=== PATIENT | female | born 1950 | race Caucasian/White ===

== ENCOUNTER → 2017-03-18 | Outpatient (CLI) | payer OTHER ==
--- NOTE | 2017-03-18 18:03 | CT ---
EXAMINATION TYPE: CT abdomen pelvis wo con DATE OF EXAM: 03/18/2017 COMPARISON: 05/14/2014 HISTORY: Left sided and Mid abdominal pain with diarrhea for a month CT DLP: 984 mGycm Automated exposure control for dose reduction was used. TECHNIQUE: Helical acquisition of images was performed from the lung bases through the pelvis. FINDINGS: Lung bases are clear of consolidation. There is no pleural effusion. Liver shows no focal defect. There is mild ectasia of the bile ducts. There are clips from cholecyste ctomy. Common bile duct measures 13 mm. Spleen appears normal. There is no pancreatic mass. There is no adrenal mass. Kidneys have normal size and contour. There is no hydronephrosis. There is atherosclerotic vascular calcification. There is no retroperitoneal adenopathy. Bladder is empty. There is left hip prosthesis. There is no evidence of pelvic mass. There is no asci arie. Appendix appears normal. I see no bony destructive process.: IMPRESSION: THERE IS CHRONICALLY DILATED BILIARY TREE THAT IS IMPROVED COMPARED TO 05/14/2014 EXAM. ATHEROSCLEROTIC VASCULAR DISEASE. NO EVIDENCE OF RENAL OBSTRUCTION. NO SIGN OF ACUTE ABDOMEN AND PELVIS.
== END | disposition home or self-care (01) ==
LOC: RADCTMAIN 16:50
PROVIDERS: ATTEND Family Medicine
DX: K83.8 Other specified diseases of biliary tract (principal); I70.0 Atherosclerosis of aorta
CPT/HCPCS: 74176

== ENCOUNTER → 2019-07-03 | Outpatient (CLI) | payer MEDICARE, OTHER ==
--- NOTE | 2019-07-03 11:21 | MM ---
Reason for exam: additional evaluation requested from prior study. Last mammogram was performed 5 years and 1 month ago. History: Patient is postmenopausal. Benign cyst aspiration of both breasts. Took hormonal contraceptives for 1 year. Physical Findings: Nurse Summary: 2 x 2cm nodule in the left breast at 12 o'clock (nurse TM). MG 3D Diag Mammo W/Cad PETRONA Bilateral CC, MLO, and LM view(s) were taken. XCCL view(s) were taken of the right breast. Prior study comparison: June 04, 2014, bilateral MG screening mammo w CAD. May 19, 2012, mammogram, performed at [facility]. The breast tissue is heterogeneously dense. This may lower the sensitivity of mammography. There is a left upper outer quadrant 3.0cm spiculated mass at anterior middle depth. Two right lower inner quadrant circumscribed masses measuring 3mm and 4mm at middle depth. Other bilateral circumscribed masses are stable back to 2013. Benign appearing bilateral calcifications. These results were verbally communicated with the patient and result sheet given to the patient on 07/03/19. ASSESSMENT: Incomplete: need additional imaging evaluation, BI-RAD 0 RECOMMENDATION: Ultrasound of both breasts. (right lower inner quadrant and left upper outer quadrant)
--- NOTE | 2019-07-03 11:24 | USB ---
Reason for exam: clinical finding. History: Patient is postmenopausal. Benign cyst aspiration of both breasts. Took hormonal contraceptives for 1 year. US Breast Limited BILAT Right limited breast ultrasound including focal area of concern, retroareolar and axilla demonstrates a 0.6 x 0.6 x 0.4cm cystic lesion at 4 o'clock and a 0.4 x 0.4 x 0.3cm cystic lesion at 5 o'clock. Correlate within mammogram, benign. Left limited breast ultrasound including focal area of concern, retroareolar and axilla demonstrates a 2.7 x 3.7 x 2.4cm spiculated, solid, hypoechoic, vascular lesion at 12 o'clock. Highly suspicious, BI-RAD 5. These results were verbally communicated with the patient and result sheet given to the patient on 07/03/19. ASSESSMENT: Highly suggestive of malignancy, BI-RAD 5 - Left RECOMMENDATION: Ultrasound core biopsy of the left breast. Called Dr. Zimmerman office with mammographic findings and has scheduled an appointment for the patient for 08/02/19 at 10:[address] Ventura. Biopsy scheduled for 07/13/19 at 9:30. PRELIMINARY REPORT CALLED AND FAXED TO DR. VENTURA ON 07/03/19.
== END | disposition home or self-care (01) ==
LOC: RADMAMWWP 08:45
PROVIDERS: ATTEND Family Medicine
DX: N63.20 Unspecified lump in the left breast, unspecified quadrant (principal); E03.9 Hypothyroidism, unspecified; E66.9 Obesity, unspecified
CPT/HCPCS: 77066; 76642; G0279; 77062

== ENCOUNTER → 2019-07-13 | Day surgery (SDC) | payer MEDICARE, OTHER ==
[2019-07-13 07:26] VITALS: RESP 16; BMI 32.8
[2019-07-13 08:54] VITALS: BP 119/77; PULSE 76; TEMP 97.9
--- NOTE | 2019-07-13 10:17 | USB ---
EXAMINATION TYPE: US biopsy breast VAD LT, MG diagnostic mammo LT wo CAD DATE OF EXAM: 07/13/2019 CLINICAL HISTORY: R92.8 Abnormal Mammogram. TECHNIQUE: Ultrasound guided core biopsy of left breast. COMPARISON: Breast ultrasound dated 07/03/2019 FINDINGS: The procedure of ultrasound guided core biopsy was explained to the patient. Benefits, alternatives, and risks were discussed. An informed consent was then obtained. Preprocedural timeout was performed. The patient was placed in supine positioning for imaging and for the procedure. The overlying skin was prepped and draped in usual sterile fashion. Lidocaine buffered with bicarbonate was used as anesthetic into the skin and subcutaneous tissue up to the highly suspicious 3.7 cm mass at the 12:00 position in the left breast. Under ultrasound guidance, a 12-gauge vacuum assisted biopsy gun device was used to obtain 7 core samples. Following this, a ribbon-shaped biopsy marker was left in the mass. Postprocedure mammogram demonstrates appropriate biopsy marker placement. The patient tolerated the procedure well without any immediate complication. The patient was kept in the radiology department for short stay after the procedure and then discharged home in stable condition. IMPRESSION: Successful, uncomplicated ultrasound guided core biopsy of area of a highly suspicious 3.7 cm mass at the 12:00 position in the left breast, full pathology results to follow. Pathology Results: Malignant LEFT BREAST, 12:00, ULTRASOUND GUIDED CORE BIOPSY: Invasive ductal carcinoma, at least grade 2 overall. See Surgical Pathology Cancer Case Summary and Comment. Recommendation Surgical consult of the left breast. Definitive surgical/medical management. ILANAD
== END ==
LOC: RADUSWWP 06:55
PROVIDERS: ATTEND Surgery
DX: C50.812 Malignant neoplasm of overlapping sites of left female breast (principal)
CPT/HCPCS: 88305; 88342; 88341; 77065; 19083; A4648; J2001

== ENCOUNTER → 2019-07-20 | Outpatient (CLI) | payer MEDICARE, OTHER ==
[2019-07-20 16:05] VITALS: BP 138/86; PULSE 78; RESP 18; TEMP 97.6; BMI 33.3
--- NOTE | 2019-07-20 16:44 | P.GSHP ---
History of Present Illness H&P Date: 07/20/19 Chief Complaint: left breast cancer Kayy is a 68-year-old white female who had a mammogram performed on 1020 219. The mammogram revealed in the left breast a 3 cm spiculated mass anterior middle depth. The patient was recommended to have bilateral ultrasounds performed. On the ultrasound right breast a 0.6 x 0.4 cm cystic lesion was identified. In the left breast a 3.7 x 2.7 spiculated solid lesion was identified at the 12:00 lesion. 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 This is ER/ID positive HER-2/alpa negative. The patient states that she can feel the area which was somewhat abnormal for several months but then it seemed to grow much more rapidly and she pursued radiographic evaluation. The patient has had cyst drained in the past in her breast. She has not had any recent trauma, surgery, or infection of the breast. No abnormal nipple discharge or skin changes. Family history: mother: ? type of cancer (abdominal) father: ? type maternal uncle: ? type of cancer brother: ? cancer type Hormonal History: menarche: 11 , breast fed: no, first born at 23 menopasue: 29 took ovaries, done for bleeding BCP: 4 months hormones: none Surgical history: 1. Total abdominal hysterectomy 2. 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 Hip replacement 4. Cholecystectomy 5. Exploratory laparotomy on multiple occasions 6. Colonoscopy and endoscopy is 7. Pulmonary arterial hypertension Medical History: 1. 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 Zimmerman 2. Thyroid radiated hypothyroid Social History: smoke: none alcohol: none drugs: none - Constitutional Constitutional: Denies chills, Denies fever - EENT Eyes: bilateral blurred vision, denies pain Ears: bilateral: decreased hearing, deny: tinnitus Ears, nose, mouth and throat: Denies headache, Denies sore throat - Breasts Breasts: bilateral: as per HPI - Cardiovascular Cardiovascular: Denies chest pain, Denies shortness of breath - Respiratory Respiratory: Denies cough, Denies 7 - Gastrointestinal Comment: liver transplant - Genitourinary (Female) Genitourinary: Denies dysuria, Denies hematuria - Menstruation Menstruation: Reports post hysterectomy - Musculoskeletal Comment: arthritis Musculoskeletal: Reports myalgias - Integumentary Integumentary: Denies pruritus, Denies rash - Neurological Neurological: Reports weakness, Denies numbness - Psychiatric Psychiatric: Reports anxiety, Denies depression - Endocrine Comment: hypothyroid - Hematologic/Lymphatic Comment: baby aspirin - Allergic/Immunologic Allergic/Immunologic: Reports seasonal allergies Past Medical History Past Medical History: GERD/Reflux, Liver Disease, Osteoarthritis (OA), Thyroid Disorder Additional Past Medical History / Comment(s): CIRRHOSIS WITH LIVER TRANSPLANT (2011), HX OF FX ARM, RIGHT SHOULDER AND LEFT HIP WITH PAIN History of Any Multi-Drug Resistant Organisms: None Reported Past Surgical History: Cholecystectomy, Heart Catheterization With Stent, Hysterectomy Additional Past Surgical History / Comment(s): liver transplant (2011), STATES HEART STENT INSERTED FOR PULMONARY HYPERTENSION WHERE SHE RECEIVED MEDICATION AND THE STENT WAS REMOVED WHEN SHE HAD HER LIVER TRANSPLANT. THYROID SURGERY Past Anesthesia/Blood Transfusion Reactions: Previous Problems w/ Anesthesia Additional Past Anesthesia/Blood Transfusion Reaction / Comment(s): STATES LAST COLONOSCOPY SHE COULD FEEL EVERYTHING BUT COULD NOT SPEAK TO TELL THEM SHE WAS AWAKE. 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 Date of Last Stent Placement:: 05/02/2011 Past Psychological History: Anxiety Smoking Status: Former smoker Past Alcohol Use History: None Reported Additional Past Alcohol Use History / Comment(s): QUIT SMOKING APPROX 2009, SMOKED 1 PPD . STARTED SMOKING AGE 19. Past Drug Use History: None Reported - Past Family History Mother Family Medical History: Cancer Father Family Medical History: Cancer Brother(s) Family Medical History: Cancer Medications and Allergies Home Medications Medication Instructions Recorded Confirmed Type Atorvastatin [Lipitor] 10 mg PO DAILY 04/11/16 07/13/19 History DULoxetine HCL [Cymbalta] 20 mg PO DAILY@1800 04/11/16 07/13/19 History Levothyroxine Sodium [Synthroid] 100 mcg PO DAILY 04/11/16 07/13/19 History Tacrolimus [Prograf] 0.5 mg PO Q12H 04/11/16 07/13/19 History Zolpidem [Ambien] 10 mg PO HS PRN #7 tab 04/15/16 07/13/19 Rx Aspirin [Adult Low Dose Aspirin EC] 81 mg PO DAILY 07/18/17 07/13/19 History Ranitidine HCl [Zantac] 150 mg PO BID 07/18/17 07/13/19 History Alendronate Sodium [Fosamax] 70 mg PO WEEKLY 07/19/17 07/13/19 History Multivitamin,Therapeutic [Thera] 1 each PO DAILY 07/09/19 07/13/19 History Vitamin B Complex 1 each PO DAILY 07/20/19 07/20/19 History Allergies Allergy/AdvReac Type Severity Reaction Status Date / Time No Known Allergies Allergy Verified 07/20/19 16:05 Surgical - Exam Vital Signs Temp Pulse Resp BP Pulse Ox 97.6 F 78 18 138/86 93 L 07/20/19 16:02 07/20/19 16:02 07/20/19 16:02 07/20/19 16:02 07/20/19 16:02 BMI 33.3 - General well developed, well nourished, no distress - Eyes normal ocular movement - ENT no hearing loss, no congestion - Neck no masses, trachea midline - Respiratory normal expansion, normal respiratory effort, clear to auscultation - Cardiovascular Rhythm: regular Heart Sounds: normal: S1, S2 - Abdomen Abdomen: soft, non tender, no guarding, no rigid, no rebound - Integumentary normal turgor - Neurologic no disoriented, no combative - Musculoskeletal normal gait, normal posture - Psychiatric oriented to time, oriented to person, oriented to place, speech is normal, memory intact breast exam: right breast: multipositional exam no dominate masses or nodules of concern, fibrocystic changes right axilla: no adenopathy of concern left breast: 3 cm firm mass o'clock position left breast, fibrocystic changes, otherwise no dominant masses or nodules of concern, mild dimpling at the 12 o'clock position Left axilla: No adenopathy of concern Results Mammogram and ultrasound results reviewed Assessment and Plan Assessment: Impression: 1. Biopsy-proven left breast cancer approximately 2.7 cm in size 2. Fibrocystic disease 3. Family history of cancer 4. Personal history of liver transplant on tacrolimus 5. Arthritis Plan: 1. Discusse with medical oncology patient would be a candidate for chemotherapy neoadjuvant 2. discuss surgical options with the patient, lumpectomy versus mastectomy plus or minus reconstruction, sentinel node biopsy possible axillary noticed that patient 3. Present case at tumor board 4. medical clearance Discussed surgical options. The patient would prefer an attempt at lumpectomy if possible. She understands risks and benefits which include bleeding infection reaction to the anesthetic. She also includes that if margins are positive this may necessitate a mastectomy. Secondary to her liver transplant she is not interested in plastic surgery with reconstruction. She would have a mastectomy if margins were positive. Cc: Dr. Brock Zimmerman Time with Patient: Greater than 30 (discussion regarding treatment options and liver transplant immune supression)
== END ==
LOC: WWCWWP 15:34
PROVIDERS: ATTEND Surgery
DX: Z53.9 Procedure and treatment not carried out, unspecified reason (principal)

== ENCOUNTER → 2019-08-03 | Outpatient (CLI) | payer MEDICARE, OTHER ==
[2019-08-03 09:58] VITALS: BP 133/78; PULSE 75; RESP 18; TEMP 98.1; BMI 33.5
--- NOTE | 2019-08-03 11:17 | P.PN ---
Progress Note - Text Progress Note Date: 08/03/19 Kayy is a 68-year-old white female who had a mammogram performed on 1020 219. The mammogram revealed in the left breast a 3 cm spiculated mass anterior middle depth. The patient was recommended to have bilateral ultrasounds performed. On the ultrasound right breast a 0.6 x 0.4 cm cystic lesion was identified. In the left breast a 3.7 x 2.7 spiculated solid lesion was identified at the 12:00 lesion. 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 This is ER/TX positive HER-2/alpa negative. The patient states that she can feel the area which was somewhat abnormal for several months but then it seemed to grow much more rapidly and she pursued radiographic evaluation. The patient has had cyst drained in the past in her breast. She has not had any recent trauma, surgery, or infection of the breast. No abnormal nipple discharge or skin changes. Oncotype study was performed via Dr. Flowers's office. The results returned with insufficient tissue for evaluation. The patient's case was discussed with Dr. Floewrs and it was felt that we should proceed with surgical treatment prior to neoadjuvant therapy. The patient and her daughter understand as well. Family history: mother: ? type of cancer (abdominal) father: ? type maternal uncle: ? type of cancer brother: ? cancer type Hormonal History: menarche: 11 , breast fed: no, first born at 23 menopasue: 29 took ovaries, done for bleeding BCP: 4 months hormones: none Surgical history: 1. Total abdominal hysterectomy 2. 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 Hip replacement 4. Cholecystectomy 5. Exploratory laparotomy on multiple occasions 6. Colonoscopy and endoscopy is 7. Pulmonary arterial hypertension Medical History: 1. 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 Zimmerman 2. Thyroid radiated hypothyroid Social History: smoke: none alcohol: none drugs: none - Constitutional Constitutional: Denies chills, Denies fever - EENT Eyes: bilateral blurred vision, denies pain Ears: bilateral: decreased hearing, deny: tinnitus Ears, nose, mouth and throat: Denies headache, Denies sore throat - Breasts Breasts: bilateral: as per HPI - Cardiovascular Cardiovascular: Denies chest pain, Denies shortness of breath - Respiratory Respiratory: Denies cough, Denies 7 - Gastrointestinal Comment: liver transplant - Genitourinary (Female) Genitourinary: Denies dysuria, Denies hematuria - Menstruation Menstruation: Reports post hysterectomy - Musculoskeletal Comment: arthritis Musculoskeletal: Reports myalgias - Integumentary Integumentary: Denies pruritus, Denies rash - Neurological Neurological: Reports weakness, Denies numbness - Psychiatric Psychiatric: Reports anxiety, Denies depression - Endocrine Comment: hypothyroid - Hematologic/Lymphatic Comment: baby aspirin - Allergic/Immunologic Allergic/Immunologic: Reports seasonal allergies Past Medical History Past Medical History: GERD/Reflux, Liver Disease, Osteoarthritis (OA), Thyroid Disorder Additional Past Medical History / Comment(s): CIRRHOSIS WITH LIVER TRANSPLANT (2011), HX OF FX ARM, RIGHT SHOULDER AND LEFT HIP WITH PAIN History of Any Multi-Drug Resistant Organisms: None Reported Past Surgical History: Cholecystectomy, Heart Catheterization With Stent, Hyst erectomy Additional Past Surgical History / Comment(s): liver transplant (2011), STATES HEART STENT INSERTED FOR PULMONARY HYPERTENSION WHERE SHE RECEIVED MEDICATION AND THE STENT WAS REMOVED WHEN SHE HAD HER LIVER TRANSPLANT. THYROID SURGERY Past Anesthesia/Blood Transfusion Reactions: Previous Problems w/ Anesthesia Additional Past Anesthesia/Blood Transfusion Reaction / Comment(s): STATES LAST COLONOSCOPY SHE COULD FEEL EVERYTHING BUT COULD NOT SPEAK TO TELL THEM SHE WAS AWAKE. 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 Date of Last Stent Placement:: 05/02/2011 Past Psychological History: Anxiety Smoking Status: Former smoker Past Alcohol Use History: None Reported Additional Past Alcohol Use History / Comment(s): QUIT SMOKING APPROX 2009, SMOKED 1 PPD . STARTED SMOKING AGE 19. Past Drug Use History: None Reported - Past Family History Mother Family Medical History: Cancer Father Family Medical History: Cancer Brother(s) Family Medical History: Cancer Physical exam: Lungs: Clear Heart: Regular rate and rhythm Left breast lesion noted at 12 o'clock position approximately 4 cm in size with some skin dimpling Impression: 1. left breast cancer 2. Fibrocystic breast disease 3. Family history of cancer 4. Personal history of liver transplant on tacrolimus 5. Arthritis Plan: 1. Oncotype DX was insufficient tissue after discussion with medical oncology will proceed with surgery 2. Patient wishes attempt at lumpectomy she understands risks and benefits and the possibility if this is positive margins we would proceed with reexcision and/or mastectomy, she understands sentinel node biopsy possible axillary node dissection 3. Was still present case at tumor board 4. Medical clearance 30 minutes spent with patient and daughter discussion again risks and benefits and surgical options.
== END ==
LOC: WWCWWP 09:39
PROVIDERS: ATTEND Surgery
DX: Z53.9 Procedure and treatment not carried out, unspecified reason (principal)

== ENCOUNTER 2019-08-29 08:52 | Day surgery (SDC) | payer MEDICARE, OTHER ==
[2019-08-27 16:19] VITALS: BMI 33.5
[~2019-08-29 08:52] MED LIST: DEXAMETHASONE SOD PHOSPHATE 10 MG/ML 1 ML VIAL IV ONE; HEPARIN SODIUM,PORCINE 5,000 UNIT/ML 1 ML VIAL SQ ONE; HYDROmorphone 0.5 MG/0.5 ML SYRINGE IVP PRN; LACTATED RINGERS 1,000 ML IV SCH; MIDAZOLAM 2 MG/2 ML VIAL IV PRN; ONDANSETRON 4 MG/2 ML VIAL IVP ONE; Pre Op ABX Message 1 EACH MISC MISCELLANE ONE
[2019-08-29] MEDS ORDERED: ALPRAZolam 0.25 MG TAB PO ONE ×2 (09:30)
[2019-08-29] MEDS ORDERED: LIDOCAINE 1% 20 ML VIAL (10MG/ML) FOR IV START SQ ONE (10:40)
--- NOTE | 2019-08-29 11:06 | NM ---
EXAMINATION TYPE: NM sentinel node injection DATE OF EXAM: 08/29/2019 COMPARISON: NONE HISTORY: Left-sided breast cancer. TECHNIQUE AND FINDINGS: The procedure of sentinel lymph node injection was explained to the patient. The benefits, alternatives, and risks were discussed. An informed consent was then obtained. Overlying skin is cleaned with sterile alcohol. Following this, 484 uCi [id number] Tilmanocept was inject ed in the upper outer aspect of the left nipple intradermally. The patient tolerated the procedure well without any immediate complication. The patient was kept in the radiology department for short stay after the procedure and then taken to surgery for surgical p rocedure what is presumed intraoperative gamma probe will be used for sentinel lymph node detection. IMPRESSION: Left breast radiotracer injection for sentinel node localization as above.
[2019-08-29] MEDS ORDERED: MIDAZOLAM 2 MG/2 ML VIAL ONE (12:14)
[2019-08-29] MEDS ORDERED: LIDOCAINE 1% INJ 10MG/ML (20 ML MDV) ONE (12:14)
[2019-08-29] MEDS ORDERED: HYDROmorphone (PF) 1 MG/ML ONE (12:14)
[2019-08-29] MEDS ORDERED: SUCCINYLCHOLINE CHLORIDE 100 MG/5 ML SYR IV ONE (12:14)
[2019-08-29] MEDS ORDERED: PROPOFOL 10 MG/ML 20 ML VIAL IV ONE (12:14)
[2019-08-29] MEDS ORDERED: fentaNYL (PF) 50 MCG/ML 2 ML AMP ONE (12:14)
[2019-08-29] MEDS ORDERED: LIDOCAINE (PF) 10 MG/ML 2 ML VIAL SQ ONE (12:59)
--- NOTE | 2019-08-29 14:29 | P.DS ---
Providers Attending physician: Candie Garza Primary care physician: Brock Zimmerman Plan - Discharge Summary Discharge Rx Participant: Yes New Discharge Prescriptions: No Action Tacrolimus [Prograf] 0.5 mg PO Q12H Levothyroxine Sodium [Synthroid] 100 mcg PO DAILY DULoxetine HCL [Cymbalta] 20 mg PO DAILY@1800 Atorvastatin [Lipitor] 10 mg PO DAILY Zolpidem [Ambien] 10 mg PO HS PRN #7 tab PRN Reason: Insomnia Ranitidine HCl [Zantac] 150 mg PO BID Aspirin [Adult Low Dose Aspirin EC] 81 mg PO DAILY Alendronate Sodium [Fosamax] 70 mg PO WEEKLY Multivitamin,Therapeutic [Thera] 1 each PO DAILY Vitamin B Complex 1 each PO DAILY Discharge Medication List Atorvastatin [Lipitor] 10 mg PO DAILY 04/11/16 [History] DULoxetine HCL [Cymbalta] 20 mg PO DAILY@1800 04/11/16 [History] Levothyroxine Sodium [Synthroid] 100 mcg PO DAILY 04/11/16 [History] Tacrolimus [Prograf] 0.5 mg PO Q12H 04/11/16 [History] Zolpidem [Ambien] 10 mg PO HS PRN #7 tab 04/15/16 [Rx] Aspirin [Adult Low Dose Aspirin EC] 81 mg PO DAILY 07/18/17 [History] Ranitidine HCl [Zantac] 150 mg PO BID 07/18/17 [History] Alendronate Sodium [Fosamax] 70 mg PO WEEKLY 07/19/17 [History] Multivitamin,Therapeutic [Thera] 1 each PO DAILY 07/09/19 [History] Vitamin B Complex 1 each PO DAILY 07/20/19 [History] Follow up Appointment(s)/Referral(s): Candie Garza MD [STAFF PHYSICIAN] - 10 Days Activity/Diet/Wound Care/Special Instructions: do not drive for 24 hours after discharge, do not drive if taking norco may shower after 48 hours wear bra at all times Discharge Disposition: HOME SELF-CARE
[2019-08-29] MEDS ORDERED: LACTATED RINGERS 1,000 ML IV ONE (14:30)
--- NOTE | 2019-08-29 14:47 | MM ---
EXAM: Needle localization with wire placement. CLINICAL HISTORY: Biopsy-proven cancer left breast. TECHNIQUE: Needle localization with wire placement and surgical excision of area of concern in the left breast. COMPARISON: Prior mammogram and ultrasound July 13, 2019 and older studies. FINDINGS: The procedure of needle localization with wire placement and than surgical excision was explained to the patient. Benefits, alternatives, and risks were discussed. An informed consent was then obtained. Ultrasound guidance as the mass lesion is well seen on ultrasound.. The overlying skin was prepped and draped in usual sterile fashion. Lidocaine is used as anesthetic into the skin. Lidocaine with epinephrine was used as anesthetic into the deeper tissue up to the level of area of concern. A 5 cm needle was used. It was placed via under ultrasound guidance via lateral approach. At this point, wire was placed and the needle was withdrawn. The wire was fixed to patient's skin. Postprocedure mammogram performed with Images then marked for surgeon. Case reviewed with surgeon prior to patient going to operating room. The patient tolerated the procedure well without any immediate complication. The patient was kept in the radiology department for short stay after the procedure and then taken to surgery for surgical excision. Targeted biopsy clip and wire are identified in specimen mammogram. The patient was kept in hospital for short stay after the procedure and then discharged home in stable condition. IMPRESSION: Successful, uncomplicated needle localization with wire placement and surgical excision of targeted biopsy clip through biopsy-proven neoplasm in the left breast, full pathology results to follow. Pathology Results: Malignant A. LEFT BREAST, LUMPECTOMY: Infiltrating ductal adenocarcinoma, [place] grade 2, measuring 30 x 26 x 12 mm. See note. The posterior purple inked margin of excision is approximately 0.1 mm away from DCIS (block A8). B. SENTINEL LYMPH NODE, BIOPSY: Positive for a subcapsular metastatic focus of adenocarcinoma measuring 4 mm in greatest dimension, as documented on H+E as well as appropriately controlled immunohistochemical studies for AURE and cytokeratin 7. C. LYMPH NODES, REGIONAL DISSECTION: Three lymph nodes partially replaced by fat - negative for involvement of metastatic adenocarcinoma. D. LEFT BREAST SKIN SCAR, RESECTION: Benign skin - negative for involvement by carcinoma. E. NEW INFERIOR MARGIN OF RESECTION: Focal atypical duct hyperplasia involving the green inked new margin of excision. Recommendation Surgical consult of the left breast. Definitive surgical/medical management. [facility]
[2019-08-29 15:10] VITALS: TEMP 96.8
[2019-08-29 15:30] VITALS: RESP 16
[2019-08-29 16:07] VITALS: BP 144/83; PULSE 97
--- NOTE | 2019-08-29 17:02 | P.NAPBC ---
NAPBC Queries - NAPBC Queries Was patient's case review presented at [facility] tumor board? If no, comment.: Yes Was patient's pathology reviewed at [facility]? If no, comment.: Yes Was breast conservation surgery offered? If no, comment.: Yes Was sentinel node biopsy offered? If no, comment.: Yes Was diagnosis confirmed by percutaneous core biopsy? If no, comment.: Yes Is patient mastectomy patient?: No Was a preop referral to reconstructive surgeon offered?: No Clinical Stage: IB [id number] ER+ [place]+ Her2-G2
--- NOTE | 2019-08-29 17:20 | P.OP ---
Date of Procedure: 08/29/19 Preoperative Diagnosis: left breast cancer, stage IB Postoperative Diagnosis: same Procedure(s) Performed: left breast sentinel node biopsy, doughnut mastopexy eccentric, tissue transfer, Needle localization and lumpectomy Anesthesia: KAPIL Surgeon: Candie Garza Estimated Blood Loss (ml): 30 IV fluids (ml): 900 Pathology: other (sentinal node, breast tissue) Condition: stable Disposition: same day Indications for Procedure: left breast cancer Operative Findings: mass left breast at 12:00, dense breast tissue Description of Procedure: Kayy is a 68-year-old white female who was diagnosed with a left breast cancer by core biopsy. Of significance is the fact that she is on tacrolimus for a liver transplant. The patient was cleared for surgery. She was seen by medical oncology and was recommended to undergo surgery prior to any neoadjuvant therapy. The tumor is ER/ID positive and HER-2 negative. It is stage IB. In the preoperative holding area the breasts were evaluated. She is noted to have grade 2/3 ptosis. Surgical markings were placed. The patient understands that the breast will be asymmetric following the procedure however a symmetry procedure will not be performed until after the patient has radiation therapy. The patient was taken to the operating area and following induction of anesthesia the left breast and axilla were prepped and draped in a sterile fash ion. The axilla was approached initially. Utilizing the neoprobe the area of greatest radioactivity was identified. An incision was made through the skin and subcutaneous tissue. The axillary area was approached. The area of greatest radioactivity was grasped using an Allis clamp and dissection was performed using the Harmonic scalpel. This area was removed. Radioactivity was evaluated and the radioactive count of the node was noted to be 22,053 at 10 seconds. The background radioactive count was approximately 28. The wound was well irrigated. After we were assured that hemostasis was attained deep 3-0 Vicryl sutures were placed. The skin was closed using a running Monocryl suture. The breast was then approached. A 50 mm areolar circular marker, WorkThink cutter was used to nicola the boundary of the new areola. An incision was made and the skin was scored. A second incision was made around the nipple areolar complex in an eccentric fashion. The skin within this zone was de- epithelialized. A curvilinear incision was made within the de-epithelialized zone adjacent to the planned partial mastectomy. Dissection was then performed in the anterior mammillary fascial plane towards the target lesion. Circumferential dissection around the target lesion was performed. The specimen was removed and painted for orientation. Anteriorly full-thickness skin over the tumor as well as some of the de-epithelialized tissue anteriorly was removed. This resulted in full thickness anterior skin resection over the lesion. Posteriorly dissection was carried to the pectoralis major muscle. Specimen radiograph confirmed the target and needed margins were removed. Additional inferior margin was taken. The wound was irrigated. Hemostasis was secured and surgical clips were placed to nicola the tumor bed. These were titanium clips. Next dissection was performed within the deep layer of the breast along the pectoralis major muscle. dissection was also performed in the anterior mammary fascial plane. Approximately 50 mL of tissue was dissected along these planes to mobilize the glandular breast tissue to allow for repair of the defect from the partial mastectomy. This is including both the right and left pillars. The defect was then closed in a akak-ee-eugh fashion using 3-0 Vicryl suture. This allowed for reshaping of the breast mound to repair the defect. The skin was then closed using 5-0 [place] in a pursestring fashion to decrease the size of the skin defect. The nipple areolar complex was reapproximated using 4-0 Monocryl running suture. Steri-Strips were applied. All instrument and sponge counts were correct at the end of the case. The patient tolerated the procedure in stable condition.
== END 2019-08-29 16:13 | disposition home or self-care (01) ==
LOC: OR 08:52
PROVIDERS: ATTEND Surgery
DX: C50.412 Malignant neoplasm of upper-outer quadrant of left female breast (principal); Z79.82 Long term (current) use of aspirin; Z79.899 Other long term (current) drug therapy; E78.5 Hyperlipidemia, unspecified; E07.9 Disorder of thyroid, unspecified; K21.9 Gastro-esophageal reflux disease without esophagitis; Z79.890 Hormone replacement therapy; F41.9 Anxiety disorder, unspecified; Z94.4 Liver transplant status; Z17.0 Estrogen receptor positive status [ER+]
CPT/HCPCS: 19301; 19285; 38500; 88305; 88342; 88307; 88341; 77065; 76098; 38792; A9520; J2250; J1644; J1100; J2405; J2001; J3010; J1170 ×2; J0330; J2704

== ENCOUNTER → 2019-09-19 | Outpatient (CLI) | payer MEDICARE, OTHER ==
[2019-09-19 14:21] VITALS: BP 138/83; PULSE 66; RESP 18; TEMP 97.8
--- NOTE | 2019-09-19 14:50 | P.PN ---
Progress Note - Text Progress Note Date: 09/19/19 Kayy is a 68-year-old white female status post left breast lumpectomy and sentinel biopsy on [id number]. Pathology revealed margins to be negative from the lumpectomy with a close posterior margin for DCIS. Posteriorly dissection was carried down to the pectoralis major muscle. The patient had a sentinel node which showed a subcapsular metastatic focus measuring 4 mm. She is going to follow with radiation oncology and medical oncology. The patient at this time has no complaints. Physical exam: Lungs: Clear Heart: Regular rate and rhythm Incision: Clean and dry axillary as well as in the breast No evidence of any infection Impression: Patient status post left breast lumpectomy and sentinel node biopsy 2. Margins negative/4 mm deposit and sentinel lymph node 3 other lymph nodes negative Plan: 1. Appointment radiation oncology radiation of the axilla as well 2. Appointment medical oncology 3. Continue home medications related to liver transplant and other medical conditions 4. Follow-up here in 3 months CC: Dr. Zimmerman
== END | disposition home or self-care (01) ==
LOC: WWCWWP 14:00
PROVIDERS: ATTEND Surgery
DX: Z53.9 Procedure and treatment not carried out, unspecified reason (principal)

== ENCOUNTER 2019-12-07 23:44 | Observation (INO) | payer MEDICARE, OTHER ==
[2019-12-07 23:56] LABS: Glucose,Whole Blood 91 mg/dL (75-99)
[2019-12-08 00:14] LABS: Basophils % (A) 1 %; Eosinophils # (A) 0.2 k/uL (0-0.7); Eosinophils % (A) 7 %; HGB 13.2 gm/dL (11.4-16.0); Lymphocytes # (A) 1.2 k/uL (1.0-4.8); Lymphocytes % (A) 34 %; MCHC 34.9 g/dL (31.0-37.0); MCV 91.9 fL (80.0-100.0); Mean Platelet Volume 9.4; Monocytes # (A) 0.3 k/uL (0-1.0); Monocytes % (A) 8 %; Neutrophils # (A) 1.5 k/uL (1.3-7.7); Neutrophils % (A) 46 %; Platelet Count 103 k/uL (150-450); RBC 4.13 m/uL (3.80-5.40); RDW 14.7 % (11.5-15.5); WBC 3.4 k/uL (3.8-10.6)
[2019-12-08 00:14] LABS: Appearance,Urine Clear (Clear); Bilirubin,Urine Negative (Negative); Blood,Urine Negative (Negative); Color,Urine Yellow; Glucose,Urine (UA) Negative (Negative); Ketones,Urine Negative (Negative); Leukocyte Esterase,Urine Negative (Negative); Nitrite,Urine Negative (Negative); PH, Urine 6.5 (5.0-8.0); Protein,Urine Negative (Negative); Specific Gravity,Urine 1.022 (1.001-1.035)
--- NOTE | 2019-12-08 00:14 | ED ---
Altered Mental Status HPI - General Chief Complaint: Altered Mental Status Stated Complaint: Altered Mental Status Time Seen by Provider: 12/07/19 23:48 Source: EMS Mode of arrival: EMS Limitations: altered mental status - History of Present Illness Initial Comments: This patient is a 69-year-old woman brought by ambulance to be evaluated for altered mental status. The patient was suspected to have taken additional antibiotic. She is prescribed Ambien for sleep and EMS brings a violent which had 30 tablets and was filled nine days ago. The patient is not able to give any additional history. MD Complaint: altered mental status, decreased responsiveness -: hour(s) Severity: severe Context: other (Suspected overdose) - Related Data Home Medications Medication Instructions Recorded Confirmed Atorvastatin [Lipitor] 10 mg PO DAILY 04/11/16 09/19/19 DULoxetine HCL [Cymbalta] 20 mg PO DAILY@1800 04/11/16 09/19/19 Levothyroxine Sodium [Synthroid] 100 mcg PO DAILY 04/11/16 09/19/19 Tacrolimus [Prograf] 0.5 mg PO Q12H 04/11/16 09/19/19 Aspirin [Adult Low Dose Aspirin EC] 81 mg PO DAILY 07/18/17 09/19/19 Ranitidine HCl [Zantac] 150 mg PO BID 07/18/17 09/19/19 Alendronate Sodium [Fosamax] 70 mg PO WEEKLY 07/19/17 09/19/19 Multivitamin,Therapeutic [Thera] 1 each PO DAILY 07/09/19 09/19/19 Vitamin B Complex 1 each PO DAILY 07/20/19 09/19/19 Previous Rx's Medication Instructions Recorded Zolpidem [Ambien] 10 mg PO HS PRN #7 tab 04/15/16 Allergies Allergy/AdvReac Type Severity Reaction Status Date / Time No Known Allergies Allergy Verified 09/19/19 14:21 Review of Systems ROS Statement: Those systems with pertinent positive or pertinent negative responses have been documented in the HPI. ROS Other: All systems not noted in ROS Statement are negative. Limitations: ROS unobtainable due to patients medical condition Past Medical History Past Medical History: GERD/Reflux, Liver Disease, Osteoarthritis (OA), Thyroid Disorder Additional Past Medical History / Comment(s): CIRRHOSIS WITH LIVER TRANSPLANT (2011), HX OF FX ARM, RIGHT SHOULDER AND LEFT HIP WITH PAIN History of Any Multi-Drug Resistant Organisms: None Reported Past Surgical History: Cholecystectomy, Heart Catheterization With Stent, Hysterectomy Additional Past Surgical History / Comment(s): liver transplant (2011), STATES HEART STENT INSERTED FOR PULMONARY HYPERTENSION WHERE SHE RECEIVED MEDICATION AND THE STENT WAS REMOVED WHEN SHE HAD HER LIVER TRANSPLANT. THYROID SURGERY Past Anesthesia/Blood Transfusion Reactions: Previous Problems w/ Anesthesia Additional Past Anesthesia/Blood Transfusion Reaction / Comment(s): STATES LAST COLONOSCOPY SHE COULD FEEL EVERYTHING BUT COULD NOT SPEAK TO TELL THEM SHE WAS AWAKE. 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 Date of Last Stent Placement:: 05/02/2011 Past Psychological History: Anxiety Smoking Status: Former smoker Past Alcohol Use History: None Reported Past Drug Use History: None Reported - Past Family History Mother Family Medical History: Cancer Father Family Medical History: Cancer Brother(s) Family Medical History: Cancer General Exam Limitations: altered mental status General appearance: obtunded Head exam: Present: atraumatic, normocephalic Eye exam: Present: PERRL. Absent: scleral icterus, conjunctival injection ENT exam: Present: normal oropharynx Neck exam: Present: normal inspection. Absent: tenderness Respiratory exam: Present: rhonchi. Absent: respiratory distress, wheezes, rales, stridor Cardiovascular Exam: Present: regular rate, normal rhythm, normal heart sounds. Absent: systolic murmur, diastolic murmur, rubs, gallop GI/Abdominal exam: Present: soft. Absent: distended, tenderness, guarding, rebound, mass Extremities exam: Present: normal inspection, normal capillary refill. Absent: pedal edema, calf tenderness Back exam: Present: normal inspection. Absent: CVA tenderness (R), CVA tenderness (L) Neurological exam: Present: altered, reflexes normal. Absent: motor sensory deficit Skin exam: Present: warm, dry, intact, normal color. Absent: rash Course Vital Signs 12/07/19 12/08/19 12/08/19 23:48 00:00 00:30 Temperature 97.7 F Pulse Rate 70 71 71 Respiratory 24 20 20 Rate Blood Pressure 120/69 99/59 121/74 O2 Sat by Pulse 96 98 99 Oximetry 12/08/19 01:00 Temperature Pulse Rate 66 Respiratory 18 Rate Blood Pressure 123/65 O2 Sat by Pulse 99 Oximetry Medical Decision Making - Medical Decision Making Patient is a 69-year-old woman brought for suspected Ambien overdose. The patient is very somnolent but is arousable with tactile stimulation. The patient is protecting airway and vital signs are stable at time of admission. Patient will be admitted to monitored bed - Lab Data Result diagrams: 12/07/19 23:50 12/07/19 23:50 Lab Results 12/07/19 12/07/19 12/07/19 Range/Units 23:50 23:50 23:50 WBC 3.4 L (3.8-10.6) k/uL RBC 4.13 (3.80-5.40) m/uL Hgb 13.2 (11.4-16.0) gm/dL Hct 38.0 (34.0-46.0) % MCV 91.9 (80.0-100.0) fL MCH 32.0 (25.0-35.0) pg MCHC 34.9 (31.0-37.0) g/dL RDW 14.7 (11.5-15.5) % Plt Count 103 L (150-450) k/uL Neutrophils % 46 % Lymphocytes % 34 % Monocytes % 8 % Eosinophils % 7 % Basophils % 1 % Neutrophils # 1.5 (1.3-7.7) k/uL Lymphocytes # 1.2 (1.0-4.8) k/uL Monocytes # 0.3 (0-1.0) k/uL Eosinophils # 0.2 (0-0.7) k/uL Basophils # 0.0 (0-0.2) k/uL PT 10.7 (9.0-12.0) sec INR 1.0 (<1.2) APTT 24.0 (22.0-30.0) sec Sodium 136 L (137-145) mmol/L Potassium 4.0 (3.5-5.1) mmol/L Chloride 108 H (98-107) mmol/L Carbon Dioxide 26 (22-30) mmol/L Anion Gap 2 mmol/L BUN 14 (7-17) mg/dL Creatinine 0.87 (0.52-1.04) mg/dL Est GFR (CKD-EPI)AfAm 80 (>60 ml/min/1.73 sqM) Est GFR (CKD-EPI)NonAf 69 (>60 ml/min/1.73 sqM) Glucose 82 (74-99) mg/dL POC Glucose (mg/dL) (75-99) mg/dL POC Glu Warehouse Stock [employer] ID Calcium 8.0 L (8.4-10.2) mg/dL Total Bilirubin 0.9 (0.2-1.3) mg/dL AST 35 (14-36) U/L ALT 17 (4-34) U/L Alkaline Phosphatase 71 (38-126) U/L Troponin I (0.000-0.034) ng/mL Total Protein 5.6 L (6.3-8.2) g/dL Albumin 3.0 L (3.5-5.0) g/dL Urine Color Urine Appearance (Clear) Urine pH (5.0-8.0) Ur Specific [place] (1.001-1.035) Urine Protein (Negative) Urine Glucose (UA) (Negative) Urine Ketones (Negative) Urine Blood (Negative) Urine Nitrite (Negative) Urine Bilirubin (Negative) Urine Urobilinogen (<2.0) mg/dL Ur Leukocyte Esterase (Negative) Urine Opiates Screen (NotDetected) Ur Oxycodone Screen (NotDetected) Urine Methadone Screen (NotDetected) Ur Propoxyphene Screen (NotDetected) Ur Barbiturates Screen (NotDetected) U Tricyclic Antidepress (NotDetected) Ur Phencyclidine Scrn (NotDetected) Ur Amphetamines Screen (NotDetected) U Methamphetamines Scrn (NotDetected) U Benzodiazepines Scrn (NotDetected) Urine Cocaine Screen (NotDetected) U Marijuana (THC) Screen (NotDetected) 12/07/19 12/07/19 12/08/19 Range/Units 23:50 23:55 00:00 WBC (3.8-10.6) k/uL RBC (3.80-5.40) m/uL Hgb (11.4-16.0) gm/dL Hct (34.0-46.0) % MCV (80.0-100.0) fL MCH (25.0-35.0) pg MCHC (31.0-37.0) g/dL RDW (11.5-15.5) % Plt Count (150-450) k/uL Neutrophils % % Lymphocytes % % Monocytes % % Eosinophils % % Basophils % % Neutrophils # (1.3-7.7) k/uL Lymphocytes # (1.0-4.8) k/uL Monocytes # (0-1.0) k/uL Eosinophils # (0-0.7) k/uL Basophils # (0-0.2) k/uL PT (9.0-12.0) sec INR (<1.2) APTT (22.0-30.0) sec Sodium (137-145) mmol/L Potassium (3.5-5.1) mmol/L Chloride (98-107) mmol/L Carbon Dioxide (22-30) mmol/L Anion Gap mmol/L BUN (7-17) mg/dL Creatinine (0.52-1.04) mg/dL Est GFR (CKD-EPI)AfAm (>60 ml/min/1.73 sqM) Est GFR (CKD-EPI)NonAf (>60 ml/min/1.73 sqM) Glucose (74-99) mg/dL POC Glucose (mg/dL) 91 (75-99) mg/dL POC Glu Warehouse Stock Clerk ID Higinio Woody Calcium (8.4-10.2) mg/dL Total Bilirubin (0.2-1.3) mg/dL AST (14-36) U/L ALT (4-34) U/L Alkaline Phosphatase (38-126) U/L Troponin I <0.012 (0.000-0.034) ng/mL Total Protein (6.3-8.2) g/dL Albumin (3.5-5.0) g/dL Urine Color Yellow Urine Appearance Clear (Clear) Urine pH 6.5 (5.0-8.0) Ur Specific [place] 1.022 (1.001-1.035) Urine Protein Negative (Negative) Urine Glucose (UA) Negative (Negative) Urine Ketones Negative (Negative) Urine Blood Negative (Negative) Urine Nitrite Negative (Negative) Urine Bilirubin Negative (Negative) Urine Urobilinogen 8.0 (<2.0) mg/dL Ur Leukocyte Esterase Negative (Negative) Urine Opiates Screen Not Detected (NotDetected) Ur Oxycodone Screen Not Detected (NotDetected) Urine Methadone Screen Not Detected (NotDetected) Ur Propoxyphene Screen Not Detected (NotDetected) Ur Barbiturates Screen Not Detected (NotDetected) U Tricyclic Antidepress Not Detected (NotDetected) Ur Phencyclidine Scrn Not Detected (NotDetected) Ur Amphetamines Screen Not Detected (NotDetected) U Methamphetamines Scrn Not Detected (NotDetected) U Benzodiazepines Scrn Not Detected (NotDetected) Urine Cocaine Screen Not Detected (NotDetected) U Marijuana (THC) Screen Detected H (NotDetected) - EKG Data -: EKG Interpreted by La EKG shows normal: sinus rhythm (With sinus arrhythmia, rate 60 bpm), axis (Normal), intervals (OK interval 180 ms, QRS duration 80 ms, both normal. QTC 491 ms, prolonged.), QRS complexes (Normal), ST-T waves (Normal) Disposition Clinical Impression: Overdose, Altered mental status Disposition: ADMITTED IP TO THIS [facility] Condition: Fair Is patient prescribed a controlled substance at d/c from ED?: No Referrals: Brock Zimmerman DO [Primary Care Provider] - 1-2 days
[2019-12-08 00:18] LABS: Total Bilirubin 0.9 mg/dL (0.2-1.3); Total Protein 5.6 g/dL (6.3-8.2)
[2019-12-08 00:21] LABS: Prothrombin Time 10.7 sec (9.0-12.0)
[2019-12-08 00:28] LABS: Amphetamine Screen,Urine Not Detected (NotDetected); Barbiturate Screen,Urine Not Detected (NotDetected); Benzodiazepines Screen,Urine Not Detected (NotDetected); Cocaine Screen,Urine Not Detected (NotDetected); Methadone Screen, Urine Not Detected (NotDetected); Opiate Screen,Urine Not Detected (NotDetected); Oxycodone Screen, Urine Not Detected (NotDetected); Phencyclidine Screen,Urine Not Detected (NotDetected); Tricyclic Antidepressant,Urine Not Detected (NotDetected); Urn Cannabinoid Scrn Detected (NotDetected)
--- NOTE | 2019-12-08 00:50 | XR ---
EXAMINATION TYPE: XR chest 1V portable DATE OF EXAM: 12/08/2019 COMPARISON: 04/11/2016 HISTORY: Altered mental status TECHNIQUE: FINDINGS: AP portable view shows some pulmonary interstitial mild edema. Heart appears enlarged. Ther e is slight blunting of the costophrenic angles bilaterally. There are chest leads. Bony thorax is in tact. IMPRESSION: Mild pulmonary edema and pleural effusions probably due to congestive heart failure that is a change compared to old exam.
--- NOTE | 2019-12-08 00:52 | CT ---
EXAMINATION TYPE: CT brain wo con DATE OF EXAM: 12/08/2019 COMPARISON: August 13, 2010 HISTORY: AMS CT DLP: 1154.4 mGycm Automated exposure control for dose reduction was used. There is some cerebral cortical atrophy. There is no mass effect nor midline shift. There is no sign of intracranial hemorrhage. The calvarium is intact. There is no evidence of cortical infarct. Skull base is intact. IMPRESSION: Cerebral atrophy and mild chronic small vessel ischemia that has progressed slightly compared to old exam. No acute intracranial abnormality.
[2019-12-08] MEDS ORDERED: NALOXONE 0.4 MG/ML 1 ML VIAL IV PRN (02:04)
[2019-12-08] MEDS ORDERED: ONDANSETRON 4 MG/2 ML VIAL IVP PRN (02:04)
[2019-12-08] MEDS: SODIUM CHLORIDE 0.9% 1,000 ML IV SCH ×3 (02:29→21:58)
[2019-12-08 12:16] VITALS: RESP 16
[2019-12-08] MEDS: TACROLIMUS 0.5 MG CAP PO SCH ×2 (13:36→21:58)
--- NOTE | 2019-12-08 13:58 | P.HPIM ---
History of Present Illness Patient the doesn't know why she is in the hospital. I was able to get the history from the nursing staff and the medical records. Patient aberrantly came to the hospital with altered mental status patient had an unintentional overdose of Ambien patient believed the patient is taking tacrolimus and did take a few pills of Ambien. Patient is still bit confused but alert oriented 2 improving will monitor her 1 more day here. Denied any fever chills dysuria. No evidence of sepsis at this time. Review of Systems REVIEW OF SYSTEMS: CONSTITUTIONAL: No fever, no malaise, no fatigue. HEENT: No recent visual problems or hearing problems. Denied any sore throat. CARDIOVASCULAR: No chest pain, orthopnea, PND, no palpitations, no syncope. PULMONARY: No shortness of breath, no cough, no hemoptysis. GASTROINTESTINAL: No diarrhea, no nausea, no vomiting, no abdominal pain. NEUROLOGICAL: No headaches, no weakness, no numbness. Does have confusion HEMATOLOGICAL: Denies any bleeding or petechiae. GENITOURINARY: Denies any burning micturition, frequency, or urgency. MUSCULOSKELETAL/RHEUMATOLOGICAL: Denies any joint pain, swelling, or any muscle pain. ENDOCRINE: Denies any polyuria or polydipsia. The rest of the 14-point review of systems is negative. Past Medical History Past Medical History: GERD/Reflux, Liver Disease, Osteoarthritis (OA), Thyroid Disorder Additional Past Medical History / Comment(s): CIRRHOSIS WITH LIVER TRANSPLANT (2011), HX OF FX ARM, RIGHT SHOULDER AND LEFT HIP WITH PAIN History of Any Multi-Drug Resistant Organisms: None Reported Past Surgical History: Cholecystectomy, Heart Catheterization With Stent, Hysterectomy Additional Past Surgical History / Comment(s): liver transplant (2011), STATES HEART STENT INSERTED FOR PULMONARY HYPERTENSION WHERE SHE RECEIVED MEDICATION AND THE STENT WAS REMOVED WHEN SHE HAD HER LIVER TRANSPLANT. THYROID SURGERY Past Anesthesia/Blood Transfusion Reactions: Previous Problems w/ Anesthesia Additional Past Anesthesia/Blood Transfusion Reaction / Comment(s): STATES LAST COLONOSCOPY SHE COULD FEEL EVERYTHING BUT COULD NOT SPEAK TO TELL THEM SHE WAS AWAKE. 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 Date of Last Stent Placement:: 05/02/2011 Past Psychological History: Anxiety Additional Psychological History / Comment(s): ANXIETY ATTACKS. Smoking Status: Former smoker Past Alcohol Use History: None Reported Additional Past Alcohol Use History / Comment(s): QUIT SMOKING APPROX 2009, SMOKED 1 PPD . STARTED SMOKING AGE 19. Past Drug Use History: None Reported Additional Drug Use History / Comment(s): OCCASIONALLY COOKS WITH MARIJUANA - Past Family History Mother Family Medical History: Cancer Father Family Medical History: Cancer Brother(s) Family Medical History: Cancer Medications and Allergies Home Medications Medication Instructions Recorded Confirmed Type Atorvastatin [Lipitor] 10 mg PO DAILY 04/11/16 12/08/19 History DULoxetine HCL [Cymbalta] 20 mg PO DAILY@1800 04/11/16 12/08/19 History Tacrolimus [Prograf] 0.5 mg PO Q12H 04/11/16 12/08/19 History Zolpidem [Ambien] 10 mg PO HS PRN #7 tab 04/15/16 12/08/19 Rx Aspirin [Adult Low Dose Aspirin EC] 81 mg PO DAILY 07/18/17 12/08/19 History Ranitidine HCl [Zantac] 150 mg PO BID 07/18/17 12/08/19 History Alendronate Sodium [Fosamax] 70 mg PO MICHAUD 07/19/17 12/08/19 History Multivitamin,Therapeutic [Thera] 1 tab PO DAILY 07/09/19 12/08/19 History Vitamin B Complex 1 cap PO DAILY 07/20/19 12/08/19 History Levothyroxine Sodium [Synthroid] 100 mcg PO DAILY 12/08/19 12/08/19 History Allergies Allergy/AdvReac Type Severity Reaction Status Date / Time No Known Allergies Allergy Verified 12/08/19 10:53 Physical Exam Vitals: Vital Signs Temp Pulse Pulse Resp BP BP Pulse Ox 12/08/19 11:40 82 16 125/66 94 L 12/08/19 08:45 97.6 F 68 12 139/80 97 12/08/19 04:00 12 114/58 96 12/08/19 02:33 63 18 123/75 100 12/08/19 02:26 97.4 F L 12 93 L 12/08/19 01:00 66 18 123/65 99 12/08/19 00:30 71 20 121/74 99 12/08/19 00:00 71 20 99/59 98 12/07/19 23:48 97.7 F 70 24 120/69 96 Intake and Output 12/07/19 12/08/19 12/08/19 22:59 06:59 14:59 Intake Total 360 Output Total 150 Balance 210 Intake: Intake, IV Titration 360 Amount Sodium Chloride 0.9% 1, 360 000 ml @ 125 mls/hr IV . Q8H [facility] Rx#:[id number] Output: Urine 150 Straight 150 Other: Voiding Method Diaper Incontinent # Voids 1 2 Weight 71.5 kg PHYSICAL EXAMINATION: GENERAL: The patient is alert and oriented x2, bit confused, not in any acute distress. Well developed, well nourished. HEENT: Pupils are round and equally reacting to light. EOMI. No scleral icterus. No conjunctival pallor. Normocephalic, atraumatic. No pharyngeal erythema. No thyromegaly. CARDIOVASCULAR: S1 and S2 present. No murmurs, rubs, or gallops. PULMONARY: Chest is clear to auscultation, no wheezing or crackles. ABDOMEN: Soft, nontender, nondistended, normoactive bowel sounds. No palpable organomegaly. MUSCULOSKELETAL: No joint swelling or deformity. EXTREMITIES: No cyanosis, clubbing, or pedal edema. NEUROLOGICAL: Gross neurological examination did not reveal any focal deficits. SKIN: No rashes. Results CBC & Chem 7: 12/07/19 23:50 12/07/19 23:50 Labs: Abnormal Lab Results - Last 24 Hours (Table) 12/07/19 12/07/19 12/08/19 Range/Units 23:50 23:50 00:00 WBC 3.4 L (3.8-10.6) k/uL Plt Count 103 L (150-450) k/uL Sodium 136 L (137-145) mmol/L Chloride 108 H (98-107) mmol/L Calcium 8.0 L (8.4-10.2) mg/dL Total Protein 5.6 L (6.3-8.2) g/dL Albumin 3.0 L (3.5-5.0) g/dL U Marijuana (THC) Screen Detected H (NotDetected) Thrombosis Risk Factor Assmnt - Choose All That Apply Any of the Below Risk Factors Present?: No Each Risk Factor Represents 2 Points: Age 61-74 years Other congenital or acquired thrombophilia - If yes, enter type in comment: No Thrombosis Risk Factor Assessment Total Risk Factor Score: 2 Thrombosis Risk Factor Assessment Level: Low Risk Assessment and Plan Plan: -Unintentional overdose of Ambien patient will be monitored here for 1 more night possibility of discharge tomorrow patient's mental status is still not very good -Toxic encephalopathy from overdose of on Ambien -Status post liver transplant on tacrolimus patient will be initiated back on this medication -Past dysphagia and reflux disease -Hypothyroidism -Coronary artery disease with stents in the past
[2019-12-08] MEDS ORDERED: DULoxetine HCL 20 MG CAPSULE.DR PO SCH (18:00)
[2019-12-08] MEDS: FAMOTIDINE 20 MG TAB PO SCH (21:58)
[2019-12-09] MEDS ORDERED: LEVOTHYROXINE 100 MCG TAB PO SCH (06:30)
[2019-12-09] MEDS ORDERED: ASPIRIN 81 MG PO SCH (09:00)
[2019-12-09] MEDS ORDERED: ATORVASTATIN 10 MG TAB PO SCH (09:00)
[2019-12-09 09:02] VITALS: BP 121/60; PULSE 60; TEMP 98
[2019-12-09] MEDS: SODIUM CHLORIDE 0.9% 1,000 ML IV SCH (09:02)
[2019-12-09] MEDS: TACROLIMUS 0.5 MG CAP PO SCH (09:03)
[2019-12-09] MEDS: FAMOTIDINE 20 MG TAB PO SCH (09:03)
--- NOTE | 2019-12-09 10:38 | P.DS ---
Providers Date of admission: 12/08/19 02:06 Attending physician: Alexy Harvey Primary care physician: Brock Zimmerman [facility] Course: Patient the doesn't know why she is in the hospital. I was able to get the history from the nursing staff and the medical records. Patient aberrantly came to the hospital with altered mental status patient had an unintentional overdose of Ambien patient believed the patient is taking tacrolimus and did take a few pills of Ambien. Patient is still bit confused but alert oriented 2 improving will monitor her 1 more day here. Denied any fever chills dysuria. No evidence of sepsis at this time. 12/09/2019 Patient the is doing much better today alert oriented 3 no overnight events. Patient will be discharged today Ambien will be discontinued. PHYSICAL EXAMINATION: GENERAL: The patient is alert and oriented x3, not in any acute distress. Well developed, well nourished. HEENT: Pupils are round and equally reacting to light. EOMI. No scleral icterus. No conjunctival pallor. Normocephalic, atraumatic. No pharyngeal erythema. No thyromegaly. CARDIOVASCULAR: S1 and S2 present. No murmurs, rubs, or gallops. PULMONARY: Chest is clear to auscultation, no wheezing or crackles. ABDOMEN: Soft, nontender, nondistended, normoactive bowel sounds. No palpable organomegaly. MUSCULOSKELETAL: No joint swelling or deformity. EXTREMITIES: No cyanosis, clubbing, or pedal edema. NEUROLOGICAL: Gross neurological examination did not reveal any focal deficits. SKIN: No rashes. Assessment and Plan Plan: -Unintentional overdose of Ambien -Toxic encephalopathy from overdose of on Ambien -Status post liver transplant on tacrolimus patient will be initiated back on this medication -Past dysphagia and reflux disease -Hypothyroidism -Coronary artery disease with stents in the past Patient Condition at Discharge: Fair Plan - Discharge Summary Discharge Rx Participant: Yes New Discharge Prescriptions: Continue Tacrolimus [Prograf] 0.5 mg PO Q12H DULoxetine HCL [Cymbalta] 20 mg PO DAILY@1800 Atorvastatin [Lipitor] 10 mg PO DAILY Ranitidine HCl [Zantac] 150 mg PO BID Aspirin [Adult Low Dose Aspirin EC] 81 mg PO DAILY Alendronate Sodium [Fosamax] 70 mg PO MICHAUD Multivitamin,Therapeutic [Thera] 1 tab PO DAILY Vitamin B Complex 1 cap PO DAILY Levothyroxine Sodium [Synthroid] 100 mcg PO DAILY Discontinued Zolpidem [Ambien] 10 mg PO HS PRN #7 tab PRN Reason: Insomnia Discharge Medication List Atorvastatin [Lipitor] 10 mg PO DAILY 04/11/16 [History] DULoxetine HCL [Cymbalta] 20 mg PO DAILY@1800 04/11/16 [History] Tacrolimus [Prograf] 0.5 mg PO Q12H 04/11/16 [History] Aspirin [Adult Low Dose Aspirin EC] 81 mg PO DAILY 07/18/17 [History] Ranitidine HCl [Zantac] 150 mg PO BID 07/18/17 [History] Alendronate Sodium [Fosamax] 70 mg PO MICHAUD 07/19/17 [History] Multivitamin,Therapeutic [Thera] 1 tab PO DAILY 07/09/19 [History] Vitamin B Complex 1 cap PO DAILY 07/20/19 [History] Levothyroxine Sodium [Synthroid] 100 mcg PO DAILY 12/08/19 [History] Follow up Appointment(s)/Referral(s): Brock Zimmerman DO [Primary Care Provider] - 3 Days Patient Instructions/Handouts: Zolpidem (By mouth), Adult Overdose (ED) Activity/Diet/Wound Care/Special Instructions: Never take pills directly from a medication bottle. Set up a weekly pill box and take your medications at the same time every day. Discharge Disposition: HOME SELF-CARE
== END 2019-12-09 12:39 | disposition home or self-care (01) ==
LOC: EC 23:44 → 3SCARD 12-08 02:06
PROVIDERS: ADMIT Hospitalist; ATTEND Hospitalist
DX: T42.6X1A Poisoning by other antiepileptic and sedative-hypnotic drugs, accidental (unintentional), initial encounter (principal); G92 Toxic encephalopathy; Z94.4 Liver transplant status; R13.10 Dysphagia, unspecified; K21.9 Gastro-esophageal reflux disease without esophagitis; E03.9 Hypothyroidism, unspecified; F41.9 Anxiety disorder, unspecified; M19.90 Unspecified osteoarthritis, unspecified site; I25.10 Atherosclerotic heart disease of native coronary artery without angina pectoris; Z79.82 Long term (current) use of aspirin; Z79.83 Long term (current) use of bisphosphonates; Z79.890 Hormone replacement therapy; Z79.899 Other long term (current) drug therapy; Z87.19 Personal history of other diseases of the digestive system; Z95.5 Presence of coronary angioplasty implant and graft; Z87.81 Personal history of (healed) traumatic fracture; Z90.49 Acquired absence of other specified parts of digestive tract; Z90.710 Acquired absence of both cervix and uterus; Z87.891 Personal history of nicotine dependence; Z80.9 Family history of malignant neoplasm, unspecified
CPT/HCPCS: 96360; 96361; 99285; 36415; 93005; 80053; 84484; 85025; 85610; 85730; 81003; 80306; 71045; 70450; G0378 ×2

== ENCOUNTER → 2020-07-04 | Outpatient (CLI) | payer MEDICARE, OTHER ==
--- NOTE | 2020-07-08 10:05 | MM ---
Reason for exam: additional evaluation requested from prior study. Last mammogram was performed 1 year ago. History: Patient is postmenopausal and has history of breast cancer at age 68. Malignant MG pre op needle loc LT of the left breast, August 29, 2019. Malignant US breast localization LT, August 29, 2019. Lumpectomy of the left breast, August 29, 2019. Malignant US biopsy breast VAD LT of the left breast, July 13, 2019. Benign cyst aspiration of both breasts. Took hormonal contraceptives for 1 year. Physical Findings: Nurse did not find any significant physical abnormalities on exam. MG 3D Diag Mammo W/Cad PETRONA Bilateral CC and MLO view(s) were taken. Prior study comparison: July 13, 2019, left breast MG diagnostic mammo LT wo CAD. July 03, 2019, bilateral MG 3d diag mammo w/cad PETRONA. The breast tissue is heterogeneously dense. This may lower the sensitivity of mammography. Post surgical change left breast iwth a large mass, probable seroma. Right 5-6 o'clock nodularity slightly increased in size. These results were verbally communicated with the patient and result sheet given to the patient on 07/04/20. ASSESSMENT: Incomplete: need additional imaging evaluation, BI-RAD 0 RECOMMENDATION: Ultrasound of both breasts.
--- NOTE | 2020-07-08 10:08 | USB ---
Reason for exam: additional evaluation requested from abnormal screening. History: Patient is postmenopausal and has history of breast cancer at age 68. Malignant MG pre op needle loc LT of the left breast, August 29, 2019. Malignant US breast localization LT, August 29, 2019. Lumpectomy of the left breast, August 29, 2019. Malignant US biopsy breast VAD LT of the left breast, July 13, 2019. Benign cyst aspiration of both breasts. Took hormonal contraceptives for 1 year. US Breast BILAT Technologist: Melissa Cowan Right complete breast ultrasound includes all four quadrants, the retroareolar region and axilla. Finding demonstrates a 0.7 x 0.7 x 0.5cm cystic cluster at 5 o'clock, benign but slightly larger, mammographic correlate, a 0.5 x 0.5 x 0.4cm cystic lesion at 6 o'clock and a 0.4 x 0.3 x 0.2cm cystic lesion at 9 o'clock. Left complete breast ultrasound includes all four quadrants, the retroareolar region and axilla. Finding demonstrates a 6.0 x 6.5 x 3.0cm cystic lesion at the posterior nipple/12 o'clock, internal moving echoes. These results were verbally communicated with the patient and result sheet given to the patient on 07/04/20. ASSESSMENT: Benign, BI-RAD 2 RECOMMENDATION: Surgical consultation of the left breast. (for large seroma, drainage or excision can be considered if symptomatic) Called office with mammographic findings and has scheduled an appointment for the patient for 07/24/20 at 3:[address] Garza. PRELIMINARY REPORT CALLED AND FAXED TO DR. GARZA ON 07/08/20. Follow-up diagnostic mammogram of the left breast in 6 months.
== END | disposition home or self-care (01) ==
LOC: RADMAMWWP 10:06
PROVIDERS: ATTEND Radiology Radiation Oncology
DX: C50.812 Malignant neoplasm of overlapping sites of left female breast (principal); R92.8 Other abnormal and inconclusive findings on diagnostic imaging of breast; Z17.0 Estrogen receptor positive status [ER+]
CPT/HCPCS: 77066; 76641; G0279; 77062

== ENCOUNTER → 2020-07-24 | Outpatient (CLI) | payer MEDICARE, OTHER ==
[2020-07-24 15:19] VITALS: BP 116/74; PULSE 80; RESP 18; TEMP 97.7
--- NOTE | 2020-07-24 16:05 | P.PN ---
Subjective Progress Note Date: 07/24/20 Principal diagnosis: [id number]+ID+Her2-G2 Stage IIA Kayy is a 69-year-old white female who had a mammogram performed on [id number]. The mammogram revealed in the left breast a 3 cm spiculated mass anterior middle depth. The patient was recommended to have bilateral ultrasounds performed. On the ultrasound right breast a 0.6 x 0.4 cm cystic lesion was identified. In the left breast a 3.7 x 2.7 spiculated solid lesion was identified at the 12:00 lesion. 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 This is ER/ID positive HER-2/alpa negative. She underwent a left breast lumpectomy and sentinel node biopsy in [id number]. Pathology revealed margins to be negative from the lumpectomy with a close posterior margin for DCIS. The patient posteriorly had dissection carried to the pectoralis major muscle. She had a sentinel node which showed a subcapsular metastatic focus measuring 4 mm. She underwent radiation therapy finishing on 12-26-19, and is on endocrine therapy. She had a bilateral mammogram performed on which was felt to be incomplete an ultrasound of both breasts recommended. The ultrasound was performed on the same day. Nothing of concern was noted in the right breast in the left breast there was a large seroma at the lumpectomy site. The patient complains of pain in the left breast. She states it extends from the area of the axilla to the center of the breast she notes it in the evenings. She states that also feels like it gets swollen and warm. Family history: mother: ? type of cancer (abdominal) father: ? type maternal uncle: ? type of cancer brother: ? cancer type Hormonal History: menarche: 11 , breast fed: no, first born at 23 menopasue: 29 took ovaries, done for bleeding BCP: 4 months hormones: none Surgical history: 1. Total abdominal hysterectomy 2. 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 Hip replacement 4. Cholecystectomy 5. Exploratory laparotomy on multiple occasions 6. Colonoscopy and endoscopy is 7. Pulmonary arterial hypertension Medical History: 1. 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 Zimmerman 2. Thyroid radiated hypothyroid Social History: smoke: none alcohol: none drugs: none - Constitutional Constitutional: Denies chills, Denies fever - EENT Eyes: bilateral blurred vision, denies pain Ears: bilateral: decreased hearing, deny: tinnitus Ears, nose, mouth and throat: Denies headache, Denies sore throat - Breasts Breasts: bilateral: as per HPI - Cardiovascular Cardiovascular: Denies chest pain, Denies shortness of breath - Respiratory Respiratory: Denies cough - Gastrointestinal Comment: liver transplant - Genitourinary (Female) Genitourinary: Denies dysuria, Denies hematuria - Menstruation Menstruation: Reports post hysterectomy - Musculoskeletal Comment: arthritis Musculoskeletal: Reports myalgias - Integumentary Integumentary: Denies pruritus, Denies rash - Neurological Neurological: Reports weakness, Denies numbness - Psychiatric Psychiatric: Reports anxiety, Denies depression - Endocrine Comment: hypothyroid - Hematologic/Lymphatic Comment: baby aspirin - Allergic/Immunologic Allergic/Immunologic: Reports seasonal allergies Objective - Vital Signs Vital signs: Vital Signs Temp 97.7 F 07/24/20 15:12 Pulse 80 07/24/20 15:12 Resp 18 07/24/20 15:12 BP 116/74 07/24/20 15:12 Pulse Ox 96 07/24/20 15:12 Intake & Output 07/23/20 07/24/20 07/24/20 18:59 06:59 18:59 Weight 86.183 kg - Constitutional General appearance: Present: average body habitus - EENT Eyes: Present: EOMI ENT: Present: hearing grossly normal - Neck Neck: Present: normal ROM - Respiratory Details: bilateral ronchi and wheezing at bases - Cardiovascular Rhythm: regular Heart sounds: normal: S1, S2 - Gastrointestinal Gastrointestinal Comment(s): scars well healed General gastrointestinal: Present: soft - Integumentary Integumentary: Present: normal turgor - Musculoskeletal Musculoskeletal: Present: gait normal - Psychiatric Psychiatric: Present: A&O x's 3, appropriate affect - Additional findings Additional findings: Breast exam: inspection: left breast radiation and surgical changes palpation: Breasts: Multiple positional exam fibrocystic changes, no dominant masses or nodules of concern Denilson axilla: No adenopathy of concern Left breast: Postoperative radiation changes, no dominant masses or nodules of concern is a large seroma at the 12 o'clock position Left axilla: No adenopathy of concern Assessment and Plan Assessment: Impression: 1. Patient status post lumpectomy and sentinel node biopsy left breast stage IIA invasive ductal cancer 2. Bilateral wheezing at lung bases with some rhonchi 3. Patient status post liver transplant/ on suppressants Plan: 1. Aspiration seroma left breast 2. Follow-up in 1 month 2. Continue antiestrogen treatment 4. Continue follow-up with medical oncology and radiation oncology 5. Call primary care doctor secondary to bilateral lung wheezing and rhonchi CC: Dr. Zimmerman encounter 25 minutes, > 50% of time in planning and counselling
--- NOTE | 2020-07-24 16:07 | P.PCN ---
Date of Procedure: 07/24/20 Preoperative Diagnosis: seroma Postoperative Diagnosis: same Procedure(s) Performed: aspiration of seroma Surgeon: Candie Garza Pathology: none sent Condition: stable Disposition: same day Description of Procedure: History of concern in the left breast was prepped using alcohol. Initialization needle on a 20 mL syringe was inserted into the area of concern. Proximally 110 mL of straw-colored fluid was removed. There was complete resolution of the seroma. Patient stated it felt better after the seroma was aspirated. She tolerated the procedure in stable condition. She will follow-up in one month for repeat evaluation. She will call sooner if any questions or concerns.
== END | disposition home or self-care (01) ==
LOC: WWCWWP 14:54
PROVIDERS: ATTEND Surgery
DX: Z53.9 Procedure and treatment not carried out, unspecified reason (principal)

== ENCOUNTER → 2020-08-22 | Outpatient (CLI) | payer MEDICARE, OTHER ==
[2020-08-22 10:17] VITALS: BP 125/77; PULSE 87; RESP 16; TEMP 97.8
--- NOTE | 2020-08-22 10:34 | P.PN ---
Subjective Progress Note Date: 08/22/20 Principal diagnosis: seroma T2 N1M0ER+Pr+Her2-G2 STage IIA Kayy is a 69 year old white female who underwent left breast lumpectomy and sentinel node biopsy on [id number]. She subsequently had radiation therapy. She did not have any chemotherapy. She is on endocrine therapy. She was seen in the with some complaints of some discomfort in the left breast/axilla and the seroma was aspirated. The seroma was 110 cc. initialization of some indentation of the area where we had withdrawn the fluid however that has resolved. The discomfort she had prior to withdraw any fluid has resolved as well. She is doing well at this time. The patient has been recommended to have a repeat left breast mammogram in 6 months as per her mammogram and ultrasound which were done in July 04, 2020. Impression/plan: 1. Repeat left breast mammogram in 6 months with physician exam at that time 2. Continue anti-estrogen therapy 3. no evidence of recurrent cancer at this time CC: Dr. Zimmerman encounter 10 minutes, > 50% of time in planning and counselling
== END | disposition home or self-care (01) ==
LOC: WWCWWP 09:55
PROVIDERS: ATTEND Surgery

== ENCOUNTER → 2020-09-03 | Outpatient (CLI) | payer MEDICARE, OTHER ==
--- NOTE | 2020-09-03 08:48 | XR ---
EXAMINATION TYPE: XR cervical spine limited DATE OF EXAM: 09/03/2020 COMPARISON: NONE HISTORY: Pain TECHNIQUE: Four views are submitted. FINDINGS: The odontoid is intact. There are no compression deformities. The prevertebral soft tissue structur es are within normal limits. Multilevel hypertrophic and degenerative disc disease with severe banks es at C5-6 and C6-C7. Multilevel facet arthropathy. IMPRESSION: 1. Multilevel degenerative disc disease and facet arthropathy..
--- NOTE | 2020-09-03 08:54 | XR ---
EXAMINATION TYPE: XR shoulder complete RT DATE OF EXAM: 09/03/2020 COMPARISON: NONE HISTORY: Pain TECHNIQUE: Three views are submitted. FINDINGS: The osseous structures are intact. There is no acute fracture or dislocation. Mild AC joint arthropa thy. Chronic deformity involving the right humerus likely in the basis of previous trauma. Scattered granuloma in the right upper lobe suspected. IMPRESSION: 1. No acute process. Very mild AC joint arthropathy and chronic deformity of the humerus suggestive of remote trauma.
== END | disposition home or self-care (01) ==
LOC: RADXRMAIN 07:58
PROVIDERS: ATTEND Nurse Practitioner Family
DX: M50.30 Other cervical disc degeneration, unspecified cervical region (principal); M47.812 Spondylosis without myelopathy or radiculopathy, cervical region; M12.811 Other specific arthropathies, not elsewhere classified, right shoulder; M21.921 Unspecified acquired deformity of right upper arm
CPT/HCPCS: 72040

== ENCOUNTER → 2021-01-02 | Outpatient (CLI) | payer MEDICARE, OTHER ==
--- NOTE | 2021-01-02 12:29 | MM ---
Reason for exam: follow-up at short interval from prior study. Last mammogram was performed 6 months ago. History: Patient is postmenopausal and has history of breast cancer at age 68. Cyst aspiration of the left breast, July 2020. Malignant MG pre op needle loc LT of the left breast, August 29, 2019. Malignant US breast localization LT, August 29, 2019. Lumpectomy of the left breast, August 29, 2019. Malignant US biopsy breast VAD LT of the left breast, July 13, 2019. Benign cyst aspiration of both breasts. Took hormonal contraceptives for 1 year. Taking antineoplastic beginning at age 68. Physical Findings: Nurse did not find any significant physical abnormalities on exam. MG 3D Diag Mammo W/Cad LT CC and MLO view(s) were taken of the left breast. Prior study comparison: July 04, 2020, bilateral MG 3d diag mammo w/cad PETRONA. July 13, 2019, left breast MG diagnostic mammo LT wo CAD. The breast tissue is heterogeneously dense. This may lower the sensitivity of mammography. No significant new findings when compared with previous films. These results were verbally communicated with the patient and result sheet given to the patient on 01/02/21. ASSESSMENT: Benign, BI-RAD 2 RECOMMENDATION: Follow-up diagnostic mammogram of both breasts in 6 months. Back on schedule for June 2021.
== END | disposition home or self-care (01) ==
LOC: RADMAMWWP 10:14
PROVIDERS: ATTEND Surgery
DX: Z85.3 Personal history of malignant neoplasm of breast (principal); Z78.0 Asymptomatic menopausal state
CPT/HCPCS: 77065; G0279; 77061

== ENCOUNTER → 2021-01-09 | Outpatient (CLI) | payer MEDICARE, OTHER ==
[2021-01-09 11:58] VITALS: BP 147/89; PULSE 75; RESP 18; TEMP 97.6
--- NOTE | 2021-01-09 12:22 | P.PN ---
Subjective Progress Note Date: 01/09/21 Principal diagnosis: Stage IIA left breast cancer Kayy is a 70 -year-old white female who is status post left breast lumpectomy and sentinel node biopsy on [id number]. She subsequently had radiation therapy. She did not have any chemotherapy. She is on endocrine therapy. She most recently had a left breast mammogram performed on [id number]. This was felt to be benign BIRADS 2. Follow-up diagnostic mammogram of both breasts in 6 months was recommended. The patient does not feel any lumps masses or nodules in her breasts for which she is concerned. She is not complaining of any nipple discharge or skin changes. Family history: mother: ? type of cancer (abdominal) father: ? type maternal uncle: ? type of cancer brother: ? cancer type Hormonal History: menarche: 11 , breast fed: no, first born at 23 menopasue: 29 took ovaries, done for bleeding BCP: 4 months hormones: none Surgical history: 1. Total abdominal hysterectomy 2. 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 Hip replacement 4. Cholecystectomy 5. Exploratory laparotomy on multiple occasions 6. Colonoscopy and endoscopy 7. Pulmonary arterial hypertension 8. left breast lumpectomy and SNB Medical History: 1. 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 Zimmerman 2. Thyroid radiated hypothyroid 3. chronic back pain 4. poor balance Social History: smoke: none alcohol: none drugs: Marijuana daily/ started about 2 years ago - Constitutional Constitutional: Denies chills, Denies fever - EENT Eyes: bilateral blurred vision, denies pain Ears: bilateral: decreased hearing, deny: tinnitus Ears, nose, mouth and throat: Denies headache, Denies sore throat - Breasts Breasts: bilateral: as per HPI - Cardiovascular Cardiovascular: Denies chest pain, Denies shortness of breath - Respiratory Respiratory: Denies cough - Gastrointestinal Comment: liver transplant - Genitourinary (Female) Genitourinary: Denies dysuria, Denies hematuria - Menstruation Menstruation: Reports post hysterectomy - Musculoskeletal Comment: arthritis Musculoskeletal: Reports myalgias - Integumentary Integumentary: Denies pruritus, Denies rash - Neurological Neurological: Reports weakness, Denies numbness - Psychiatric Psychiatric: Reports anxiety, Denies depression - Endocrine Comment: hypothyroid - Hematologic/Lymphatic Comment: baby aspirin - Allergic/Immunologic Allergic/Immunologic: Reports seasonal allergies Objective - Vital Signs Vital signs: Vital Signs Temp 97.6 F 01/09/21 11:53 Pulse 75 01/09/21 11:53 Resp 18 01/09/21 11:53 BP 147/89 01/09/21 11:53 Pulse Ox 97 01/09/21 11:53 Intake & Output 01/08/21 01/09/21 01/09/21 18:59 06:59 18:59 Weight 88.451 kg - Exam BMI 33.5 - Constitutional General appearance: Present: cooperative - EENT Eyes: Present: EOMI ENT: Present: hearing grossly normal - Neck Neck: Present: normal ROM - Respiratory Respiratory: bilateral: CTA - Cardiovascular Rhythm: regular Heart sounds: normal: S1, S2 - Gastrointestinal General gastrointestinal: Present: soft - Integumentary Integumentary Comment(s): bruising - Musculoskeletal Musculoskeletal Comment(s): poor balance - Psychiatric Psychiatric: Present: A&O x's 3, appropriate affect - Additional findings Additional findings: Breast exam: BRA: different size breast/ right side larger inspection: Asymmetry of the breast related to prior surgery right is larger than the left Palpation: Right breast multiple positional exam fibrocystic changes no dominant masses or nodules of concern Right axilla: No adenopathy of concern Left breast: Multi-positional exam changes related to surgery and radiation no d ominant masses or nodules of concern Left axilla: No adenopathy of concern No evidence of any recurrent cancer Assessment and Plan Assessment: Impression: 1. Stage II left breast cancer no evidence of any recurrent cancer 2. Chronic back pain following with primary care doctor 3. Difficulty with balance: With primary care doctor 4. Recent mammogram of the left breast stable 5. Patient on antihormone therapy 6. Patient status post liver transplant Plan: 1. Continue to follow with medical oncology 2. Follow-up with primary care doctor 3. Repeat bilateral mammogram in June 2021 with physician exam at that time 4. Medical problems are resolved patient may wish to have a symmetry procedure performed on her breast Cc: Dr. Zimmerman
== END ==
LOC: WWCWWP 11:27
PROVIDERS: ATTEND Surgery
DX: Z08 Encounter for follow-up examination after completed treatment for malignant neoplasm (principal); M54.9 Dorsalgia, unspecified; R26.2 Difficulty in walking, not elsewhere classified; Z94.4 Liver transplant status

== ENCOUNTER → 2021-01-12 | Outpatient (CLI) | payer MEDICARE, OTHER ==
--- NOTE | 2021-01-13 08:57 | XR ---
EXAMINATION TYPE: XR knee complete LT DATE OF EXAM: 01/12/2021 CLINICAL HISTORY: Pain and bruising from fall 5 days ago. TECHNIQUE: AP, oblique, and lateral views of the left knee knee are obtained. COMPARISON: None. FINDINGS: There is no acute fracture/dislocation evident in left knee. There is mild medial and lat eral compartment joint space narrowing. There is mild degenerative spurring at the medial compartment . There is quadriceps tendon patellar enthesophyte, which may be a sign of chronic tendinosis. There is normal osseous mineralization. There is infrapatellar and upper calf anterior soft tissue edema. N o suprapatellar joint effusion. IMPRESSION: 1. There is no acute fracture or dislocation in the left knee. 2. Infrapatellar and upper calf superficial subcutaneous edema may be related to fall versus generali zed edema of the lower leg. 3. Chronic degenerative changes as above.
== END | disposition home or self-care (01) ==
LOC: RADXRMAIN 14:14
PROVIDERS: ATTEND Nurse Practitioner Family
DX: M25.562 Pain in left knee (principal); S80.02XA Contusion of left knee, initial encounter; M76.892 Other specified enthesopathies of left lower limb, excluding foot; W19.XXXA Unspecified fall, initial encounter

== ENCOUNTER → 2021-02-14 | Outpatient (CLI) | payer MEDICARE, OTHER ==
--- NOTE | 2021-02-14 13:02 | MR ---
MRI brain without contrast HISTORY: Dizziness, syncope. COMPARISON: None. TECHNIQUE: Multiecho multiplanar images the brain were obtained without contrast. These: On the T1-weighted sagittal images, the midline structures including the craniovertebral junction rel ationships normal. The ventricles, basal cisterns and sulci over the convexities are within normal limits and there is n o mass effect or shift of midline structures. There is moderate multifocal abnormal increased signal intensity in the white matter both cerebral he mispheres most likely reflecting chronic ischemic white matter change based on diffusion-weighted eugene ging there is no evidence of diffusion restriction or an acute ischemic event. There is a tiny remote lacunar infarct in the left basal ganglia. The posterior fossa including the brainstem, fourth ventricle and cerebellar pontine angles appear no rmal. Intraorbital contents appear normal and symmetric. Mild chronic inflammatory changes in the paranasal sinuses the paranasal sinuses are well aerated. IMPRESSION: 1. Mild to moderate chronic ischemic white matter change with small lacunar infarct in left basal sandra glia. 2. No evidence of acute bleed or mass effect. 3. No acute ischemic event.
== END | disposition home or self-care (01) ==
LOC: RADMRIMAIN 12:09
PROVIDERS: ATTEND Family Medicine
DX: I67.82 Cerebral ischemia (principal); I63.81 Other cerebral infarction due to occlusion or stenosis of small artery
CPT/HCPCS: 70551

== ENCOUNTER 2021-06-02 20:43 | Emergency (ER) | payer MEDICARE, OTHER ==
[2021-06-02 20:48] VITALS: RESP 18; TEMP 98
--- NOTE | 2021-06-02 21:13 | ED ---
General Adult HPI - General Chief complaint: Dizziness Stated complaint: Dizziness Time Seen by Provider: 06/02/21 20:52 Source: patient Mode of arrival: wheelchair Limitations: no limitations - History of Present Illness Initial comments: is a 70-year-old woman being evaluated for altered mental status and abdominal pain. The patient reportedly was here as a visitor with someone else in the hospital when she appeared to be confused and when nursing staff spoke with her she was not able to tell them what she was doing. When I interview the patient she does not recall this episode. She states that currently what is bothering her as she is having some anterior abdominal pain area and she states that she has long-standing history of ventral hernia and yesterday when she moved she felt like the hernia which had been protruding, spontaneously reduced. She felt a bit of a popping sensation and had some pain. Since that time she has noticed tenderness in the Upper abdomen. Patient denies vomiting. No change in bowel movements or urination. He does give history of liver transplant approximately 11-12 years ago for history of cirrhosis. Patient not sure what brought on the cirrhosis. -: minutes(s) Location: abdomen Radiation: non-radiation Quality: aching Consistency: constant Improves with: none Worsens with: other (Palpation) Associated Symptoms: confusion Treatments Prior to Arrival: none - Related Data Home Medications Medication Instructions Recorded Confirmed Atorvastatin [Lipitor] 10 mg PO QAM 04/11/16 01/09/21 DULoxetine HCL [Cymbalta] 20 mg PO DAILY@1800 04/11/16 01/09/21 Tacrolimus [Prograf] 0.5 mg PO Q12H 04/11/16 01/09/21 Ranitidine HCl [Zantac] 150 mg PO BID 07/18/17 01/09/21 Alendronate Sodium [Fosamax] 70 mg PO MICHAUD 07/19/17 01/09/21 Multivitamin,Therapeutic [Thera] 1 tab PO QAM 07/09/19 01/09/21 Vitamin B Complex 1 cap PO QAM 07/20/19 01/09/21 Levothyroxine Sodium [Synthroid] 100 mcg PO QAM 12/08/19 01/09/21 Anastrozole [Arimidex] 1 mg PO QAM 07/24/20 01/09/21 Allergies Allergy/AdvReac Type Severity Reaction Status Date / Time No Known Allergies Allergy Verified 06/02/21 20:48 Review of Systems ROS Statement: Those systems with pertinent positive or pertinent negative responses have been documented in the HPI. ROS Other: All systems not noted in ROS Statement are negative. Constitutional: Denies: fever Respiratory: Denies: cough, dyspnea Cardiovascular: Denies: chest pain, palpitations Gastrointestinal: Reports: as per HPI, abdominal pain. Denies: nausea, vomiting, diarrhea Genitourinary: Denies: dysuria, hematuria Musculoskeletal: Denies: back pain Skin: Denies: rash Neurological: Denies: headache Past Medical History Past Medical History: GERD/Reflux, Liver Disease, Osteoarthritis (OA), Thyroid Disorder Additional Past Medical History / Comment(s): CIRRHOSIS WITH LIVER TRANSPLANT (2011), HX OF FX ARM, RIGHT SHOULDER AND LEFT HIP WITH PAIN History of Any Multi-Drug Resistant Organisms: None Reported Past Surgical History: Cholecystectomy, Heart Catheterization With Stent, Hysterectomy Additional Past Surgical History / Comment(s): liver transplant (2011), STATES HEART STENT INSERTED FOR PULMONARY HYPERTENSION WHERE SHE RECEIVED MEDICATION AND THE STENT WAS REMOVED WHEN SHE HAD HER LIVER TRANSPLANT. THYROID SURGERY Past Anesthesia/Blood Transfusion Reactions: Previous Problems w/ Anesthesia Additional Past Anesthesia/Blood Transfusion Reaction / Comment(s): STATES LAST COLONOSCOPY SHE COULD FEEL EVERYTHING BUT COULD NOT SPEAK TO TELL THEM SHE WAS AWAKE. 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 Date of Last Stent Placement:: 05/02/2011 Past Psychological History: Anxiety Smoking Status: Former smoker Past Alcohol Use History: None Reported Past Drug Use History: None Reported - Past Family History Mother Family Medical History: Cancer Father Family Medical History: Cancer Brother(s) Family Medical History: Cancer General Exam Limitations: no limitations General appearance: alert, in no apparent distress Head exam: Present: atraumatic, normocephalic Eye exam: Present: normal appearance. Absent: scleral icterus, conjunctival injection Neck exam: Present: normal inspection Respiratory exam: Present: normal lung sounds bilaterally. Absent: respiratory distress, wheezes, rales, rhonchi, stridor Cardiovascular Exam: Present: regular rate, normal rhythm, normal heart sounds. Absent: systolic murmur, diastolic murmur, rubs, gallop GI/Abdominal exam: Present: soft, tenderness, normal bowel sounds. Absent: distended, guarding, rebound, rigid, pulsatile mass Extremities exam: Present: normal inspection, normal capillary refill. Absent: pedal edema, calf tenderness Back exam: Present: normal inspection. Absent: CVA tenderness (R), CVA tenderness (L) Neurological exam: Present: alert, oriented X3, CN II-XII intact. Absent: motor sensory deficit Skin exam: Present: warm, dry, intact, normal color. Absent: rash Course Vital Signs 06/02/21 06/02/21 20:44 23:15 Temperature 98.0 F Pulse Rate 76 Respiratory 18 Rate Blood Pressure 127/87 146/77 O2 Sat by Pulse 94 L Oximetry Medical Decision Making - Lab Data Result diagrams: 06/02/21 21:06/02/21 21: Lab Results 06/02/21 06/02/21 06/02/21 Range/Units 21:28 21:28 21:28 WBC 6.3 (3.8-10.6) k/uL RBC 4.83 (3.80-5.40) m/uL Hgb 15.9 (11.4-16.0) gm/dL Hct 47.4 H (34.0-46.0) % MCV 98.0 (80.0-100.0) fL MCH 32.9 (25.0-35.0) pg MCHC 33.6 (31.0-37.0) g/dL RDW 14.4 (11.5-15.5) % Plt Count 140 L (150-450) k/uL MPV 10.2 Neutrophils % 42 % Lymphocytes % 45 % Monocytes % 6 % Eosinophils % 4 % Basophils % 1 % Neutrophils # 2.6 (1.3-7.7) k/uL Lymphocytes # 2.8 (1.0-4.8) k/uL Monocytes # 0.4 (0-1.0) k/uL Eosinophils # 0.2 (0-0.7) k/uL Basophils # 0.1 (0-0.2) k/uL Sodium 145 (137-145) mmol/L Potassium 4.0 (3.5-5.1) mmol/L Chloride 110 H (98-107) mmol/L Carbon Dioxide 26 (22-30) mmol/L Anion Gap 9 mmol/L BUN 8 (7-17) mg/dL Creatinine 0.67 (0.52-1.04) mg/dL Est GFR (CKD-EPI)AfAm >90 (>60 ml/min/1.73 sqM) Est GFR (CKD-EPI)NonAf >90 (>60 ml/min/1.73 sqM) Glucose 104 H (74-99) mg/dL Plasma Lactic Acid Tyson 2.3 H* (0.7-2.0) mmol/L Calcium 9.8 (8.4-10.2) mg/dL Total Bilirubin 0.9 (0.2-1.3) mg/dL AST 39 H (14-36) U/L ALT 22 (4-34) U/L Alkaline Phosphatase 96 (38-126) U/L Ammonia 34 H (<30) umol/L Total Protein 7.0 (6.3-8.2) g/dL Albumin 4.0 (3.5-5.0) g/dL Amylase 78 (30-110) U/L Lipase 232 (23-300) U/L Serum Alcohol 109 mg/dL Disposition Clinical Impression: Alcohol intoxication Disposition: HOME SELF-CARE Condition: Good Instructions (If sedation given, give patient instructions): Alcohol Intoxication (ED) Is patient prescribed a controlled substance at d/c from ED?: No Referrals: Brock Zimmerman DO [Primary Care Provider] - 1-2 days
[2021-06-02 21:49] LABS: Basophils # (A) 0.1 k/uL (0-0.2); Basophils % (A) 1 %; Eosinophils # (A) 0.2 k/uL (0-0.7); Eosinophils % (A) 4 %; HCT 47.4 % (34.0-46.0); HGB 15.9 gm/dL (11.4-16.0); Lymphocytes # (A) 2.8 k/uL (1.0-4.8); Lymphocytes % (A) 45 %; MCH 32.9 pg (25.0-35.0); MCHC 33.6 g/dL (31.0-37.0); Mean Platelet Volume 10.2; Monocytes # (A) 0.4 k/uL (0-1.0); Monocytes % (A) 6 %; Neutrophils # (A) 2.6 k/uL (1.3-7.7); Neutrophils % (A) 42 %; Platelet Count 140 k/uL (150-450); RBC 4.83 m/uL (3.80-5.40); RDW 14.4 % (11.5-15.5); WBC 6.3 k/uL (3.8-10.6)
[2021-06-02 22:13] LABS: ALT 22 U/L (4-34); AST 39 U/L (14-36); African American GFR (CKD) >90 (>60 ml/min/1.73 sqM); Alkaline Phosphatase 96 U/L (38-126); Amylase 78 U/L (30-110); Anion Gap 9 mmol/L; Blood Urea Nitrogen 8 mg/dL (7-17); Calcium 9.8 mg/dL (8.4-10.2); Carbon Dioxide 26 mmol/L (22-30); Chloride 110 mmol/L (98-107); Glucose 104 mg/dL (74-99); Lipase 232 U/L (23-300); Non-African American GFR(CKD) >90 (>60 ml/min/1.73 sqM); Sodium 145 mmol/L (137-145); Total Bilirubin 0.9 mg/dL (0.2-1.3)
[2021-06-02 22:22] LABS: Alcohol 109 mg/dL; Lactic Acid, Venous 2.3 mmol/L (0.7-2.0)
--- NOTE | 2021-06-02 22:45 | CT ---
EXAMINATION TYPE: CT abdomen pelvis wo con DATE OF EXAM: 06/02/2021 COMPARISON: 03/18/2017 HISTORY: abdominal mckeon, hx of hernia CT DLP: 776.1 mGycm Automated exposure control for dose reduction was used. Lung bases are clear of consolidation. There is no pleural effusion. Heart size is normal. There is n o pericardial effusion. Liver is intact. There are clips from cholecystectomy. The bile ducts are not dilated. Spleen is intact. There is no pancreatic mass. Stomach is intact. There is no adrenal mass. Kidneys have normal size. There are bilateral renal calculi that measure up to 7 mm. There is no hydronephrosis. Ureters are not dilated. There is no retroperitoneal adenopathy . Urinary bladder is almost empty. There is left hip prosthesis. There is no pelvic mass. There is no free fluid in the pelvis. There is hysterectomy. Appendix appears normal. Lumbar vertebra have normal alignment. Posterior elements are intact. There is no compression fractur e. Bony pelvis is intact. There is facet arthropathy and spinal stenosis at L4-5. There is also mild spinal stenosis at L3-4. There is no mesenteric edema. There is no ascites or free air. There is no b owel obstruction. IMPRESSION: There are nonobstructing bilateral renal calculi that appear new compared to old exam. Normal appendi x. No acute abnormality of the abdomen pelvis. Lumbar spinal stenosis.
[2021-06-02] MEDS ORDERED: SODIUM CHLORIDE 0.9% 1,000 ML IV ONE (23:14)
[2021-06-02 23:25] LABS: Appearance,Urine Clear (Clear); Bilirubin,Urine Negative (Negative); Blood,Urine Negative (Negative); Calcium Oxalate Crystals,Urine Rare /hpf; Color,Urine Yellow; Glucose,Urine (UA) Negative (Negative); Hyaline Casts,Urine 1 /lpf (0-2); Ketones,Urine Negative (Negative); Leukocyte Esterase,Urine Small (Negative); Mucus,Urine Rare /hpf; Nitrite,Urine Negative (Negative); PH, Urine 5.5 (5.0-8.0); Protein,Urine Negative (Negative); RBC,Urine 1 /hpf (0-5); Specific Gravity,Urine 1.014 (1.001-1.035); Squamous Epithelial Cell,Urine <1 /hpf (0-4); Urobilinogen,Urine <2.0 mg/dL (<2.0); WBC,Urine 5 /hpf (0-5)
[2021-06-03 00:39] VITALS: BP 159/82; PULSE 73
== END 2021-06-03 00:42 | disposition home or self-care (01) ==
LOC: EC 20:43
DX: F10.129 Alcohol abuse with intoxication, unspecified (principal); K21.9 Gastro-esophageal reflux disease without esophagitis; M19.90 Unspecified osteoarthritis, unspecified site; F41.9 Anxiety disorder, unspecified; E07.9 Disorder of thyroid, unspecified; Z90.49 Acquired absence of other specified parts of digestive tract; Z90.710 Acquired absence of both cervix and uterus; Z87.891 Personal history of nicotine dependence; Y90.5 Blood alcohol level of 100-119 mg/100 ml
CPT/HCPCS: 99285; 96360; 36415; 80053; 82140; 82150; 83605; 83690; 85025; 81001; 74176; G0480; 80320

== ENCOUNTER → 2021-07-06 | Outpatient (CLI) | payer MEDICARE, OTHER ==
--- NOTE | 2021-07-06 11:21 | MM ---
Reason for exam: additional evaluation requested from prior study. Last mammogram was performed 6 months ago. History: Patient is postmenopausal and has history of breast cancer at age 68. Cyst aspiration of the left breast, July 2020. Malignant MG pre op needle loc LT of the left breast, August 29, 2019. Malignant US breast localization LT, August 29, 2019. Lumpectomy of the left breast, August 29, 2019. Malignant US biopsy breast VAD LT of the left breast, July 13, 2019. Benign cyst aspiration of both breasts. Took hormonal contraceptives for 1 year. Taking antineoplastic beginning at age 68. Physical Findings: Nurse did not find any significant physical abnormalities on exam. MG 3D Diag Mammo W/Cad PETRONA Bilateral CC and MLO view(s) were taken. Prior study comparison: January 02, 2021, left breast MG 3d diag mammo w/cad LT. July 04, 2020, bilateral MG 3d diag mammo w/cad PETRONA. The breast tissue is heterogeneously dense. This may lower the sensitivity of mammography. Stable benign calcifications. There is chronic nodularity in the right breast. There is no dominant lesion. Stable post operative lumpectomy changes left breast. These results were verbally communicated with the patient and result sheet given to the patient on 07/06/21. ASSESSMENT: Benign, BI-RAD 2 RECOMMENDATION: Follow-up diagnostic mammogram of both breasts in 1 year.
== END | disposition home or self-care (01) ==
LOC: RADMAMWWP 09:52
PROVIDERS: ATTEND Surgery
DX: R92.1 Mammographic calcification found on diagnostic imaging of breast (principal); Z85.3 Personal history of malignant neoplasm of breast; Z78.0 Asymptomatic menopausal state
CPT/HCPCS: 77066; G0279; 77062

== ENCOUNTER → 2021-08-21 | Outpatient (CLI) | payer MEDICARE, OTHER ==
[2021-08-21 12:58] VITALS: BP 130/75; PULSE 69; RESP 18; TEMP 98.3
--- NOTE | 2021-08-21 13:53 | P.PN ---
Subjective Progress Note Date: 08/21/21 Principal diagnosis: IIA left breast cancer Stage IIA left breast cancer [id number] Kayy is a 70 -year-old white female who is status post left breast lumpectomy and sentinel node biopsy on [id number]. She subsequently had radiation therapy. She did not have any chemotherapy. She is on endocrine therapy. She had a left breast mammogram performed on . This was felt to be benign BIRADS 2. Follow-up diagnostic mammogram of both breasts in 6 months was recommended. This was preformed on 07-06-21 and was benign BIRAD 2. The patient does not feel any lumps masses or nodules in her breasts for which she is concerned. She is not complaining of any nipple discharge or skin changes. Was taking an antiestrogen however prescription ran out and it was not refilled. She has had COVID vaccination and booster was three weeks ago. She also had the flu shot. Family history: mother: ? type of cancer (abdominal) father: ? type maternal uncle: ? type of cancer brother: ? cancer type Hormonal History: menarche: 11 , breast fed: no, first born at 23 menopasue: 29 took ovaries, done for bleeding BCP: 4 months hormones: none Surgical history: 1. Total abdominal hysterectomy 2. Liver transplant - 8 years ago done [facility], from alcohol 3. Hip replacement 4. Cholecystectomy 5. Exploratory laparotomy on multiple occasions 6. Colonoscopy and endoscopy 7. Pulmonary arterial hypertension 8. left breast lumpectomy and SNB Medical History: 1. 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 Zimmerman 2. Thyroid radiated hypothyroid 3. chronic back pain 4. poor balance Social History: smoke: none alcohol: none drugs: Marijuana daily/ started about 2 years ago - Constitutional Constitutional: Denies chills, Denies fever - EENT Eyes: bilateral blurred vision, denies pain Ears: bilateral: decreased hearing, deny: tinnitus Ears, nose, mouth and throat: Denies headache, Denies sore throat - Breasts Breasts: bilateral: as per HPI - Cardiovascular Cardiovascular: Denies chest pain, Denies shortness of breath - Respiratory Respiratory: Denies cough - Gastrointestinal Comment: liver transplant - Genitourinary (Female) Genitourinary: Denies dysuria, Denies hematuria - Menstruation Menstruation: Reports post hysterectomy - Musculoskeletal Comment: arthritis Musculoskeletal: Reports myalgias - Integumentary Integumentary: Denies pruritus, Denies rash - Neurological Neurological: Reports weakness, Denies numbness - Psychiatric Psychiatric: Reports anxiety, Denies depression - Endocrine Comment: hypothyroid - Hematologic/Lymphatic Comment: baby aspirin - Allergic/Immunologic Allergic/Immunologic: Reports seasonal allergies Objective - Vital Signs Vital signs: Vital Signs Temp 98.3 F 08/21/21 12:44 Pulse 69 08/21/21 12:44 Resp 18 08/21/21 12:44 BP 130/75 08/21/21 12:44 Pulse Ox 96 08/21/21 12:44 Intake & Output 08/20/21 08/21/21 08/21/21 18:59 06:59 18:59 Weight 88.451 kg - Constitutional General appearance: Present: cooperative - EENT Eyes: Present: EOMI ENT: Present: hearing grossly normal - Neck Neck: Present: normal ROM - Respiratory Respiratory: bilateral: CTA - Cardiovascular Rhythm: regular - Integumentary Integumentary: Present: normal turgor - Musculoskeletal Musculoskeletal: Present: gait normal - Psychiatric Psychiatric: Present: A&O x's 3, appropriate affect, intact judgment & insight - Additional findings Additional findings: Breast Exam: BRA: 48 B vs. C cup; right breast larger than left breast inspection: Asymmetry related to prior left breast lumpectomy and radiation therapy Palpation: Right breast: Multiple positional exam fibrocystic changes no dominant masses or nodules of concern Right axilla: No adenopathy of concern Left breast: Well-healed scar from prior surgery/radiation changes, no dominant masses or nodules of concern Left axilla: No adenopathy of concern Assessment and Plan Assessment: Impression: 1. Stage II a left breast cancer no evidence of recurrent disease 2. Recent bilateral mammogram [id number] benign BIRADS 2 repeat bilateral mammogram in 1 year 3. Asymmetry of the breast patient considering a mastopexy on the right side will be seen again for severe Plan: 1. Follow-up for severe regarding possible mastopexy 2. Bilateral mammogram in 1 year 3. Follow-up with medical oncology to determine if any antiestrogen is appropriate 4. Follow up here first of the year to consider mastopexy Cc: Dr. Zimmerman
== END ==
LOC: WWCWWP 12:17
PROVIDERS: ATTEND Surgery
DX: N64.89 Other specified disorders of breast (principal); E03.9 Hypothyroidism, unspecified; Z85.3 Personal history of malignant neoplasm of breast; Z87.891 Personal history of nicotine dependence; Z79.890 Hormone replacement therapy

== ENCOUNTER → 2022-03-01 | Outpatient (CLI) | payer MEDICARE, OTHER ==
[2022-03-01 18:06] LABS: African American GFR (CKD) >90 (>60 ml/min/1.73 sqM); Blood Urea Nitrogen 11 mg/dL (7-17); Non-African American GFR(CKD) >90 (>60 ml/min/1.73 sqM)
--- NOTE | 2022-03-01 19:43 | CT ---
EXAMINATION TYPE: CT abdomen pelvis w con DATE OF EXAM: 03/01/2022 COMPARISON: CT dated 06/02/2021 HISTORY: Incisional hernia w/o obstruction CT DLP: 1145.90 mGycm Automated exposure control for dose reduction was used. TECHNIQUE: Helical acquisition of images was performed from the lung bases through the pelvis. CONTRAST: Performed without Oral Contrast and with IV Contrast, patient injected with 100 mL of Isovue 300. FINDINGS: LUNG BASES: Stable 4 mm left lower lobe nodule. More superior pleural-based nodule is seen in the amy gula measuring 7 mm, not included in the previous CT scan. Recommend follow-up CT chest in 3 months f or reassessment. Suspected COPD changes. LIVER/GB: Previous cholecystectomy. Dilated central intrahepatic biliary tree and CBD, likely related to post cholecystectomy status, appreciated previously. No definite hepatic focal lesion identified. PANCREAS: Atrophic. 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 Unremarkable splee n otherwise. ADRENALS: No significant abnormality is seen. KIDNEYS: 8mm right lower pole nonobstructing renal calculus. Suspected 3 mm calculus in the left konrad l pelvis. Bilateral renal hypodensities likely representing renal cysts. No hydroureter or hydronephr osis. FREE AIR: No free air is visualized. RETROPERITONEAL ADENOPATHY: None visualized REPRODUCTIVE ORGANS: Obscured by artifacts. URINARY BLADDER: Obscured by artifacts. PELVIC ADENOPATHY: No pathologically enlarged pelvic lymph nodes. OSSEOUS STRUCTURES: Left total hip arthroplasty. No aggressive bone lesion. BOWEL: Scattered uncomplicated colonic diverticulosis. Normal appendix. OTHER: Arterial atherosclerotic calcification. No sizable ascites. Small fat-containing umbilical her larry. Superior midline anterior abdominal wall hernia containing fat and measuring 4.4 x 4.7 cm. More inferior smaller fat-containing hernia seen to the left of the midline. IMPRESSION: Anterior abdominal wall fat-containing hernias as detailed above. Other incidental findings and recom mendations as described above.
[2022-03-01 23:50] LABS: T4, Free (Free Thyroxine) 1.32 ng/dL (0.800-1.800)
== END | disposition home or self-care (01) ==
LOC: RADCTMAIN 16:13
PROVIDERS: ATTEND Surgery
DX: K43.2 Incisional hernia without obstruction or gangrene (principal); K42.9 Umbilical hernia without obstruction or gangrene; K57.30 Diverticulosis of large intestine without perforation or abscess without bleeding
CPT/HCPCS: 84439; 82565; 84443; 84520; 74177; 36415; Q9967

== ENCOUNTER 2022-04-08 01:07 | Emergency (ER) | payer MEDICARE, OTHER ==
[2022-04-08 01:44] VITALS: RESP 16; TEMP 97.5
[2022-04-08] MEDS ORDERED: SODIUM CHLORIDE 0.9% 1,000 ML IV STA (01:53)
[2022-04-08] MEDS ORDERED: MORPHINE SULFATE 4 MG/ML SYRINGE IV STA (01:53)
[2022-04-08] MEDS ORDERED: HYDROmorphone 1 MG/ML 1 ML SYRINGE IVP STA ×2 (03:00→06:00)
[2022-04-08 03:05] LABS: Basophils % (A) 1 %; Eosinophils # (A) 0.1 k/uL (0-0.7); Eosinophils % (A) 2 %; HCT 42.7 % (34.0-46.0); HGB 14.2 gm/dL (11.4-16.0); Lymphocytes # (A) 1.2 k/uL (1.0-4.8); Lymphocytes % (A) 15 %; MCH 31.4 pg (25.0-35.0); MCHC 33.2 g/dL (31.0-37.0); MCV 94.7 fL (80.0-100.0); Mean Platelet Volume 9.7; Monocytes # (A) 0.4 k/uL (0-1.0); Monocytes % (A) 6 %; Neutrophils # (A) 5.7 k/uL (1.3-7.7); Neutrophils % (A) 75 %; Platelet Count 103 k/uL (150-450); RBC 4.51 m/uL (3.80-5.40); WBC 7.6 k/uL (3.8-10.6)
[2022-04-08 03:18] LABS: Albumin 3.3 g/dL (3.5-5.0); Calcium 8.9 mg/dL (8.4-10.2); Potassium 2.8 mmol/L (3.5-5.1); Total Bilirubin 1.8 mg/dL (0.2-1.3); Total Protein 5.9 g/dL (6.3-8.2)
[2022-04-08 03:20] LABS: INR 1.1 (<1.2); Partial Thromboplastin Time 21.5 sec (22.0-30.0); Prothrombin Time 11.9 sec (9.0-12.0)
--- NOTE | 2022-04-08 04:20 | CT ---
EXAMINATION TYPE: CT abdomen pelvis wo con DATE OF EXAM: 04/08/2022 COMPARISON: 03/01/2022 HISTORY: NVD CT DLP: 939 mGycm Automated exposure control for dose reduction was used. Images obtained from the diaphragm to the floor the pelvis with no contrast. Lung bases show subsegmental atelectasis. Heart size is normal. No pericardial effusion. Liver spleen stomach pancreas appear intact. There are clips from cholecystectomy. The bile duct are not dilated. There is no adrenal mass. Kidneys have normal size and contour. No hydronephrosis. There are bilatera l renal calculi. Calculus lower pole right kidney measures 1 cm. Calculus anterior left kidney measur es 5 mm. No retroperitoneal adenopathy. Ureters are not dilated. Abdominal aorta is atheromatous. Constantine dder distends smoothly. There is metal artifact from left hip prosthesis. No inguinal hernia. No free fluid in the pelvis. No pelvic mass. There are multiple sigmoid diverticula. No diverticulitis. The appendix is posterior and appears normal. The lumbar spine is intact. There is T12 compression fracture 20% which appears acute. No evidence of a burst fracture into the spinal canal. The facet joints are intact. There is no mesenteric edema. No ascites or free air. No sign of a bowel obstruction. IMPRESSION: Acute mild compression fracture of T12. Nonobstructing renal calculi. Normal appendix. Colonic diverticulosis without diverticulitis. Mild sc arring and subsegmental atelectasis at the lung bases. T12 compression fracture is a change compared to the recent CT scan of 03/01/2022.
--- NOTE | 2022-04-08 06:42 | ED ---
Fall HPI - General Chief Complaint: Fall Stated Complaint: Nausea, Vomiting Time Seen by Provider: 04/08/22 01:34 Source: patient Mode of arrival: EMS - History of Present Illness Initial Comments: This patient is 71-year-old woman who presents to be evaluated for low back pain that developed after a fall. Patient states she had not been in her usual state of health for about 3-4 days. She has been having frequent bouts of vomiting. Patient states that she was concerned she is getting dehydrated. She got up to use the bathroom and then became very lightheaded and fell. She may have passed out. Following the fall she was having moderately severe low back pain. No we akness or numbness of the legs. No change in bladder or bowel function. MD Complaint: fall -: hour(s) Fall From: standing Place Fall Occurred: home Loss of Consciousness: none Symptoms Prior to Fall: none Location: back Quality: sharp - Related Data Home Medications Medication Instructions Recorded Confirmed Atorvastatin [Lipitor] 10 mg PO QAM 04/11/16 08/21/21 DULoxetine HCL [Cymbalta] 20 mg PO DAILY@1800 04/11/16 08/21/21 Tacrolimus [Prograf] 0.5 mg PO Q12H 04/11/16 08/21/21 Ranitidine HCl [Zantac] 150 mg PO BID 07/18/17 08/21/21 Alendronate Sodium [Fosamax] 70 mg PO MICHAUD 07/19/17 08/21/21 Multivitamin,Therapeutic [Thera] 1 tab PO QAM 07/09/19 08/21/21 Vitamin B Complex 1 cap PO QAM 07/20/19 08/21/21 Levothyroxine Sodium [Synthroid] 100 mcg PO QAM 12/08/19 08/21/21 Anastrozole [Arimidex] 1 mg PO QAM 07/24/20 08/21/21 Allergies Allergy/AdvReac Type Severity Reaction Status Date / Time No Known Allergies Allergy Verified 08/21/21 12:41 Review of Systems ROS Statement: Those systems with pertinent positive or pertinent negative responses have been documented in the HPI. ROS Other: All systems not noted in ROS Statement are negative. Constitutional: Reports: weakness. Denies: fever, chills Respiratory: Denies: cough, dyspnea Cardiovascular: Denies: chest pain, palpitations, edema Gastrointestinal: Reports: as per HPI, abdominal pain, nausea, vomiting. Denies: diarrhea, constipation, melena, hematochezia Genitourinary: Denies: dysuria, frequency, hematuria Musculoskeletal: Reports: as per HPI, back pain Skin: Denies: rash Neurological: Denies: headache, weakness, numbness, paresthesias Past Medical History Past Medical History: GERD/Reflux, Liver Disease, Osteoarthritis (OA), Thyroid Disorder Additional Past Medical History / Comment(s): CIRRHOSIS WITH LIVER TRANSPLANT (2011), HX OF FX ARM, RIGHT SHOULDER AND LEFT HIP WITH PAIN History of Any Multi-Drug Resistant Organisms: None Reported Past Surgical History: Cholecystectomy, Heart Catheterization With Stent, Hysterectomy Additional Past Surgical History / Comment(s): liver transplant (2011), STATES HEART STENT INSERTED FOR PULMONARY HYPERTENSION WHERE SHE RECEIVED MEDICATION AND THE STENT WAS REMOVED WHEN SHE HAD HER LIVER TRANSPLANT. THYROID SURGERY Past Anesthesia/Blood Transfusion Reactions: Previous Problems w/ Anesthesia Additional Past Anesthesia/Blood Transfusion Reaction / Comment(s): STATES LAST COLONOSCOPY SHE COULD FEEL EVERYTHING BUT COULD NOT SPEAK TO TELL THEM SHE WAS AWAKE. 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 Date of Last Stent Placement:: 05/02/2011 Past Psychological History: Anxiety Smoking Status: Former smoker Past Alcohol Use History: None Reported Past Drug Use History: None Reported - Past Family History Mother Family Medical History: Cancer Father Family Medical History: Cancer Brother(s) Family Medical History: Cancer General Exam Limitations: no limitations General appearance: alert, in no apparent distress Head exam: Present: atraumatic, normocephalic Eye exam: Present: normal appearance. Absent: scleral icterus, conjunctival injection ENT exam: Present: mucous membranes dry Neck exam: Present: normal inspection, full ROM. Absent: tenderness Respiratory exam: Present: normal lung sounds bilaterally. Absent: respiratory distress, wheezes, rales, rhonchi, stridor Cardiovascular Exam: Present: regular rate, normal rhythm, normal heart sounds. Absent: systolic murmur, diastolic murmur, rubs, gallop GI/Abdominal exam: Present: soft. Absent: distended, tenderness, guarding, rebound, rigid, mass, pulsatile mass Extremities exam: Present: normal inspection, normal capillary refill. Absent: pedal edema, calf tenderness Back exam: Present: normal inspection, paraspinal tenderness, vertebral tenderness, other (Patient has tenderness across the low back approximately L1 level). Absent: CVA tenderness (R), CVA tenderness (L) Neurological exam: Present: alert, reflexes normal. Absent: motor sensory deficit Skin exam: Present: warm, dry, intact, normal color. Absent: rash Course Vital Signs 04/08/22 04/08/22 01:32 07:27 Temperature 97.5 F L Pulse Rate 69 65 Respiratory 16 16 Rate Blood Pressure 89/56 127/73 O2 Sat by Pulse 91 L 91 L Oximetry Medical Decision Making - Medical Decision Making This patient is 71-year-old woman who presents mainly with concern about low back pain after ground level fall. The workup does reveal that she has mild elevation of her troponin in addition to the vertebral compression fracture. I had discussed the findings with the patient and recommended that she be admitted for cardiology consultation. The patient states that she is immune compromised and is afraid to be admitted in the hospital. She did agree to stay for second troponin which is trending downward. She is not having any chest symptoms other than the nausea vomiting which we discussed can be related to myocardial ischemia/angina. Patient states she will deftly return if any of that recurs if she has chest pain or dyspnea or other symptoms. She will call her physician to follow and will follow with the equipment maintenance technician. - Lab Data Result diagrams: 04/08/22 02:37 04/08/22 02:37 Lab Results 04/08/22 04/08/22 04/08/22 Range/Units 02:37 02:37 02:37 WBC 7.6 (3.8-10.6) k/uL RBC 4.51 (3.80-5.40) m/uL Hgb 14.2 (11.4-16.0) gm/dL Hct 42.7 (34.0-46.0) % MCV 94.7 (80.0-100.0) fL MCH 31.4 (25.0-35.0) pg MCHC 33.2 (31.0-37.0) g/dL RDW 15.0 (11.5-15.5) % Plt Count 103 L (150-450) k/uL MPV 9.7 Neutrophils % 75 % Lymphocytes % 15 % Monocytes % 6 % Eosinophils % 2 % Basophils % 1 % Neutrophils # 5.7 (1.3-7.7) k/uL Lymphocytes # 1.2 (1.0-4.8) k/uL Monocytes # 0.4 (0-1.0) k/uL Eosinophils # 0.1 (0-0.7) k/uL Basophils # 0.0 (0-0.2) k/uL PT 11.9 (9.0-12.0) sec INR 1.1 (<1.2) APTT 21.5 L (22.0-30.0) sec Sodium 134 L (137-145) mmol/L Potassium 2.8 L (3.5-5.1) mmol/L Chloride 98 (98-107) mmol/L Carbon Dioxide 31 H (22-30) mmol/L Anion Gap 5 mmol/L BUN 14 (7-17) mg/dL Creatinine 0.90 (0.52-1.04) mg/dL Est GFR (CKD-EPI)AfAm 76 (>60 ml/min/1.73 sqM) Est GFR (CKD-EPI)NonAf 66 (>60 ml/min/1.73 sqM) Glucose 133 H (74-99) mg/dL Plasma Lactic Acid Tyson (0.7-2.0) mmol/L Calcium 8.9 (8.4-10.2) mg/dL Total Bilirubin 1.8 H (0.2-1.3) mg/dL AST 47 H (14-36) U/L ALT 23 (4-34) U/L Alkaline Phosphatase 84 (38-126) U/L Troponin I (0.000-0.034) ng/mL Total Protein 5.9 L (6.3-8.2) g/dL Albumin 3.3 L (3.5-5.0) g/dL Amylase 63 (30-110) U/L Lipase 139 (23-300) U/L 04/08/22 04/08/22 04/08/22 Range/Units 02:37 02:37 06:12 WBC (3.8-10.6) k/uL RBC (3.80-5.40) m/uL Hgb (11.4-16.0) gm/dL Hct (34.0-46.0) % MCV (80.0-100.0) fL MCH (25.0-35.0) pg MCHC (31.0-37.0) g/dL RDW (11.5-15.5) % Plt Count (150-450) k/uL MPV Neutrophils % % Lymphocytes % % Monocytes % % Eosinophils % % Basophils % % Neutrophils # (1.3-7.7) k/uL Lymphocytes # (1.0-4.8) k/uL Monocytes # (0-1.0) k/uL Eosinophils # (0-0.7) k/uL Basophils # (0-0.2) k/uL PT (9.0-12.0) sec INR (<1.2) APTT (22.0-30.0) sec Sodium (137-145) mmol/L Potassium (3.5-5.1) mmol/L Chloride (98-107) mmol/L Carbon Dioxide (22-30) mmol/L Anion Gap mmol/L BUN (7-17) mg/dL Creatinine (0.52-1.04) mg/dL Est GFR (CKD-EPI)AfAm (>60 ml/min/1.73 sqM) Est GFR (CKD-EPI)NonAf (>60 ml/min/1.73 sqM) Glucose (74-99) mg/dL Plasma Lactic Acid Tyson 1.5 (0.7-2.0) mmol/L Calcium (8.4-10.2) mg/dL Total Bilirubin (0.2-1.3) mg/dL AST (14-36) U/L ALT (4-34) U/L Alkaline Phosphatase (38-126) U/L Troponin I 0.078 H* 0.063 H* (0.000-0.034) ng/mL Total Protein (6.3-8.2) g/dL Albumin (3.5-5.0) g/dL Amylase (30-110) U/L Lipase (23-300) U/L Disposition Clinical Impression: Fall, Compression fracture, Hypokalemia, Vomiting Disposition: HOME SELF-CARE Condition: Undetermined Instructions (If sedation given, give patient instructions): Vertebral C ompression Fracture (ED) Is patient prescribed a controlled substance at d/c from ED?: No Referrals: Brock Zimmerman DO [Primary Care Provider] - 1-2 days Lakeshia Miranda DO [Doctor of Osteopathic Medicine] - 1-2 days
[2022-04-08] MEDS ORDERED: POTASSIUM CHLORIDE ER 20 MEQ TAB.ER PO STA (07:13)
[2022-04-08 07:30] VITALS: BP 127/73; PULSE 65
[2022-04-08] MEDS ORDERED: LIDOCAINE 5% PATCH TOPICAL SCH (09:00)
== END 2022-04-08 07:50 | disposition home or self-care (01) ==
LOC: EC 01:07
DX: S22.089A Unspecified fracture of T11-T12 vertebra, initial encounter for closed fracture (principal); E87.6 Hypokalemia; R11.10 Vomiting, unspecified; K21.9 Gastro-esophageal reflux disease without esophagitis; E07.9 Disorder of thyroid, unspecified; Z87.891 Personal history of nicotine dependence; Z79.899 Other long term (current) drug therapy; Z79.890 Hormone replacement therapy; W18.30XA Fall on same level, unspecified, initial encounter; Y92.009 Unspecified place in unspecified non-institutional (private) residence as the place of occurrence of the external cause
CPT/HCPCS: 80053; 82150; 83605; 83690; 84484; 85025; 85610; 85730; 74176; 99284; 96374; 96375; 96376; 96361; J2270; J1170

== ENCOUNTER → 2022-06-03 | Outpatient (CLI) | payer MEDICARE, OTHER ==
--- NOTE | 2022-06-03 09:17 | CT ---
EXAMINATION TYPE: CT lumbar spine wo con CT DLP: 724.70 mGycm, Automated exposure control for dose reduction was used. DATE OF EXAM: 06/03/2022 8:54 AM COMPARISON: CT abdomen pelvis 04/08/2022. CLINICAL INDICATION:Female, 71 years old with history of M54.50 lumbar fx; , Lumbar Fracture TECHNIQUE: Multiple axial images were obtained from the midportion of T11 through the sacroiliac marcelo nts. Soft tissue and bone windows in coronal and sagittal planes were obtained and reviewed. FINDINGS: Alignment: There are 5 lumbar type vertebral bodies within normal alignment. Bone: Multilevel disc degeneration changes with some marginal osteophytes. Diffuse osseous deminerali zation. T12 compression fracture with 5 mm retropulsion. There is now at least 75% height loss compar ed to 04/08/2022. Discs: T12-L1: Moderate to severe spinal canal stenosis secondary to progression of compression fracture of T12 with 5 mm retropulsion. The neural foramen are patent. L1-L2: Disc bulge with facet joint arthropathy with moderate spinal canal stenosis. The neural forame n are patent. L2-L3: Disc bulge with facet joint arthropathy with severe spinal canal stenosis. The neural foramen are patent. L3-L4: Disc bulge with facet joint arthropathy with moderate spinal canal stenosis. The neural forame n are patent. L4-L5: Disc bulge with facet joint arthropathy with severe spinal canal stenosis. The neural foramen are patent. L5-S1: Disc bulging without significant spinal canal neural foraminal stenosis. Other: Atherosclerosis of the arterial vasculature. IMPRESSION: 1. Progression of compression fracture of the T12 vertebral body with now near 75% height loss and 5 mm retropulsion resulting in moderate to severe spinal canal stenosis. 2. Spinal canal stenosis at L2-L3 and L4-L5 with severe and at L1-L2 and L3-4 with moderate spinal ca nal stenosis secondary disc bulging and facet joint arthropathy. Not significantly changed from prior 04/08/2022.
== END | disposition home or self-care (01) ==
LOC: RADCTMAIN 08:31
PROVIDERS: ATTEND Psychiatry & Neurology Neurology
DX: S32.018A Other fracture of first lumbar vertebra, initial encounter for closed fracture (principal); M48.061 Spinal stenosis, lumbar region without neurogenic claudication; M47.816 Spondylosis without myelopathy or radiculopathy, lumbar region
CPT/HCPCS: 72131

== ENCOUNTER → 2022-07-08 | Outpatient (CLI) | payer MEDICARE, OTHER ==
--- NOTE | 2022-07-08 12:35 | MM ---
Reason for Exam: Additional evaluation requested from prior study. Last screening mammogram was performed 12 month(s) ago. Patient History: Menarche at age 11. First Full-Term at age 23. Left ovary removed at age 29. Right ovary removed at age 29. Hysterectomy at age 29. Postmenopausal. Breast cancer, left, age 68. Patient used Hormonal Contraceptives for 1 year. Bilateral Benign Cyst Aspiration. 07/2020, Cyst Aspiration on the Left side. 08/29/2019, Lumpectomy on the Left side. Malignant Core Biopsy. 08/29/2019, Malignant Core Biopsy on the left side. 07/13/2019, Malignant Core Biopsy on the left side. Prior Study Comparison: 07/04/2020 Bilateral Diagnostic Mammogram, [facility]. 01/02/2021 Left Diagnostic Mammogram, [facility]. 07/06/2021 Bilateral Diagnostic Mammogram, [facility]. Tissue Density: The breast tissue is heterogeneously dense. This may lower the sensitivity of mammography. Findings: Analyzed By CAD. Postsurgical and posttreatment changes left breast. There is chronic nodularity within the right breast. Areas of asymmetric density remain unchanged on the right. No significant change from prior exams. Overall Assessment: Benign, BI-RAD 2 Management: Screening Mammogram of both breasts in 1 year. 1. Patient should continue monthly self breast exams. 2. A clinical breast exam by your physician is recommended on an annual basis. 3. This exam should not preclude additional follow-up of suspicious palpable abnormalities. Results were given to the patient verbally at the time of exam. Electronically signed and approved by: Coco Berg M.D. Radiologist
== END | disposition home or self-care (01) ==
LOC: RADMAMWWP 11:37
PROVIDERS: ATTEND Surgery
DX: R92.8 Other abnormal and inconclusive findings on diagnostic imaging of breast (principal); Z78.0 Asymptomatic menopausal state; Z90.721 Acquired absence of ovaries, unilateral
CPT/HCPCS: 77066; G0279; 77062

== ENCOUNTER → 2023-04-08 | Outpatient (CLI) | payer MEDICARE, OTHER ==
[2023-04-08 15:15] LABS: Basophils # (A) 0.08 X 10*3/uL (0.00-0.10); Basophils % (A) 1.5 %; Eosinophils # (A) 0.55 X 10*3/uL (0.04-0.35); Eosinophils % (A) 10.6 %; HCT 45.7 % (37.2-46.3); HGB 15.5 d/dL (12.0-15.0); Lymphocytes # (A) 1.68 X 10*3/uL (0.90-5.00); Lymphocytes % (A) 32.4 %; MCH 31.7 pg (27.0-32.0); MCHC 33.9 d/dL (32.0-37.0); MCV 93.5 FL (80.0-97.0); Mean Platelet Volume 12.9 FL (9.5-12.2); Monocytes # (A) 0.48 X 10*3/uL (0.20-1.00); Monocytes % (A) 9.3 %; NRBC Per 100 WBC 0 X 10*3/uL (0.00-0.01); Neutrophils # (A) 2.38 X 10*3/uL (1.80-7.70); Platelet Count 134 X 10*3/uL (140-440); RBC 4.89 X 10*6/uL (4.10-5.20); RDW 14.6 % (11.5-14.5); WBC 5.18 X 10*3/uL (4.50-10.00)
[2023-04-08 19:40] LABS: INR 1.02 sec (0.93-1.11); Prothrombin Time 11.5 sec (9.9-11.9)
[2023-04-09 02:13] LABS: Blood Urea Nitrogen 15.4 mg/dL (9.0-27.0); Calcium 9.2 mg/dL (8.7-10.3); Carbon Dioxide 27.4 mmol/L (21.6-31.8); Chloride 100 mmol/L (96-109); Glucose 66 mg/dL (70-110); Potassium 3.6 mmol/L (3.5-5.5); Sodium 140 mmol/L (135-145)
== END | disposition home or self-care (01) ==
LOC: LABWHC1 10:24
PROVIDERS: ATTEND Orthopaedic Surgery
DX: Z01.818 Encounter for other preprocedural examination (principal); S22.080A Wedge compression fracture of T11-T12 vertebra, initial encounter for closed fracture; X58.XXXA Exposure to other specified factors, initial encounter; R26.89 Other abnormalities of gait and mobility; Z22.322 Carrier or suspected carrier of Methicillin resistant Staphylococcus aureus
CPT/HCPCS: 80048; 85025; 85610; 87070; 93005

== ENCOUNTER 2023-04-11 06:11 | Inpatient (IN) | payer MEDICARE, OTHER ==
--- NOTE | 2023-04-10 15:26 | P.HPOR ---
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 New injury 1 week prior with fall from standing DOS:NA Duration of current treatment regiment: one year HISTORY : Xrays brought xrays from outside facility which were reviewed New xrays taken in office Trauma or injury yes Work-Related No Pain description sharp. Location posterior Activity Modification yes Hand Dominance right TREATMENTS COMPLETED: 6 weeks of PT completed? Month and Year of last PT date? Yes How many sessions? several Did it help? No Physician directed home exercise completed? No Medications yes List: [place], Percocet, gabapentin, Flexeril, Motrin, Tylenol Alternative interventions Chiropractic: No Massage therapy: yes R.I.C.E: yes Brace: Yes How long was brace worn? *LSO brace Did it help? No Injections No RFA: No SUBJECTIVE: 72-year-old female presents for evaluation of her low back pain. She has been seeing my [employer] [facility] for the last couple weeks and they are working conservatively to treat her back pain however it has become worse and so she was sent to me for reevaluation. About 1 year ago she states that she fell down some stairs and had severe back pain afterwards she was treated in a brace and got better however about 1 week ago she fell again and she has had multiple falls as of late in her back pain became very severe. She has gone back into her brace that she has but it does not help her she continues to have severe pain. She states that she is getting some numbness and tingling into her legs. She states that is difficult for her to ambulate around secondary to the pain. She states a history of breast cancer over she is unsure of what kind and she did not know her stage. She states she was treated for the past and it supposedly went away. She denies any head trauma no fevers chills shortness breath or chest pain no bowel or bladder issues at this time. The patients' past social, medical, family, surgical history, as well as review of systems, have been reviewed. Please refer to the Neurosurgery History and Physical form that has been scanned in to our electronic medical record system. 14 points review of systems completed and as stated in HPI, all other systems reviewed are negative. Social History: Reviewed, see appropriate section of the chart for details. P3 Family History: Reviewed, see appropriate section of the chart for details. P2 Past Medical History: Reviewed, see appropriate section of the chart for details. P1 Current Medications: Rx: did not bring med list in , Ref: 0 Rx: oxyCODONE-acetaminophen 7.5 mg-325 mg tablet Ref: 0 Instructions: take 1 tablet by oral route every 6 hours as needed P1 PHYSICAL EXAMINATION: General: Awake, alert, appropriate for age, in no acute distress. HEENT: No unusual neck masses around region of lateral neck triangle, thyroid, supraclavicular groove Extremities: Skin warm and dry without acute lesions, coloration, temperature, skin intact, no tenderness or erythema Integument: Hairy patches: ABSENT Dorsal skin dimples: ABSENT Cafe au lait spots: ABSENT Surgical incisions: none Palpation: Please see Pain drawing on Intake sheet for further detail. Midline spinal tenderness: yes over T12-L1 E6 Cervical Tenderness: No E6 Paralumbar tenderness: yes E6 Parathoracic tenderness: yes E6 Buttocks tenderness: No E6 POSTURAL and MUSCULO-SKELETAL EVALUATION: Coronal Balance: NEUTRAL Recumbent testing: Patient is able to lay flat on back Sagittal Balance: NEUTRAL Shoulder Profile: LEVEL Pelvic Girdle: LEVEL Neck ROM: UNRESTRICTED Lumbar ROM: RESTRICTED Shoulder ROM: Symmetrical Hip ROM: Symmetrical Knee ROM: Symmetrical Hands: Normal appearance, symmetrical Feet: Normal appearance, Symmetrical VASCULAR STATUS : LEFT RIGHT Wrist Pulses INTACT INTACT Pedal Pulses (Dors. pedis & post.tibialis) INTACT INTACT Color NORMAL NORMAL Edema Absent Absent NEUROLOGIC EXAMINATION: Mental Status:Awake and alert, fully oriented, with normal attention, concentration and memory, and fluent, appropriate speech. Cranial Nerves: I: Olfactory not tested. II: Visual acuity normal, no visual field deficit noted with confrontation. III,IV: Normal pupillary reflexes & intact extraocular movements without nystagmus. V,: Intact symmetrical facial sensation. VII: Intact symmetrical facial motor movement VIII: Hearing intact. IX,X: Intact gag, swallow, & normal voice. XI: Sternocleidomastoid, trapezius function intact. XII: Tongue midline with normal movements. L'hermitte's Sign: Negative / absent Spurling'Sign: Absent bilaterally. Cubital percussion test: Absent bilaterally. Juares-Tinel sign - Carpal region: Absent bilaterally. Straight Leg Raising: Absent bilaterally. Crossed straight leg raise: negative O8 MOTOR EXAM (0-5/5, N/T Muscle appearance: Symmetrical, without signs of atrophy or dystrophy UPPER EXTREMITY RIGHT LEFT Shoulder Abduction 5/5 5/5 Biceps 5/5 5/5 Triceps 5/5 5/5 Wrist Extension 5/5 5/5 Hand Intrnsics 5/5 5/5 Sampler Radioactive Waste 5/5 5/5 Hand and finger dexterity intact bilaterally? yes Disdiadochokinesis examination negative bilaterally? yes LOWER EXTREMITY RIGHT LEFT Hip Flexion 5/5 5/5 Knee Extension 5/5 5/5 Knee Flexion 5/5 5/5 Dorsiflexion 5/5 5/5 Plantarflexion 5/5 5/5 EHL 5/5 5/5 FHL 5/5 5/5 Toe heel walk / heel-toe walk intact while maintaining satisfactory balance? No Squatting/straightening w/o assistance to a min of 60 degree knee flexion? No Single leg stance: Trendelenburg sign negative bilaterally REFLEXES(0-4/2, NT)Upper ExtremityLower Extremity Right 2 2 Left 2 2 Pathological Reflexes RIGHT LEFT Juares's Absent Absent Clonus Absent Absent Babinski Absent Absent Sensory system (0-4, N/T) Test type RU VALERY RL LL Joint-Position 2 2 2 2 Vibration 2 2 2 2 Pain & LT sense 2 2 2 2 Dermatomal Deficit: None None None None Gait and Functional Evaluation: Ambulatory aids: Walker Romberg's test: Intact bilaterally unsteady gait secondary to pain RADIOGRAPHIC STUDIES: XRay Lumbar AP/lateral 2 views taken at [facility] on 04/06/23 of Lumbar Spine: it was reviewed and demonstrate a T12 vertebral compression fracture which is nearly 100% compressed at this point. There is local kyphosis secondary to the compression at this level. This correlated with the CT and MRI scans done CT scancompleted at [facility] from of Lumbar, Thoracic Spine: images are reviewed the patient demonstrate a severe compression deformity of T12. There is vacuum phenomenon within the actual vertebral body. There is near complete collapse of the vertebral body. There is local kyphosis upwards of 15 secondary to the collapse at this level. There is retropulsion of the posterior superior fragment up roughly 4 mm into the canal. There is no severe stenosis. There are no other fractures noted or lesions at this time. MRI scancompleted at [facility] from of Lumbar, Thoracic Spine: these are reviewed and demonstrate an straight the affirmation fracture at T12 with near complete collapse of vertebral body. Thoracic films demonstrate kyphosis at this level lumbar films demonstrate the fracture which has an acute on chronic appearance. There is some edema noted within the vertebral body. There is retropulsion of the posterior superior fragment about 3-4 mm. There is no severe central stenosis. No other fractures are noted at this time no other lesions. IMPRESSION: It was my pleasure to have seen and examined Kayy. I reviewed the patient's clinical syndrome, physical findings, and imaging studies during the appointment today. It is my impression that the patient has a diagnosis of. 1. T12 severe compression deformity 80% with local kyphosis 2. thoracic and low back pain 3.debility secondary to fracture 4. Osteoporosis 5. History of breast cancer I outlined the natural course history without intervention and various interventional options. PLAN: Based on my findings I suggest the following course of action: - I discussed different options with the patient including nonoperative and operative treatments. At this point the patient is trialed nonoperative treatments in the form of bracing therapy pain medications and no evidence seems to be working for her. At this point she would like to be treated operatively as she would like to be out of pain and get back to her life. She states that she was feeling better first when she first fracture but now that she has fallen again and have a more serious pain she is unable to deal with it and unable to perform her activities of daily living secondary to the pain.we discussed other risks and benefits of surgery and she is understanding and willing to proceed. - - Home Exercise: The patient was given a packet, councelled and directed to participate in a home exercise program for thier current condition. This should also consist of 30 min twice daily of either walking or stationary bike/recumbant biking for cardiovascular health and/or low weight, high repetition resistive exercises along with the prescribed "spine rehab" packet given. They should limit their lifting bending and twisting and use good body mechanics when doing such movement in attempts to mitigate any further aggravation to their symptoms. If any of these exercises causes increased pain or discomfort they are instructed to modify the exercise so that it does not create pain, or to stop the particular exercise that causes them discomfort and consult with their PT about alternatives. -Health Maintenance: Health maintenance handout given to the patient which covers topics such as nutritional support, supplementation for symptomatic relief as well as for bone health with vitamin D and calcium, smoking cessation, weight loss counselling and importance of daily exercise with examples and references for each. - - - - - - - I discussed treatment options with the patient, including operative and non- operative options, and they have elected to proceed with the following surgical procedure: T10 through L2 posterior stabilization with T12 biopsy The indications, risks, benefits, and alternatives to surgery were discussed w ith the patient at length. Specifically (but not limited to) the risks of infection, stiffness, recurrence of symptoms, need for revision surgery, local numbness, neurovascular injury, and blood clots were discussed. The patient's questions were answered. The decision to proceed was made. Consent will be obtained for the procedure. -Ambulate daily -Take medications as directed -Ice and rest for pain and swelling control. -continue using LSO brace Follow-up: postoperative Patient Education: (Informational booklet, instructions, etc) given at today's appointment: Yes .ED:Patient Education: Y Plan at next visit: X-ray Medications Reviewed: YES In our visit today Ms. Almaraz and I have had a chance to go over my understanding of the patient's current condition, the natural course history without intervention and various interventional options. Questions were invited and answered, and the patient wishes to proceed as outlined above. I will be sure to keep you updated afterMs. Almaraz returns here for further follow-up. Thank you again for your referral. Please do not hesitate to contact me if you have any further questions. Signed and authenticated by: [facility] [address], [place] [address] [place] [id number] This message is confidential, intended only for the named recipient(s) and may contain information that is privileged or exempt from disclosure under applicable law. If you are not the intended recipient(s), you are notified that the dissemination, distribution or copying of this information is strictly prohibited. If you received this message in error, please notify the sender then delete this message. # SIGNED BY Jordi Cabral (GOO)04/06/2023 05:13PM Past Medical History Past Medical History: Cancer, Deep Vein Thrombosis (DVT), GERD/Reflux, Liver Disease, Osteoarthritis (OA), Thyroid Disorder Additional Past Medical History / Comment(s): CIRRHOSIS WITH LIVER TRANSPLANT (2011), HX OF FX rt X2 ARM, RIGHT SHOULDER AND LEFT HIP WITH PAIN, osteoperosis, breast ca lft, History of Any Multi-Drug Resistant Organisms: None Reported Past Surgical History: Breast Surgery, Cholecystectomy, Heart Catheterization With Stent, Hysterectomy Additional Past Surgical History / Comment(s): liver transplant (2011), STATES HEART STENT INSERTED FOR PULMONARY HYPERTENSION WHERE SHE RECEIVED MEDICATION AND THE STENT WAS REMOVED WHEN SHE HAD HER LIVER TRANSPLANT. THYROID SURGERY crushed lft hip, lft breast lumpectomy, multiple bone fx Past Anesthesia/Blood Transfusion Reactions: Previous Problems w/ Anesthesia Additional Past Anesthesia/Blood Transfusion Reaction / Comment(s): STATES LAST COLONOSCOPY SHE COULD FEEL EVERYTHING BUT COULD NOT SPEAK TO TELL THEM SHE WAS AWAKE. 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 Date of Last Stent Placement:: 05/02/2011 Smoking Status: Former smoker - Past Family History Mother Family Medical History: Cancer Father Family Medical History: Cancer Brother(s) Family Medical History: Cancer Medications and Allergies Home Medications Medication Instructions Recorded Confirmed Type Atorvastatin [Lipitor] 10 mg PO QAM 04/11/16 04/08/23 History DULoxetine HCL [Cymbalta] 20 mg PO DAILY@1800 04/11/16 04/08/23 History Tacrolimus [Prograf] 0.5 mg PO Q12H 04/11/16 04/08/23 History Ranitidine HCl [Zantac] 150 mg PO BID 07/18/17 04/08/23 History Alendronate Sodium [Fosamax] 70 mg PO MICHAUD 07/19/17 04/08/23 History Multivitamin,Therapeutic [Thera] 1 tab PO QAM 07/09/19 04/08/23 History Vitamin B Complex 1 cap PO QAM 07/20/19 04/08/23 History Levothyroxine Sodium [Synthroid] 100 mcg PO QAM 12/08/19 04/08/23 History Anastrozole [Arimidex] 1 mg PO QAM 07/24/20 04/08/23 History Famotidine 20 mg PO BID 04/08/23 04/08/23 History Nitroglycerin 0.4 mg SL DIRECTED PRN 04/08/23 04/08/23 History Vit C/E/Zn/Coppr/Lutein/Zeaxan 1 tab PO DAILY 04/08/23 04/08/23 History [Preservision Areds 2 Softgel] oxyCODONE-APAP 7.5-325MG [Percocet 1 tab PO DIRECTED PRN 04/08/23 04/08/23 History 7.5-325 mg] Allergies Allergy/AdvReac Type Severity Reaction Status Date / Time No Known Allergies Allergy Verified 04/08/23 08:42 Physical Examination Osteopathic Statement: *. No significant issues noted on an osteopathic structural exam other than those noted in the History and Physical/Consult. Assessment and Plan Plan: Spine Surgery Clinical and Risk Review Kayy Almaraz is a 72 yo female presenting for evaluation of severe continued low back pain with multiple falls. It was my pleasure to have seen and examined Kayy. In our visit today we have had a chance to go over subjective complaints, physical examination findings and treatments including the natural course history without intervention and various interventional options. The patients imaging demonstrates T12 severe compression deformity with kyphosis. On physical exam, Kayy demonstrates TTP about the T12 region and midline TTP of the T12-L1 region. She has difficulty with ambulation secondary to the pain and is using a cane and a walker. She also has a brace on but this does not help her. She states increased pain as of late due to falls. I have explained to the patient that as their condition progresses it will cause further neurological deficits and eventual paralysis. Based on the patients imaging, physical exam, and the rapid progression and disabling nature of their symptoms, at this time I recommend surgery in the form or a: T10-L2 posterior MIS stabilization and ORIF with biopsy of T12. I discussed the risk and benefits of this procedure at length with Kayy. The patient agreed to considered pursuing the procedure abovementioned. Prior to surgery, she should follow up with her PCP (Cardio, ID, IM etc) for clearance. Questions were invited and answered, and the patient wishes to proceed as outlined below. Currently, I am recommendin. T10-L2 posterior MIS stabilization and ORIF with biopsy of T12 2. Follow up with PCP for surgical clearance 3. Review of surgical risks and benefits as well as an educational packet on the proposed surgical procedure. Risks: All surgical procedures come with inherent risks, including those related to positioning, anesthesia, intraoperative findings, and postoperative complications. It is important to understand that surgery does not come with any guarantee of a successful outcome as complications and adverse events are always possible. The patient was given a handout in office today discussing the surgical procedure and risks associated with the intervention, both of which were discussed with the patient. These risks include but are not limited to the following: Experiencing same, different or even worse symptoms in back, neck, arms, or legs compared to before surgery. Requiring further surgery or other forms of treatment presently or at some time in the future at same or other levels of the intended spine surgery. On an extreme but fortunately relatively rare basis severe complication such as blindness, stroke, heart attack, temporary and/or permanent nerve injury, paralysis, coma, or may occur, sometimes without known explanation. Surgical complications may include but are not limited to risk of infection, fluid accumulation in the surgical dissection site, including a seroma or hematoma, that requires additional surgery, wound drainage, bleeding, new numbness or weakness, vision changes/loss, spinal fluid leakage, non-healing and/or infected incision, headaches, difficulty or inability to swallow, hoarseness, hemopneumothorax, pneumothorax, impotence, retrograde ejaculation, vaginal dryness; injury to nerves, spinal cord, blood vessels, lymphatics or oth er vital organs (i.e., bowel injury, injury to the great vessels); heterotopic bone formation; complications related to the hardware such as screws, rods, cages including misplaced hardware, device failure, instrumentation at the wrong spine level, hardware fracture/breakage, or hardware loosening; vertebral failure of the spinal column above or below the newly placed hardware; retained surgical instrumentations or devices and the need for further surgery. Medical risks of the planned spine surgery include but are not limited to generalized Infections to the whole body or local areas outside of the surgical site (sepsis), heart attack, bleeding, anaphylaxis, meningitis, seizure, epilepsy, hearing loss, burn knowles, laceration of the head or other areas of the body, bruising, hypersensitivity of the skin, bladder over distension; allergic reaction; shoulder injury related to positioning; fat, blood and air clots to other areas of the body like heart, lungs, brain; failure of internal organs such as lungs, kidneys, liver and excessive bleeding. If blood transfusions are necessary, note that transfusions may cause intolerance reactions such as anaphylaxis or other complex reactions. Despite best efforts, the results of spine surgery might not heal in terms of bone, soft tissues such as skin, fascia, ligaments, and joints. Additionally, in order to achieve best possible results, spine surgery may be carried out beyond the initially planned levels and involve decompression, fusion including insertion of hardware at levels other than the original intended area of surgical interest change some portions of the procedure in order to ensure the best possible outcomes. With spine surgery and spinal fusion, there are different off label uses of instrumentation (devices, implants and hardware) as well as biological substances (bone morphogenic proteins, demineralized bone matrix) as well as using extra bone from allograft sources (i.e. cadaver bone) or autograft (iliac crest bone, ribs, or the spine itself). The patient has been given information about these practices and their inherent risks and benefits. The patient has had a chance to review all the listed information, has been given print outs detailing this information, and has had all his/her questions answered to their satisfaction. It was my pleasure to have seen and examined Kayy Almaraz. In our visit today we have had a chance to go over my understanding of our patient's current condition, the natural course history without intervention and various interventional options. Questions were invited and answered, and the patient wishes to proceed as outlined above. I have seen and examined the patient for 25 minutes and we have spent more than 50% of the time in repeat and detailed counseling about the patient's condition, its natural course history with out and as much as can be predicted with surgery and re-review of various surgical treatment options. In conclusion, Kayy Almaraz and requested we proceed with the above suggested surgery and are willing to accept risks and limitations of the suggested surgery as nature of the disease process and our best attempts at treatment for the co ndition. Thank you again for allowing us to be part of your patient's care. Please don't hesitate to contact me if you have any further questions. Signed and authenticated by: [facility] [address], [address] [id number]
[~2023-04-11 06:11] MED LIST changes: +ACETAMINOPHEN TAB 500 MG TAB PO PRN; -DEXAMETHASONE SOD PHOSPHATE 10 MG/ML 1 ML VIAL IV ONE; +GABAPENTIN 300 MG CAP PO PRN; -HEPARIN SODIUM,PORCINE 5,000 UNIT/ML 1 ML VIAL SQ ONE; -HYDROmorphone 0.5 MG/0.5 ML SYRINGE IVP PRN; -LACTATED RINGERS 1,000 ML IV SCH; -MIDAZOLAM 2 MG/2 ML VIAL IV PRN; -ONDANSETRON 4 MG/2 ML VIAL IVP ONE; +ONDANSETRON 4 MG/2 ML VIAL IVP PRN; -Pre Op ABX Message 1 EACH MISC MISCELLANE ONE; +TRANEXAMIC 1,000 MG/100ML-NACL 1,000 MG in SALINE 1 100ML.BAG IVPB PRN
[2023-04-11] MEDS ORDERED: LIDOCAINE 1% (10MG/ML) FOR IV START INTRADERMA PRN (06:44)
[2023-04-11] MEDS: LACTATED RINGERS 1,000 ML IV SCH ×2 (06:52→16:12)
[2023-04-11] MEDS ORDERED: HYDROmorphone 0.5 MG/0.5 ML SYRINGE IVP PRN (07:00)
[2023-04-11] MEDS ORDERED: hydrALAZINE HCL 20 MG/ML 1 ML VIAL IVP ONE ×2 (07:50→10:55)
[2023-04-11] MEDS ORDERED: LABETALOL SYRINGE 5 MG/ML (4 ML SYR) ONE (08:11)
[2023-04-11] MEDS ORDERED: MIDAZOLAM 2 MG/2 ML VIAL ONE (08:11)
[2023-04-11] MEDS ORDERED: PROPOFOL 10 MG/ML 20 ML VIAL IV ONE (08:11)
[2023-04-11] MEDS ORDERED: fentaNYL (PF) 50 MCG/ML 2 ML AMP ONE (08:11)
[2023-04-11] MEDS ORDERED: SUCCINYLCHOLINE CHLORIDE 200 MG/10 ML VIAL IV ONE (08:11)
[2023-04-11] MEDS ORDERED: GLYCOPYRROLATE 0.2 MG/ML 2 ML VIAL ONE (08:11)
[2023-04-11] MEDS ORDERED: HYDROmorphone (PF) 1 MG/ML ONE (08:11)
[2023-04-11] MEDS ORDERED: ROCURONIUM 10 MG/ML (5 ML VIAL) IV ONE (08:11)
[2023-04-11] MEDS ORDERED: PHENYLEPHRINE 10 MG/ML VIAL ONE (08:11)
[2023-04-11] MEDS ORDERED: TRANEXAMIC 1,000 MG/100ML-NACL PREMIX BAG ONE (08:11)
[2023-04-11] MEDS ORDERED: LIDOCAINE 2% INJ 20 MG/ML (2 ML VIAL) ONE (08:11)
[2023-04-11] MEDS ORDERED: NEOSTIGMINE 1 MG/ML 10 ML VIAL ONE (08:11)
[2023-04-11] MEDS ORDERED: KETAMINE 10 MG/ML 20 ML VIAL ONE (08:11)
[2023-04-11] MEDS ORDERED: THROMBIN (BOVINE) 5,000 UNIT VIAL TOPICAL ONE (09:03)
[2023-04-11] MEDS ORDERED: GELATIN SPONGE,ABSORB (LARGE) 1 EACH SPONGE TOPICAL ONE (09:03)
[2023-04-11] MEDS ORDERED: IOPAMIDOL M200 10 ML VIAL MISCELLANE ONE (09:04)
[2023-04-11] MEDS ORDERED: VANCOMYCIN 1,000 MG VIAL MISCELLANE ONE ×3 (09:05→10:18)
[2023-04-11] MEDS ORDERED: MINERAL OIL 1 APPLIC/ML OIL MISCELLANE ONE (09:21)
[2023-04-11] MEDS ORDERED: LACTATED RINGERS 1,000 ML IV ONE (09:50)
[2023-04-11] MEDS ORDERED: MAGNESIUM HYDROXIDE 2,400 MG/30 ML CUP PO PRN (10:38)
[2023-04-11] MEDS ORDERED: CYCLOBENZAPRINE 5 MG TAB PO PRN (10:38)
[2023-04-11] MEDS ORDERED: HYDROmorphone 1 MG/ML 1 ML SYRINGE IVP PRN (10:38)
[2023-04-11] MEDS ORDERED: SENNOSIDES-DOCUSATE SODIUM 1 EACH TAB PO PRN (10:38)
[2023-04-11] MEDS ORDERED: oxyCODONE-APAP 7.5-325MG 1 EACH TAB PO PRN (10:41)
--- NOTE | 2023-04-11 10:45 | P.OP ---
Date of Procedure: 04/11/23 Preoperative Diagnosis: 1. 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 T12 POSSIBLE PATHOLOGICAL FRACTURE 3. LOW BACK PAIN 4. DEBILITY 5. COMPLEX MEDICAL PATIENT Postoperative Diagnosis: 1. 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 T12 POSSIBLE PATHOLOGICAL FRACTURE 3. LOW BACK PAIN 4. DEBILITY 5. COMPLEX MEDICAL PATIENT Procedure(s) Performed: 1. T12 OPEN TREATMENT OF FRACTURE 2. T10-L2 SEGMENTAL STABILIZATION (49428) 3. T12 BIOPSY (50139) 4. USE OF NETO ISH FOR SCREW PLACEMENT AND BIOPSY (95981) USE OF IONM Implants: -NETO EVEREST SCREW AND SANDY SYSTEM MIS Anesthesia: GETA Surgeon: Jordi Cabral Hand Cooper Helper #1: Duane Key (WAS PRESENT AND ASSISTED WITH ALL ASPECTS OF THE CASE FROM POSITION TO COLSURE. ) Estimated Blood Loss (ml): 100 IV fluids (ml): 1,200 Urine output (ml): 220 Pathology: none sent Condition: stable Disposition: PACU Indications for Procedure: Kayy Almaraz is a 72 yo female presenting for evaluation of severe continued low back pain with multiple falls. It was my pleasure to have seen and examined Kayy. In our visit today we have had a chance to go over subjective complaints, physical examination findings and treatments including the natural course history without intervention and various interventional options. The patients imaging demonstrates T12 severe compression deformity with kyphosis. On physical exam, Kayy demonstrates TTP about the T12 region and midline TTP of the T12-L1 region. She has difficulty with ambulation secondary to the pain and is using a cane and a walker. She also has a brace on but this does not help her. She states increased pain as of late due to falls. I have explained to the patient that as their condition progresses it will cause further neurological deficits and eventual paralysis. Based on the patients imaging, physical exam, and the rapid progression and disabling nature of their symptoms, at this time I recommend surgery in the form or a: T10-L2 posterior MIS stabilization and ORIF with biopsy of T12. I discussed the risk and benefits of this procedure at length with Kayy. The patient agreed to considered pursuing the procedure abovementioned. Prior to surgery, she should follow up with her PCP (Cardio, ID, IM etc) for clearance. Questions were invited and answered, and the patient wishes to proceed as outlined below. Currently, I am recommendin. T10-L2 posterior MIS stabilization and ORIF with biopsy of T12 Description of Procedure: T10-L2 stabilization for T12 fx with biopsy T12 (ish) The patient was seen and examined in the preoperative area. All preoperative protocols were followed. Informed consent was obtained, risks and benefits of the procedure were discussed at length. Risks including bleeding infection damage to the surrounding tissue and risk of reoperation were discussed with the patient. Risk of anesthesia up to and including was discussed with the patient. These are outlined in the risk review. They were willing to accept these risks and all of the risks of surgery. The patient was given a weight- based dose of antibiotics in the form of 2 g Ancef. The patient was seen and evaluated by the anesthesia team who deemed them fit for surgery. The site was marked, the patient was willing to proceed with the procedure. The patient was transferred to the operative suite by the Department of anesthesia. They were then drifted off to sleep by the department anesthesia and GETA was performed. The patient tolerated this well. [Paez catheter was placed by nursing staff, atraumatically]. Once confirmation of lines and ventilation the patient was transferred to a [prone Cesar table very carefully]. All bony prominences including wrists, elbows, axilla, chest, hips, and thighs, and feet were padded very well. Special attention was paid to the genitalia and these were padded accordingly. SCDs were placed on bilateral lower extremities and were connected. Arms were well padded and placed [on arm boards up and out in the 90/90 position]. Once in position, again we confirmed good ventilation capabilities and that lines were running appropriately. The patient's thoracolumbar spine was then exposed. 1010s were placed outlining the incision site. Standard alcohol was used to clean the incision site and allowed to dry. C-arm was used to needle localize T12 and then biomark the patient and confirm level for incision which was marked with a skin marker. Operative briefing was performed with all teams and everyone in agreement to proceed. The patient was then prepped and draped in a normal sterile fashion. Timeout was then performed and all parties were in agreement with the procedure to be performed. Poke hole incision made over PSIS on the right for pins. Pins placed for [place] ish and tracker attached. The wound was then draped in a 3-D C-arm and was obtained from the area of interest for [place] navigation. Once then was registered and confirmed to be accurate screws were placed bilateral at T10-L2 using navgated Jamshidi and drill guide and wires. Screws were then placed over wires using lateral imaging. Once screws were in place they were confirmed to be in accurate position on AP and lateral flouroscopic images. The screws were tested and all tested above 20 mA. Jamshidis were then introduced b/l into the T12 vertebral body in optimal position on AP and lateral and biopsy taken. Kyphoplasty was attempted, howevere the vertebral body was too collapsed and would not hold baloon. This was aborted and no cement was placed. We then cemented T10 and L2 screws without incident. The patient remained stable throughout cementation and there was no cement extravasation angiogram a myelogram. We then sized and selected rods for the area rods bent them were then placed them through the tulips of each screw. Set screws were then placed and all screws to secure the rods bilaterally. Set screws were then final tightened. Final imaging confirmed good placement of rods and screws, good reduction and stabilization. We irrigated the wounds thoroughly with 3L ancef irrigation, 3L gentamycin irrigation and 3L NSS. Vancomycin powder placed deep in the wound. The deep fascia was closed with 0 vicrylin the deep subq and 2-0 in the superficial subq. Skin closed with rudy in a horizontal mattress fashion the wound edges approximated very well. wounds were then cleaned and sterilely dressed with optifoam dressing. Drain was secured with a stitch and dressed. The patient was transferred back to their hospital bed atraumatically. Patient was then awakened and extubated by the department of anesthesia having tolerated the procedure very well with no complications. They were transferred to the postoperative care unit in stable condition.
--- NOTE | 2023-04-11 10:54 | FL ---
Intraoperative/procedural fluoroscopic services were provided. Total fluoroscopy time is similar to s econds with a total of 10 submitted images to PACS. Please see the operative/procedural note for furt her details. DAP: 2187.40 Gycm2
--- NOTE | 2023-04-11 15:59 | P.PN ---
Progress Note - Text Progress Note Date: 04/11/23 POST OP: pt s/e. In some pain but doing OK. Still groggy from surgery. Moving all 4 ext well. NV intact distally. VSS at this time. OK to mobilize. OK to mobilize w/o brace PT/OT daily ELLA prieto when up and about Pain control PRN GI/DVT ppx will follow
[2023-04-11] MEDS: PANTOPRAZOLE 40 MG/10 ML VIAL IVP SCH (16:12)
[2023-04-11] MEDS: ACETAMINOPHEN TAB 325 MG TAB PO SCH ×3 (16:18→23:05)
[2023-04-11] MEDS: GABAPENTIN 300 MG CAP PO SCH ×2 (16:18→20:28)
--- NOTE | 2023-04-11 19:24 | CT ---
EXAMINATION TYPE: CT thor lumbar spine wo con DATE OF EXAM: 04/11/2023 COMPARISON: CT lumbar spine 06/03/2022 and outside C-spine MRI 08-03 HISTORY: 72-year-old female S/P T-10 L2 stabilization and T12 biopsy. TECHNIQUE: Contiguous axial scanning of the thoracic and lumbar spine without IV contrast. Coronal an d sagittal reconstructions performed. CT DLP: 1713.6 mGycm Automated exposure control for dose reduction was used. FINDINGS: Some punctate 4 mm calculi may be present within the left renal collecting system. Nonobstructive 9 m m lower pole right renal calculus. There is a 5 mm calcification in the upper right ureter on coronal image 24. Extensive prominent dependent opacities in the right greater than left lungs. Focal nodular patchy op acity measuring 1.4 cm subpleural region lateral right upper lobe. Septal lines are present throughou t. Unclear if this reflects CHF large caliber to the main right and left pulmonary arteries up to 2.8 cm suggesting pulmonary arterial hypertension. Interval placement of T10-L2 posterior lumbar fusion. Vertebroplasty changes. T10 and L2 levels. The orthopedic hardware appears uncomplicated. No vertebral compression collapse of T12 with retropulsion into the ventral spinal canal contribute t o moderate focal spinal canal stenosis, appearance similar to 06/03/2022. Remaining vertebral body heights are preserved. Focal dextroconvex curvature upper third thoracic spi ne. There is moderate left neuroforaminal stenosis and T10-T11. Moderate right neuroforaminal stenosis at T10-T11 and T11-T12. IMPRESSION: 1. KNOWN VERTEBRAL COMPRESSION COLLAPSE OF T12 WITH RETROPULSION CONTRIBUTING TO MODERATE FOCAL SPINA L CANAL STENOSIS. OVERALL APPEARANCE IS SIMILAR COMPARED TO 06/03/2022. 2. INTERVAL T10 AND L2 VERTEBROPLASTY ALONG WITH PLACEMENT OF T10-L2 POSTERIOR LUMBAR FUSION HARDWARE . ORTHOPEDIC HARDWARE APPEARS UNCOMPLICATED. 3. BILATERAL NEPHROLITHIASIS. PUNCTATE 4 MM STONES MAY BE PRESENT IN THE LEFT RENAL COLLECTING SYSTEM . IN ADDITION, THERE IS A 5 MM STONE WITHIN THE UPPER RIGHT URETER. CORRELATE FOR ANY RENAL COLIC SYM PTOMS. 4. EXTENSIVE DEPENDENT OPACITIES IN THE LUNGS WITH SEPTAL LINES. PULMONARY ARTERIAL HYPERTENSION. YAMILET OLOGY UNCLEAR. CORRELATE TO EXCLUDE A CHEST. 5. A 1.4 CM NODULE IN THE RIGHT UPPER LOBE VERSUS SOME DEVELOPING PATCHY INFILTRATE/PULMONARY EDEMA. REASSESSMENT IN 3-4 WEEK FOLLOW-UP AFTER SUCCESSFUL TREATMENT OF PATIENT'S SYMPTOMS.
[2023-04-11] MEDS ORDERED: METOPROLOL TARTRATE 5 MG/5 ML VIAL IVP SCH (20:00)
[2023-04-11] MEDS: METOPROLOL TARTRATE 5 MG/5 ML VIAL IVP PRN (20:28)
[2023-04-11] MEDS: HYDROmorphone 0.5 MG/0.5 ML SYRINGE IVP PRN (22:01)
[2023-04-12] MEDS: HYDROmorphone 0.5 MG/0.5 ML SYRINGE IVP PRN (03:49)
[2023-04-12] MEDS: ACETAMINOPHEN TAB 325 MG TAB PO SCH ×3 (05:31→17:34)
[2023-04-12 08:35] LABS: Basophils % (A) 0 %; Eosinophils # (A) 0.1 k/uL (0-0.7); Eosinophils % (A) 1 %; HCT 39.4 % (34.0-46.0); HGB 13.3 gm/dL (11.4-16.0); Lymphocytes # (A) 2.2 k/uL (1.0-4.8); Lymphocytes % (A) 23 %; MCH 32.3 pg (25.0-35.0); MCHC 33.9 g/dL (31.0-37.0); MCV 95.3 fL (80.0-100.0); Mean Platelet Volume 10.9; Monocytes # (A) 0.7 k/uL (0-1.0); Monocytes % (A) 7 %; Neutrophils # (A) 6.1 k/uL (1.3-7.7); Neutrophils % (A) 66 %; Platelet Count 103 k/uL (150-450); RBC 4.13 m/uL (3.80-5.40); RDW 14.8 % (11.5-15.5); WBC 9.2 k/uL (3.8-10.6)
--- NOTE | 2023-04-12 08:50 | P.PN ---
Subjective Progress Note Date: 04/12/23 Principal diagnosis: 1. T12 severe compression deformity 80% with local kyphosis 2.Thoracic and low back pain 3. Debility secondary to fracture 4.Osteoporosis 5.History of breast cancer Patient seen and examined this morning. Patient is resting comfortably in bed. Patient was placed on th cardiac floor due to post-op HTN, currently her BP is 172/81. Patient has complaints of pain in the lower back with activity, she states the pain is managed on current regimen. She reports that she has not been up since procedure. Informed patient that physical therapy will be in to work with her today. Patient is able to move her lower extremities without difficulty. Prieto catheter is intact and patent, this may be discontinued when patient is up and about. Objective - Vital Signs Vital signs: Vital Signs Temp 98.2 F 04/12/23 03:56 Pulse 87 04/12/23 03:56 Resp 20 04/12/23 03:56 BP 172/81 04/12/23 04:53 Pulse Ox 100 04/12/23 03:56 FiO2 Intake & Output 04/11/23 04/12/23 04/12/23 18:59 06:59 18:59 Intake Total 2000 Output Total 1025 400 Balance 975 -400 Weight 74.8 kg Intake: IV 1999 Output: Urine 925 400 Estimated Blood Loss 100 Other: Voiding Method Indwelling Catheter - Exam Physical Examination General: The patient is awake and alert, in no acute distress Skin: Skin is warm and dry with no obvious rashes or lesions. Surgical incisions to the thoracolumbar region, dressings intact. Eye: Pupils are equal, round and reactive to light, extra-ocular movements are intact; there is normal conjunctiva bilaterally. Neck: The neck is supple, there is no tenderness and ROM intact. Cardiovascular: There is a regular rate and rhythm. No murmur, rub or gallop is appreciated. Respiratory: Lungs are clear to auscultation, respirations are non-labored, breath sounds are equal. Gastrointestinal: Soft, non-distended, non-tender abdomen. Back: There is no tenderness to palpation in the midline, paralumbar, parathoracic or buttocks region. There is no obvious deformity . Musculoskeletal: ROM limited secondary to pain and stiffness from surgical procedure. Muscle strength in all major muscle groups of bilateral upper extremities 5/5, bilateral lower extremities 4/5. Neurological: CN 2-12 intact. There are no obvious motor or sensory deficits. Movement and coordination equal and intact. Sensory exam to light touch intact C5-T1 and intact from L2-S1. Reflexes 2/4 in bilateral upper and lower extremities. Negative Hoffmans, babinski, and clonus signs. Psychiatric: Cooperative, appropriate mood & affect, normal judgment. - Labs CBC & Chem 7: 04/12/23 08:10 04/12/23 08:10 Assessment and Plan Assessment: Postop day 1: T10-L2 posterior stabilization with T12 biopsy 1. T12 severe compression deformity 80% with local kyphosis 2.Thoracic and low back pain 3. Debility secondary to fracture 4.Osteoporosis 5.History of breast cancer Plan: -Appreciate medical sales consultant and team management. -Activity: Ambulate QID, OOB all meals, up and about, limit lifting bending twisting to less than 5 lbs. Use walker or cane if needed for stability. -Daily PT/OT, increase ambulation strength and balance. -Brace when up and about, not needed in bed or chair -Pain control: Adequate at this time -Meds: reviewed -GI ppx: senna, Miralax -DC prieto when up and about, bedside commode if needed -DVT PPX: OK to restart Heparin tonight -Hygiene: Shower today. Maintain dressing clean and dry. Meticulous cleaning after BMs away from the incision site -Encourage IS 10x/hr -Dispo: Clincally pending *I reviewed and discussed this case with my attending Dr. Cabral, whom has reviewed this chart and films and is in agreement with assessment and plan of care as outlined above. I have personally seen and examined the patient, performed the documentation and the assessment and plan as written. Number of minutes spent on the visit: 20m.
[2023-04-12] MEDS ORDERED: FAMOTIDINE 20 MG TAB PO SCH (09:00)
[2023-04-12] MEDS ORDERED: RANITIDINE HCL 150 MG PO SCH (09:00)
[2023-04-12] MEDS ORDERED: NON FORMULARY DRUG (Vitamin B Complex [Vitamin B Complex] 1 EACH Capsule) PO SCH (09:00)
[2023-04-12 09:38] LABS: African American GFR (CKD) >90 (>60 ml/min/1.73 sqM); Anion Gap 3 mmol/L; Blood Urea Nitrogen 16 mg/dL (7-17); Calcium 8.4 mg/dL (8.4-10.2); Carbon Dioxide 29 mmol/L (22-30); Chloride 104 mmol/L (98-107); Glucose 116 mg/dL (74-99); Non-African American GFR(CKD) >90 (>60 ml/min/1.73 sqM); Sodium 136 mmol/L (137-145)
[2023-04-12] MEDS: HYDROcodone/APAP 10-325MG 1 EACH TAB PO PRN ×3 (09:45→21:47)
[2023-04-12] MEDS: LEVOTHYROXINE 100 MCG TAB PO SCH (09:47)
[2023-04-12] MEDS: GABAPENTIN 300 MG CAP PO SCH ×3 (09:47→20:31)
[2023-04-12] MEDS: TACROLIMUS 0.5 MG CAP PO SCH ×2 (09:47→20:31)
[2023-04-12] MEDS: hydrALAZINE HCL 25 MG TAB PO SCH ×2 (09:47→12:05)
[2023-04-12] MEDS: ATORVASTATIN 10 MG TAB PO SCH (09:47)
[2023-04-12] MEDS: PANTOPRAZOLE 40 MG/10 ML VIAL IVP SCH (09:48)
[2023-04-12] MEDS: VIT A,C & E-LUTEIN-MINERALS 1 EACH TAB PO SCH (09:48)
[2023-04-12] MEDS: ANASTROZOLE 1 MG TAB PO SCH (09:48)
[2023-04-12] MEDS ORDERED: hydrALAZINE HCL 25 MG TAB PO STA (12:11)
--- NOTE | 2023-04-12 12:25 | P.CONS ---
History of Present Illness - Reason for Consult Consult date: 04/12/23 Medical management hypertension, Requesting physician: Jordi Cabral - Chief Complaint T 12 severe compression with thoracolumnbar kyphosis - History of Present Illness This is a 72-year-old with multiple medical issues significant for breast cancer, liver transplant, DVT, gastroesophageal reflux disease, osteoarthritis, chronic thoracic and low back pain, T12 severe compression deformity, T12 possible pathological fracture, status post T12 up and treatment of fracture, T10-L2 segmental stabilization, T12 biopsy. Tolerated procedure well. Postop uncontrolled blood pressure with systolic blood pressures in the 200s now all received IV push Lopressor. Systolic blood pressure currently in the 170s this morning. Did not sleep well, groggy. Denies chest pain, palpitations or shortness of breath. Maintaining O2 sats in the high 90s to 100% on 2L NC. PT pending. Review of Systems Constitutional: Denied any fatigue denied any fever. Cardio vascular: denied any chest pain, palpitations Gastrointestinal denied any nausea vomiting Pulmonary: Denied any shortness of breath cough Neurologic denied any new focal deficits ROS Statement: Those systems with pertinent positive or pertinent negative responses have been documented in the HPI. ROS Other: All systems not noted in ROS Statement are negative. Past Medical History Past Medical History: Cancer, Deep Vein Thrombosis (DVT), GERD/Reflux, Liver Disease, Osteoarthritis (OA), Thyroid Disorder Additional Past Medical History / Comment(s): CIRRHOSIS WITH LIVER TRANSPLANT (2011), HX OF FX rt X2 ARM, RIGHT SHOULDER AND LEFT HIP WITH PAIN, osteoperosis, breast ca lft, History of Any Multi-Drug Resistant Organisms: None Reported Past Surgical History: Breast Surgery, Cholecystectomy, Heart Catheterization With Stent, Hysterectomy Additional Past Surgical History / Comment(s): liver transplant (2011), STATES HEART STENT INSERTED FOR PULMONARY HYPERTENSION WHERE SHE RECEIVED MEDICATION AND THE STENT WAS REMOVED WHEN SHE HAD HER LIVER TRANSPLANT. THYROID SURGERY crushed lft hip, lft breast lumpectomy, multiple bone fx Past Anesthesia/Blood Transfusion Reactions: Previous Problems w/ Anesthesia Additional Past Anesthesia/Blood Transfusion Reaction / Comm: STATES LAST COLONOSCOPY SHE COULD FEEL EVERYTHING BUT COULD NOT SPEAK TO TELL THEM SHE WAS AWAKE. 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 Date of Last Stent Placement:: 05/02/2011 Smoking Status: Former smoker - Past Family History Mother Family Medical History: Cancer Father Family Medical History: Cancer Brother(s) Family Medical History: Cancer Medications and Allergies Home Medications Medication Instructions Recorded Confirmed Type Atorvastatin [Lipitor] 10 mg PO QAM 04/11/16 04/08/23 History DULoxetine HCL [Cymbalta] 20 mg PO DAILY@1800 04/11/16 04/08/23 History Tacrolimus [Prograf] 0.5 mg PO Q12H 04/11/16 04/08/23 History Ranitidine HCl [Zantac] 150 mg PO BID 07/18/17 04/08/23 History Alendronate Sodium [Fosamax] 70 mg PO MICHAUD 07/19/17 04/08/23 History Multivitamin,Therapeutic [Thera] 1 tab PO QAM 07/09/19 04/08/23 History Vitamin B Complex 1 cap PO QAM 07/20/19 04/08/23 History Levothyroxine Sodium [Synthroid] 100 mcg PO QAM 12/08/19 04/08/23 History Anastrozole [Arimidex] 1 mg PO QAM 07/24/20 04/08/23 History Famotidine 20 mg PO BID 04/08/23 04/08/23 History Nitroglycerin 0.4 mg SL DIRECTED PRN 04/08/23 04/08/23 History Vit C/E/Zn/Coppr/Lutein/Zeaxan 1 tab PO DAILY 04/08/23 04/08/23 History [Preservision Areds 2 Softgel] oxyCODONE-APAP 7.5-325MG [Percocet 1 tab PO DIRECTED PRN 04/08/23 04/08/23 Hi story 7.5-325 mg] Allergies Allergy/AdvReac Type Severity Reaction Status Date / Time No Known Allergies Allergy Verified 04/11/23 07:42 Physical Exam Vitals: Vital Signs Temp Pulse Resp BP Pulse Ox 04/12/23 09:41 98.4 F 80 20 189/99 96 04/12/23 08:02 96 04/12/23 04:53 172/81 04/12/23 03:56 98.2 F 87 20 217/92 100 04/12/23 02:00 68 18 04/11/23 23:34 68 18 185/88 95 04/11/23 20:00 98.7 F 69 16 215/94 95 04/11/23 19:45 230/95 04/11/23 18:00 86 16 206/94 94 L 04/11/23 17:00 80 16 178/87 96 04/11/23 15:30 90 16 187/85 96 04/11/23 15:00 92 16 180/88 95 04/11/23 14:45 92 14 154/72 96 04/11/23 14:30 90 14 159/77 95 04/11/23 14:15 97.4 F L 88 12 173/79 91 L 04/11/23 14:00 87 18 162/74 98 04/11/23 13:30 91 16 165/78 99 04/11/23 13:00 93 18 164/77 98 04/11/23 12:39 92 16 167/77 98 04/11/23 12:24 91 16 154/70 100 04/11/23 12:09 90 16 160/70 100 Intake and Output 04/11/23 04/12/23 04/12/23 22:59 06:59 14:59 Output Total 400 400 300 Balance -400 -400 -300 Output: Urine 400 400 300 Other: Voiding Method Indwelling Catheter Indwelling Catheter GENERAL: The patient is alert and oriented x3,No acute distress. Well developed, well nourished. HEENT: Normocephalic, atraumatic. Pupils are round and equally reacting to light. EOMI. No scleral icterus. No conjunctival pallor. No thyromegaly. CARDIOVASCULAR: S1 and S2 present. No murmurs, rubs, or gallops. PULMONARY: Chest is clear to auscultation, no wheezing or crackles. ABDOMEN: Soft, nontender, nondistended, normoactive bowel sounds. No palpable organomegaly. EXTREMITIES: No cyanosis, clubbing, or pedal edema. NEUROLOGICAL: Gross neurological examination did not reveal any focal deficits. Strength and Sensation grossly intact. SKIN: Warm and dry, No rashes. Results CBC & Chem 7: 04/12/23 08:10 04/12/23 08:10 Labs: Abnormal Lab Results - Last 24 Hours (Table) 04/12/23 04/12/23 Range/Units 08:10 08:10 Plt Count 103 L (150-450) k/uL Sodium 136 L (137-145) mmol/L Glucose 116 H (74-99) mg/dL Assessment and Plan Assessment: T12 severe compression deformity 80% with local kyphosis with possible pathological fracture T12, status post T10-L2 posterior stabilization with T12 biopsy Hypertensive emergency, postoperative Osteoporosis History of liver transplant at [facility] , 12 years ago, on tacrolimus-resumed History of breast cancer Gastroesophageal reflux disease Hypothyroidism Coronary artery disease, history of stents Plan: Continue on current medication regime ,monitoring and symptomatic treatment. BMP ordered. Hydralazine added with parameters, close monitoring of blood pressure. PT pending. Pain management, DVT prophylaxis as per primary. Aggressive pulmonary toileting with incentive spirometer reinforced. Thank you for the consult. The impression and plan of care has been dictated as directed. : I performed a history and examination of this patient, discussed the same with the dictator. I agree with the dictator's note ,documented as a scribe. Any additional findings or plans will be noted.
[2023-04-12] MEDS: DULoxetine HCL 20 MG CAPSULE.DR PO SCH (17:41)
[2023-04-12] MEDS: hydrALAZINE HCL 50 MG TAB PO SCH ×2 (17:42→20:31)
[2023-04-12] MEDS: LACTATED RINGERS 1,000 ML IV SCH (17:43)
[2023-04-13] MEDS: ACETAMINOPHEN TAB 325 MG TAB PO SCH ×5 (00:18→23:23)
[2023-04-13] MEDS: HYDROcodone/APAP 10-325MG 1 EACH TAB PO PRN ×2 (02:42→11:10)
[2023-04-13] MEDS: METOPROLOL TARTRATE 5 MG/5 ML VIAL IVP PRN (03:00)
[2023-04-13] MEDS: LEVOTHYROXINE 100 MCG TAB PO SCH (06:29)
[2023-04-13] MEDS: PANTOPRAZOLE 40 MG/10 ML VIAL IVP SCH (07:56)
[2023-04-13] MEDS: ATORVASTATIN 10 MG TAB PO SCH (07:57)
[2023-04-13] MEDS: GABAPENTIN 300 MG CAP PO SCH ×3 (07:57→19:57)
[2023-04-13] MEDS: TACROLIMUS 0.5 MG CAP PO SCH ×2 (07:57→19:57)
[2023-04-13] MEDS: VIT A,C & E-LUTEIN-MINERALS 1 EACH TAB PO SCH (07:57)
[2023-04-13] MEDS: hydrALAZINE HCL 50 MG TAB PO SCH ×4 (07:57→21:45)
[2023-04-13] MEDS: ANASTROZOLE 1 MG TAB PO SCH (07:58)
--- NOTE | 2023-04-13 08:49 | P.PN ---
Subjective Progress Note Date: 04/13/23 Principal diagnosis: 1. T12 severe compression deformity 80% with local kyphosis 2.Thoracic and low back pain 3. Debility secondary to fracture 4.Osteoporosis 5.History of breast cancer Patient seen and examined this morning. Patient is resting comfortably in bed. BP is within normal limit, current BP 117/50. Patient has complaints of pain in the lower back with activity, she states the pain is managed on current regimen. Surgical dressing has been changed this morning. Surgical incisions are well approximated with rudy intact. No active drainage. Clean dry dressing applied. Patient was up in the chair yesterday, she tolerated activity well. Prieto catheter is present and patent, this may be discontinued today. No acute events. Patient is cleared from Orthopedic standpoint for discharge to [facility] when medically stable. Objective - Vital Signs Vital signs: Vital Signs Temp 98.1 F 04/13/23 04:00 Pulse 102 H 04/13/23 04:00 Resp 18 04/13/23 04:00 BP 117/50 04/13/23 04:00 Pulse Ox 94 L 04/13/23 07:56 FiO2 Intake & Output 04/12/23 04/13/23 04/13/23 18:59 06:59 18:59 Intake Total 230 240 Output Total 300 450 Balance -70 -210 Intake: Oral 230 240 Output: Urine 300 450 Other: Voiding Method Indwelling Catheter Indwelling Catheter - Exam Physical Examination General: The patient is awake and alert, in no acute distress Skin: Skin is warm and dry with no obvious rashes or lesions. Surgical i ncisions to the thoracolumbar region, dressings changed this morning 04/13/23, incisions are well approximated with rudy intact, no active drainage present. Eye: Pupils are equal, round and reactive to light, extra-ocular movements are intact; there is normal conjunctiva bilaterally. Neck: The neck is supple, there is no tenderness and ROM intact. Cardiovascular: There is a regular rate and rhythm. No murmur, rub or gallop is appreciated. Respiratory: Lungs are clear to auscultation, respirations are non-labored, breath sounds are equal. Gastrointestinal: Soft, non-distended, non-tender abdomen. Back: There is no tenderness to palpation in the midline, paralumbar, parathora cic or buttocks region. There is no obvious deformity . Musculoskeletal: ROM limited secondary to pain and stiffness from surgical procedure. Muscle strength in all major muscle groups of bilateral upper extremities 5/5, bilateral lower extremities 4/5. Neurological: CN 2-12 intact. There are no obvious motor or sensory deficits. Movement and coordination equal and intact. Sensory exam to light touch intact C5-T1 and intact from L2-S1. Reflexes 2/4 in bilateral upper and lower extremities. Negative Hoffmans, babinski, and clonus signs. Psychiatric: Cooperative, appropriate mood & affect, normal judgment. - Labs CBC & Chem 7: 04/12/23 08:10 04/12/23 08:10 Labs: Abnormal Lab Results - Last 24 Hours (Table) 04/12/23 04/12/23 Range/Units 08:10 08:10 Plt Count 103 L (150-450) k/uL Sodium 136 L (137-145) mmol/L Glucose 116 H (74-99) mg/dL Assessment and Plan Assessment: Postop day 2: T10-L2 posterior stabilization with T12 biopsy 1. T12 severe compression deformity 80% with local kyphosis 2.Thoracic and low back pain 3. Debility secondary to fracture 4.Osteoporosis 5.History of breast cancer Plan: -Appreciate it web development consultant and team management. -Activity: Ambulate QID, OOB all meals, up and about, limit lifting bending twisting to less than 5 lbs. Use walker or cane if needed for stability. -Daily PT/OT, increase ambulation strength and balance. -Pain control: Adequate at this time -Meds: reviewed -GI ppx: senna, Miralax -DC prieto catheter -DVT PPX: -Hygiene: Shower today. Maintain dressing clean and dry. Meticulous cleaning after BMs away from the incision site -Encourage IS 10x/hr -Dispo: Discharge to [facility] when medically stable, patient is cleared from Orthopedic standpoint. *I reviewed and discussed this case with my attending Dr. Cabral, whom has reviewed this chart and films and is in agreement with assessment and plan of care as outlined above. I have personally seen and examined the patient, performed the documentation and the assessment and plan as written. Number of minutes spent on the visit: 20m.
[2023-04-13] MEDS: DULoxetine HCL 20 MG CAPSULE.DR PO SCH (18:09)
[2023-04-13 19:08] VITALS: TEMP 98.3
[2023-04-14 04:53] VITALS: RESP 18
[2023-04-14] MEDS: ACETAMINOPHEN TAB 325 MG TAB PO SCH ×2 (06:16→13:27)
[2023-04-14] MEDS: LEVOTHYROXINE 100 MCG TAB PO SCH (06:16)
[2023-04-14] MEDS: GABAPENTIN 300 MG CAP PO SCH ×2 (09:48→15:48)
[2023-04-14] MEDS: PANTOPRAZOLE 40 MG/10 ML VIAL IVP SCH (09:48)
[2023-04-14] MEDS: ATORVASTATIN 10 MG TAB PO SCH (09:48)
[2023-04-14] MEDS: TACROLIMUS 0.5 MG CAP PO SCH (09:49)
[2023-04-14] MEDS: VIT A,C & E-LUTEIN-MINERALS 1 EACH TAB PO SCH (09:49)
[2023-04-14] MEDS: ANASTROZOLE 1 MG TAB PO SCH (09:49)
[2023-04-14] MEDS: hydrALAZINE HCL 50 MG TAB PO SCH (09:52)
[2023-04-14] MEDS: HYDROcodone/APAP 10-325MG 1 EACH TAB PO PRN ×2 (09:55→15:48)
[2023-04-14] MEDS ORDERED: HEPARIN SODIUM,PORCINE/PF 5,000 UNIT/0.5 ML SYRINGE SQ SCH (10:00)
[2023-04-14 10:13] VITALS: BP 108/62; PULSE 89
--- NOTE | 2023-04-14 10:22 | P.PN ---
Subjective Progress Note Date: 04/13/23 - Chief Complaint T 12 severe compression with thoracolumnbar kyphosis - History of Present Illness This is a 72-year-old with multiple medical issues significant for breast cancer, liver transplant, DVT, gastroesophageal reflux disease, osteoarthritis, chronic thoracic and low back pain, T12 severe compression deformity, T12 possible pathological fracture, status post T12 up and treatment of fracture, T10-L2 segmental stabilization, T12 biopsy. Tolerated procedure well. Postop uncontrolled blood pressure with systolic blood pressures in the 200s now all received IV push Lopressor. Systolic blood pressure currently in the 170s this morning. Did not sleep well, groggy. Denies chest pain, palpitations or shortness of breath. Maintaining O2 sats in the high 90s to 100% on 2L NC. PT pending. 04/13/2023 patient groggy, Dilaudid discontinued. Positive pain. Blood pressures controlled on hydralazine with parameters to hold if systolic blood pressure less than 120. Denies chest pain, palpitations or shortness of breath. Objective - Vital Signs Vital signs: Vital Signs Temp 98.3 F 04/13/23 18:09 Pulse 90 04/13/23 18:09 Resp 18 04/13/23 18:09 BP 176/84 04/13/23 18:09 Pulse Ox 97 04/13/23 18:09 FiO2 Intake & Output 04/13/23 04/13/23 04/14/23 06:59 18:59 06:59 Intake Total 240 450 Output Total 450 400 Balance -210 50 Intake: Oral 240 450 Output: Urine 450 400 Other: Voiding Method Indwelling Catheter Indwelling Catheter - Exam GENERAL: Sitting up in chair,alert and oriented x3,No acute distress. Sleepy. HEENT: Normocephalic, atraumatic. Pupils are round and equally reacting to light. Conjunctiva normal CARDIOVASCULAR: S1 and S2 present. No murmurs, rubs, or gallops. PULMONARY: Unlabored, minimal upper airway congestion otherwise chest is clear to auscultation, no wheezing or crackles. ABDOMEN: Soft, nontender, nondistended, normoactive bowel sounds. No palpable organomegaly. EXTREMITIES: No cyanosis, clubbing, or pedal edema. NEUROLOGICAL: Gross neurological examination did not reveal any focal deficits. Strength and Sensation grossly intact. SKIN: Warm and dry, No rashes. - Labs CBC & Chem 7: 04/12/23 08:10 04/12/23 08:10 Assessment and Plan Assessment: T12 severe compression deformity 80% with local kyphosis with possible pathological fracture T12, status post T10-L2 posterior stabilization with T12 biopsy Acute toxic encephalopathy, medication induced, Dilaudid discontinued, improving. Hypertensive emergency, postoperative, resolved Osteoporosis History of liver transplant at [facility] , 12 years ago, on tacrolimus-resumed History of breast cancer Gastroesophageal reflux disease Hypothyroidism Coronary artery disease, history of stents History of opioid dependence approximately 10-15 years ago. Plan: Continue on current medication regime ,monitoring and symptomatic treatment. Pain management discussed with orthopedics-Dilaudid discontinued , DVT prophylaxis as per primary. Aggressive pulmonary toileting with incentive spirometer reinforced. Discharge planning in progress for tomorrow pending patient continues to do well with adjusted pain management regimen, improvement in sensorium. The impression and plan of care has been dictated as directed. : I performed a history and examination of this patient, discussed the same with the dictator. I agree with the dictator's note ,documented as a scribe. Any additional findings or plans will be noted.
--- NOTE | 2023-04-14 11:04 | P.PN ---
Subjective Progress Note Date: 04/14/23 Principal diagnosis: 1. T12 severe compression deformity 80% with local kyphosis 2.Thoracic and low back pain 3. Debility secondary to fracture 4.Osteoporosis 5.History of breast cancer Patient seen and examined this morning. Patient is resting comfortably in bed. BP is within normal limit. Patient has complaints of pain in the lower back with activity, she states the pain is managed on current regimen. Surgical dressings are clean, dry, and intact. Prieto catheter is present and patent, this may be discontinued today. No acute events. Patient is cleared from Orthopedic standpoint for discharge to [facility] when medically stable. Objective - Vital Signs Vital signs: Vital Signs Temp 98.3 F 04/13/23 18:09 Pulse 68 04/14/23 04:00 Resp 18 04/14/23 04:00 BP 92/52 04/14/23 04:00 Pulse Ox 97 04/14/23 04:00 FiO2 Intake & Output 04/13/23 04/14/23 04/14/23 18:59 06:59 18:59 Intake Total 450 Output Total 400 525 Balance 50 -525 Intake: Oral 450 Output: Urine 400 525 Other: Voiding Method Indwelling Catheter Indwelling Catheter - Exam Physical Examination General: The patient is awake and alert, in no acute distress Skin: Skin is warm and dry with no obvious rashes or lesions. Surgical dressing are CDI Eye: Pupils are equal, round and reactive to light, extra-ocular movements are intact; there is normal conjunctiva bilaterally. Neck: The neck is supple, there is no tenderness and ROM intact. Cardiovascular: There is a regular rate and rhythm. No murmur, rub or gallop is appreciated. Respiratory: Lungs are clear to auscultation, respirations are non-labored, breath sounds are equal. Gastrointestinal: Soft, non-distended, non-tender abdomen. Back: There is no tenderness to palpation in the midline, paralumbar, parathoracic or buttocks region. There is no obvious deformity . Musculoskeletal: ROM limited secondary to pain and stiffness from surgical procedure. Muscle strength in all major muscle groups of bilateral upper extremities 5/5, bilateral lower extremities 4/5. Neurological: CN 2-12 intact. There are no obvious motor or sensory deficits. Movement and coordination equal and intact. Sensory exam to light touch intact C5-T1 and intact from L2-S1. Reflexes 2/4 in bilateral upper and lower extremities. Negative Hoffmans, babinski, and clonus signs. Psychiatric: Cooperative, appropriate mood & affect, normal judgment. - Labs CBC & Chem 7: 04/12/23 08:10 04/12/23 08:10 Assessment and Plan Assessment: Postop day 3: T10-L2 posterior stabilization with T12 biopsy 1. T12 severe compression deformity 80% with local kyphosis 2.Thoracic and low back pain 3. Debility secondary to fracture 4.Osteoporosis 5.History of breast cancer Plan: -Appreciate mainframe consultant and team management. -Activity: Ambulate QID, OOB all meals, up and about, limit lifting bending twisting to less than 5 lbs. Use walker or cane if needed for stability. -Daily PT/OT, increase ambulation strength and balance. -Pain control: Adequate at this time -Meds: reviewed -GI ppx: senna, Miralax -DC prieto catheter -DVT PPX: -Hygiene: Shower today. Maintain dressing clean and dry. Meticulous cleaning after BMs away from the incision site -Encourage IS 10x/hr -Dispo: Discharge to [facility] when medically stable, patient is cleared from Orthopedic standpoint. *I reviewed and discussed this case with my attending Dr. Cabral, whom has reviewed this chart and films and is in agreement with assessment and plan of care as outlined above. I have personally seen and examined the patient, performed the documentation and the assessment and plan as written. Number of minutes spent on the visit: 20m.
[2023-04-14] MEDS ORDERED: hydrALAZINE HCL 25 MG TAB PO SCH (13:00)
--- NOTE | 2023-04-14 13:18 | P.PN ---
Subjective Progress Note Date: 04/14/23 - Chief Complaint T 12 severe compression with thoracolumnbar kyphosis - History of Present Illness This is a 72-year-old with multiple medical issues significant for breast cancer, liver transplant, DVT, gastroesophageal reflux disease, osteoarthritis, chronic thoracic and low back pain, T12 severe compression deformity, T12 possible pathological fracture, status post T12 up and treatment of fracture, T10-L2 segmental stabilization, T12 biopsy. Tolerated procedure well. Postop uncontrolled blood pressure with systolic blood pressures in the 200s now all received IV push Lopressor. Systolic blood pressure currently in the 170s this morning. Did not sleep well, groggy. Denies chest pain, palpitations or shortness of breath. Maintaining O2 sats in the high 90s to 100% on 2L NC. PT pending. 04/13/2023 patient groggy, Dilaudid discontinued. Positive pain. Blood pressures controlled on hydralazine with parameters to hold if systolic blood pressure less than 120. Denies chest pain, palpitations or shortness of breath. 04/14/2023 significant clinical improvement in sensorium, patient much more alert, conversing appropriately. Family brought and lower dentures. Reports pain improvement on current medication regime. Mild congestion-instructed to be up in chair, with incentive spirometer reinforced every hour 10. Denies chest pain, palpitations or shortness of breath. Maintaining O2 sats in the high 90s on 2 L nasal cannula. Afebrile. Blood pressure well controlled, hydralazine dose decreased with parameters to be maintained at holding if systolic blood pressure less than 120. Objective - Vital Signs Vital signs: Vital Signs Temp 98.3 F 04/14/23 09:50 Pulse 89 04/14/23 09:50 Resp 18 04/14/23 09:50 BP 108/62 04/14/23 09:50 Pulse Ox 99 04/14/23 09:50 FiO2 Intake & Output 04/13/23 04/14/23 04/14/23 18:59 06:59 18:59 Intake Total 450 Output Total 400 525 Balance 50 -525 Intake: Oral 450 Output: Urine 400 525 Other: Voiding Method Indwelling Catheter Indwelling Catheter Indwelling Catheter - Exam GENERAL: Alert and oriented x3, lying in bed ,No acute distress. HEENT: Normocephalic, atraumatic. Pupils are round and reactive, Conjunctiva normal CARDIOVASCULAR: S1 and S2 present. No murmurs, rubs, or gallops. PULMONARY: Unlabored, minimal upper airway congestion otherwise chest is clear to auscultation, no wheezing or crackles. ABDOMEN: Soft, nontender, nondistended, normoactive bowel sounds. No palpable organomegaly. EXTREMITIES: No cyanosis, clubbing, or pedal edema. NEUROLOGICAL: Gross neurological examination did not reveal any focal deficits. Strength and Sensation grossly intact. SKIN: Warm and dry, No rashes. - Labs CBC & Chem 7: 04/12/23 08:10 04/12/23 08:10 Assessment and Plan Assessment: T12 severe compression deformity 80% with local kyphosis with possible pathological fracture T12, status post T10-L2 posterior stabilization with T12 biopsy Acute toxic encephalopathy, medication induced, Dilaudid discontinued, resolved Hypertensive emergency, postoperative, resolved Osteoporosis History of liver transplant at [facility] , 12 years ago, on tacrolimus-resumed History of breast cancer Gastroesophageal reflux disease Hypothyroidism Coronary artery disease, history of stents History of opioid dependence approximately 10-15 years ago. Plan: Continue on current medication regime ,monitoring and symptomatic treatment. Pain management/ DVT prophylaxis as per primary. Aggressive pulmonary toileting with incentive spirometer reinforced. Discharge planning in progress for today to [facility] subacute rehab., in a stable condition with guarded prognosis. The impression and plan of care has been dictated as directed. : I performed a history and examination of this patient, discussed the same with the dictator. I agree with the dictator's note ,documented as a scribe. Any additional findings or plans will be noted.
--- NOTE | 2023-04-14 13:34 | CDI ---
Documentation Clarification Form Date: 04/14/2023 12:18:00 PM From: Bibi Moscoso RN, CCDS Admit Date: 04/11/2023 06:11:00 AM Patient Name: Kayy Almaraz Visit Number: [id number] Discharge Date: ATTENTION: The Clinical Documentation Specialists (CDI) and [facility] Coding Staff appreciate your assistance in clarifying documentation. Please respond to the clarification below the line at the bottom and electronically sign. The CDI & [facility] Coding staff will review the response and follow-up if needed. Please note: Queries are made part of the Legal Health Record. If you have any questions, please contact the author of this message via ITS. Dr. Brock Zimmerman Hypertensive emergency, postoperative is documented in the consult and subsequent progress notes starting on 04/12/2023 and the patient had T12 Open treatment of Fracture, T10-L2 Segmental Stabilization T12 Biopsy on 04/11/2023. Additional clarification is requested regarding the relationship, if any, that exists between the diagnosis and the procedure. Patients Admitting Diagnosis: T 12 Severe compression with Thoracolumnbar kyphosis. Post-Operative Diagnosis: T12 Severe compression deformity with Thoracolumbar Kyphosis Procedure performed: T12 Open treatment of Fracture, T10-L2 Segmental Stabilization T12 Biopsy History/Risk Factors: breast cancer, liver transplant, DVT, gastroesophageal reflux disease, Clinical Indicators: 72-year-old female with present for surgical repair of T12 severe compression with thoracolumbar kyphosis. Postop uncontrolled blood pressure with systolic blood pressures in the 200s. She has history of severe low back pain that got worse after a fall. 04/11 VS: prior to procedure: 07:15 195/111 75 16 (07:40) 80 04/11 VS 10:38 (during procedure) 74 16 10% 8 L simple mask 04/11 VS 18:00 86 16 Treatment: Cardiac/Telemetry monitoring Lopressor 2.5 MG IVP SQ 6 HRS SBP above 170 04/11-04/13 Dilaudid 0.5 MG Q 3 HRS PRN Pain scale 4-6 1 MG IVP Pain of 7-10 Apresoline 50 MG PO QID 04/12-04/14 Apresoline 10 MG IVP Once 04/11 What relationship, if any, exists between the diagnosis of Hypertensive emergency, and the procedure? [ ] Hypertensive emergency is a complication of surgical procedure. [ ] Hypertensive emergency is an expected outcome of the surgical procedure. [ ] Hypertensive emergency is related to patients co-morbid condition(s) of & not a complication of the procedure. [ ] Other please specify ____ [ ] Unable to determine. (Template Last Revised: November 2020) MTDD
--- NOTE | 2023-04-14 15:17 | P.DS ---
Providers Date of admission: 04/11/23 06:11 Expected date of discharge: 04/14/23 Attending physician: Jordi Cabral DO Consults: 04/11/23 14:30 Consult Physician Routine Consulting Provider: Brock Zimmerman Reason/Comments: medical management T10-L2 stablization Do you want consulting provider notified?: Yes Primary care physician: Brock Zimmerman [facility] Course: The patient was evaluated preoperatively and found to have the diagnosis of lumbar stenosis. They underwent appropriate preoperative care and were willing to undergo the intended procedure. They underwent a successful T10-L2 posterior stabilization with T12 biopsy, were recovered appropriately and sent to the floor. While on the floor they worked with physical therapy, physical therapy asst apy and nursing to enhance their recovery experience. Their pain was well controlled through their stay and they were started on appropriate medications, DVT ppx modalities, activity and dietary needs. Daily labs were monitored closely, and transfusions were only used when necessary. Medicine as well as other consulting services have made their input and have helped with our team approach and multidisciplinary care. PT milestones have been met and passed and they have made the recommendation of home for this patient and treating providers agree with this care path. The patient will be discharged [facility] with appropriate medications, instructions and follow-up information and in stable condition. Patient Condition at Discharge: Good Plan - Discharge Summary Discharge Rx Participant: No New Discharge Prescriptions: New HYDROcodone/APAP 10-325MG [[place] 10-325] 1 tab PO Q4-6H PRN #42 tab PRN Reason: Pain Sennosides/Docusate Sodium [Senna Plus 8.6-50 mg Softgel] 1 each PO DAILY PRN #20 capsule PRN Reason: Constipation hydrALAZINE HCL [Apresoline] 25 mg PO QID tab Gabapentin [Neurontin] 300 mg PO TID #9 cap Sennosides-Docusate Sodium [Senokot-S] 2 each PO DAILY PRN tab PRN Reason: Constipation cefaDROXiL [Duricef] 500 mg PO Q12HR 5 Days #10 cap Continue Tacrolimus [Prograf] 0.5 mg PO Q12H DULoxetine HCL [Cymbalta] 20 mg PO DAILY@1800 Atorvastatin [Lipitor] 10 mg PO QAM Ranitidine HCl [Zantac] 150 mg PO BID Alendronate Sodium [Fosamax] 70 mg PO MICHAUD Multivitamin,Therapeutic [Thera] 1 tab PO QAM Vitamin B Complex 1 cap PO QAM Levothyroxine Sodium [Synthroid] 100 mcg PO QAM Anastrozole [Arimidex] 1 mg PO QAM Vit C/E/Zn/Coppr/Lutein/Zeaxan [Preservision Areds 2 Softgel] 1 tab PO DAILY Famotidine 20 mg PO BID Nitroglycerin 0.4 mg SL DIRECTED PRN PRN Reason: Chest Pain No Action oxyCODONE-APAP 7.5-325MG [Percocet 7.5-325 mg] 1 tab PO DIRECTED PRN PRN Reason: back pain Discharge Medication List Atorvastatin [Lipitor] 10 mg PO QAM 04/11/16 [History] DULoxetine HCL [Cymbalta] 20 mg PO DAILY@1800 04/11/16 [History] Tacrolimus [Prograf] 0.5 mg PO Q12H 04/11/16 [History] Ranitidine HCl [Zantac] 150 mg PO BID 07/18/17 [History] Alendronate Sodium [Fosamax] 70 mg PO MICHAUD 07/19/17 [History] Multivitamin,Therapeutic [Thera] 1 tab PO QAM 07/09/19 [History] Vitamin B Complex 1 cap PO QAM 07/20/19 [History] Levothyroxine Sodium [Synthroid] 100 mcg PO QAM 12/08/19 [History] Anastrozole [Arimidex] 1 mg PO QAM 07/24/20 [History] Famotidine 20 mg PO BID 04/08/23 [History] Nitroglycerin 0.4 mg SL DIRECTED PRN 04/08/23 [History] Vit C/E/Zn/Coppr/Lutein/Zeaxan [Preservision Areds 2 Softgel] 1 tab PO DAILY 04/08/23 [History] oxyCODONE-APAP 7.5-325MG [Percocet 7.5-325 mg] 1 tab PO DIRECTED PRN 04/08/23 [History] Gabapentin [Neurontin] 300 mg PO TID #9 cap 04/14/23 [Rx] HYDROcodone/APAP 10-325MG [[place] 10-325] 1 tab PO Q4-6H PRN #42 tab 04/14/23 [Rx] Sennosides-Docusate Sodium [Senokot-S] 2 each PO DAILY PRN tab 04/14/23 [Rx] Sennosides/Docusate Sodium [Senna Plus 8.6-50 mg Softgel] 1 each PO DAILY PRN #20 capsule 04/14/23 [Rx] cefaDROXiL [Duricef] 500 mg PO Q12HR 5 Days #10 cap 04/14/23 [Rx] hydrALAZINE HCL [Apresoline] 25 mg PO QID tab 04/14/23 [Rx] Follow up Appointment(s)/Referral(s): Brock Zimmerman DO [Primary Care Provider] - 1 Week (Follow-up in one week after discharge from subacute rehab) Jordi Cabral DO [Doctor of Osteopathic Medicine] - 2 Weeks Activity/Diet/Wound Care/Special Instructions: [facility] subacute rehab Incentive spirometer every hour 10 while awake CBC, BMP in 3 days Incision care: Maintain clean and dry, allow soapy water to run over incisions and pat dry. Dressing may be removed in 1-2 days and leave open to air if there is no drainage. Activity: Ambulate QID with walker until follow up. Take pain medication as prescribed. Utilize ice as needed. Follow up in office in 2 weeks. Discharge Disposition: TRANSFER TO SNF/ECF
[2023-04-14] MEDS ORDERED: HEPARIN SODIUM,PORCINE 5,000 UNIT/ML 1 ML VIAL SQ SCH (21:00)
--- NOTE | 2023-04-15 10:38 | CDI ---
Documentation Clarification Form Date: 04/15/23 From: Ladonna Rao Admit Date: 04/11/2023 06:11:00 AM Patient Name: Kayy Almaraz Visit Number: [id number] Discharge Date: 04/14/2023 04:16:00 PM ATTENTION: The Clinical Documentation Specialists (CDI) and [facility] Coding Staff appreciate your assistance in clarifying documentation. Please respond to the clarification below the line at the bottom and electronically sign. The CDI & [facility] Coding staff will review the response and follow-up if needed. Please note: Queries are made part of the Legal Health Record. If you have any questions, please contact the author of this message via ITS. Dr. Jordi Cabral, A fracture of T12 is documented in the H&P following a fall down steps, with subsequent falls. Additional clarification regarding the etiology of the fracture is requested. History/Risk Factors: HTN, s/p liver transplant, osteoporosis, CAD s/p stents, Clinical Indications: HX of prior fall down steps a year ago, now with a more recent fall X-Ray Results: 04/06 Lspine: itwas reviewedand demonstrate aT12 vertebral compression fracturewhich is nearly 100%compressedat this point. There is localkyphosissecondary to thecompressionat this level. CT scan: severecompression deformityof T12. There isvacuumphenomenonwithin the actual vertebral body.There is near completecollapseof the vertebral body. There is localkyphosis upwards of 15 secondary to thecollapseat this level. There is retropulsion of the posterior superior fragment up roughly 4 mm into the canal. MRI: affirmation fractureat T12 with near completecollapseof vertebral body. Thoracic films demonstratekyphosisat this level lumbar films demonstrate thefracturewhich has an acute on chronic appearance. There is someedemanoted within the vertebral body. There is retropulsion of the posterior superior fragment about 3-4 mm. Treatment: Biopsy of T12 - Benign bone showing features consistent with afracture. Please clarify the etiology of the fracture, if known: [ ] Traumatic [ ] Stress [ ] Pathological (specify cause): ___ [ ] Neoplastic disease [ ] Osteoporosis [ ] Other (please specify): [ ] Unable to determine Traumatic osteoporotic fracture of the spine. MTDD
== END 2023-04-14 16:16 | DRG 477 ==
LOC: 2ORMAIN 06:11 → 3SCARD 13:46
PROVIDERS: ADMIT Orthopaedic Surgery; ATTEND Orthopaedic Surgery
PROC: 0PB40ZX Excision of Thoracic Vertebra, Open Approach, Diagnostic (ICD-10-PCS; principal; 2023-04-11 08:00)
PROC: 0QS004Z Reposition Lumbar Vertebra with Internal Fixation Device, Open Approach (ICD-10-PCS; principal; 2023-04-11 08:00)
PROC: 0PS404Z Reposition Thoracic Vertebra with Internal Fixation Device, Open Approach (ICD-10-PCS; principal; 2023-04-11 08:00)
DX: S22.089A Unspecified fracture of T11-T12 vertebra, initial encounter for closed fracture (principal); G92.8 Other toxic encephalopathy; Z94.4 Liver transplant status; I16.1 Hypertensive emergency; M80.08XA Age-related osteoporosis with current pathological fracture, vertebra(e), initial encounter for fracture; I27.20 Pulmonary hypertension, unspecified; I95.9 Hypotension, unspecified; F11.21 Opioid dependence, in remission; M48.061 Spinal stenosis, lumbar region without neurogenic claudication; M40.15 Other secondary kyphosis, thoracolumbar region; I10 Essential (primary) hypertension; E89.0 Postprocedural hypothyroidism; K21.9 Gastro-esophageal reflux disease without esophagitis; R29.6 Repeated falls; I25.10 Atherosclerotic heart disease of native coronary artery without angina pectoris; T40.2X5A Adverse effect of other opioids, initial encounter; M19.90 Unspecified osteoarthritis, unspecified site; Z79.83 Long term (current) use of bisphosphonates; Z79.621 Long term (current) use of calcineurin inhibitor; Z79.890 Hormone replacement therapy; Z79.811 Long term (current) use of aromatase inhibitors; Z79.899 Other long term (current) drug therapy; Z87.891 Personal history of nicotine dependence; Z85.3 Personal history of malignant neoplasm of breast; Z87.310 Personal history of (healed) osteoporosis fracture; Z86.718 Personal history of other venous thrombosis and embolism; Z95.5 Presence of coronary angioplasty implant and graft; W18.30XA Fall on same level, unspecified, initial encounter; Y92.230 Patient room in hospital as the place of occurrence of the external cause
CPT/HCPCS: 72100; 72128; 72131; 80048; 85025; 86850; 86900; 86901; 88307; 88311; 94760

== ENCOUNTER → 2023-08-05 | Outpatient (CLI) | payer MEDICARE, OTHER ==
--- NOTE | 2023-08-05 14:31 | CT ---
EXAMINATION TYPE: CT thoracic spine wo con DATE OF EXAM: 08/05/2023 COMPARISON: 04/11/2023 HISTORY: BACK PAIN CT DLP: 584.1 mGycm Automated exposure control for dose reduction was used. FINDINGS: There is a stable severe compression fracture of T12 with retropulsion. The retropulsed fragment comp romise of the spinal canal approximately 35-40%. There are postsurgical changes of posterior metallic fusion from T10 through L2 which is stable. There is methyl methacrylate glue in the T10 and L2 vert ebral segment. The thoracic vertebral segments from T1 through T9 are normal in size and alignment without fracture or subluxation. Spinal canal from T1 to T9 is widely patent The paraspinal soft tissues unremarkable. No new abnormalities are seen IMPRESSION: Postsurgical changes of posterior metallic fusion from T10 through L2 for stabilization of a severe c ompression fracture of T12 with retropulsion as described above. There has been no significant interv al change since the prior study. No new abnormalities are seen. IMPRESSION:
== END | disposition home or self-care (01) ==
LOC: RADCTMAIN 12:15
PROVIDERS: ATTEND Orthopaedic Surgery
DX: S22.080A Wedge compression fracture of T11-T12 vertebra, initial encounter for closed fracture (principal); Z98.890 Other specified postprocedural states; M54.6 Pain in thoracic spine
CPT/HCPCS: 72128

== ENCOUNTER → 2023-12-15 | Outpatient (CLI) | payer MEDICARE, OTHER ==
--- NOTE | 2023-12-15 09:29 | MR ---
EXAMINATION TYPE: MR cervical spine wo con DATE OF EXAM: 12/15/2023 COMPARISON: None HISTORY: Neck pain that radiates down right arm. CONTRAST: Performed utilizing 0 mL intravenous Gadavist gadolinium contrast. TECHNIQUE: Multiplanar multiecho imaging on a 3.0 Suzette magnet is performed through the cervical spin e. FINDINGS: The craniovertebral junction is normal. Vertebral body alignment is normal. Some facet h ypertrophy or spurring is present at the T1 level with right posterior lateral thecal sac compression . This moderate compression comes in close approximation with the spinal cord. C7-T1: Left paracentral disc bulge is present. This may have some mild subligamentous disc extension beyond the endplate of C7. No spinal canal stenosis present. Neural foramen are patent.. C6-7: Broad-based disc bulge is moderate anterior thecal sac compression. Cord contact may be present . Cord deformity is not identified. No spinal canal stenosis present. Neural foramen are patent. C5-6: No focal disc herniation or significant disc bulge is evident. No spinal canal stenosis. Uncov ertebral joint hypertrophy has moderate foraminal stenosis. C4-5: No focal disc herniation or significant disc bulge is evident. No spinal canal stenosis or alpa ral foraminal stenosis is present. C3-4: No focal disc herniation or significant disc bulge is evident. No spinal canal stenosis or alpa ral foraminal stenosis is present. C2-3: No focal disc herniation or significant disc bulge is evident. No spinal canal stenosis or alpa ral foraminal stenosis is present. IMPRESSION: 1. Broad-based disc bulge C6-7 has moderate anterior thecal sac compression with cord contact. No cor d deformity or spinal canal stenosis present. 2. Left paracentral disc bulge and C7-T1 with mild subligamentous disc herniation posterior to C7. No cord contact or spinal canal stenosis. 3. Moderate foraminal narrowing C5-6. 4. Right posterior lateral spur posterior to T2 level
== END | disposition home or self-care (01) ==
LOC: RADMRIMAIN 07:50
PROVIDERS: ATTEND Orthopaedic Surgery
DX: M99.71 Connective tissue and disc stenosis of intervertebral foramina of cervical region (principal); M50.123 Cervical disc disorder at C6-C7 level with radiculopathy; M50.23 Other cervical disc displacement, cervicothoracic region; M50.13 Cervical disc disorder with radiculopathy, cervicothoracic region
CPT/HCPCS: 72141

== ENCOUNTER 2024-02-07 12:04 | Observation (INO) | payer MEDICARE, OTHER ==
--- NOTE | 2024-02-07 12:47 | ED ---
General Adult HPI - General Chief complaint: Neuro Symptoms/Deficit Stated complaint: poss stroke Time Seen by Provider: 02/07/24 12:24 Source: patient, RN notes reviewed, old records reviewed Mode of arrival: wheelchair Limitations: no limitations - History of Present Illness Initial comments: 73-year-old female presenting for evaluation of confusion, word finding difficulty which occurred over the weekend 2 days prior. Symptoms currently resolved. Patient does have history of TIA. She also has history of recurrent episodes of nausea vomiting. And does admit to nausea vomiting and diarrhea. No fever. No pain complaints at this time. - Related Data Home Medications Medication Instructions Recorded Confirmed Atorvastatin [Lipitor] 10 mg PO DAILY 04/11/16 02/07/24 DULoxetine HCL [Cymbalta] 20 mg PO DAILY 04/11/16 02/07/24 Alendronate Sodium [Fosamax] 70 mg PO TU 07/19/17 02/07/24 Levothyroxine Sodium [Synthroid] 100 mcg PO DAILY 12/08/19 02/07/24 Anastrozole [Arimidex] 1 mg PO DAILY 07/24/20 02/07/24 Famotidine 20 mg PO BID 04/08/23 02/07/24 Vit C/E/Zn/Coppr/Lutein/Zeaxan 1 tab PO DAILY 04/08/23 02/07/24 [Preservision Areds 2 Softgel] oxyCODONE-APAP 7.5-325MG [Percocet 1 tab PO TID PRN 04/08/23 02/07/24 7.5-325 mg] Cholecalciferol (Vitamin D3) 50 mcg PO DAILY 02/07/24 02/07/24 [Vitamin D3 (50 Mcg = 2000 Iu)] Meloxicam [Mobic] 15 mg PO DAILY PRN 02/07/24 02/07/24 Multivit-Min/Iron Fum/Folic AC 1 tab PO DAILY 02/07/24 02/07/24 [One-A-Day Women's Complete Tab] Super B-Complex 1 tab PO DAILY 02/07/24 02/07/24 Tacrolimus [Prograf] 0.5 mg PO BID 02/07/24 02/07/24 Zinc Gluconate [Zinc] 50 mg PO Q48H 02/07/24 02/07/24 tiZANidine [Zanaflex] 4 mg PO BID PRN 02/07/24 02/07/24 Allergies Allergy/AdvReac Type Severity Reaction Status Date / Time gabapentin AdvReac Severe Altered/Let Verified 02/07/24 14:25 hargic Review of Systems ROS Statement: Those systems with pertinent positive or pertinent negative responses have been documented in the HPI. ROS Other: All systems not noted in ROS Statement are negative. Past Medical History Past Medical History: Cancer, Deep Vein Thrombosis (DVT), GERD/Reflux, Liver Disease, Osteoarthritis (OA), Thyroid Disorder Additional Past Medical History / Comment(s): CIRRHOSIS WITH LIVER TRANSPLANT (2011), HX OF FX rt X2 ARM, RIGHT SHOULDER AND LEFT HIP WITH PAIN, osteoperosis, breast ca lft, History of Any Multi-Drug Resistant Organisms: None Reported Past Surgical History: Breast Surgery, Cholecystectomy, Heart Catheterization With Stent, Hysterectomy Additional Past Surgical History / Comment(s): liver transplant (2011), STATES HEART STENT INSERTED FOR PULMONARY HYPERTENSION WHERE SHE RECEIVED MEDICATION AND THE STENT WAS REMOVED WHEN SHE HAD HER LIVER TRANSPLANT. THYROID SURGERY crushed lft hip, lft breast lumpectomy, multiple bone fx Past Anesthesia/Blood Transfusion Reactions: Previous Problems w/ Anesthesia Additional Past Anesthesia/Blood Transfusion Reaction / Comment(s): STATES LAST COLONOSCOPY SHE COULD FEEL EVERYTHING BUT COULD NOT SPEAK TO TELL THEM SHE WAS AWAKE. 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 Date of Last Stent Placement:: 05/02/2011 Past Psychological History: Anxiety, Panic Disorder Smoking Status: Former smoker - Past Family History Mother Family Medical History: Cancer Father Family Medical History: Cancer Brother(s) Family Medical History: Cancer General Exam Limitations: no limitations General appearance: alert, in no apparent distress Head exam: Present: atraumatic, normocephalic Eye exam: Present: normal appearance, PERRL, EOMI ENT exam: Present: mucous membranes dry Neck exam: Present: normal inspection. Absent: tenderness, meningismus Respiratory exam: Present: normal lung sounds bilaterally. Absent: respiratory distress, wheezes Cardiovascular Exam: Present: regular rate, normal rhythm GI/Abdominal exam: Present: soft. Absent: distended, tenderness, guarding Extremities exam: Present: normal inspection, normal capillary refill Neurological exam: Present: alert, oriented X3, CN II-XII intact. Absent: motor sensory deficit Psychiatric exam: Present: normal affect, normal mood Skin exam: Present: warm, dry, intact. Absent: cyanosis, diaphoretic Course Vital Signs 02/07/24 02/07/24 02/07/24 12:05 14:00 16:48 Temperature 98.4 F Pulse Rate 97 87 68 Respiratory 18 21 14 Rate Blood Pressure 165/93 178/85 142/87 O2 Sat by Pulse 96 95 95 Oximetry 02/07/24 02/07/24 02/07/24 18:00 19:00 19:33 Temperature 99.1 F 98.8 F Pulse Rate 84 95 85 Respiratory 19 14 16 Rate Blood Pressure 98/80 149/67 123/81 O2 Sat by Pulse 95 93 L 95 Oximetry 02/07/24 02/08/24 02/08/24 23:32 02:29 06:01 Temperature 98.4 F 98.7 F Pulse Rate 72 67 68 Respiratory 16 16 16 Rate Blood Pressure 122/78 125/61 137/69 O2 Sat by Pulse 95 95 96 Oximetry 02/08/24 06:53 Temperature Pulse Rate 180 H Respiratory 30 H Rate Blood Pressure 138/100 O2 Sat by Pulse 97 Oximetry - Reevaluation(s) Reevaluation #1: 02/08/24 07:03 While the patient was being held in the emergency department awaiting a room upstairs she did go into atrial fibrillation with a rapid ventricular response. Cardizem was initiated and cardiology was placed on consult. Magnesium level was ordered and additional oral potassium was added for a potassium of 3.0. EKG at that time: Atrial fibrillation with RVR, ventricular rate of 148, QRS duration 78, QTc [address] segment elevation Medical Decision Making - Medical Decision Making Was pt. sent in by a medical professional or institution (, PA, DESIGN AND SALES CONSULTANT, urgent care, hospital, or intermediate...) When possible be specific @ -No Did you speak to anyone other than the patient for history (EMS, parent, family, police, friend...)? What history was obtained from this source @ -Patient's daughter Did you review nursing and triage notes (agree or disagree)? Why? @ -I reviewed and agree with nursing and triage notes Were old charts reviewed (outside hosp., previous admission, EMS record, old EKG, old radiological studies, urgent care reports/EKG's, intermediate records)? Report findings @ -No old charts were reviewed Differential CVA Ischemic stroke, hemorrhagic stroke, brain tumor, atypical migraine, Wernicke's encephalopathy, seizure, multiple sclerosis, meningitis, encephalitis, hypoglycemia, Guillain-Lama, electrolytes disturbance, myasthenia gravis.... This is not meant to be an all-inclusive list EKG interpreted by me (3pts min.). @Sinus rhythm with ventricular rate of 87, KS interval 151, QRS duration 88, QTc 467 prolonged QT] X-rays interpreted by me (1pt min.). @ -None done CT interpreted by me (1pt min.). @CT brain negative for intracranial hemorrhage or mass effect U/S interpreted by me (1pt. min.). @ -None done What testing was considered but not performed or refused? (CT, X-rays, U/S, labs)? Why? @ -None What meds were considered but not given or refused? Why? @ -None Did you discuss the management of the patient with other professionals (professionals i.e. , PA, DESIGN AND SALES CONSULTANT, lab, RT, psych nurse, executive secretary social welfare, jewelry sales associate, teacher, court collections officer, porter sample case)? Give summary @ -Dr. Zimmerman Was smoking cessation discussed for >3mins.? @ -No Was critical care preformed (if so, how long)? @ -No Were there social determinants of health that impacted care today? How? (Homelessness, low income, unemployed, alcoholism, drug addiction, transportation, low edu. Level, literacy, decrease access to med. care, [facility], rehab)? @ -No Was there de-escalation of care discussed even if they declined (Discuss DNR or withdrawal of care, Hospice)? DNR status @ -No What co-morbidities impacted this encounter? (DM, HTN, Smoking, COPD, CAD, Cancer, CVA, ARF, Chemo, Hep., AIDS, mental health diagnosis, sleep apnea, morbid obesity)? @ -Liver transplant, TIA Was patient admitted / discharged? Hospital course, mention meds given and route, prescriptions, significant lab abnormalities, going to OR and other pertinent info. @ -73-year-old female with multiple chronic medical problems presenting with chief complaint of weakness, nausea vomiting, and an episode of expressive aphasia which occurred 2 days prior to arrival and has subsequently resolved. Patient is in sinus rhythm with stable vitals. She has head CT which is negative for intracranial hemorrhage or mass effect. Patient has lab abnormalities including hemoglobin 18.9, hypokalemia 2.8. This is likely secondary to dehydration. She does have troponin elevation at 0.13. No active chest pain. Patient has had troponin elevation in the past and this level will be trended. She will be admitted for hydration, electrolyte replacement, and serial cardiac enzymes. Regarding this episode of expressive aphasia, is subsequently resolved at this time. Will monitor. Undiagnosed new problem with uncertain prognosis? @ -No Drug Therapy requiring intensive monitoring for toxicity (Heparin, Nitro, Insulin, Cardizem)? @ -No Were any procedures done? @ -No Diagnosis/symptom? @ -[TIA, elevated troponin, dehydration, hypokalemia Acute, or Chronic, or Acute on Chronic? @ -Acute Uncomplicated (without systemic symptoms) or Complicated (systemic symptoms)? @ -[default Side effects of treatment? @ -No Exacerbation, Progression, or Severe Exacerbation? @ -No Poses a threat to life or bodily function? How? (Chest pain, USA, AR, pneumonia, PE, COPD, DKA, ARF, appy, cholecystitis, CVA, Diverticulitis, Homicidal, Suicidal, threat to staff... and all critical care pts) @ -Yes, ACS, CVA - Lab Data Result diagrams: 02/08/24 03:44 02/08/24 03:44 Lab Results 02/07/24 02/07/24 02/07/24 Range/Units 12:35 12:35 12:35 WBC 9.8 (3.8-10.6) k/uL RBC 5.92 H (3.80-5.40) m/uL Hgb 18.9 H (11.4-16.0) gm/dL Hct 54.5 H (34.0-46.0) % MCV 92.1 (80.0-100.0) fL MCH 31.9 (25.0-35.0) pg MCHC 34.7 (31.0-37.0) g/dL RDW 14.7 (11.5-15.5) % Plt Count 101 L (150-450) k/uL MPV 10.5 Neutrophils % 64 % Lymphocytes % 27 % Monocytes % 6 % Eosinophils % 0 % Basophils % 1 % Neutrophils # 6.3 (1.3-7.7) k/uL Lymphocytes # 2.6 (1.0-4.8) k/uL Monocytes # 0.6 (0-1.0) k/uL Eosinophils # 0.0 (0-0.7) k/uL Basophils # 0.1 (0-0.2) k/uL PT 12.1 (10.0-12.5) sec INR 1.1 (<1.2) APTT 22.8 (22.0-30.0) sec Sodium 134 L (137-145) mmol/L Potassium 2.8 L (3.5-5.1) mmol/L Chloride 96 L (98-107) mmol/L Carbon Dioxide 29 (22-30) mmol/L Anion Gap 9 mmol/L BUN 16 (7-17) mg/dL Creatinine 0.62 (0.52-1.04) mg/dL Est GFR (CKD-EPI)AfAm >90 (>60 ml/min/1.73 sqM) Est GFR (CKD-EPI)NonAf >90 (>60 ml/min/1.73 sqM) Glucose 110 H (74-99) mg/dL Calcium 9.6 (8.4-10.2) mg/dL Total Bilirubin 3.6 H (0.2-1.3) mg/dL AST 88 H (14-36) U/L ALT 33 (4-34) U/L Alkaline Phosphatase 162 H (38-126) U/L Troponin I (0.000-0.034) ng/mL Total Protein 7.9 (6.3-8.2) g/dL Albumin 4.8 (3.5-5.0) g/dL 02/07/24 Range/Units 12:35 WBC (3.8-10.6) k/uL RBC (3.80-5.40) m/uL Hgb (11.4-16.0) gm/dL Hct (34.0-46.0) % MCV (80.0-100.0) fL MCH (25.0-35.0) pg MCHC (31.0-37.0) g/dL RDW (11.5-15.5) % Plt Count (150-450) k/uL MPV Neutrophils % % Lymphocytes % % Monocytes % % Eosinophils % % Basophils % % Neutrophils # (1.3-7.7) k/uL Lymphocytes # (1.0-4.8) k/uL Monocytes # (0-1.0) k/uL Eosinophils # (0-0.7) k/uL Basophils # (0-0.2) k/uL PT (10.0-12.5) sec INR (<1.2) APTT (22.0-30.0) sec Sodium (137-145) mmol/L Potassium (3.5-5.1) mmol/L Chloride (98-107) mmol/L Carbon Dioxide (22-30) mmol/L Anion Gap mmol/L BUN (7-17) mg/dL Creatinine (0.52-1.04) mg/dL Est GFR (CKD-EPI)AfAm (>60 ml/min/1.73 sqM) Est GFR (CKD-EPI)NonAf (>60 ml/min/1.73 sqM) Glucose (74-99) mg/dL Calcium (8.4-10.2) mg/dL Total Bilirubin (0.2-1.3) mg/dL AST (14-36) U/L ALT (4-34) U/L Alkaline Phosphatase (38-126) U/L Troponin I 0.133 H* (0.000-0.034) ng/mL Total Protein (6.3-8.2) g/dL Albumin (3.5-5.0) g/dL Disposition Clinical Impression: Transient cerebral ischemia, Dehydration, Hypokalemia, Elevated troponin Disposition: ADMITTED IP TO THIS HOSP Condition: Stable Is patient prescribed a controlled substance at d/c from ED?: No Time of Disposition: 14:56
[2024-02-07 12:55] LABS: Basophils # (A) 0.1 k/uL (0-0.2); Basophils % (A) 1 %; Eosinophils % (A) 0 %; HCT 54.5 % (34.0-46.0); HGB 18.9 gm/dL (11.4-16.0); Lymphocytes # (A) 2.6 k/uL (1.0-4.8); Lymphocytes % (A) 27 %; MCH 31.9 pg (25.0-35.0); MCHC 34.7 g/dL (31.0-37.0); MCV 92.1 fL (80.0-100.0); Mean Platelet Volume 10.5; Monocytes # (A) 0.6 k/uL (0-1.0); Monocytes % (A) 6 %; Neutrophils # (A) 6.3 k/uL (1.3-7.7); Neutrophils % (A) 64 %; Platelet Count 101 k/uL (150-450); RBC 5.92 m/uL (3.80-5.40); RDW 14.7 % (11.5-15.5); WBC 9.8 k/uL (3.8-10.6)
[2024-02-07 12:59] LABS: ALT 33 U/L (4-34); AST 88 U/L (14-36); African American GFR (CKD) >90 (>60 ml/min/1.73 sqM); Albumin 4.8 g/dL (3.5-5.0); Alkaline Phosphatase 162 U/L (38-126); Anion Gap 9 mmol/L; Blood Urea Nitrogen 16 mg/dL (7-17); Calcium 9.6 mg/dL (8.4-10.2); Carbon Dioxide 29 mmol/L (22-30); Chloride 96 mmol/L (98-107); Glucose 110 mg/dL (74-99); Non-African American GFR(CKD) >90 (>60 ml/min/1.73 sqM); Potassium 2.8 mmol/L (3.5-5.1); Sodium 134 mmol/L (137-145); Total Bilirubin 3.6 mg/dL (0.2-1.3); Total Protein 7.9 g/dL (6.3-8.2)
[2024-02-07 13:09] LABS: INR 1.1 (<1.2); Partial Thromboplastin Time 22.8 sec (22.0-30.0); Prothrombin Time 12.1 sec (10.0-12.5)
[2024-02-07] MEDS: SODIUM CHLORIDE 0.9% 500 ML 500 ML IV STA (13:20)
[2024-02-07] MEDS: ONDANSETRON 4 MG/2 ML VIAL IVP STA (13:54)
--- NOTE | 2024-02-07 14:09 | CT ---
EXAMINATION TYPE: CT brain wo con DATE OF EXAM: 02/07/2024 COMPARISON: 12/08/2019 INDICATION: altered mental status DLP: 1052.4 mGycm, Automated exposure control for dose reduction was used. CONTRAST: None CT of the brain is performed utilizing 3 mm thick sections through the posterior fossa and 3 mm thick sections through the remaining calvarium. Study is performed within 24 hours of arrival to the hosp ital. No abnormal hyperdensity is present to suggest an acute intracranial hemorrhage. No mass lesion is evident. No acute infarcts are evident. A ventricular white matter hypodensity is present, likely on the basis of chronic white matter ischemic changes. This may be progressive from 2019. Ventricles and sulci are prominent for the patient age. Paranasal sinuses and mastoid air cells within the icued-if-osrn are clear. IMPRESSION: 1. Atrophy with white matter ischemic-type changes.
[2024-02-07] MEDS ORDERED: ONDANSETRON 4 MG/2 ML VIAL IVP PRN (14:51)
[2024-02-07] MEDS ORDERED: NALOXONE 0.4 MG/ML 1 ML VIAL IV PRN (14:51)
[2024-02-07] MEDS: SODIUM CHLORIDE 0.9% 1,000 ML IV SCH (15:51)
[2024-02-07] MEDS: ASPIRIN 325 MG TAB PO STA (15:54)
[2024-02-07] MEDS: POTASSIUM CHLORIDE 10 MEQ in WATER FOR INJECTION 1 100ML.BAG IVPB SCH (15:54)
[2024-02-07 16:36] LABS: Appearance,Urine Clear (Clear); Bacteria,Urine Rare /hpf; Bilirubin,Urine Negative (Negative); Blood,Urine Small (Negative); Color,Urine Yellow; Glucose,Urine (UA) Negative (Negative); Ketones,Urine 2+ (Negative); Leukocyte Esterase,Urine Small (Negative); Mucus,Urine Rare /hpf; Nitrite,Urine Negative (Negative); PH, Urine 6.5 (5.0-8.0); Protein,Urine 1+ (Negative); RBC,Urine 12 /hpf (0-5); Specific Gravity,Urine 1.015 (1.001-1.035); Squamous Epithelial Cell,Urine 1 /hpf (0-4); WBC,Urine 5 /hpf (0-5)
[2024-02-07] MEDS ORDERED: MELOXICAM 7.5 MG TAB PO PRN (17:35)
[2024-02-07] MEDS: oxyCODONE-APAP 7.5-325MG 1 EACH TAB PO PRN (19:08)
[2024-02-07] MEDS: FAMOTIDINE 20 MG TAB PO SCH (20:11)
[2024-02-07] MEDS: TACROLIMUS 0.5 MG CAP PO SCH (20:11)
[2024-02-08 04:05] LABS: Basophils # (A) 0.1 k/uL (0-0.2); Basophils % (A) 1 %; Eosinophils # (A) 0.2 k/uL (0-0.7); Eosinophils % (A) 3 %; HCT 44.3 % (34.0-46.0); Lymphocytes % (A) 37 %; MCH 31.2 pg (25.0-35.0); MCHC 33.3 g/dL (31.0-37.0); MCV 93.6 fL (80.0-100.0); Mean Platelet Volume 10.9; Monocytes # (A) 0.6 k/uL (0-1.0); Monocytes % (A) 7 %; Neutrophils % (A) 50 %; RBC 4.74 m/uL (3.80-5.40); RDW 14.4 % (11.5-15.5); WBC 8.1 k/uL (3.8-10.6)
[2024-02-08 04:07] LABS: ALT 25 U/L (4-34); AST 49 U/L (14-36); African American GFR (CKD) >90 (>60 ml/min/1.73 sqM); Albumin 3.2 g/dL (3.5-5.0); Alkaline Phosphatase 97 U/L (38-126); Anion Gap 4 mmol/L; Blood Urea Nitrogen 17 mg/dL (7-17); Calcium 8.2 mg/dL (8.4-10.2); Carbon Dioxide 26 mmol/L (22-30); Chloride 105 mmol/L (98-107); Glucose 72 mg/dL (74-99); HGB 14.8 gm/dL (11.4-16.0); Non-African American GFR(CKD) 89 (>60 ml/min/1.73 sqM); Platelet Count 87 k/uL (150-450); Sodium 135 mmol/L (137-145); Total Bilirubin 2.3 mg/dL (0.2-1.3); Total Protein 5.5 g/dL (6.3-8.2)
[2024-02-08] MEDS: LEVOTHYROXINE 100 MCG TAB PO SCH (06:44)
[2024-02-08] MEDS: DILTIAZEM DRIP BOLUS FROM BAG 1 MG SOLN IV ONE (08:14)
[2024-02-08] MEDS: DILTIAZEM 125 MG in SODIUM CHLORIDE 0.9% 100 ML IV SCH (08:14)
[2024-02-08] MEDS ORDERED: SUPER B COMPLEX PO SCH (09:00)
[2024-02-08] MEDS: ATORVASTATIN 10 MG TAB PO SCH (09:31)
[2024-02-08] MEDS: CHOLECALCIFEROL 25 MCG (1000 IU) TABLET PO SCH (09:31)
[2024-02-08] MEDS: MULTIVITAMINS, THERA 1 EACH TAB PO SCH (09:31)
[2024-02-08] MEDS: POTASSIUM CHLORIDE ER 20 MEQ TAB.ER PO STA ×2 (09:31→10:36)
[2024-02-08] MEDS: MAGNESIUM SULFATE-D5W PMX 1 GM in DEXTROSE/WATER 1 100ML.BAG IVPB SCH (10:35)
[2024-02-08] MEDS: ZINC SULFATE 220 MG CAP PO SCH (10:37)
[2024-02-08] MEDS: VIT A,C & E-LUTEIN-MINERALS 1 EACH TAB PO SCH (11:37)
[2024-02-08] MEDS: DULoxetine HCL 20 MG CAPSULE.DR PO SCH (11:37)
[2024-02-08] MEDS: ANASTROZOLE 1 MG TAB PO SCH (11:45)
--- NOTE | 2024-02-08 11:59 | P.HPIM ---
History of Present Illness H&P Date: 02/08/24 Chief Complaint: Increased weakness This is a 73-year-old female with past medical history significant for breast cancer, liver transplant 2010 on tacrolimus, prior alcohol use, gastroesophageal reflux disease, DVT, osteoporosis, kyphosis, chronic back pain-T12 severe compression deformity status post T10-L2 posterior stabilization and multiple other medical issues presented to the ER with complaints of increasing generalized weakness. Reports she has been taking care of her neighbor across the street, had not been eating much over the last couple of days, noticed gene ralized increasing weakness walking back and forth across the street. Denies nausea or vomiting. Denies abdominal pain. Denies any current alcohol use. Reports compliant with med regimen including Prograf. Denies fever chills or congestion. Denies cough. Denies chest pain, palpitations or shortness of breath. ER reports mention of expressive aphasia 2 days ago, resolved prior to admission. Patient currently denies. on admission hypertensive, blood pressure 165/93, O2 sat 96% on room air, respiratory rate 18, pulse 97. Afebrile, Tmax 99.1. Elevated,flat troponins of 0.133, 0.129, 0.130. EKG sinus rhythm ,telemetry appears sinus tachycardia, repeat EKG pending. On admission patient w as discovered to have severe hypokalemia with potassium of 2.8 and magnesium 1.3, renal function stable. T. bili 3.6, 2.3. AST 88, 49. ALT 33, 25. alk phos 162, 97. Sodium 135, potassium 3, bicarb 26, BUN 17, creatinine 0.66. UA negative. Afebrile, WBC within normal limits, hemoglobin 14.8, platelets 101, 87.MCV 93.[address] reported atrophy with white matter ischemic type changes. Denies lightheadedness dizziness or focal deficits. Review of Systems ROS Statement: Those systems with pertinent positive or pertinent negative responses have been documented in the HPI. ROS Other: All systems not noted in ROS Statement are negative. Past Medical History Past Medical History: Cancer, Deep Vein Thrombosis (DVT), GERD/Reflux, Liver Disease, Osteoarthritis (OA), Thyroid Disorder Additional Past Medical History / Comment(s): CIRRHOSIS WITH LIVER TRANSPLANT (2011), HX OF FX rt X2 ARM, RIGHT SHOULDER AND LEFT HIP WITH PAIN, osteoperosis, breast ca lft, History of Any Multi-Drug Resistant Organisms: None Reported Past Surgical History: Breast Surgery, Cholecystectomy, Heart Catheterization With Stent, Hysterectomy Additional Past Surgical History / Comment(s): liver transplant (2011), STATES HEART STENT INSERTED FOR PULMONARY HYPERTENSION WHERE SHE RECEIVED MEDICATION AN D THE STENT WAS REMOVED WHEN SHE HAD HER LIVER TRANSPLANT. THYROID SURGERY crushed lft hip, lft breast lumpectomy, multiple bone fx Past Anesthesia/Blood Transfusion Reactions: Previous Problems w/ Anesthesia Additional Past Anesthesia/Blood Transfusion Reaction / Comment(s): STATES LAST COLONOSCOPY SHE COULD FEEL EVERYTHING BUT COULD NOT SPEAK TO TELL THEM SHE WAS AWAKE. 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 Date of Last Stent Placement:: 05/02/2011 Past Psychological History: Anxiety, Panic Disorder Smoking Status: Former smoker - Past Family History Mother Family Medical History: Cancer Father Family Medical History: Cancer Brother(s) Family Medical History: Cancer Medications and Allergies Home Medications Medication Instructions Recorded Confirmed Type Atorvastatin [Lipitor] 10 mg PO DAILY 04/11/16 02/07/24 History DULoxetine HCL [Cymbalta] 20 mg PO DAILY 04/11/16 02/07/24 History Alendronate Sodium [Fosamax] 70 mg PO TU 07/19/17 02/07/24 History Levothyroxine Sodium [Synthroid] 100 mcg PO DAILY 12/08/19 02/07/24 History Anastrozole [Arimidex] 1 mg PO DAILY 07/24/20 02/07/24 History Famotidine 20 mg PO BID 04/08/23 02/07/24 History Vit C/E/Zn/Coppr/Lutein/Zeaxan 1 tab PO DAILY 04/08/23 02/07/24 History [Preservision Areds 2 Softgel] oxyCODONE-APAP 7.5-325MG [Percocet 1 tab PO TID PRN 04/08/23 02/07/24 History 7.5-325 mg] Cholecalciferol (Vitamin D3) 50 mcg PO DAILY 02/07/24 02/07/24 History [Vitamin D3 (50 Mcg = 2000 Iu)] Meloxicam [Mobic] 15 mg PO DAILY PRN 02/07/24 02/07/24 History Multivit-Min/Iron Fum/Folic AC 1 tab PO DAILY 02/07/24 02/07/24 History [One-A-Day Women's Complete Tab] Super B-Complex 1 tab PO DAILY 02/07/24 02/07/24 History Tacrolimus [Prograf] 0.5 mg PO BID 02/07/24 02/07/24 History Zinc Gluconate [Zinc] 50 mg PO Q48H 02/07/24 02/07/24 History tiZANidine [Zanaflex] 4 mg PO BID PRN 02/07/24 02/07/24 History Allergies Allergy/AdvReac Type Severity Reaction Status Date / Time gabapentin AdvReac Severe Altered/Let Verified 02/07/24 14:25 hargic Physical Exam Vitals: Vital Signs Temp Pulse Resp BP Pulse Ox 02/08/24 11:20 77 16 124/71 95 02/08/24 11:14 68 16 141/75 95 02/08/24 09:58 66 16 140/100 02/08/24 08:23 142 H 16 143/105 94 L 02/08/24 08:11 147 H 16 95 02/08/24 07:58 89 16 141/128 94 L 02/08/24 06:53 180 H 30 H 138/100 97 02/08/24 06:01 98.7 F 68 16 137/69 96 02/08/24 02:29 67 16 125/61 95 02/07/24 23:32 98.4 F 72 16 122/78 95 02/07/24 19:33 98.8 F 85 16 123/81 95 02/07/24 19:00 99.1 F 95 14 149/67 93 L 02/07/24 18:00 84 19 98/80 95 02/07/24 16:48 68 14 142/87 95 02/07/24 14:00 87 21 178/85 95 02/07/24 12:05 98.4 F 97 18 165/93 96 GENERAL: Alert and oriented x3, lying in bed ,No acute distress. Conversing fluently, speech clear and appropriate HEENT: Normocephalic, atraumatic. Pupils are round and reactive, Conjunctiva normal, mucous membranes dry CARDIOVASCULAR: S1 and S2 present. No murmurs, rubs, or gallops. PULMONARY: Kyphosis, unlabored, equal air entry, CTA, bilateral bases diminished ABDOMEN: Soft, nontender, nondistended, normoactive bowel sounds. No palpable organomegaly. EXTREMITIES: No cyanosis, clubbing, or pedal edema. NEUROLOGICAL: Gross neurological examination did not reveal any focal deficits. Strength and Sensation grossly intact. SKIN: Warm and dry, No rashes. Results CBC & Chem 7: 02/09/24 03:29 02/09/24 03:29 Labs: Abnormal Lab Results - Last 24 Hours (Table) 02/07/24 02/07/24 02/07/24 Range/Units 12:35 12:35 12:35 RBC 5.92 H (3.80-5.40) m/uL Hgb 18.9 H (11.4-16.0) gm/dL Hct 54.5 H (34.0-46.0) % Plt Count 101 L (150-450) k/uL Sodium 134 L (137-145) mmol/L Potassium 2.8 L (3.5-5.1) mmol/L Chloride 96 L (98-107) mmol/L Glucose 110 H (74-99) mg/dL Calcium (8.4-10.2) mg/dL Magnesium (1.6-2.3) mg/dL Total Bilirubin 3.6 H (0.2-1.3) mg/dL AST 88 H (14-36) U/L Alkaline Phosphatase 162 H (38-126) U/L Troponin I 0.133 H* (0.000-0.034) ng/mL Total Protein (6.3-8.2) g/dL Albumin (3.5-5.0) g/dL Urine Protein (Negative) Urine Ketones (Negative) Urine Blood (Negative) Ur Leukocyte Esterase (Negative) Urine RBC (0-5) /hpf Urine Bacteria (None) /hpf Urine Mucus (None) /hpf 02/07/24 02/07/24 02/07/24 Range/Units 15:41 15:43 18:26 RBC (3.80-5.40) m/uL Hgb (11.4-16.0) gm/dL Hct (34.0-46.0) % Plt Count (150-450) k/uL Sodium (137-145) mmol/L Potassium (3.5-5.1) mmol/L Chloride (98-107) mmol/L Glucose (74-99) mg/dL Calcium (8.4-10.2) mg/dL Magnesium (1.6-2.3) mg/dL Total Bilirubin (0.2-1.3) mg/dL AST (14-36) U/L Alkaline Phosphatase (38-126) U/L Troponin I 0.129 H* 0.130 H* (0.000-0.034) ng/mL Total Protein (6.3-8.2) g/dL Albumin (3.5-5.0) g/dL Urine Protein 1+ H (Negative) Urine Ketones 2+ H (Negative) Urine Blood Small H (Negative) Ur Leukocyte Esterase Small H (Negative) Urine RBC 12 H (0-5) /hpf Urine Bacteria Rare H (None) /hpf Urine Mucus Rare H (None) /hpf 02/08/24 02/08/24 02/08/24 Range/Units 03:44 03:44 03:44 RBC (3.80-5.40) m/uL Hgb (11.4-16.0) gm/dL Hct (34.0-46.0) % Plt Count 87 L (150-450) k/uL Sodium 135 L (137-145) mmol/L Potassium 3.0 L (3.5-5.1) mmol/L Chloride (98-107) mmol/L Glucose 72 L (74-99) mg/dL Calcium 8.2 L (8.4-10.2) mg/dL Magnesium 1.3 L (1.6-2.3) mg/dL Total Bilirubin 2.3 H (0.2-1.3) mg/dL AST 49 H (14-36) U/L Alkaline Phosphatase (38-126) U/L Troponin I (0.000-0.034) ng/mL Total Protein 5.5 L (6.3-8.2) g/dL Albumin 3.2 L (3.5-5.0) g/dL Urine Protein (Negative) Urine Ketones (Negative) Urine Blood (Negative) Ur Leukocyte Esterase (Negative) Urine RBC (0-5) /hpf Urine Bacteria (None) /hpf Urine Mucus (None) /hpf Assessment and Plan Assessment: Increased generalized weakness, reports minimal diet intake over the last couple of days secondary to severe hypokalemia,hypomagnesemia, dehydration, ruling out arrhythmias. Hypertension Elevated flat troponins Tachycardia, possible arrhythmia, EKG pending Coronary artery disease, history of stents History of liver transplant at [facility] , 2010, on tacrolimus Former alcohol use History of breast cancer Gastroesophageal reflux disease Hypothyroidism Osteoporosis Anxiety, panic disorder Former nicotine dependence Marijuana use Plan: Continue on current medication resume ,monitoring and symptomatic treatment. IV fluid hydration, potassium and magnesium supplementation with close monitoring, repeat levels this afternoon. Repeating EKG, cardiology consult in place. Maintain tacrolimus. Close monitoring of LFTs with repeat labs ordered for a.m. Marijuana cessation reinforced. Prognosis guarded given multiple complex medical issues The impression and plan of care has been dictated as directed. : I performed a history and examination of this patient, discussed the same with the dictator. I agree with the dictator's note ,documented as a scribe. Any additional findings or plans will be noted.
[2024-02-08] MEDS: PANTOPRAZOLE 40 MG/10 ML VIAL IVP SCH (13:22)
[2024-02-08] MEDS: tiZANidine 4 MG TAB PO PRN (21:03)
[2024-02-08] MEDS ORDERED: HEPARIN SODIUM 1,000 UN/ML (10ML VL) IV PRN (21:53)
[2024-02-08] MEDS: HEPARIN SOD,PORK IN 0.45% NACL 25,000 UNIT in 0.45% NACL 1 250ML.BAG IV SCH (22:25)
[2024-02-08] MEDS: HEPARIN SODIUM 1,000 UN/ML (10ML VL) IV ONE (22:31)
[2024-02-08 23:06] LABS: Basophils # (A) 0.1 k/uL (0-0.2); Basophils % (A) 1 %; Eosinophils # (A) 0.3 k/uL (0-0.7); Eosinophils % (A) 5 %; HCT 37.9 % (34.0-46.0); HGB 12.8 gm/dL (11.4-16.0); Lymphocytes % (A) 35 %; MCH 32.3 pg (25.0-35.0); MCHC 33.8 g/dL (31.0-37.0); MCV 95.5 fL (80.0-100.0); Mean Platelet Volume 11.3; Monocytes # (A) 0.4 k/uL (0-1.0); Monocytes % (A) 7 %; Neutrophils # (A) 2.9 k/uL (1.3-7.7); Neutrophils % (A) 50 %; RBC 3.97 m/uL (3.80-5.40); RDW 14.4 % (11.5-15.5); WBC 5.7 k/uL (3.8-10.6)
[2024-02-08 23:19] LABS: INR 1.2 (<1.2); Partial Thromboplastin Time 29.9 sec (22.0-30.0); Prothrombin Time 12.8 sec (10.0-12.5)
[2024-02-08 23:37] LABS: Platelet Count 69 k/uL (150-450)
[2024-02-09 04:23] LABS: Basophils % (A) 1 %; Eosinophils # (A) 0.3 k/uL (0-0.7); Eosinophils % (A) 6 %; HCT 37.9 % (34.0-46.0); HGB 12.3 gm/dL (11.4-16.0); INR 1.3 (<1.2); Lymphocytes # (A) 1.7 k/uL (1.0-4.8); Lymphocytes % (A) 39 %; MCH 31.5 pg (25.0-35.0); MCHC 32.5 g/dL (31.0-37.0); MCV 96.8 fL (80.0-100.0); Mean Platelet Volume 10.5; Monocytes # (A) 0.2 k/uL (0-1.0); Monocytes % (A) 6 %; Neutrophils % (A) 45 %; Prothrombin Time 13.3 sec (10.0-12.5); RBC 3.92 m/uL (3.80-5.40); RDW 14.5 % (11.5-15.5); WBC 4.3 k/uL (3.8-10.6)
[2024-02-09 04:28] LABS: Platelet Count 55 k/uL (150-450)
[2024-02-09 04:39] LABS: Partial Thromboplastin Time >200.0 sec (22.0-30.0)
[2024-02-09 04:48] LABS: ALT 20 U/L (4-34); AST 46 U/L (14-36); African American GFR (CKD) >90 (>60 ml/min/1.73 sqM); Albumin 2.5 g/dL (3.5-5.0); Alkaline Phosphatase 74 U/L (38-126); Anion Gap 1 mmol/L; Blood Urea Nitrogen 17 mg/dL (7-17); Calcium 7.9 mg/dL (8.4-10.2); Carbon Dioxide 24 mmol/L (22-30); Chloride 110 mmol/L (98-107); Glucose 82 mg/dL (74-99); Magnesium 1.8 mg/dL (1.6-2.3); Non-African American GFR(CKD) 88 (>60 ml/min/1.73 sqM); Potassium 3.8 mmol/L (3.5-5.1); Sodium 135 mmol/L (137-145); Total Bilirubin 1.3 mg/dL (0.2-1.3); Total Protein 4.7 g/dL (6.3-8.2)
[2024-02-09] MEDS: POTASSIUM CHLORIDE ER 20 MEQ TAB.ER PO STA (09:28)
[2024-02-09] MEDS: APIXABAN 5 MG TAB PO SCH (09:28)
[2024-02-09] MEDS: MAGNESIUM SULFATE-D5W PMX 1 GM in DEXTROSE/WATER 1 100ML.BAG IVPB ONE (09:29)
[2024-02-09 15:42] LABS: Chol/HDL Ratio 2.75 Ratio; LDL Cholesterol,Calculated 66.5 mg/dL (0.0-131.0); VLDL Calculation 9.22 mg/dL (5.00-40.00)
--- NOTE | 2024-02-09 16:09 | P.PN ---
Subjective Progress Note Date: 02/09/24 H&P Date: 02/08/24 Chief Complaint: Increased weakness This is a 73-year-old female with past medical history significant for breast cancer, liver transplant 2010 on tacrolimus, prior alcohol use, gastroesophageal reflux disease, DVT, osteoporosis, kyphosis, chronic back pain-T12 severe compression deformity status post T10-L2 posterior stabilization and multiple other medical issues presented to the ER with complaints of increasing generalized weakness. Reports she has been taking care of her neighbor across the street, had not been eating much over the last couple of days, noticed generalized increasing weakness walking back and forth across the street. Denies nausea or vomiting. Denies abdominal pain. Denies any current alcohol use. Reports compliant with med regimen including Prograf. Denies fever chills or congestion. Denies cough. Denies chest pain, palpitations or shortness of breath. ER reports mention of expressive aphasia 2 days ago, resolved prior to admission. Patient currently denies. on admission hypertensive, blood pressure 165/93, O2 sat 96% on room air, respiratory rate 18, pulse 97. Afebrile, Tmax 99.1. Elevated,flat troponins of 0.133, 0.129, 0.130. EKG sinus rhythm ,telemetry appears sinus tachycardia, repeat EKG pending. On admission patient was discovered to have severe hypokalemia with potassium of 2.8 and magnesium 1.3, renal function stable. T. bili 3.6, 2.3. AST 88, 49. ALT 33, 25. alk phos 162, 97. Sodium 135, potassium 3, bicarb 26, BUN 17, creatinine 0.66. UA negative. Afebrile, WBC within normal limits, hemoglobin 14.8, platelets 101, 87.MCV 93.[address] reported atrophy with white matter ischemic type changes. Denies lightheadedness dizziness or focal deficits. 02/09/2024 maintained on Cardizem and heparin drips for new onset of atrial fibrillation with RVR. platelets decreased, currently 55,Heparin drip discontinued. Converted back to sinus rhythm, blood pressure soft, mild bradycardia. Evaluated by cardiology, anticoagulation with Eliquis initiated, beta-barrett added to med regimen. Yesterday, potassium and magnesium supplemented ,currently 3.8 and 1.8. Hemoglobin A1c 5.1, T. bili normalized 1.3, AST 46.TSH 3.65, lipid panel pending. denies chest pain, palpitations or shortness of breath. O2 sats in the high 90s on room air. Remains alert and oriented x 3, speech clear, continues to speak fluently.No further neurological deficits during this hospitalization. Ambulating in room, tolerating exertion well. denies lightheadedness, dizziness or focal deficits. Denies chest pain, palpitations or shortness of breath. denies nausea vomiting or diarrhea. Denies abdominal pain. Objective - Vital Signs Vital signs: Vital Signs Temp 98.0 F 02/09/24 08:00 Pulse 57 L 02/09/24 08:00 Resp 16 02/09/24 08:00 BP 137/73 02/09/24 08:00 Pulse Ox 99 02/09/24 08:00 FiO2 Intake & Output 02/08/24 02/09/24 02/09/24 18:59 06:59 18:59 Intake Total 0 180 Balance 0 180 Weight 77.111 kg Intake: Oral 0 180 Other: Voiding Method Toilet Toilet # Voids 1 # Bowel Movements 0 - Exam GENERAL: Alert and oriented x3, sitting up on couch,No acute distress. HEENT: Normocephalic, atraumatic. Pupils are round and reactive, Conjunctiva normal, mucous membranes dry CARDIOVASCULAR: S1 and S2 present. No murmurs, rubs, or gallops. PULMONARY: unlabored, equal air entry, CTA, bilateral bases diminished. ABDOMEN: Soft, nontender, nondistended, normoactive bowel sounds. No palpable organomegaly. EXTREMITIES: No cyanosis, clubbing, or pedal edema. NEUROLOGICAL: cranial nerves II through XII grossly intact. HALL,strength and Sensation grossly intact. SKIN: Warm and dry, No rashes. - Labs CBC & Chem 7: 02/09/24 03:29 02/09/24 03:29 Labs: Abnormal Lab Results - Last 24 Hours (Table) 02/08/24 02/08/24 02/09/24 Range/Units 22:38 22:38 03:29 Plt Count 69 L (150-450) k/uL PT 12.8 H (10.0-12.5) sec INR 1.2 H (<1.2) APTT (22.0-30.0) sec Sodium 135 L (137-145) mmol/L Chloride 110 H (98-107) mmol/L Calcium 7.9 L (8.4-10.2) mg/dL AST 46 H (14-36) U/L Total Protein 4.7 L (6.3-8.2) g/dL Albumin 2.5 L (3.5-5.0) g/dL 02/09/24 02/09/24 Range/Units 03:29 03:29 Plt Count 55 L (150-450) k/uL PT 13.3 H (10.0-12.5) sec INR 1.3 H (<1.2) APTT >200.0 H* (22.0-30.0) sec Sodium (137-145) mmol/L Chloride (98-107) mmol/L Calcium (8.4-10.2) mg/dL AST (14-36) U/L Total Protein (6.3-8.2) g/dL Albumin (3.5-5.0) g/dL Assessment and Plan Assessment: Increased generalized weakness, reports minimal diet intake over the last couple of days secondary to severe hypokalemia,hypomagnesemia, dehydration, new onset atrial fibrillation with RVR. Possible TIA secondary to the above. Vague historian, reports symptoms that occurred a couple days prior to coming into the ER ,resolved on admission to the ER. No further neurological deficits during this admission. History of mild Dementia. Hypertension Hyperlipidemia Elevated flat troponins Tachycardia, possible arrhythmia, EKG pending Thrombocytopenia Coronary artery disease, history of stents History of liver transplant at [facility] , 2010, on tacrolimus Former alcohol use History of breast cancer Gastroesophageal reflux disease Hypothyroidism Osteoporosis Anxiety, panic disorder Former nicotine dependence Marijuana use Plan: Continue on current medication resume ,monitoring and symptomatic treatment. Maintain IV fluid hydration. Potassium and magnesium supplementation ordered. Echo pending .Cardiology consult in place, recommendations pending. Hematology consulted for thrombocytopenia in a patient requiring anticoagulation. Close monitoring of platelets, electrolytes, LFTs with repeat labs ordered for a.m. Discharge planning in progress potentially for later today, probably in a.m. pending final DC recommendations and clearance per cardiology. The impression and plan of care has been dictated as directed. : I performed a history and examination of this patient, discussed the same with the dictator. I agree with the dictator's note ,documented as a scribe. Any additional findings or plans will be noted.
[2024-02-09] MEDS: METOPROLOL TARTRATE 25 MG TAB PO SCH (19:50)
--- NOTE | 2024-02-09 20:06 | P.CRDCN ---
History of Present Illness History of present illness: This is Dr. Machado dictating a consult on this patient The patient was interviewed and examined IMPRESSION / ASSESSMENT: CVA/TIA secondary to atrial fibrillation Perhaps the first documentation of A-fib with RVR in this 73-year-old female Borderline troponins with a flat trend of 0.1 x 3 history of dyslipidemia on statins PLAN: IV heparin 5 hours after starting Eliquis 5 mg twice daily Discontinue IV Cardizem Start metoprolol to tartrate 25 mg twice daily On Doppler study Check TSH Hemoglobin A1c Lipid panel EKG today sinus rhythm HPI Last week the patient had a mild upper respiratory infection. Just before the weekend she was across the street walking when she suddenly had neurological symptoms of confusion inability to speak and feeling that she would fall. She does not remember much thereafter but she does say that she was a little nauseous and had diarrhea thereafter. She does not remember how she got back home. She could barely use her hands When she came to the hospital she was found to be little confused but her twelve-lead EKG showed atrial fibrillation with RVR and she was started on IV Cardizem and IV heparin CT of the brain did not show any intracranial hemorrhage Today this morning she is able to give full history and describes neurologic event as outlined above She denies any hypertension or diabetes She has hypothyroidism and is on levothyroxine Dysphagia the first documentation of atrial fibrillation but she is back in sinus rhythm now ROS: No fever chills or rigors, no cough, phlegm or expectoration, no nausea, vomiting or diarrhea, no hematuria, dysuria, no musculoskeletal complaints, no strokes or seizures, no skin lesions. EXAMINATION: Pressure is low normal but she is on IV Cardizem. She is back in sinus rhythm During atrial fibrillation she had rapid ventricular response. In sinus rhythm she is in the 50s heart sounds are normal and regular Breath sounds are clear REVIEW OF LABS, ECG & MEDICAL DATA normal CBC Normal electrolytes Minimally elevated LFT/AST ALT Borderline flat troponins, flat trend Past Medical History Past Medical History: Cancer, Deep Vein Thrombosis (DVT), GERD/Reflux, Liver Disease, Osteoarthritis (OA), Thyroid Disorder Additional Past Medical History / Comment(s): CIRRHOSIS WITH LIVER TRANSPLANT (2011), HX OF FX rt X2 ARM, RIGHT SHOULDER AND LEFT HIP WITH PAIN, osteoperosis, breast ca lft, History of Any Multi-Drug Resistant Organisms: None Reported Past Surgical History: Breast Surgery, Cholecystectomy, Heart Catheterization With Stent, Hysterectomy Additional Past Surgical History / Comment(s): liver transplant (2011), STATES HEART STENT INSERTED FOR PULMONARY HYPERTENSION WHERE SHE RECEIVED MEDICATION AND THE STENT WAS REMOVED WHEN SHE HAD HER LIVER TRANSPLANT. THYROID SURGERY crushed lft hip, lft breast lumpectomy, multiple bone fx Past Anesthesia/Blood Transfusion Reactions: Previous Problems w/ Anesthesia Additional Past Anesthesia/Blood Transfusion Reaction / Comment(s): STATES LAST COLONOSCOPY SHE COULD FEEL EVERYTHING BUT COULD NOT SPEAK TO TELL THEM SHE WAS AWAKE. 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 Date of Last Stent Placement:: 05/02/2011 Past Psychological History: Anxiety, Panic Disorder Additional Psychological History / Comment(s): ANXIETY ATTACKS. controlled with medication Smoking Status: Former smoker Past Alcohol Use History: None Reported Additional Past Alcohol Use History / Comment(s): QUIT SMOKING APPROX 2009, SMOKED 1 PPD . STARTED SMOKING AGE 19. Past Drug Use History: None Reported Additional Drug Use History / Comment(s): OCCASIONALLY COOKS WITH MARIJUANA none for 24 hours prior to surgery - Past Family History Mother Family Medical History: Cancer Father Family Medical History: Cancer Brother(s) Family Medical History: Cancer Medications and Allergies Home Medications Medication Instructions Recorded Confirmed Type Atorvastatin [Lipitor] 10 mg PO DAILY 04/11/16 02/07/24 History DULoxetine HCL [Cymbalta] 20 mg PO DAILY 04/11/16 02/07/24 History Alendronate Sodium [Fosamax] 70 mg PO TU 07/19/17 02/07/24 History Levothyroxine Sodium [Synthroid] 100 mcg PO DAILY 12/08/19 02/07/24 History Anastrozole [Arimidex] 1 mg PO DAILY 07/24/20 02/07/24 History Famotidine 20 mg PO BID 04/08/23 02/07/24 History Vit C/E/Zn/Coppr/Lutein/Zeaxan 1 tab PO DAILY 04/08/23 02/07/24 History [Preservision Areds 2 Softgel] oxyCODONE-APAP 7.5-325MG [Percocet 1 tab PO TID PRN 04/08/23 02/07/24 History 7.5-325 mg] Cholecalciferol (Vitamin D3) 50 mcg PO DAILY 02/07/24 02/07/24 History [Vitamin D3 (50 Mcg = 2000 Iu)] Meloxicam [Mobic] 15 mg PO DAILY PRN 02/07/24 02/07/24 History Multivit-Min/Iron Fum/Folic AC 1 tab PO DAILY 02/07/24 02/07/24 History [One-A-Day Women's Complete Tab] Super B-Complex 1 tab PO DAILY 02/07/24 02/07/24 History Tacrolimus [Prograf] 0.5 mg PO BID 02/07/24 02/07/24 History Zinc Gluconate [Zinc] 50 mg PO Q48H 02/07/24 02/07/24 History tiZANidine [Zanaflex] 4 mg PO BID PRN 02/07/24 02/07/24 History Allergies Allergy/AdvReac Type Severity Reaction Status Date / Time gabapentin AdvReac Severe Altered/Let Verified 02/07/24 14:25 hargic Physical Exam Vitals: Vital Signs Temp Pulse Pulse Resp BP BP BP 02/09/24 03:56 97.4 F L 53 L 14 91/54 02/09/24 00:01 97.7 F 55 L 14 86/54 02/08/24 19:56 98.2 F 77 14 174/83 02/08/24 19:46 174/83 02/08/24 19:43 98.2 F 77 14 182/89 02/08/24 18:32 98.1 F 71 18 166/90 02/08/24 16:00 98.0 F 72 16 138/77 02/08/24 13:30 70 02/08/24 11:20 77 16 124/71 02/08/24 11:14 68 16 141/75 02/08/24 09:58 66 16 140/100 02/08/24 08:23 142 H 16 143/105 02/08/24 08:11 147 H 16 02/08/24 07:58 89 16 141/128 Pulse Ox 02/09/24 03:56 95 02/09/24 00:01 97 02/08/24 19:56 96 02/08/24 19:46 02/08/24 19:43 96 02/08/24 18:32 95 02/08/24 16:00 98 02/08/24 13:30 02/08/24 11:20 95 02/08/24 11:14 02/08/24 09:58 95 02/08/24 08:23 94 L 02/08/24 08:11 02/08/24 07:58 94 L Intake and Output 02/08/24 02/09/24 02/09/24 22:59 06:59 14:59 Intake Total 0 Balance 0 Intake: Oral 0 Other: Voiding Method Toilet Toilet # Voids 1 # Bowel Movements 0 Weight 77.111 kg Results 02/09/24 03:29 02/09/24 03:29 Cardiac Enzymes 02/09/24 Range/Units 03:29 AST 46 H (14-36) U/L Coagulation 02/08/24 02/09/24 Range/Units 22:38 03:29 PT 12.8 H 13.3 H (10.0-12.5) sec APTT 29.9 >200.0 H* (22.0-30.0) sec CBC 02/08/24 02/09/24 Range/Units 22:38 03:29 WBC 5.7 4.3 (3.8-10.6) k/uL RBC 3.97 3.92 (3.80-5.40) m/uL Hgb 12.8 12.3 (11.4-16.0) gm/dL Hct 37.9 37.9 (34.0-46.0) % Plt Count 69 L 55 L (150-450) k/uL Comprehensive Metabolic Panel 02/08/24 02/09/24 Range/Units 15:37 03:29 Sodium 135 L (137-145) mmol/L Potassium 3.7 3.8 (3.5-5.1) mmol/L Chloride 110 H (98-107) mmol/L Carbon Dioxide 24 (22-30) mmol/L BUN 17 (7-17) mg/dL Creatinine 0.69 (0.52-1.04) mg/dL Glucose 82 (74-99) mg/dL Calcium 7.9 L (8.4-10.2) mg/dL AST 46 H (14-36) U/L ALT 20 (4-34) U/L Alkaline Phosphatase 74 (38-126) U/L Total Protein 4.7 L (6.3-8.2) g/dL Albumin 2.5 L (3.5-5.0) g/dL Current Medications Generic Name Dose Route Start Last Admin Trade Name Karri PRN Reason Stop Dose Admin Anastrozole 1 mg 02/08/24 09:00 02/08/24 11:45 Anastrozole 1 Mg Tab PO 1 mg DAILY TAMERA Administration Atorvastatin Calcium 10 mg 02/08/24 09:00 02/08/24 09:31 Atorvastatin 10 Mg Tab PO 10 mg DAILY TAMERA Administration Cholecalciferol 50 mcg 02/08/24 09:00 02/08/24 09:31 Cholecalciferol 25 Mcg (1000 Iu) Tablet PO 50 mcg DAILY TAMERA Administration Duloxetine HCl 20 mg 02/08/24 09:00 02/08/24 11:37 Duloxetine Hcl 20 Mg Capsule.Dr PO 20 mg DAILY TAMERA Administration Famotidine 20 mg 02/07/24 21:00 02/08/24 21:03 Famotidine 20 Mg Tab PO 20 mg BID TAMERA Administration Heparin Sodium (Porcine) 0 unit 02/08/24 21:53 Heparin Sodium 1,000 Un/Ml (10ml Vl) IV PER PROTOCOL PRN Low PTT Protocol Sodium Chloride 1,000 mls @ 100 mls/hr 02/07/24 14:15 02/08/24 22:00 Saline 0.9% IV 100 mls/hr .Q10H TAMERA Administration Diltiazem HCl 125 mg/ Sodium 125 mls @ 5 mls/hr 02/08/24 07:15 02/08/24 08:14 Chloride IV 5 mg/hr .Q24H TAMERA 5 mls/hr Administration 5 MG/HR Heparin Sodium/Sodium Chloride 250 mls @ 9.253 mls/hr 02/08/24 22:00 02/08/24 22:25 25,000 unit/ Sodium Chloride IV 12 units/kg/hr .Q24H TAMERA 9.253 mls/hr Administration Protocol 12 UNITS/KG/HR Levothyroxine Sodium 100 mcg 02/08/24 06:30 02/09/24 06:11 Levothyroxine 100 Mcg Tab PO 100 mcg DAILY@0630 TAMERA Administration Meloxicam 15 mg 02/07/24 17:35 Meloxicam 7.5 Mg Tab PO DAILY PRN Pain Multivitamins 1 each 02/08/24 09:00 02/08/24 09:31 Multivitamins, Thera 1 Each Tab PO 1 each DAILY TAMERA Administration Multivitamins/Minerals 1 each 02/08/24 09:00 02/08/24 11:37 Vit A,C & P-[id number] 1 Each Tab PO 1 each DAILY TAMERA Administration Naloxone HCl 0.2 mg 02/07/24 14:51 Naloxone 0.4 Mg/Ml 1 Ml Vial IV Q2M PRN Opioid Reversal Non-Formulary Medication 70 mg 02/14/24 09:00 Alendronate Sodium [Fosamax] PO Tu@0900 TAMERA Ondansetron HCl 4 mg 02/07/24 14:51 Ondansetron 4 Mg/2 Ml Vial IVP Q8HR PRN Nausea And Vomiting Oxycodone/Acetaminophen 1 each 02/07/24 17:35 02/08/24 18:48 Oxycodone-Apap 7.5-325mg 1 Each Tab PO 1 each TID PRN Administration Pain Pantoprazole Sodium 40 mg 02/08/24 13:00 02/08/24 13:22 Pantoprazole 40 Mg/10 Ml Vial IVP 40 mg DAILY TAMERA Administration Tacrolimus 0.5 mg 02/07/24 21:00 02/08/24 21:03 Tacrolimus 0.5 Mg Cap PO 0.5 mg BID TAMERA Administration Tizanidine HCl 4 mg 02/07/24 17:35 02/08/24 21:03 Tizanidine 4 Mg Tab PO 4 mg BID PRN Administration Muscle Spasm Zinc Sulfate 220 mg 02/08/24 09:00 02/08/24 10:37 Zinc Sulfate 220 Mg Cap PO 220 mg Q48H TAMERA Administration Intake and Output 02/08/24 02/09/24 02/09/24 22:59 06:59 14:59 Intake Total 0 Balance 0 Intake: Oral 0 Other: Voiding Method Toilet Toilet # Voids 1 # Bowel Movements 0 Weight 77.111 kg 02/09/24 03:29 02/09/24 03:29
[2024-02-10 08:50] VITALS: TEMP 98
[2024-02-10 08:54] LABS: HCT 38.4 % (34.0-46.0); HGB 12.8 gm/dL (11.4-16.0); MCHC 33.3 g/dL (31.0-37.0); MCV 96.1 fL (80.0-100.0); Mean Platelet Volume 11.1; RDW 14.3 % (11.5-15.5); WBC 4.6 k/uL (3.8-10.6)
[2024-02-10 09:03] LABS: Platelet Count 81 k/uL (150-450)
[2024-02-10 09:08] LABS: African American GFR (CKD) 90 (>60 ml/min/1.73 sqM); Anion Gap 1 mmol/L; Blood Urea Nitrogen 14 mg/dL (7-17); Calcium 8.9 mg/dL (8.4-10.2); Carbon Dioxide 27 mmol/L (22-30); Chloride 111 mmol/L (98-107); Glucose 109 mg/dL (74-99); Non-African American GFR(CKD) 78 (>60 ml/min/1.73 sqM); Sodium 139 mmol/L (137-145)
--- NOTE | 2024-02-10 10:40 | CA ---
Transthoracic Echo Report Name: Kayy Almaraz Age: 73 Gender: F : 1950 Exam Date: 02/09/2024 08:49 Exam Location: [facility] Ht (in): 63 Wt (lb): 170 Ordering Physician: Juan Pablo Machado MD ([id number]) Attending/Referring Phys: Tank Calibrator Didi Anderson RDCS Procedure CPT: Indications: LV function Cardiac Hx: Technical Quality: Fair Contrast 1: Total Dose (mL): Contrast 2: Total Dose (mL): MEASUREMENTS (Male / Female) Normal Values 2D ECHO LV Diastolic Diameter PLAX 4.8 cm 4.2 - 5.9 / 3.9 - 5.3 cm LV Systolic Diameter PLAX 2.2 cm IVS Diastolic Thickness 1.0 cm 0.6 - 1.0 / 0.6 - 0.9 cm LVPW Diastolic Thickness 1.3 cm 0.6 - 1.0 / 0.6 - 0.9 cm LV Relative Wall Thickness 0.5 RV Internal Dim ED PLAX 2.4 cm LVOT Diameter 1.9 cm Aortic Root Diameter 2.8 cm LV Diastolic Volume MOD BP 72.3 cm??? 67 - 155 / 56 - 104 cm??? LV Systolic Volume MOD BP 30.8 cm??? 22 - 58 / 19 - 49 cm??? LV Ejection Fraction MOD BP 57.4 % >= 55 % LV Cardiac Index MOD BP 1413.3 cm???/min???m??? LV Diastolic Volume MOD 4C 72.7 cm??? LV Systolic Volume MOD 4C 34.0 cm??? LV Ejection Fraction MOD 4C 53.2 % LV Cardiac Index MOD 4C 1319.1 cm???/min???m??? LV Diastolic Length 4C 7.5 cm LV Systolic Length 4C 7.0 cm LV Diastolic Volume MOD 2C 68.3 cm??? LV Systolic Volume MOD 2C 23.2 cm??? LV Ejection Fraction MOD 2C 66.0 % LV Cardiac Index MOD 2C 1536.7 cm???/min???m??? LV Diastolic Length 2C 8.0 cm LV Systolic Length 2C 5.8 cm Ascending Aorta Diameter 3.1 cm DOPPLER AV Peak Velocity 117.5 cm/s AV Peak Gradient 5.5 mmHg AV Mean Velocity 87.3 cm/s AV Mean Gradient 3.3 mmHg AV Velocity Time Integral 29.4 cm LVOT Peak Velocity 102.6 cm/s LVOT Peak Gradient 4.2 mmHg LVOT Velocity Time Integral 23.0 cm LVOT Stroke Volume 63.9 cm??? LVOT Stroke Volume Index 35.4 ml/m??? LVOT Cardiac Index 2179.0 cm???/min???m??? AV Area Cont Eq vti 2.2 cm??? AV Area Cont Eq pk 2.4 cm??? Mitral E Point Velocity 56.3 cm/s Mitral A Point Velocity 83.9 cm/s Mitral E to A Ratio 0.7 MV Deceleration Time 246.1 ms MV E' Velocity 4.2 cm/s Mitral E to MV E' Ratio 13.5 TR Peak Velocity 268.3 cm/s TR Peak Gradient 28.8 mmHg Right Atrial Pressure 5.0 mmHg Pulmonary Artery Systolic Pressu 33.8 mmHg Right Ventricular Systolic Press 33.8 mmHg PV Peak Velocity 104.6 cm/s PV Peak Gradient 4.4 mmHg FINDINGS Left Ventricle Left ventricular ejection fraction is estimated at 55-60 %. Mildly increased posterior wall thickness. Left ventricular cavity size normal. No obvious regional wall motion abnormalities. Right Ventricle Normal right ventricular size and function. Right ventricular systolic pressure within normal limits. Right Atrium Normal right atrial size. Left Atrium Normal left atrial size. Mitral Valve Structurally normal mitral valve. No evidence for mitral valve prolapse. No mitral stenosis. Trace mitral regurgitation. Aortic Valve Trileaflet aortic valve. Aortic valve sclerosis. No aortic valve stenosis or regurgitation. Tricuspid Valve Structurally normal tricuspid valve. No tricuspid stenosis. Trace tricuspid regurgitation. Pulmonic Valve Structurally normal pulmonic valve. No pulmonic stenosis. Mild pulmonic regurgitation. Pericardium No pericardial effusion. Aorta Normal size aortic root and proximal ascending aorta. CONCLUSIONS Normal LV size and systolic function. Minimal mitral and tricuspid regurgitation. No significant pulmonary hypertension. No pericardial effusion Previewed by: Dr. Alin Narayan MD (Electronically Signed) Final Date: 10 Feb 2024 10:39
--- NOTE | 2024-02-10 11:19 | P.PN ---
Subjective Patient is resting comfortably in bed while she does not appear short of breath she does have bilateral rhonchi with reduced breath sounds bilaterally She was admitted with a TIA with atrial fibrillation with RVR. She is back in sinus rhythm but she was bradycardic and therefore the dose of metoprolol was held. Her heart rates are in the low 50s in sinus rhythm Heart sounds S1-S2 regular Breath sounds are reduced bilaterally with bilateral rhonchi Abdomen is soft Blood pressure 149/75 114/75 mmHg heart rates in the 50s Respiratory rate 16-18 White count normal 4.6 thousand Hemoglobin 12.8 Platelet count low 81,000 Sodium 139 potassium 4.0 BUN 14 and creatinine 0.8 LDL 66, triglycerides 46, total cholesterol 120 and HDL 43 TSH normal 3.7 Impression TIA Documented A-fib with RVR Started on Eliquis 5 mg twice daily Hypothyroidism on levothyroxine 100 mcg daily, TSH 3.7 On atorvastatin 10 mg p.o. daily Add losartan 25 mg p.o. daily Watch blood pressure Plan From a cardiac standpoint she may go home and follow-up in 2-3 weeks Objective - Vital Signs Vital signs: Vital Signs Temp 98.0 F 02/10/24 08:20 Pulse 55 L 02/10/24 08:20 Resp 18 02/10/24 08:20 BP 149/75 02/10/24 08:20 Pulse Ox 95 02/10/24 08:20 FiO2 Intake & Output 02/09/24 02/10/24 02/10/24 18:59 06:59 18:59 Intake Total 540 180 Balance 540 180 Intake: Oral 540 180 Other: Voiding Method Toilet Toilet Toilet # Voids 2 1 - Labs CBC & Chem 7: 02/10/24 08:13 02/10/24 08:13 Labs: Abnormal Lab Results - Last 24 Hours (Table) 02/10/24 02/10/24 Range/Units 08:13 08:13 Plt Count 81 L (150-450) k/uL Chloride 111 H (98-107) mmol/L Glucose 109 H (74-99) mg/dL
--- NOTE | 2024-02-10 11:27 | P.DS ---
Providers Date of admission: 02/07/24 14:52 Expected date of discharge: 02/10/24 Attending physician: Brock Zimmerman Consults: 02/08/24 07:02 Consult Physician Routine Consulting Provider: Juan Pablo Machado Consult Reason/Comments: New onset A-fib RVR Do you want consulting provider notified?: Yes 02/09/24 12:59 Consult Physician Routine Consulting Provider: Rajesh Meadows Consult Reason/Comments: Thrombocytopenia Do you want consulting provider notified?: Yes Primary care physician: Brock Zimmerman Hospital Course: Final Diagnoses: Increased generalized weakness, reports minimal diet intake over the last couple of days secondary to severe hypokalemia,hypomagnesemia, dehydration, new onset atrial fibrillation with RVR. Possible TIA secondary to the above. Vague historian, reports symptoms that occurred a couple days prior to coming into the ER ,resolved on admission to the ER. No further neurological deficits during this admission. 2.3 cm mass right upper lobe suspicious for malignancy, smaller density in left midlung reported per chest x-ray, pulmonary reviewed chest [id number] can follow-up in office with pulmonary and will need outpatient CT. Discussed with patient -Rx given to patient for chest CT with contrast, RN will schedule CT and schedule patient for follow-up with pulmonary outpatient for further workup. Pulmonary arterial hypertension History of mild Dementia. Hypertension Hyperlipidemia Elevated flat troponins Thrombocytopenia Coronary artery disease, history of stents History of liver transplant at [facility] , 2010, on tacrolimus Former alcohol use History of breast cancer Gastroesophageal reflux disease Hypothyroidism Osteoporosis Anxiety, panic disorder Former nicotine dependence Marijuana use Hospital course:This is a 73-year-old female with past medical history significant for breast cancer, liver transplant 2010 on tacrolimus, prior alcohol use, gastroesophageal reflux disease, DVT, osteoporosis, kyphosis, chronic back pain-T12 severe compression deformity status post T10-L2 posterior stabilization and multiple other medical issues presented to the ER with complaints of increasing generalized weakness. Reports she has been taking care of her neighbor across the street, had not been eating much over the last couple of days, noticed generalized increasing weakness walking back and forth across the street. Denies nausea or vomiting. Denies abdominal pain. Denies any current alcohol use. Reports compliant with med regimen including Prograf. Denies fever chills or congestion. Denies cough. Denies chest pain, palpitations or shortness of breath. ER reports mention of expressive aphasia 2 days ago, resolved prior to admission. Patient currently denies. on admission hypertensive, blood pressure 165/93, O2 sat 96% on room air, respiratory rate 18, pulse 97. Afebrile, Tmax 99.1. Elevated,flat troponins of 0.133, 0.129, 0.130. EKG sinus rhythm ,telemetry appears sinus tachycardia, repeat EKG pending. On admission patient was discovered to have severe hypokalemia with potassium of 2.8 and magnesium 1.3, renal function stable. T. bili 3.6, 2.3. AST 88, 49. ALT 33, 25. alk phos 162, 97. Sodium 135, potassium 3, bicarb 26, BUN 17, creatinine 0.66. UA negative. Afebrile, WBC within normal limits, hemoglobin 14.8, platelets 101, 87.MCV 93.[address] reported atrophy with white matter ischemic type changes. Denies lightheadedness dizziness or focal deficits. 02/09/2024 maintained on Cardizem and heparin drips for new onset of atrial fibrillation with RVR. platelets decreased, currently 55,Heparin drip discontinued. Converted back to sinus rhythm, blood pressure soft, mild bradycardia. Evaluated by cardiology, anticoagulation with Eliquis initiated, beta-barrett added to med regimen. Yesterday, potassium and magnesium supplemented ,currently 3.8 and 1.8. Hemoglobin A1c 5.1, T. bili normalized 1.3, AST 46.TSH 3.65, lipid panel pending. denies chest pain, palpitations or shortness of breath. O2 sats in the high 90s on room air. Remains alert and oriented x 3, speech clear, continues to speak fluently.No further neurological deficits during this hospitalization. Ambulating in room, tolerating exertion well. denies lightheadedness, dizziness or focal deficits. Denies chest pain, palpitations or shortness of breath. denies nausea vomiting or diarrhea. Denies abdominal pain. Maintained on IV fluid hydration. Potassium and magnesium supplementation ordered. Echo pending .Cardiology consult in place, recommendations pending. Hematology consulted for thrombocytopenia in a patient requiring anticoagulation. Close monitoring of platelets, electrolytes, LFTs with repeat labs ordered for a.m. Discharge planning in progress potentially for later today, probably in a.m. pending final DC recommendations and clearance per cardiology. 02/10/2024 echocardiogram completed reporting normal LV size and systolic function, minimal mitral and tricuspid regurgitation, no significant pulmonary hypertension, no pericardial effusion. Sinus bradycardia, heart rates 40s to 50s. Beta-barrett discontinued. Cleared by cardiology for discharge with no beta-barrett recommended at [place],Cozaar initiated. continues to have no neurological deficits. Cranial nerves II through XII grossly intact. Rhonchorous this morning, no cough, no chest congestion. Denies chest pain, palpitations or shortness of breath. Afebrile, normal WBC. chest x-ray completed reporting 2.3 cm mass in the right upper lobe suspicious for malignancy, smaller density in the left midlung, recommending CT scan , COPD pulmonary arterial hypertension, Results discussed with patient.Chest x-ray reviewed by pulmonary-option given for patient to proceed with CT outpatient and follow-up with them for further workup versus staying inpatient over the weekend. Patient wishes to be discharged. aggressive pulmonary toileting with incentive spirometer ordered. Patient will be discharged home today in a stable condition with guarded prognosis pending. The impression and plan of care has been dictated as directed. : I performed a history and examination of this patient, discussed the same with the dictator. I agree with the dictator's note ,documented as a scribe. Any additional findings or plans will be noted. Patient Condition at Discharge: Stable Plan - Discharge Summary New Discharge Prescriptions: New Apixaban [Eliquis] 5 mg PO BID #60 tab Losartan [Cozaar] 25 mg PO DAILY #30 tab Continue DULoxetine HCL [Cymbalta] 20 mg PO DAILY Atorvastatin [Lipitor] 10 mg PO DAILY Alendronate Sodium [Fosamax] 70 mg PO TU Levothyroxine Sodium [Synthroid] 100 mcg PO DAILY Anastrozole [Arimidex] 1 mg PO DAILY Vit C/E/Zn/Coppr/Lutein/Zeaxan [Preservision Areds 2 Softgel] 1 tab PO DAILY Famotidine 20 mg PO BID oxyCODONE-APAP 7.5-325MG [Percocet 7.5-325 mg] 1 tab PO TID PRN PRN Reason: Pain tiZANidine [Zanaflex] 4 mg PO BID PRN PRN Reason: Muscle Spasm Tacrolimus [Prograf] 0.5 mg PO BID Meloxicam [Mobic] 15 mg PO DAILY PRN PRN Reason: Pain Zinc Gluconate [Zinc] 50 mg PO Q48H Cholecalciferol (Vitamin D3) [Vitamin D3 (50 Mcg = 2000 Iu)] 50 mcg PO DAILY Multivit-Min/Iron Fum/Folic AC [One-A-Day Women's Complete Tab] 1 tab PO DAILY Super B-Complex 1 tab PO DAILY Discharge Medication List Atorvastatin [Lipitor] 10 mg PO DAILY 04/11/16 [History] DULoxetine HCL [Cymbalta] 20 mg PO DAILY 04/11/16 [History] Alendronate Sodium [Fosamax] 70 mg PO TU 07/19/17 [History] Levothyroxine Sodium [Synthroid] 100 mcg PO DAILY 12/08/19 [History] Anastrozole [Arimidex] 1 mg PO DAILY 07/24/20 [History] Famotidine 20 mg PO BID 04/08/23 [History] Vit C/E/Zn/Coppr/Lutein/Zeaxan [Preservision Areds 2 Softgel] 1 tab PO DAILY 04/08/23 [History] oxyCODONE-APAP 7.5-325MG [Percocet 7.5-325 mg] 1 tab PO TID PRN 04/08/23 [History] Cholecalciferol (Vitamin D3) [Vitamin D3 (50 Mcg = 2000 Iu)] 50 mcg PO DAILY 02/07/24 [History] Meloxicam [Mobic] 15 mg PO DAILY PRN 02/07/24 [History] Multivit-Min/Iron Fum/Folic AC [One-A-Day Women's Complete Tab] 1 tab PO DAILY 02/07/24 [History] Super B-Complex 1 tab PO DAILY 02/07/24 [History] Tacrolimus [Prograf] 0.5 mg PO BID 02/07/24 [History] Zinc Gluconate [Zinc] 50 mg PO Q48H 02/07/24 [History] tiZANidine [Zanaflex] 4 mg PO BID PRN 02/07/24 [History] Apixaban [Eliquis] 5 mg PO BID #60 tab 02/10/24 [Rx] Losartan [Cozaar] 25 mg PO DAILY #30 tab 02/10/24 [Rx] Follow up Appointment(s)/Referral(s): Juan Pablo Machado MD [STAFF PHYSICIAN] - 02/20/24 9:45 am Rajesh Meadows [STAFF PHYSICIAN] - 1 Week Brock Zimmerman DO [Primary Care Provider] - 02/16/24 11:00 am Gregorio Metzger MD [Medical Doctor] - 1 Week Ambulatory/Diagnostic Orders: Complete Blood Count w/diff [LAB.AMB] Time Frame: 3 Days, Location: None Selected Activity/Diet/Wound Care/Special Instructions: Continue using incentive spirometer every hour x 10 while awake x 1 week
[2024-02-10] MEDS: LOSARTAN 25 MG TAB PO SCH (11:50)
[2024-02-10 12:27] VITALS: BP 151/69; PULSE 53; RESP 16
--- NOTE | 2024-02-10 13:48 | XR ---
EXAMINATION TYPE: XR chest 2V DATE OF EXAM: 02/10/2024 COMPARISON: 12/08/2019 TECHNIQUE: PA and lateral views submitted. HISTORY: New onset crackles FINDINGS: There is a mass in the right upper lobe measuring 2.3 cm suspicious for malignancy. Ill-defined nodul ar 1 cm density in the left midlung. Surgical clips overlying the left breast. Postsurgical change ve rtebral column. Diffuse osteopenia and arthropathy of the shoulders. Biapical pleural thickening. Und erlying COPD with atherosclerotic change aorta. Prominence of the pulmonary arteries compatible with pulmonary arterial hypertension. Severe chronic compression fracture in the lower thoracic spine. H eart size normal and no overt failure. Osseous structures demonstrate hypertrophic and degenerative c hanges of the spine. IMPRESSION: 1. There is a 2.3 cm mass in the right upper lobe suspicious for malignancy. Smaller density in the l eft midlung. Recommend CT scan. 2. COPD. 3. Pulmonary arterial hypertension.
--- NOTE | 2024-02-10 16:46 | P.CONS ---
History of Present Illness - Reason for Consult Consult date: 02/10/24 Thrombocytopenia, history of breast cancer, possible lung mass - History of Present Illness The patient is a 73-year-old white female, With multiple medical problems. She has a history of chronic liver disease due to alcohol use in the past, and is s/p liver transplantation in 2010. She is on immunosuppression with tacrolimus. The patient was found to have left-sided breast cancer, T2, N1 M0, ER/OH positive, HER2 negative, on the left in 07/31. She underwent lumpectomy with sentinel node biopsy in 08/30. She was seen by Dr. Flowers for the same, and was subsequently placed on adjuvant anastrozole. The patient however has not followed up in the office since 2019 but apparently has continued on anast rozole. The patient came in this admission because of progressive weakness over the last 2 to 3 days. She was found to have new onset A-fib with RVR. Her Xray of the chest revealed a 2.3 cm opacity in the right upper lung, concerning for malignancy. Her platelet counts were in the low 100,000 range, with decline into the 80,000 range. Consult was therefore placed for further evaluation and recommendations. Review of her labs over the past 5+ years reveals chronic mild thrombocytopenia typically in the 90 - 110,[address] brain showed chronic ischemic changes, with echocardiogram showing preserved ejection fraction and no major valvular abnormality Review of Systems Constitutional: Reports poor appetite, Reports weakness Eyes: denies blurred vision, denies pain Ears: deny: decreased hearing, ear discharge, earache, tinnitus Ears, nose, mouth and throat: Denies headache, Denies sore throat Breasts: left: as per HPI Cardiovascular: Reports as per HPI, Reports lightheadedness Respiratory: Denies cough Gastrointestinal: Denies abdominal pain, Denies diarrhea, Denies nausea, Denies vomiting Genitourinary: Denies dysuria, Denies hematuria Menstruation: Reports postmenopausal Musculoskeletal: Reports muscle weakness Integumentary: Denies pruritus, Denies rash Neurological: Reports as per HPI, Reports weakness Psychiatric: Denies anxiety, Denies depression Endocrine: Reports fatigue Hematologic/Lymphatic: Reports as per HPI Past Medical History Past Medical History: Cancer, Deep Vein Thrombosis (DVT), GERD/Reflux, Liver Disease, Osteoarthritis (OA), Thyroid Disorder Additional Past Medical History / Comment(s): CIRRHOSIS WITH LIVER TRANSPLANT (2011), HX OF FX rt X2 ARM, RIGHT SHOULDER AND LEFT HIP WITH PAIN, osteoperosis, breast ca lft, History of Any Multi-Drug Resistant Organisms: None Reported Past Surgical History: Breast Surgery, Cholecystectomy, Heart Catheterization With Stent, Hysterectomy Additional Past Surgical History / Comment(s): liver transplant (2011), STATES HEART STENT INSERTED FOR PULMONARY HYPERTENSION WHERE SHE RECEIVED MEDICATION AND THE STENT WAS REMOVED WHEN SHE HAD HER LIVER TRANSPLANT. THYROID SURGERY crushed lft hip, lft breast lumpectomy, multiple bone fx Past Anesthesia/Blood Transfusion Reactions: Previous Problems w/ Anesthesia Additional Past Anesthesia/Blood Transfusion Reaction / Comm: STATES LAST COLONOSCOPY SHE COULD FEEL EVERYTHING BUT COULD NOT SPEAK TO TELL THEM SHE WAS AWAKE. 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 Date of Last Stent Placement:: 05/02/2011 Past Psychological History: Anxiety, Panic Disorder Additional Psychological History / Comment(s): ANXIETY ATTACKS. controlled with medication Smoking Status: Former smoker Past Alcohol Use History: None Reported Additional Past Alcohol Use History / Comment(s): QUIT SMOKING APPROX 2009, SMOKED 1 PPD . STARTED SMOKING AGE 19. Past Drug Use History: None Reported Additional Drug Use History / Comment(s): OCCASIONALLY COOKS WITH MARIJUANA none for 24 hours prior to surgery - Past Family History Mother Family Medical History: Cancer Father Family Medical History: Cancer Brother(s) Family Medical History: Cancer Medications and Allergies Home Medications Medication Instructions Recorded Confirmed Type Atorvastatin [Lipitor] 10 mg PO DAILY 04/11/16 02/07/24 History DULoxetine HCL [Cymbalta] 20 mg PO DAILY 04/11/16 02/07/24 History Alendronate Sodium [Fosamax] 70 mg PO TU 07/19/17 02/07/24 History Levothyroxine Sodium [Synthroid] 100 mcg PO DAILY 12/08/19 02/07/24 History Anastrozole [Arimidex] 1 mg PO DAILY 07/24/20 02/07/24 History Famotidine 20 mg PO BID 04/08/23 02/07/24 History Vit C/E/Zn/Coppr/Lutein/Zeaxan 1 tab PO DAILY 04/08/23 02/07/24 History [Preservision Areds 2 Softgel] oxyCODONE-APAP 7.5-325MG [Percocet 1 tab PO TID PRN 04/08/23 02/07/24 History 7.5-325 mg] Cholecalciferol (Vitamin D3) 50 mcg PO DAILY 02/07/24 02/07/24 History [Vitamin D3 (50 Mcg = 2000 Iu)] Meloxicam [Mobic] 15 mg PO DAILY PRN 02/07/24 02/07/24 History Multivit-Min/Iron Fum/Folic AC 1 tab PO DAILY 02/07/24 02/07/24 History [One-A-Day Women's Complete Tab] Super B-Complex 1 tab PO DAILY 02/07/24 02/07/24 History Tacrolimus [Prograf] 0.5 mg PO BID 02/07/24 02/07/24 History Zinc Gluconate [Zinc] 50 mg PO Q48H 02/07/24 02/07/24 History tiZANidine [Zanaflex] 4 mg PO BID PRN 02/07/24 02/07/24 History Apixaban [Eliquis] 5 mg PO BID #60 tab 02/10/24 Rx Losartan [Cozaar] 25 mg PO DAILY #30 tab 02/10/24 Rx Allergies Allergy/AdvReac Type Severity Reaction Status Date / Time gabapentin AdvReac Severe Altered/Let Verified 02/07/24 14:25 hargic Physical Exam Vitals: Vital Signs Temp Pulse Resp BP Pulse Ox 02/10/24 14:00 53 L 16 02/10/24 11:46 53 L 16 151/69 97 02/10/24 08:20 98.0 F 55 L 18 149/75 95 02/10/24 04:00 51 L 16 144/85 97 02/10/24 00:00 52 L 16 114/75 97 02/09/24 20:00 97.7 F 62 16 149/80 98 Intake and Output 02/10/24 02/10/24 02/10/24 06:59 14:59 22:59 Intake Total 180 Balance 180 Intake: Oral 180 Other: Voiding Method Toilet Toilet # Voids 1 2 - Constitutional General appearance: no acute distress - EENT Eyes: EOMI, PERRLA ENT: hearing grossly normal, normal oropharynx - Neck Neck: no lymphadenopathy Thyroid: bilateral: normal size - Respiratory Respiratory: bilateral: wheezing (Scattered wheezes right upper and middle lobe) - Cardiovascular Rhythm: irregularly irregular Heart sounds: normal: S1, S2 - Gastrointestinal General gastrointestinal: normal bowel sounds, soft - Integumentary Integumentary: normal - Neurologic Neurologic: CNII-XII intact - Musculoskeletal Musculoskeletal: strength equal bilaterally - Psychiatric Psychiatric: A&O x's 3, appropriate affect, intact judgment & insight Results CBC & Chem 7: 02/10/24 08:13 02/10/24 08:13 Labs: Abnormal Lab Results - Last 24 Hours (Table) 02/10/24 02/10/24 Range/Units 08:13 08:13 Plt Count 81 L (150-450) k/uL Chloride 111 H (98-107) mmol/L Glucose 109 H (74-99) mg/dL Comments: Echocardiogram report reviewed Chest x-ray: report reviewed CT Scan - head: report reviewed Assessment and Plan (1) Thrombocytopenia Narrative/Plan: The patient has chronic mild thrombocytopenia, likely due to prior history of a lcohol use, and subsequent chronic liver disease. Since transplanted liver may not have similar levels of thrombopoietin production as the [place]aver liver, thrombocytopenia due to chronic liver disease can persist after liver transplantation. In addition there may be other factors, such as chronic bone marrow damage from prior alcohol use, as well as marrow effect of immunosuppressive medication such as tacrolimus. If the patient had developed splenomegaly due to chronic liver disease, then/splenic sequestration can also persist despite liver transplantation. Therefore the patient has multiple reasons for thrombocytopenia. Despite the same her levels have been quite stable, in the same range over several years. The mild drop from her usual baseline during her current hospitalization is a cute and likely transient. Her counts are well within a safe range, with platelet count greater than 50,000 considered safe for any kind of anticoagulation, antiplatelet therapy, and for most surgeries. -Therefore no further workup is indicated from the hematology standpoint at this time. Recommend ongoing monitoring in the outpatient setting with the expectation that patient counts will revert back to her usual baseline. Status: Acute Code(s): D69.6 - THROMBOCYTOPENIA, UNSPECIFIED SNOMED Code(s): 665847976 (2) Abnormal chest xray Narrative/Plan: Chest x-ray had shown a possible lung mass. The patient is very anxious to get discharged and is quite comfortable with additional workup as an outpatient. The pulmonary medicine office was contacted, with plans for outpatient CT chest and then follow-up with them. If CT scan confirms suspicious findings, then additional, appropriate workup will proceed. Status: Acute Code(s): R93.89 - ABNORMAL FINDINGS ON DX IMAGING OF OTH BODY STRUCTURES SNOMED Code(s): 086851567 (3) Personal history of breast cancer Narrative/Plan: Diagnostic and therapeutic circumstances as described above. The patient states that she has continued follow-up with her PCP, who has been refilling the anastrozole. According to the patient this was her decision. She wants to continue with the current arrangement. She was urged to continue her other required health maintenance such as regular mammograms, as well as bone density monitoring with her PCP, in that case, also Status: Acute Code(s): Z85.3 - PERSONAL HISTORY OF MALIGNANT NEOPLASM OF BREAST SNOMED Code(s): 245991275
[2024-02-14] MEDS ORDERED: NON FORMULARY DRUG (Alendronate Sodium [Fosamax] 70 MG Tablet) PO SCH (09:00)
== END 2024-02-10 15:15 | disposition home or self-care (01) ==
LOC: EC 12:04 → 3SCARD 14:52
PROVIDERS: ADMIT Family Medicine; ATTEND Family Medicine
DX: I25.10 Atherosclerotic heart disease of native coronary artery without angina pectoris (principal); Z94.0 Kidney transplant status; E03.9 Hypothyroidism, unspecified; Z85.3 Personal history of malignant neoplasm of breast; F41.0 Panic disorder [episodic paroxysmal anxiety]; K21.9 Gastro-esophageal reflux disease without esophagitis; Z86.718 Personal history of other venous thrombosis and embolism; M81.0 Age-related osteoporosis without current pathological fracture; G89.29 Other chronic pain; M40.209 Unspecified kyphosis, site unspecified; E87.6 Hypokalemia; E86.0 Dehydration; E83.42 Hypomagnesemia; I48.91 Unspecified atrial fibrillation; I27.20 Pulmonary hypertension, unspecified; I10 Essential (primary) hypertension; E78.5 Hyperlipidemia, unspecified; F03.90 Unspecified dementia, unspecified severity, without behavioral disturbance, psychotic disturbance, mood disturbance, and anxiety
CPT/HCPCS: 96376; 96365; 96366 ×3; 96367 ×2; 96372; 96375; 99285; 36415; 93005 ×2; 93306; 97161; 80061; 80053 ×3; 80048; 84443; 83735 ×2; 84132; 84484; 85025 ×3; 85027; 85610 ×3; 85730 ×3; 81001; 83036; 71046; 70450; G0378 ×4; J2405; S0170 ×3; J1644 ×2; J3475 ×2; J3480; C9113 ×2

== ENCOUNTER → 2024-02-29 | Outpatient (CLI) | payer MEDICARE, OTHER ==
[2024-02-29 15:31] LABS: African American GFR (CKD) >90 (>60 ml/min/1.73 sqM); Blood Urea Nitrogen 17 mg/dL (7-17); Non-African American GFR(CKD) 85 (>60 ml/min/1.73 sqM)
--- NOTE | 2024-02-29 16:09 | CT ---
EXAMINATION TYPE: CT chest w con DATE OF EXAM: 02/29/2024 COMPARISON: Chest x-ray 02/10/2024 HISTORY: Abnormal findings on prior exam CT DLP: 244.8 mGycm, Automated exposure control for dose reduction was used. CONTRAST: Performed injected with 100 mL of Isovue 300. TECHNIQUE: Axial images were obtained at 5 mm thick sections. Reconstructed images are reviewed on [employer] computer in the coronal plane. FINDINGS: Portion of the thyroid visualized is normal. There is a spiculated density within the anterolateral peripheral right upper lung field measuring 1. 6 x 2.2 cm. This area could correlate with the chest x-ray. Finding is suspicious for malignancy. Add itional workup with PET CT is recommended. There is ar irregular area of increased density measuring 1.2 cm in the periphery of the left anterio r lung. Series 4 image 32. There is some increased lung markings in the posterior lateral right mid l elina, series 4 image 32. There is a pleural-based density measuring 1.3 x 0.7 cm evaluation of this with the PET scan is recom mended. No enlarged mediastinal or hilar adenopathy is evident. The there is a small pretracheal lymph node measuring up to 0.9 cm. Series 3 image 17. Additional shotty lymphadenopathy is tracheal space, aort opulmonary window, and right peribronchial region. Enlarged hilar adenopathy is not identified. Ascen ding aorta diameter at the level of the main pulmonary artery is 3.1 cm. The main pulmonary artery d iameter at the bifurcation is 3.5 cm. Correlate for pulmonary hypertension. Limited CT sections are obtained through the upper abdomen. Abdomen is essentially unremarkable. IMPRESSION: 1. Suspicious mass peripheral right upper lung field. An additional suspicious pleural-based density is in the left midlung. There are some additional smaller infiltrates also present. Recommend PET/CT for workup of suspected malignancy. 2. Pulmonary hypertension
== END | disposition home or self-care (01) ==
LOC: RADCTMAIN 14:34
PROVIDERS: ATTEND Family Medicine
DX: R91.8 Other nonspecific abnormal finding of lung field (principal); I27.20 Pulmonary hypertension, unspecified; I21.9 Acute myocardial infarction, unspecified
CPT/HCPCS: 82565; 84520; 71260; 36415; Q9967

== ENCOUNTER → 2024-03-19 | Outpatient (CLI) | payer MEDICARE, OTHER ==
--- NOTE | 2024-03-19 17:24 | US ---
EXAMINATION TYPE: US carotid duplex BILAT DATE OF EXAM: 03/19/2024 COMPARISON: NONE CLINICAL INDICATION: Female, 73 years old with history of G45.9 TRANSIENT CEREBRAL ISCHEMIC ATTACK, U NSPECIF; Patient denies any other signs or symptoms at this time TECHNIQUE: Carotid duplex ultrasound examination. Indirect Doppler criteria was utilized. FINDINGS: EXAM MEASUREMENTS: RIGHT: Peak Systolic Velocity (PSV) cm/sec ----- Right CCA: 57 ----- Right ICA: 116 ----- Right ECA: 124 ICA/CCA ratio: 2.1 RIGHT: End Diastole cm/sec ----- Right CCA: 13 ----- Right ICA: 31 ----- Right ECA: 10 LEFT: Peak Systolic Velocity (PSV) cm/sec ----- Left CCA: 58 ----- Left ICA: 110 ----- Left ECA: 108 ICA/CCA ratio: 1.9 LEFT: End Diastole cm/sec ----- Left CCA: 12 ----- Left ICA: 32 ----- Left ECA: 20 VERTEBRALS (direction of flow): Right Vertebral: Antegrade Left Vertebral: Antegrade Rhythm: Normal PROPOSAL EDITOR NOTES: No intimal thickening or elevated velocities, bilateral carotid plaque seen. Larg e plaque is present on the left without flow-limiting stenosis. IMPRESSION: Bilateral atheromatous plaquing without significant flow-limiting stenosis based on velocities. Criteria for Assigning % of Stenosis / Diameter reduction (Estimation based on the indirect measurements of the internal carotid artery velocities (ICA PSV). 1. Normal (no stenosis)=ICA PSV < 125 cm/s: ratio < 2.0: ICA EDV<40 cm/s. 2. Less than 50% stenosis=ICA PSV < 125 cm/s: ratio < 2.0: ICA EDV<40 cm/s. 3. 50 to 69% stenosis=ICA PSV of 125 to 230 cm/s: ration 2.0 ? 4.0: ICA EDV 40-100 cm/s. 4. Greater than 70% stenosis to near occlusion= ICA PSV > 230 cm/s: ratio > 4.0: ICA EDV > 100 cm/s. 5. Near occlusion= ICA PSV velocities may be low or undetectable: variable ratio and ICA EDV. 6. Total occlusion=unable to detect flow.
== END | disposition home or self-care (01) ==
LOC: RADUSWWP 16:28
PROVIDERS: ATTEND Internal Medicine Clinical Cardiac Electrophysiology
DX: I70.90 Unspecified atherosclerosis (principal); G45.9 Transient cerebral ischemic attack, unspecified
CPT/HCPCS: 93880

== ENCOUNTER → 2024-03-23 | Outpatient (CLI) | payer MEDICARE, OTHER ==
--- NOTE | 2024-03-25 18:29 | PE ---
EXAMINATION TYPE: PET CT fusion skull to thigh DATE OF EXAM: 03/23/2024 CLINICAL INDICATION:Female, 73 years old with history of history of breast cancer, lung cancer. TECHNIQUE: Following the intravenous administration of 12.74 mCi of F-18 FDG, whole body images are performed from the skull base to the midthigh. Images are reviewed on the computer in the coronal, axial, and sagittal planes. Reconstructed rotating images are created on independent workstation and reviewed on the computer. A non-contrast CT is performed in conjunction with the PET scan. Glucose level 85 mg/dL CT DLP: 582 mGycm, Automated exposure control for dose reduction was used. COMPARISON: CT None, PET/CT None, MRI: None FINDINGS: Mediastinal SUV mean is 2.5. Hepatic parenchyma SUV mean is 3.3. SKULL BASE AND NECK: No suspicious radiotracer activity. CHEST, MEDIASTINUM, AND HILAR REGION: * Right upper lobe pulmonary nodule measuring 19 x 20 mm Max SUV 18.4. * Left upper lobe measuring 12 mm Max SUV 7.5 * Right pulmonary hilum lymph node max SUV 5.5. Measurements limited due to lack of IV contrast. ABDOMEN AND PELVIS: Scattered lesions in the liver the 5 lesions the largest in the right hepatic lobe max SUV 8.6 which is not well appreciated on noncontrast CT. The largest in the left hepatic lobe max SUV 8.2. MUSCULOSKELETAL STRUCTURES: * There is uptake in the L2 and T10 vertebral bodies max SUV 6.1 and 6.2 respectively. Findings favo red to be secondary to fixation hardware changes/postsurgical change. * Uptake in the posterior aspect of S1 max SUV 6.8 on the right and right sacrum max SUV 5.2 thought to be on a degenerative basis. OTHER CT: Scattered pulmonary nodules as described above. Cholecystectomy clips. Fat-containing umbil ical and ventral hernias anteriorly. Right nonobstructing 9 mm calculus. Left hip arthroplasty with h ardware intact. The uterus is surgically absent. IMPRESSION: Bilateral upper lobe FDG avid pulmonary nodules, a right pulmonary hilum FDG avid lymph node, scatter ed hepatic metastatic lesions concerning for malignancy with metastatic disease.
== END | disposition home or self-care (01) ==
LOC: RADPETMAIN 08:49
PROVIDERS: ATTEND Internal Medicine
DX: C78.7 Secondary malignant neoplasm of liver and intrahepatic bile duct (principal); R91.8 Other nonspecific abnormal finding of lung field; K76.9 Liver disease, unspecified
CPT/HCPCS: 78815; A9552

== ENCOUNTER 2024-03-29 16:27 | Observation (INO) | payer MEDICARE, OTHER ==
--- NOTE | 2024-03-29 17:00 | ED ---
General Adult HPI - General Chief complaint: Nausea/Vomiting/Diarrhea Stated complaint: high BP Time Seen by Provider: 03/29/24 16:34 Source: patient, family, RN notes reviewed Mode of arrival: wheelchair Limitations: no limitations - History of Present Illness Initial comments: 73-year-old female presents to the emergency department for evaluation of e levated blood pressure readings at home today. Patient's daughter states that her blood pressures running in the 200s over 130s. She states that she gave her 2 extra doses of her blood pressure medication totaling 150 mg of losartan. Patient does admit to nausea and vomiting over the past 2 to 3 days along with chills. She denies any significant chest pain or breathing troubles. She does admit to back pain which she states is chronic in nature and worse today because she has been unable to take her pain medication due to vomiting. - Related Data Home Medications Medication Instructions Recorded Confirmed Atorvastatin [Lipitor] 10 mg PO DAILY 04/11/16 03/29/24 DULoxetine HCL [Cymbalta] 20 mg PO DAILY 04/11/16 03/29/24 Alendronate Sodium [Fosamax] 70 mg PO TU 07/19/17 03/29/24 Levothyroxine Sodium [Synthroid] 100 mcg PO DAILY 12/08/19 03/29/24 Anastrozole [Arimidex] 1 mg PO DAILY 07/24/20 03/29/24 Famotidine 20 mg PO BID 04/08/23 03/29/24 Vit C/E/Zn/Coppr/Lutein/Zeaxan 1 cap PO DAILY 04/08/23 03/29/24 [Preservision Areds 2 Softgel] oxyCODONE-APAP 7.5-325MG [Percocet 1 tab PO TID PRN 04/08/23 03/29/24 7.5-325 mg] Cholecalciferol (Vitamin D3) 50 mcg PO DAILY 02/07/24 03/29/24 [Vitamin D3 (50 Mcg = 2000 Iu)] Multivit-Min/Iron Fum/Folic AC 1 tab PO DAILY 02/07/24 03/29/24 [One-A-Day Women's Complete Tab] Super B-Complex 1 tab PO DAILY 02/07/24 03/29/24 Tacrolimus [Prograf] 0.5 mg PO BID 02/07/24 03/29/24 Zinc Gluconate [Zinc] 50 mg PO Q48H 02/07/24 03/29/24 tiZANidine [Zanaflex] 4 mg PO BID PRN 02/07/24 03/29/24 Meloxicam [Mobic] 7.5 mg PO DAILY PRN 03/29/24 03/29/24 Previous Rx's Medication Instructions Recorded Apixaban [Eliquis] 5 mg PO BID #60 tab 02/10/24 Losartan [Cozaar] 100 mg PO DAILY 15 Days #30 tab 03/31/24 Metoprolol Tartrate [Lopressor] 50 mg PO BID 15 Days #30 tab 03/31/24 Allergies Allergy/AdvReac Type Severity Reaction Status Date / Time gabapentin AdvReac Severe Altered/Let Verified 02/07/24 14:25 hargic Review of Systems ROS Statement: Those systems with pertinent positive or pertinent negative responses have been documented in the HPI. ROS Other: All systems not noted in ROS Statement are negative. Past Medical History Past Medical History: Cancer, Deep Vein Thrombosis (DVT), GERD/Reflux, Liver Disease, Osteoarthritis (OA), Thyroid Disorder Additional Past Medical History / Comment(s): CIRRHOSIS WITH LIVER TRANSPLANT (2011), HX OF FX rt X2 ARM, RIGHT SHOULDER AND LEFT HIP WITH PAIN, osteoperosis, breast ca lft, History of Any Multi-Drug Resistant Organisms: None Reported Past Surgical History: Breast Surgery, Cholecystectomy, Heart Catheterization With Stent, Hysterectomy Additional Past Surgical History / Comment(s): liver transplant (2011), STATES HEART STENT INSERTED FOR PULMONARY HYPERTENSION WHERE SHE RECEIVED MEDICATION AND THE STENT WAS REMOVED WHEN SHE HAD HER LIVER TRANSPLANT. THYROID SURGERY crushed lft hip, lft breast lumpectomy, multiple bone fx Past Anesthesia/Blood Transfusion Reactions: Previous Problems w/ Anesthesia Additional Past Anesthesia/Blood Transfusion Reaction / Comment(s): STATES LAST COLONOSCOPY SHE COULD FEEL EVERYTHING BUT COULD NOT SPEAK TO TELL THEM SHE WAS AWAKE. 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 Date of Last Stent Placement:: 05/02/2011 Past Psychological History: Anxiety, Panic Disorder Smoking Status: Former smoker Past Alcohol Use History: None Reported Past Drug Use History: None Reported - Past Family History Mother Family Medical History: Cancer Father Family Medical History: Cancer Brother(s) Family Medical History: Cancer General Exam Limitations: no limitations General appearance: alert, in no apparent distress Head exam: Present: atraumatic, normocephalic, normal inspection Eye exam: Present: normal appearance, PERRL, EOMI. Absent: scleral icterus, conjunctival injection, periorbital swelling ENT exam: Present: mucous membranes dry Neck exam: Present: normal inspection. Absent: tenderness, meningismus, lymph adenopathy Respiratory exam: Present: normal lung sounds bilaterally. Absent: respiratory distress, wheezes, rales, rhonchi, stridor Cardiovascular Exam: Present: regular rate, normal rhythm, normal heart sounds. Absent: systolic murmur, diastolic murmur, rubs, gallop, clicks GI/Abdominal exam: Present: soft, normal bowel sounds. Absent: distended, tenderness, guarding, rebound, rigid Extremities exam: Present: normal inspection, full ROM, normal capillary refill. Absent: tenderness, pedal edema, joint swelling, calf tenderness Back exam: Present: normal inspection Neurological exam: Present: alert, oriented X3 Psychiatric exam: Present: normal affect, normal mood Skin exam: Present: warm, dry, intact, normal color. Absent: rash Course Vital Signs 03/29/24 03/29/24 03/29/24 16:28 17:50 18:50 Temperature 98.3 F 98.3 F Pulse Rate 100 83 88 Respiratory 20 16 17 Rate Blood Pressure 171/98 179/110 135/71 O2 Sat by Pulse 97 94 L 95 Oximetry 03/29/24 03/29/24 03/30/24 19:43 22:47 02:13 Temperature Pulse Rate 87 68 68 Respiratory 16 18 16 Rate Blood Pressure 130/78 102/65 130/71 O2 Sat by Pulse 94 L 95 94 L Oximetry 03/30/24 03/30/24 03/30/24 06:21 09:00 12:00 Temperature Pulse Rate 67 69 53 L Respiratory 16 16 16 Rate Blood Pressure 123/76 123/79 129/76 O2 Sat by Pulse 94 L 96 95 Oximetry 03/30/24 16:00 Temperature Pulse Rate 53 L Respiratory 18 Rate Blood Pressure 119/87 O2 Sat by Pulse 95 Oximetry Medical Decision Making - Medical Decision Making Was pt. sent in by a medical professional or institution (, PA, EASEMENT WORKER, urgent care, hospital, or longterm...) When possible be specific @ -No Did you speak to anyone other than the patient for history (EMS, parent, family, police, friend...)? What history was obtained from this source @ -Patient's daughter provides some of the history for this patient Did you review nursing and triage notes (agree or disagree)? Why? @ -I reviewed and agree with nursing and triage notes Were old charts reviewed (outside hosp., previous admission, EMS record, old EKG, old radiological studies, urgent care reports/EKG's, longterm records)? Report findings @ -No old charts were reviewed Differential Diagnosis (chest pain, altered mental status, abdominal pain women, abdominal pain men, vaginal bleeding, weakness, fever, dyspnea, syncope, headache, dizziness, GI bleed, back pain, seizure, CVA, palpatations, mental health, musculoskeletal)? @ -Differential Weakness: Hypoglycemia, shock, sepsis, hyponatremia, anemia, infection, [place], ETOH, adverse medicine reaction, overdose, stroke, this is not meant to be an all-inclusive list. EKG interpreted by me (3pts min.). @ -EKG at 1646 reveals sinus rhythm rate 93, NM 154, QRS 98, QTQTc [id number] X-rays interpreted by me (1pt min.). @ -None done CT interpreted by me (1pt min.). @ -None done U/S interpreted by me (1pt. min.). @ -None done What testing was considered but not performed or refused? (CT, X-rays, U/S, labs)? Why? @ -None What meds were considered but not given or refused? Why? @ -None Did you discuss the management of the patient with other professionals (professionals i.e. , PA, EASEMENT WORKER, lab, RT, psych nurse, social media analyst, fabric separator operator, teacher, marketing and communications officer, nurse case management)? Give summary @ -Management discussed with [facility] who is accepting of the admission Was smoking cessation discussed for >3mins.? @ -No Was critical care preformed (if so, how long)? @ -No Were there social determinants of health that impacted care today? How? (Homelessness, low income, unemployed, alcoholism, drug addiction, transportation, low edu. Level, literacy, decrease access to med. care, [facility], rehab)? @ -No Was there de-escalation of care discussed even if they declined (Discuss DNR or withdrawal of care, Hospice)? DNR status @ -No What co-morbidities impacted this encounter? (DM, HTN, Smoking, COPD, CAD, Cancer, CVA, ARF, Chemo, Hep., AIDS, mental health diagnosis, sleep apnea, morbid obesity)? @ -None Was patient admitted / discharged? Hospital course, mention meds given and route, prescriptions, significant lab abnormalities, going to OR and other pertinent info. @ -Admitted. Patient presented to the emergency department for evaluation of e levated blood pressure. Patient was given extra blood pressure medication by her daughter following elevated readings of 200s over 130s. Patient's blood pressure readings improved while in the ED without further management. Laboratory studies were obtained, patient found have mild hypokalemia, hy pomagnesemia at 1.1 which is replaced IV. Patient has elevated troponin at 0.146. No chest symptoms at this time. Chronically elevated troponins. Serial troponins ordered. Patient will be admitted with cardiology consultation. Case discussed with [facility] who is accepting of admission. Case discussed with Dr. Winn Undiagnosed new problem with uncertain prognosis? @ -No Drug Therapy requiring intensive monitoring for toxicity (Heparin, Nitro, Insulin, Cardizem)? @ -No Were any procedures done? @ -No Diagnosis/symptom? @ -Hypertension, hypomagnesemia Acute, or Chronic, or Acute on Chronic? @ -Acute Uncomplicated (without systemic symptoms) or Complicated (systemic symptoms)? @ -Uncomplicated Side effects of treatment? @ -No Exacerbation, Progression, or Severe Exacerbation? @ -No Poses a threat to life or bodily function? How? (Chest pain, [place], [place], pneumonia, PE, COPD, DKA, ARF, appy, cholecystitis, CVA, Diverticulitis, Homicidal, Suicidal, threat to staff... and all critical care pts) @ -No - Lab Data Result diagrams: 03/30/24 07:22 03/30/24 07:22 Lab Results 03/29/24 03/29/24 03/29/24 Range/Units 17:45 17:45 17:45 WBC 10.9 H (3.8-10.6) k/uL RBC 4.76 (3.80-5.40) m/uL Hgb 15.0 (11.4-16.0) gm/dL Hct 44.7 (34.0-46.0) % MCV 93.9 (80.0-100.0) fL MCH 31.4 (25.0-35.0) pg MCHC 33.4 (31.0-37.0) g/dL RDW 14.0 (11.5-15.5) % Plt Count 176 D (150-450) k/uL MPV 9.1 Neutrophils % 64 % Lymphocytes % 24 % Monocytes % 8 % Eosinophils % 0 % Basophils % 0 % Neutrophils # 7.0 (1.3-7.7) k/uL Lymphocytes # 2.7 (1.0-4.8) k/uL Monocytes # 0.8 (0-1.0) k/uL Eosinophils # 0.0 (0-0.7) k/uL Basophils # 0.1 (0-0.2) k/uL PT 12.6 H (10.0-12.5) sec INR 1.2 H (<1.2) APTT 27.0 (22.0-30.0) sec Sodium 133 L (137-145) mmol/L Potassium 3.4 L (3.5-5.1) mmol/L Chloride 103 (98-107) mmol/L Carbon Dioxide 21 L (22-30) mmol/L Anion Gap 9 mmol/L BUN 17 (7-17) mg/dL Creatinine 0.67 (0.52-1.04) mg/dL Est GFR (CKD-EPI)AfAm >90 (>60 ml/min/1.73 sqM) Est GFR (CKD-EPI)NonAf 89 (>60 ml/min/1.73 sqM) Glucose 115 H (74-99) mg/dL Calcium 9.5 (8.4-10.2) mg/dL Phosphorus 3.1 (2.5-4.5) mg/dL Magnesium 1.1 L (1.6-2.3) mg/dL Total Bilirubin 2.4 H (0.2-1.3) mg/dL AST 52 H (14-36) U/L ALT 19 (4-34) U/L Alkaline Phosphatase 135 H (38-126) U/L Troponin I (0.000-0.034) ng/mL Total Protein 6.7 (6.3-8.2) g/dL Albumin 4.0 (3.5-5.0) g/dL Lipase 126 (23-300) U/L 03/29/24 Range/Units 17:45 WBC (3.8-10.6) k/uL RBC (3.80-5.40) m/uL Hgb (11.4-16.0) gm/dL Hct (34.0-46.0) % MCV (80.0-100.0) fL MCH (25.0-35.0) pg MCHC (31.0-37.0) g/dL RDW (11.5-15.5) % Plt Count (150-450) k/uL MPV Neutrophils % % Lymphocytes % % Monocytes % % Eosinophils % % Basophils % % Neutrophils # (1.3-7.7) k/uL Lymphocytes # (1.0-4.8) k/uL Monocytes # (0-1.0) k/uL Eosinophils # (0-0.7) k/uL Basophils # (0-0.2) k/uL PT (10.0-12.5) sec INR (<1.2) APTT (22.0-30.0) sec Sodium (137-145) mmol/L Potassium (3.5-5.1) mmol/L Chloride (98-107) mmol/L Carbon Dioxide (22-30) mmol/L Anion Gap mmol/L BUN (7-17) mg/dL Creatinine (0.52-1.04) mg/dL Est GFR (CKD-EPI)AfAm (>60 ml/min/1.73 sqM) Est GFR (CKD-EPI)NonAf (>60 ml/min/1.73 sqM) Glucose (74-99) mg/dL Calcium (8.4-10.2) mg/dL Phosphorus (2.5-4.5) mg/dL Magnesium (1.6-2.3) mg/dL Total Bilirubin (0.2-1.3) mg/dL AST (14-36) U/L ALT (4-34) U/L Alkaline Phosphatase (38-126) U/L Troponin I 0.146 H* (0.000-0.034) ng/mL Total Protein (6.3-8.2) g/dL Albumin (3.5-5.0) g/dL Lipase (23-300) U/L Disposition Clinical Impression: Hypomagnesemia, Nausea & vomiting, Hypertensive urgency Disposition: ADMITTED IP TO THIS HOSP Condition: Stable Is patient prescribed a controlled substance at d/c from ED?: No
[2024-03-29] MEDS: SODIUM CHLORIDE 0.9% 1,000 ML IV STA (17:58)
[2024-03-29] MEDS: HYDROmorphone 0.5 MG/0.5 ML SYRINGE IVP STA (18:00)
[2024-03-29 18:12] LABS: Basophils # (A) 0.1 k/uL (0-0.2); Basophils % (A) 0 %; Eosinophils % (A) 0 %; HCT 44.7 % (34.0-46.0); Lymphocytes # (A) 2.7 k/uL (1.0-4.8); Lymphocytes % (A) 24 %; MCH 31.4 pg (25.0-35.0); MCHC 33.4 g/dL (31.0-37.0); MCV 93.9 fL (80.0-100.0); Mean Platelet Volume 9.1; Monocytes # (A) 0.8 k/uL (0-1.0); Monocytes % (A) 8 %; Neutrophils % (A) 64 %; RBC 4.76 m/uL (3.80-5.40); WBC 10.9 k/uL (3.8-10.6)
--- NOTE | 2024-03-29 18:14 | XR ---
EXAMINATION TYPE: XR chest 2V DATE OF EXAM: 03/29/2024 COMPARISON: 02/10/2024 INDICATION: Chest pain vomiting diarrhea TECHNIQUE: Frontal and lateral views of the chest are obtained. FINDINGS: The heart size is normal. The pulmonary vasculature is normal. Peripheral right lung chest opacity is less well-visualized on the current exam. Consider pleural francisco que. Electronic device overlies left chest. Postsurgical changes are within the thoracolumbar junctio n. IMPRESSION: 1. Patent visualization of previous right peripheral lung opacity. This could be a pleural plaque. 2. Acute pulmonary process is not otherwise identified
[2024-03-29 18:20] LABS: Platelet Count 176 k/uL (150-450)
[2024-03-29 18:23] LABS: ALT 19 U/L (4-34); AST 52 U/L (14-36); African American GFR (CKD) >90 (>60 ml/min/1.73 sqM); Alkaline Phosphatase 135 U/L (38-126); Anion Gap 9 mmol/L; Blood Urea Nitrogen 17 mg/dL (7-17); Calcium 9.5 mg/dL (8.4-10.2); Carbon Dioxide 21 mmol/L (22-30); Chloride 103 mmol/L (98-107); Glucose 115 mg/dL (74-99); Lipase 126 U/L (23-300); Magnesium 1.1 mg/dL (1.6-2.3); Non-African American GFR(CKD) 89 (>60 ml/min/1.73 sqM); Phosphorus 3.1 mg/dL (2.5-4.5); Potassium 3.4 mmol/L (3.5-5.1); Sodium 133 mmol/L (137-145); Total Bilirubin 2.4 mg/dL (0.2-1.3); Total Protein 6.7 g/dL (6.3-8.2)
[2024-03-29] MEDS ORDERED: Magnesium Replacement Protocol 1 EACH MISC MISCELLANE PRN (18:28)
[2024-03-29 18:40] LABS: INR 1.2 (<1.2); Prothrombin Time 12.6 sec (10.0-12.5)
[2024-03-29] MEDS ORDERED: NALOXONE 0.4 MG/ML 1 ML VIAL IV PRN (19:06)
[2024-03-29] MEDS ORDERED: HYDROmorphone 0.5 MG/0.5 ML SYRINGE IVP PRN (19:06)
[2024-03-29] MEDS ORDERED: IBUPROFEN 400 MG TAB PO PRN (19:06)
[2024-03-29] MEDS ORDERED: ONDANSETRON 4 MG/2 ML VIAL IVP PRN (19:06)
[2024-03-29] MEDS: MAGNESIUM SULFATE-D5W PMX 1 GM in DEXTROSE/WATER 1 100ML.BAG IVPB SCH (19:42)
[2024-03-29] MEDS: HYDROmorphone 1 MG/ML 1 ML SYRINGE IVP PRN (21:02)
[2024-03-29] MEDS: TACROLIMUS 0.5 MG CAP PO SCH (21:10)
[2024-03-30 07:49] LABS: Basophils # (A) 0.1 k/uL (0-0.2); Basophils % (A) 1 %; Eosinophils # (A) 0.3 k/uL (0-0.7); Eosinophils % (A) 4 %; HCT 41.3 % (34.0-46.0); HGB 13.7 gm/dL (11.4-16.0); Lymphocytes # (A) 2.9 k/uL (1.0-4.8); Lymphocytes % (A) 34 %; MCH 32.2 pg (25.0-35.0); MCHC 33.2 g/dL (31.0-37.0); MCV 96.9 fL (80.0-100.0); Mean Platelet Volume 8.7; Monocytes # (A) 0.6 k/uL (0-1.0); Monocytes % (A) 7 %; Neutrophils # (A) 4.2 k/uL (1.3-7.7); Neutrophils % (A) 51 %; Platelet Count 134 k/uL (150-450); RBC 4.26 m/uL (3.80-5.40); RDW 14.3 % (11.5-15.5); WBC 8.4 k/uL (3.8-10.6)
[2024-03-30 08:08] LABS: African American GFR (CKD) >90 (>60 ml/min/1.73 sqM); Anion Gap 4 mmol/L; Blood Urea Nitrogen 14 mg/dL (7-17); Calcium 8.8 mg/dL (8.4-10.2); Carbon Dioxide 25 mmol/L (22-30); Chloride 107 mmol/L (98-107); Glucose 90 mg/dL (74-99); Non-African American GFR(CKD) >90 (>60 ml/min/1.73 sqM); Sodium 136 mmol/L (137-145)
[2024-03-30 08:26] LABS: Magnesium 2.1 mg/dL (1.6-2.3); Potassium 3.7 mmol/L (3.5-5.1)
[2024-03-30] MEDS: MAGNESIUM OXIDE 400 MG TAB PO SCH (08:48)
[2024-03-30] MEDS: APIXABAN 5 MG TAB PO SCH (08:48)
[2024-03-30] MEDS: METOPROLOL TARTRATE 50 MG TAB PO SCH (08:49)
[2024-03-30] MEDS: LOSARTAN 50 MG TAB PO SCH (08:49)
--- NOTE | 2024-03-30 11:58 | P.CRDCN ---
History of Present Illness History of present illness: atrial fib htn plan stop ibuprofen given elevated BP BP control Dictating on a 73-year-old female in the ER for now 16 admitted with elevated high blood pressure. Patient states she's had a stroke recently she is on ELIQUIS. Her rhythm strip shows atrial fibrillation with RVR 30 beats a minute. At this time her blood pressure is now 120s but she came in her blood pressure was elevated at 171/98 and 170 90 110 mmHg her she was also diagnosed with hypomagnesemia she was given Motrin for pain around the clock but antihypertensive medications were not reviewed a labs show normal hemoglobin of white count ranging from 8.4-10,900 sodium 133 potassium 3.4. Magnesium 1.14 user is normal at 0.14 0.12 0.1 She denies any chest discomfort she does complain of dizziness and I sent her On examination her lungs sounds are normal breath sounds are clear Heart sounds are irregular She has paroxysmal A. fib with RVR she is on losartan 50 mrem at home medications include levothyroxine and ELIQUIS. She takes Mobic for pain along with other medications. Impression #1 elevated blood pressure readings at home and patient took multiple doses of Cozaar most 100 mg 250 at the time she came here blood pressures started to decrease and now today her blood pressure is normal range #2 she is afebrile with a paroxysmal she is on ELIQUIS #3 abnormal troponins with somewhat flattened #4 severe hypomagnesemia Suggest office records #2. 100 mg daily #3 metoprolol tartrate 2550 mg twice d aily number for considerations for spironolactone The etiology for hypomagnesemia is unclear to me at this time." This is Dr. Machado dictating a consult on this patient The patient was interviewed and examined IMPRESSION / ASSESSMENT: Elevated blood pressure readings at home, patient was given a total 150 mg we'll start him Elevated blood pressure readings initially here but now has improved Patient takes Mobic at home, prescribed Motrin here Hypomagnesemia of an unclear etiology Abnormal troponins of a flat trend no chest discomfort no symptoms consistent with angina PLAN: Losartan 100 mg daily Metoprolol 50 mg twice daily Continue ELIQUIS Watch blood pressure Avoid NSAIDs Secondary hypertension workup HPI Patient presented with numbness in the right arm and very elevated blood pr essure readings. Her daughter left a message in the office which she was taking a mother to the hospital for severe hypertension that did not respond to 3 doses of losartan 50 mg ROS: No fever chills or rigors, no cough, phlegm or expectoration, no nausea, vomiting or diarrhea, no hematuria, dysuria, no musculoskeletal complaints, no strokes or seizures, no skin lesions. EXAMINATION: Normal heart sounds but regular Paroxysms of A. fib with RVR Elevated blood pressure readings initially but now blood pressure readings are normal Lungs are clear No murmurs REVIEW OF LABS, ECG & MEDICAL DATA Abnormal troponins with a factor X Very low magnesium of 1.1 which is replaced Past Medical History Past Medical History: Cancer, Deep Vein Thrombosis (DVT), GERD/Reflux, Liver Disease, Osteoarthritis (OA), Thyroid Disorder Additional Past Medical History / Comment(s): CIRRHOSIS WITH LIVER TRANSPLANT (2011), HX OF FX rt X2 ARM, RIGHT SHOULDER AND LEFT HIP WITH PAIN, osteoperosis, breast ca lft, History of Any Multi-Drug Resistant Organisms: None Reported Past Surgical History: Breast Surgery, Cholecystectomy, Heart Catheterization With Stent, Hysterectomy Additional Past Surgical History / Comment(s): liver transplant (2011), STATES HEART STENT INSERTED FOR PULMONARY HYPERTENSION WHERE SHE RECEIVED MEDICATION AND THE STENT WAS REMOVED WHEN SHE HAD HER LIVER TRANSPLANT. THYROID SURGERY crushed lft hip, lft breast lumpectomy, multiple bone fx Past Anesthesia/Blood Transfusion Reactions: Previous Problems w/ Anesthesia Additional Past Anesthesia/Blood Transfusion Reaction / Comment(s): STATES LAST COLONOSCOPY SHE COULD FEEL EVERYTHING BUT COULD NOT SPEAK TO TELL THEM SHE WAS AWAKE. 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 Date of Last Stent Placement:: 05/02/2011 Past Psychological History: Anxiety, Panic Disorder Smoking Status: Former smoker Past Alcohol Use History: None Reported Past Drug Use History: None Reported - Past Family History Mother Family Medical History: Cancer Father Family Medical History: Cancer Brother(s) Family Medical History: Cancer Medications and Allergies Home Medications Medication Instructions Recorded Confirmed Type Atorvastatin [Lipitor] 10 mg PO DAILY 04/11/16 03/29/24 History DULoxetine HCL [Cymbalta] 20 mg PO DAILY 04/11/16 03/29/24 History Alendronate Sodium [Fosamax] 70 mg PO TU 07/19/17 03/29/24 History Levothyroxine Sodium [Synthroid] 100 mcg PO DAILY 12/08/19 03/29/24 History Anastrozole [Arimidex] 1 mg PO DAILY 07/24/20 03/29/24 History Famotidine 20 mg PO BID 04/08/23 03/29/24 History Vit C/E/Zn/Coppr/Lutein/Zeaxan 1 cap PO DAILY 04/08/23 03/29/24 History [Preservision Areds 2 Softgel] oxyCODONE-APAP 7.5-325MG [Percocet 1 tab PO TID PRN 04/08/23 03/29/24 History 7.5-325 mg] Cholecalciferol (Vitamin D3) 50 mcg PO DAILY 02/07/24 03/29/24 History [Vitamin D3 (50 Mcg = 2000 Iu)] Multivit-Min/Iron Fum/Folic AC 1 tab PO DAILY 02/07/24 03/29/24 History [One-A-Day Women's Complete Tab] Super B-Complex 1 tab PO DAILY 02/07/24 03/29/24 History Tacrolimus [Prograf] 0.5 mg PO BID 02/07/24 03/29/24 History Zinc Gluconate [Zinc] 50 mg PO Q48H 02/07/24 03/29/24 History tiZANidine [Zanaflex] 4 mg PO BID PRN 02/07/24 03/29/24 History Apixaban [Eliquis] 5 mg PO BID #60 tab 02/10/24 03/29/24 Rx Losartan [Cozaar] 50 mg PO DAILY 03/29/24 03/29/24 History Meloxicam [Mobic] 7.5 mg PO DAILY PRN 03/29/24 03/29/24 History Allergies Allergy/AdvReac Type Severity Reaction Status Date / Time gabapentin AdvReac Severe Altered/Let Verified 02/07/24 14:25 hargic Physical Exam Vitals: Vital Signs Temp Pulse Resp BP Pulse Ox 03/30/24 06:21 67 16 123/76 94 L 03/30/24 02:13 68 16 130/71 94 L 03/29/24 22:47 68 18 102/65 95 03/29/24 19:43 87 16 130/78 94 L 03/29/24 18:50 98.3 F 88 17 135/71 95 03/29/24 17:50 83 16 179/110 94 L 03/29/24 16:28 98.3 F 100 20 171/98 97 Intake and Output 03/29/24 03/30/24 03/30/24 22:59 06:59 14:59 Other: Weight 73.028 kg Results 03/30/24 07:22 03/30/24 07:22 Cardiac Enzymes 03/29/24 03/29/24 03/29/24 Range/Units 17:45 17:45 21:17 AST 52 H (14-36) U/L Troponin I 0.146 H* 0.127 H* (0.000-0.034) ng/mL 03/30/24 Range/Units 01:04 AST (14-36) U/L Troponin I 0.121 H* (0.000-0.034) ng/mL Coagulation 03/29/24 Range/Units 17:45 PT 12.6 H (10.0-12.5) sec APTT 27.0 (22.0-30.0) sec CBC 03/29/24 03/30/24 Range/Units 17:45 07:22 WBC 10.9 H 8.4 (3.8-10.6) k/uL RBC 4.76 4.26 (3.80-5.40) m/uL Hgb 15.0 13.7 (11.4-16.0) gm/dL Hct 44.7 41.3 (34.0-46.0) % Plt Count 176 D 134 L (150-450) k/uL Comprehensive Metabolic Panel 03/29/24 Range/Units 17:45 Sodium 133 L (137-145) mmol/L Potassium 3.4 L (3.5-5.1) mmol/L Chloride 103 (98-107) mmol/L Carbon Dioxide 21 L (22-30) mmol/L BUN 17 (7-17) mg/dL Creatinine 0.67 (0.52-1.04) mg/dL Glucose 115 H (74-99) mg/dL Calcium 9.5 (8.4-10.2) mg/dL AST 52 H (14-36) U/L ALT 19 (4-34) U/L Alkaline Phosphatase 135 H (38-126) U/L Total Protein 6.7 (6.3-8.2) g/dL Albumin 4.0 (3.5-5.0) g/dL Current Medications Generic Name Dose Route Start Last Admin Trade Name Freq PRN Reason Stop Dose Admin Hydromorphone HCl 0.5 mg 03/29/24 19:06 Hydromorphone 0.5 Mg/0.5 Ml Syringe IVP Q3HR PRN Moderate Pain (Scale 4 to 6) Hydromorphone HCl 1 mg 03/29/24 19:06 03/30/24 06:20 Hydromorphone 1 Mg/Ml 1 Ml Syringe IVP 1 mg Q3HR PRN Administration Severe Pain (Scale 7 to 10) Ibuprofen 400 mg 03/29/24 19:06 Ibuprofen 400 Mg Tab PO Q6HR PRN Mild Pain or Fever > 100.5 Miscellaneous Information 1 each 03/29/24 18:28 Magnesium Replacement Protocol 1 Each Misc MISCELLANE DAILY PRN Per Protocol Protocol Naloxone HCl 0.2 mg 03/29/24 19:06 Naloxone 0.4 Mg/Ml 1 Ml Vial IV Q2M PRN Opioid Reversal Tacrolimus 0.5 mg 03/29/24 21:00 03/29/24 21:10 Tacrolimus 0.5 Mg Cap PO 0.5 mg BID TAMERA Administration Intake and Output 03/29/24 03/30/24 03/30/24 22:59 06:59 14:59 Other: Weight 73.028 kg 03/30/24 07:22 03/29/24 17:45
[2024-03-31 08:34] VITALS: PULSE 58; RESP 17
--- NOTE | 2024-03-31 11:14 | P.HPIM ---
History of Present Illness H&P Date: 03/31/24 History of present illness; 73-year-old female with past medical history significant for breast cancer, liver transplant 2011 currently on tacrolimus, prior alcohol use, osteoporosis, chronic back pain with T12 severe compression deformity status post T10-L2 posterior stabilization and multiple other medical issues presented today to the emergency department following a sudden increase in blood pressure. Patient's daughter states that the blood pressure continued to increase to greater than 200s/130s. States that her daughter gave her 2 additional doses totaling 150 mg of losartan, which left her blood pressure unresolved. States she did 2 to 3 days of nausea and vomiting along with some c hills. She reports that she had no chest pain or shortness of breath, just some generalized soreness in her right arm/shoulder which she states is pretty normal for her bad arthritis, so she is unsure if it is as a result of her blood pressure. Additionally, patient mentions that she had a stroke recently, of which she cannot recall the details but remembers "waking up in the hospital". Since that time she has been taking Eliquis and monitoring her blood pressure closely at home. On arrival to the emergency department her blood pressure was 171/98, heart rate of 100, oxygen saturation of 97%. At that time patient's sodium was 133, potassium 3.4, magnesium 1.1, troponin 0.146. Upon seeing the patient at bedside this morning, she is feeling well has no current complaints other than chronic back pain which she states is always there. She currently has no complaints and states that she is feeling much better today. Initial lab work done in the ER showed WBCs of 10.9, PT of 12.6, INR of 1.2, sodium of 133, potassium 3.4, magnesium 1.1, bilirubin of 2.4, AST of 52, alkaline phosphatase 135, and troponin of 0.146 EKG done in the ER showed heart rate of 93, and moderate ST depressions. Repeat EKG done on 03/30 showed heart rate up to 137 and atrial fibrillation with RVR Chest x-ray done in the ER showed visualization of a previous right peripheral lung opacity. With no acute pulmonary process. Patient admitted to internal medicine service REVIEW OF SYSTEMS: CONSTITUTIONAL: No fever, no malaise, no fatigue. HEENT: No recent visual problems or hearing problems. Denied any sore throat. CARDIOVASCULAR: No chest pain, orthopnea, PND, no palpitations, no syncope. PULMONARY: No shortness of breath, no cough, no hemoptysis. GASTROINTESTINAL: No diarrhea, no nausea, no vomiting, no abdominal pain. NEUROLOGICAL: No headaches, no weakness, no numbness. HEMATOLOGICAL: Denies any bleeding or petechiae. GENITOURINARY: Denies any burning micturition, frequency, or urgency. MUSCULOSKELETAL/RHEUMATOLOGICAL: Denies any joint pain, swelling, or any muscle pain. ENDOCRINE: Denies any polyuria or polydipsia. The rest of the 14-point review of systems is negative. PHYSICAL EXAMINATION: GENERAL: The patient is alert and oriented x3, not in any acute distress. Well developed, well nourished. HEENT: Pupils are round and equally reacting to light. EOMI. No scleral icterus. No conjunctival pallor. Normocephalic, atraumatic. No pharyngeal erythema. No th yromegaly. CARDIOVASCULAR: S1 and S2 present. No murmurs, rubs, or gallops. PULMONARY: Chest is clear to auscultation, no wheezing or crackles. ABDOMEN: Soft, nontender, nondistended, normoactive bowel sounds. No palpable organomegaly. MUSCULOSKELETAL: No joint swelling or deformity. EXTREMITIES: No cyanosis, clubbing, or pedal edema. NEUROLOGICAL: Gross neurological examination did not reveal any focal deficits. SKIN: No rashes. Assessment and plan #Hypertensive urgency Switch to losartan 100 mg p.o. daily from 50 mg p.o. daily, per cardiology Add metoprolol 50 mg twice daily, per cardiology On ED arrival her blood pressure was 171/98, as of this morning (03/31) it is 117/63 Per cardiology, they are okay with discharging the patient to follow-up with the medication changes currently administered above. #Hypomagnesemia of unclear etiology Magnesium replaced per protocol Magnesium 1.1 on arrival (03/29), on 03/30 magnesium 2.1 #History of CVA/TIA secondary to atrial fibrillation Started on Eliquis 5 mg twice daily at the end of January 2024 Bilateral duplex carotid ultrasound completed on 03/19/2024 showed bilateral atheromatous plaquing without significant flow-limiting stenosis based on velocities, to rule out carotid stenosis as cause for CVA/TIA #Chronically elevated troponins since 2021 3 troponins taken since arrival in the emergency department or 0.146 (03/29 5:45 PM), 0.127 (03/29 9:17 PM), 0.121 (03/30 1:04 AM) - Patient's last visit to this facility on 02/06 her troponins ranged between 0.133 and 0.130 Previous visit in March 2022 showed patient's troponin elevated between 0.063 and 0.078 Monitor vital signs Continue telemetry monitoring Labs and medication were reviewed.. Continue with symptomatic treatment. Resume home medication. Monitor labs and vitals. DVT and GI prophylaxis. Fur ther recommendations as per clinical course of the patient Dictation was produced using [employer] dictation software. please excuse any grammatical, word or spelling errors. Dr. Wiliam MD I have performed a history and physical examination and medical decision making of this patient, discussed the same with the the resident, and agree with the assessment and plan as written. I performed brief physical exam. Past Medical History Past Medical History: Cancer, Deep Vein Thrombosis (DVT), GERD/Reflux, Liver Disease, Osteoarthritis (OA), Thyroid Disorder Additional Past Medical History / Comment(s): CIRRHOSIS WITH LIVER TRANSPLANT (2011), HX OF FX rt X2 ARM, RIGHT SHOULDER AND LEFT HIP WITH PAIN, osteoperosis, breast ca lft, Abnormal spot on lung- being worked up 2023 History of Any Multi-Drug Resistant Organisms: None Reported Past Surgical History: Breast Surgery, Cholecystectomy, Heart Catheterization With Stent, Hysterectomy Additional Past Surgical History / Comment(s): liver transplant (2011), STATES HEART STENT INSERTED FOR PULMONARY HYPERTENSION WHERE SHE RECEIVED MEDICATION AND THE STENT WAS REMOVED WHEN SHE HAD HER LIVER TRANSPLANT. THYROID SURGERY crushed lft hip, lft breast lumpectomy, multiple bone fx Past Anesthesia/Blood Transfusion Reactions: Previous Problems w/ Anesthesia Additional Past Anesthesia/Blood Transfusion Reaction / Comment(s): STATES LAST COLONOSCOPY SHE COULD FEEL EVERYTHING BUT COULD NOT SPEAK TO TELL THEM SHE WAS AWAKE. 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 Date of Last Stent Placement:: 05/02/2011 Past Psychological History: Anxiety, Panic Disorder Additional Psychological History / Comment(s): ANXIETY ATTACKS. controlled with medication Smoking Status: Former smoker Past Alcohol Use History: None Reported Additional Past Alcohol Use History / Comment(s): QUIT SMOKING APPROX 2009, SMOKED 1 PPD . STARTED SMOKING AGE 19. Past Drug Use History: None Reported Additional Drug Use History / Comment(s): OCCASIONALLY COOKS WITH MARIJUANA none for 24 hours prior to surgery - Past Family History Mother Family Medical History: Cancer Father Family Medical History: Cancer Brother(s) Family Medical History: Cancer Medications and Allergies Home Medications Medication Instructions Recorded Confirmed Type Atorvastatin [Lipitor] 10 mg PO DAILY 04/11/16 03/29/24 History DULoxetine HCL [Cymbalta] 20 mg PO DAILY 04/11/16 03/29/24 History Alendronate Sodium [Fosamax] 70 mg PO TU 07/19/17 03/29/24 History Levothyroxine Sodium [Synthroid] 100 mcg PO DAILY 12/08/19 03/29/24 History Anastrozole [Arimidex] 1 mg PO DAILY 07/24/20 03/29/24 History Famotidine 20 mg PO BID 04/08/23 03/29/24 History Vit C/E/Zn/Coppr/Lutein/Zeaxan 1 cap PO DAILY 04/08/23 03/29/24 History [Preservision Areds 2 Softgel] oxyCODONE-APAP 7.5-325MG [Percocet 1 tab PO TID PRN 04/08/23 03/29/24 History 7.5-325 mg] Cholecalciferol (Vitamin D3) 50 mcg PO DAILY 02/07/24 03/29/24 History [Vitamin D3 (50 Mcg = 2000 Iu)] Multivit-Min/Iron Fum/Folic AC 1 tab PO DAILY 02/07/24 03/29/24 History [One-A-Day Women's Complete Tab] Super B-Complex 1 tab PO DAILY 02/07/24 03/29/24 History Tacrolimus [Prograf] 0.5 mg PO BID 02/07/24 03/29/24 History Zinc Gluconate [Zinc] 50 mg PO Q48H 02/07/24 03/29/24 History tiZANidine [Zanaflex] 4 mg PO BID PRN 02/07/24 03/29/24 History Apixaban [Eliquis] 5 mg PO BID #60 tab 02/10/24 03/29/24 Rx Meloxicam [Mobic] 7.5 mg PO DAILY PRN 03/29/24 03/29/24 History Losartan [Cozaar] 100 mg PO DAILY 15 Days #30 tab 03/31/24 Rx Metoprolol Tartrate [Lopressor] 50 mg PO BID 15 Days #30 tab 03/31/24 Rx Allergies Allergy/AdvReac Type Severity Reaction Status Date / Time gabapentin AdvReac Severe Altered/Let Verified 02/07/24 14:25 hargic Physical Exam Vitals: Vital Signs Temp Pulse Pulse Resp BP BP Pulse Ox 03/31/24 08:29 93 L 03/31/24 08:10 98.0 F 58 L 17 117/63 92 L 03/31/24 04:00 63 16 119/69 94 L 03/31/24 00:00 62 16 114/66 94 L 03/30/24 20:00 97.9 F 64 16 123/77 93 L 03/30/24 17:29 60 16 104/65 92 L 03/30/24 16:00 53 L 18 119/87 95 03/30/24 12:00 53 L 16 129/76 95 03/30/24 09:00 69 16 123/79 96 Intake and Output 03/30/24 03/31/24 03/31/24 22:59 06:59 14:59 Other: Voiding Method Toilet Toilet # Voids 3 1 Weight 73.028 kg 72.8 kg Results CBC & Chem 7: 03/30/24 07:22 03/30/24 07:22
[2024-03-31 11:19] VITALS: BP 109/69; TEMP 98.3
--- NOTE | 2024-03-31 11:30 | P.DS ---
Providers Date of admission: 03/29/24 19:00 Dr. Wiliam MD I have performed a history and physical examination and medical decision making of this patient, discussed the same with the the resident, and agree with the assessment and plan as written. I performed brief physical exam. Attending physician: Alexy Harvey Consults: 03/29/24 19:06 Consult Physician Routine Consulting Provider: Chet Ramos Consult Reason/Comments: htn, elevated troponin Do you want consulting provider notified?: Yes, Notify in am Primary care physician: Brock Zimmerman [facility] Course: Discharge diagnoses; #Hypertensive urgency Switch to losartan 100 mg p.o. daily from 50 mg p.o. daily, per cardiology Add metoprolol 50 mg twice daily, per cardiology On ED arrival her blood pressure was 171/98, as of this morning (03/31) it is 117/63 Per cardiology, they are okay with discharging the patient to follow-up with the medication changes currently administered above. #Hypomagnesemia of unclear etiology Magnesium replaced per protocol Magnesium 1.1 on arrival (03/29), on 03/30 magnesium 2.1 #History of CVA/TIA secondary to atrial fibrillation Started on Eliquis 5 mg twice daily at the end of January 2024 Bilateral duplex carotid ultrasound completed on 03/19/2024 showed bilateral atheromatous plaquing without significant flow-limiting stenosis based on velocities, to rule out carotid stenosis as cause for CVA/TIA #Chronically elevated troponins since 2021 3 troponins taken since arrival in the emergency department or 0.146 (03/29 5:45 PM), 0.127 (03/29 9:17 PM), 0.121 (03/30 1:04 AM) - Patient's last visit to this facility on 02/06 her troponins ranged between 0.133 and 0.130 Previous visit in March 2022 showed patient's troponin elevated between 0.063 and 0.078 Hospital course; 73-year-old female with past medical history significant for breast cancer, liver transplant 2011 currently on tacrolimus, prior alcohol use, osteoporosis, chronic back pain with T12 severe compression deformity status post T10-L2 posterior stabilization and multiple other medical issues presented today to the emergency department following a sudden increase in blood pressure. Patient's daughter states that the blood pressure continued to increase to greater than 200s/130s. States that her daughter gave her 2 additional doses totaling 150 mg of losartan, which left her blood pressure unresolved. States she did 2 to 3 days of nausea and vomiting along with some chills. She reports that she had no chest pain or shortness of breath, just some generalized soreness in her right arm/shoulder which she states is pretty normal for her bad arthritis, so she is unsure if it is as a result of her blood pressure. Additionally, patient mentions that she had a stroke recently, of which she cannot recall the details but remembers "waking up in the hospital". Since that time she has been taking Eliquis and monitoring her blood pressure closely at home. On arrival to the emergency department her blood pressure was 171/98, heart rate of 100, oxygen saturation of 97%. At that time patient's sodium was 133, potassium 3.4, magnesium 1.1, troponin 0.146. Upon seeing the patient at bedside this morning, she is feeling well has no current complaints other than chronic back pain which she states is always there. She currently has no complaints and states that she is feeling much better today. Initial lab work done in the ER showed WBCs of 10.9, PT of 12.6, INR of 1.2, sodium of 133, potassium 3.4, magnesium 1.1, bilirubin of 2.4, AST of 52, alkaline phosphatase 135, and troponin of 0.146 EKG done in the ER showed heart rate of 93, and moderate ST depressions. Repeat EKG done on 03/30 showed heart rate up to 137 and atrial fibrillation with RVR Chest x-ray done in the ER showed visualization of a previous right peripheral lung opacity. With no acute pulmonary process. 03/31 -met with the patient later in the morning, after discussing with cardiology, patient has been cleared for discharge. Patient will be discharged with medication changes that were administered in the hospital, losartan 100 mg p.o. daily, and the addition of metoprolol 50 mg p.o. twice daily. Patient has no questions or concerns, expressed understanding in following up with her PCP. Discussed with the patient best practices for monitoring her blood pressure at home. PHYSICAL EXAMINATION: GENERAL: The patient is alert and oriented x3, not in any acute distress. Well developed, well nourished. HEENT: Pupils are round and equally reacting to light. EOMI. No scleral icterus. No conjunctival pallor. Normocephalic, atraumatic. No pharyngeal erythema. No thyromegaly. CARDIOVASCULAR: S1 and S2 present. No murmurs, rubs, or gallops. PULMONARY: Chest is clear to auscultation, no wheezing or crackles. ABDOMEN: Soft, nontender, nondistended, normoactive bowel sounds. No palpable organomegaly. MUSCULOSKELETAL: No joint swelling or deformity. EXTREMITIES: No cyanosis, clubbing, or pedal edema. NEUROLOGICAL: Gross neurological examination did not reveal any focal deficits. SKIN: No rashes. Dictation was produced using [employer] dictation software. please excuse any grammatical, word or spelling errors. Dr. Wiliam MD I have performed a history and physical examination and medical decision making of this patient, discussed the same with the the resident, and agree with the assessment and plan as written. I performed brief physical exam. Patient Condition at Discharge: Stable Plan - Discharge Summary Discharge Rx Participant: No New Discharge Prescriptions: New Losartan [Cozaar] 100 mg PO DAILY 15 Days #30 tab Metoprolol Tartrate [Lopressor] 50 mg PO BID 15 Days #30 tab Continue DULoxetine HCL [Cymbalta] 20 mg PO DAILY Atorvastatin [Lipitor] 10 mg PO DAILY Alendronate Sodium [Fosamax] 70 mg PO TU Levothyroxine Sodium [Synthroid] 100 mcg PO DAILY Anastrozole [Arimidex] 1 mg PO DAILY Vit C/E/Zn/Coppr/Lutein/Zeaxan [Preservision Areds 2 Softgel] 1 cap PO DAILY Famotidine 20 mg PO BID oxyCODONE-APAP 7.5-325MG [Percocet 7.5-325 mg] 1 tab PO TID PRN PRN Reason: Pain tiZANidine [Zanaflex] 4 mg PO BID PRN PRN Reason: Muscle Spasm Tacrolimus [Prograf] 0.5 mg PO BID Apixaban [Eliquis] 5 mg PO BID #60 tab Zinc Gluconate [Zinc] 50 mg PO Q48H Cholecalciferol (Vitamin D3) [Vitamin D3 (50 Mcg = 2000 Iu)] 50 mcg PO DAILY Multivit-Min/Iron Fum/Folic AC [One-A-Day Women's Complete Tab] 1 tab PO DAILY Super B-Complex 1 tab PO DAILY Meloxicam [Mobic] 7.5 mg PO DAILY PRN PRN Reason: Pain Discontinued Losartan [Cozaar] 50 mg PO DAILY Discharge Medication List Atorvastatin [Lipitor] 10 mg PO DAILY 04/11/16 [History] DULoxetine HCL [Cymbalta] 20 mg PO DAILY 04/11/16 [History] Alendronate Sodium [Fosamax] 70 mg PO TU 07/19/17 [History] Levothyroxine Sodium [Synthroid] 100 mcg PO DAILY 12/08/19 [History] Anastrozole [Arimidex] 1 mg PO DAILY 07/24/20 [History] Famotidine 20 mg PO BID 04/08/23 [History] Vit C/E/Zn/Coppr/Lutein/Zeaxan [Preservision Areds 2 Softgel] 1 cap PO DAILY 04/08/23 [History] oxyCODONE-APAP 7.5-325MG [Percocet 7.5-325 mg] 1 tab PO TID PRN 04/08/23 [History] Cholecalciferol (Vitamin D3) [Vitamin D3 (50 Mcg = 2000 Iu)] 50 mcg PO DAILY 02/07/24 [History] Multivit-Min/Iron Fum/Folic AC [One-A-Day Women's Complete Tab] 1 tab PO DAILY 02/07/24 [History] Super B-Complex 1 tab PO DAILY 02/07/24 [History] Tacrolimus [Prograf] 0.5 mg PO BID 02/07/24 [History] Zinc Gluconate [Zinc] 50 mg PO Q48H 02/07/24 [History] tiZANidine [Zanaflex] 4 mg PO BID PRN 02/07/24 [History] Apixaban [Eliquis] 5 mg PO BID #60 tab 02/10/24 [Rx] Meloxicam [Mobic] 7.5 mg PO DAILY PRN 03/29/24 [History] Losartan [Cozaar] 100 mg PO DAILY 15 Days #30 tab 03/31/24 [Rx] Metoprolol Tartrate [Lopressor] 50 mg PO BID 15 Days #30 tab 03/31/24 [Rx] Follow up Appointment(s)/Referral(s): Brock Zimmerman DO [Primary Care Provider] - 1-2 days Patient Instructions/Handouts: Hypertensive Crisis (DC), Hypomagnesemia (DC) Discharge Disposition: HOME SELF-CARE
== END 2024-03-31 12:09 | disposition home or self-care (01) ==
LOC: EC 16:27 → 3SCARD 19:00
PROVIDERS: ADMIT Hospitalist; ATTEND Hospitalist
DX: I16.0 Hypertensive urgency (principal); E83.42 Hypomagnesemia; E87.6 Hypokalemia; I10 Essential (primary) hypertension; I48.91 Unspecified atrial fibrillation; R79.89 Other specified abnormal findings of blood chemistry; M81.0 Age-related osteoporosis without current pathological fracture; I67.2 Cerebral atherosclerosis; G89.29 Other chronic pain; M54.9 Dorsalgia, unspecified; M19.011 Primary osteoarthritis, right shoulder; Z94.4 Liver transplant status; Z79.890 Hormone replacement therapy; Z79.83 Long term (current) use of bisphosphonates; Z79.811 Long term (current) use of aromatase inhibitors; Z79.01 Long term (current) use of anticoagulants; Z79.899 Other long term (current) drug therapy; Z88.8 Allergy status to other drugs, medicaments and biological substances; Z87.891 Personal history of nicotine dependence; Z86.73 Personal history of transient ischemic attack (TIA), and cerebral infarction without residual deficits; Z85.3 Personal history of malignant neoplasm of breast
CPT/HCPCS: 96376 ×3; 96366 ×2; 96361; 96365; 96375; 99285; 36415; 94760; 93005; 80053; 80048; 83690; 83735 ×2; 84100; 84484 ×2; 85025 ×2; 85610; 85730; 71046; G0378 ×3; J1170 ×4; J3475 ×2

== ENCOUNTER → 2024-04-18 | Day surgery (SDC) | payer MEDICARE, OTHER ==
--- NOTE | 2024-06-12 12:36 | US ---
EXAMINATION TYPE: US biopsy liver DATE OF EXAM: 04/18/2024 CLINICAL INDICATION: 73 year-old female history of previous liver transplant with new liver masses. Referred for biopsy. COMPARISON: None available during downtime ATTENDING: Dr. Berg TECHNIQUE: Ultrasound guided percutaneous biopsy of the liver using coaxial method. Nursing administered 0.5 mg IV Dilaudid to the patient. The patient was monitored by a qualified trained nurse independent of the Radiologist during sedation. FINDINGS: The procedure was explained to the patient. All questions were answered and informed consent was obta ined. The patient was placed supine and transverse ultrasound images of the anterior left liver lobe were o btained. A superficial mass in the left liver lobe is identified and targeted. The overlying skin was marked and prepped using sterile method. Timeout was taken per protocol. Follo wing administration 1% local lidocaine anesthesia, a a 17/18 gauge JustRight Surgicalno biopsy system was advanced w ith needle tip visualized within the anterior left liver lobe mass. Two 18-gauge core biopsies were obtained, placed in formalin solution, and sent to pathology. The needle was removed. Other additional ultrasound scanning shows no abnormal fluid collection or ev ident complication. Hemostasis was obtained and a dressing was placed. Patient was taken for postprocedure observation in stable condition. IMPRESSIONS: Status post ultrasound guided left liver mass biopsy. Pathology results pending.
== END ==
LOC: RADPROMAIN 07:45
PROVIDERS: ATTEND Internal Medicine
DX: K76.89 Other specified diseases of liver
CPT/HCPCS: 47000; 76942; 85049; 85610

== ENCOUNTER 2024-06-12 10:47 | Day surgery (SDC) | payer MEDICARE, OTHER ==
[~2024-06-12 10:47] MED LIST changes: -ACETAMINOPHEN TAB 500 MG TAB PO PRN; -GABAPENTIN 300 MG CAP PO PRN; -ONDANSETRON 4 MG/2 ML VIAL IVP PRN; +Pre Op ABX Message 1 EACH MISC MISCELLANE ONE; -TRANEXAMIC 1,000 MG/100ML-NACL 1,000 MG in SALINE 1 100ML.BAG IVPB PRN
[2024-06-12] MEDS: IV FLUID CONTINUATION 1,000 ML IV ONE (11:25)
[2024-06-12] MEDS: ONDANSETRON 4 MG/2 ML VIAL IVP STA (12:11)
[2024-06-12] MEDS: LACTATED RINGERS 1,000 ML BAG IV STA (12:11)
[2024-06-12] MEDS: DEXAMETHASONE SOD PHOSPHATE 4 MG/ML 1 ML VIAL IVP STA (12:14)
[2024-06-12] MEDS: LIDOCAINE (PF) 10 MG/ML 2 ML VIAL SQ ONE ×2 (12:24→13:17)
[2024-06-12] MEDS: HEPARIN SODIUM,PORCINE 100 UNIT/ML 5 ML VIAL IV ONE ×2 (12:24→13:33)
[2024-06-12] MEDS ORDERED: PROPOFOL 10 MG/ML 20 ML VIAL IV ONE (12:50)
[2024-06-12] MEDS ORDERED: fentaNYL (PF) 50 MCG/ML 2 ML AMP ONE (12:50)
[2024-06-12] MEDS ORDERED: ceFAZolin 1 GM/50 ML BAG (PMX) ONE (12:50)
[2024-06-12] MEDS ORDERED: LIDOCAINE 1% INJ 10MG/ML (20 ML MDV) ONE (12:50)
[2024-06-12] MEDS: SODIUM CHLORIDE 0.9% 50 ML with ceFAZolin 2,000 MG IV ONE (12:54)
[2024-06-12] MEDS: HYDROmorphone 0.5 MG/0.5 ML SYRINGE IVP PRN (14:15)
[2024-06-12 14:26] VITALS: TEMP 97
--- NOTE | 2024-06-12 14:27 | P.OP ---
Date of Procedure: 06/12/24 Preoperative Diagnosis: Metastatic Lung Cancer Postoperative Diagnosis: Metastatic Lung Cancer Procedure(s) Performed: Mediport Insertion Anesthesia: MAC Surgeon: Jaun Francis Estimated Blood Loss (ml): 20 Pathology: none sent Condition: stable Disposition: PACU Description of Procedure: The patient was taken to the operating room, placed supine, put under general endotracheal anesthesia. The patient's neck, chest, and shoulders were prepped and draped in usual sterile fashion. An incision was made on the right shoulder area and a needle with syringe attached was used to access the right subclavian vein. The right subclavian vein was cannulated. The wire was passed, which was in good position under fluoroscopy, using Seldinger Technique. Near the wire incision site a pocket was made above the fascia and sutured in a size 7.5- [place] single-lumen MediPort into the pocket in 4 places using 2-0 Vicryl. I then sized the catheter under fluoro and placed introducer and dilator over the wire, removed the wire and dilator, placed the catheter through the introducer and removed the introducer. The line tip was in good position under fluoroscopy. It withdrew and flushed well. I then closed the incision using 3-0 Vicryl, 4-0 Monocryl for the skin, and skin glue was applied.
[2024-06-12 15:05] VITALS: RESP 16
--- NOTE | 2024-06-12 15:11 | XR ---
EXAMINATION TYPE: XR chest 1V DATE OF EXAM: 06/12/2024 2:14 PM CLINICAL INDICATION: Female, 73 years old with history of PTX; COMPARISON: Chest radiographs from 03/29/2024. TECHNIQUE: XR chest 1V Frontal view of the chest. FINDINGS: Lungs/Pleura: Opacity seen in the right mid chest on prior exam is not well appreciated there is an I [id number]-Pung in this location. There is no evidence of pleural effusion, focal consolidation, or pneu mothorax. Pulmonary vascularity: Unremarkable. Heart/mediastinum: Cardiomediastinal silhouette is unremarkable. Atherosclerotic calcifications are seen in the aorta. Musculoskeletal: No acute osseous pathology. There is lower spine fixation hardware is present. Other findings: None Lines/Tubes: [id number] projecting over the right hemithorax with distal tip at the cavoatrial junction. IMPRESSION: No evidence for pneumothorax, Stable exam no evidence for acute process. [facility], , 06/12/2024 3:09 PM
[2024-06-12 15:21] VITALS: BP 135/86; PULSE 78
--- NOTE | 2024-06-12 18:13 | FL ---
EXAMINATION TYPE: FL guided central line placemt DATE OF EXAM: 06/12/2024 2:11 PM COMPARISON: Pre Operative Images if available both CT/MRI or plain film CLINICAL INDICATION: Female, 73 years old with history of C50.112 BREAST CANCER; TECHNIQUE: FL guided central line placemt, multiple fluoroscopic images provided for procedure. Total fluoroscopy time: 37 seconds Total submitted images to PACS: 4 DAP: [id number] mGym2 Gycm2 uGym2 cGycm2 or equivalent. FINDINGS: Fluoroscopic images during catheter insertion, no evidence of pneumothorax. Distal tip terminates ove r the right atrium. Fixation hardware visualized which appears intact. IMPRESSION: 1. No evidence for intraoperative complication. 2. Please see the operative/procedural note for further details. [facility], , 06/12/2024 6:11 PM
== END 2024-06-12 15:45 | disposition home or self-care (01) ==
LOC: OR 10:47
PROVIDERS: ATTEND Surgery
DX: C50.112 Malignant neoplasm of central portion of left female breast
CPT/HCPCS: 71045; 77001

== ENCOUNTER 2024-07-03 18:05 | Inpatient (IN) | payer MEDICARE, OTHER ==
--- NOTE | 2024-07-03 18:25 | ED ---
Altered Mental Status HPI - General Chief Complaint: Altered Mental Status Stated Complaint: AMS Time Seen by Provider: 07/03/24 18:18 Source: patient Mode of arrival: EMS Limitations: no limitations - History of Present Illness Initial Comments: This is a 73-year-old female to the ER for altered mental status. Patient is inappropriate, agitated here in the ER with decreased activity level. Patient is found to have fever, persistent fever here in the emergency department and severe confusion worsening confusion MD Complaint: altered mental status, confusion -: days(s) Consistency of Symptoms: getting worse Context: cancer Associated Symptoms: weakness Treatments Prior to Arrival: oxygen - Related Data Home Medications Medication Instructions Recorded Confirmed Atorvastatin [Lipitor] 10 mg PO DAILY 04/11/16 07/03/24 DULoxetine HCL [Cymbalta] 20 mg PO DAILY 04/11/16 07/03/24 Alendronate Sodium [Fosamax] 70 mg PO TU 07/19/17 07/03/24 Levothyroxine Sodium [Synthroid] 100 mcg PO DAILY 12/08/19 07/03/24 Famotidine 20 mg PO BID 04/08/23 07/03/24 Multivit-Min/Iron Fum/Folic AC 1 tab PO Q48H 02/07/24 07/03/24 [One-A-Day Women's Complete Tab] Tacrolimus [Prograf] 0.5 mg PO BID 02/07/24 07/03/24 Losartan [Cozaar] 50 mg PO DAILY 06/11/24 07/03/24 oxyCODONE-APAP 10-325MG [Percocet 1 tab PO Q8HR PRN 06/11/24 07/03/24 10-325 mg] Magnesium 250 mg PO HS 07/03/24 07/03/24 Vitamin B Complex 1 cap PO Q48H 07/03/24 07/03/24 tiZANidine [Zanaflex] 4 mg PO HS 07/03/24 07/03/24 Previous Rx's Medication Instructions Recorded Apixaban [Eliquis] 5 mg PO BID #60 tab 02/10/24 Allergies Allergy/AdvReac Type Severity Reaction Status Date / Time gabapentin AdvReac Severe Altered/Let Verified 07/03/24 19:44 hargic Review of Systems ROS Statement: Those systems with pertinent positive or pertinent negative responses have been documented in the HPI. ROS Other: All systems not noted in ROS Statement are negative. Past Medical History Past Medical History: Atrial Fibrillation, Cancer, CVA/TIA, Deep Vein Thrombosis (DVT), GERD/Reflux, Hypertension, Liver Disease, Memory Impairment, Osteoarthritis (OA), Thyroid Disorder Additional Past Medical History / Comment(s): CIRRHOSIS WITH LIVER TRANSPLANT (2011), , RIGHT SHOULDER AND LEFT HIP WITH PAIN ( shattered hip 2017), osteoperosis, breast ca 2019. - radiation for 3 monthes cancer free, new dx lung cancer 03/2024. dr Zimmerman watching Kidney numbers History of Any Multi-Drug Resistant Organisms: None Reported Past Surgical History: Breast Surgery, Cholecystectomy, Heart Catheterization With Stent, Hysterectomy Additional Past Surgical History / Comment(s): liver transplant (2011), STATES HEART STENT INSERTED FOR PULMONARY HYPERTENSION WHERE SHE RECEIVED MEDICATION AND THE STENT WAS REMOVED WHEN SHE HAD HER LIVER TRANSPLANT. THYROID NM graves disease. crushed lft hip, lft breast lumpectomy, multiple bone fx Past Anesthesia/Blood Transfusion Reactions: Previous Problems w/ Anesthesia Additional Past Anesthesia/Blood Transfusion Reaction / Comment(s): STATES LAST COLONOSCOPY SHE COULD FEEL EVERYTHING BUT COULD NOT SPEAK TO TELL THEM SHE WAS AWAKE. Sabine gene. 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 Date of Last Stent Placement:: 05/02/2011 Past Psychological History: Anxiety, Panic Disorder, PTSD Smoking Status: Former smoker - Past Family History Mother Family Medical History: Cancer Additional Family Medical History / Comment(s): stomach cancer Father Family Medical History: Cancer Brother(s) Family Medical History: Cancer General Exam Limitations: altered mental status, physical limitation General appearance: alert, in no apparent distress, anxious Head exam: Present: atraumatic, normocephalic, normal inspection Eye exam: Present: normal appearance, PERRL, EOMI. Absent: scleral icterus, conjunctival injection, periorbital swelling ENT exam: Present: normal exam, mucous membranes moist Neck exam: Present: normal inspection. Absent: tenderness, meningismus, lymphadenopathy Respiratory exam: Present: normal lung sounds bilaterally. Absent: respiratory distress, wheezes, rales, rhonchi, stridor Cardiovascular Exam: Present: regular rate, normal rhythm, normal heart sounds. Absent: systolic murmur, diastolic murmur, rubs, gallop, clicks GI/Abdominal exam: Present: soft, normal bowel sounds. Absent: distended, tenderness, guarding, rebound, rigid Extremities exam: Present: normal inspection, full ROM, normal capillary refill. Absent: tenderness, pedal edema, joint swelling, calf tenderness Back exam: Present: normal inspection Neurological exam: Present: alert, oriented X3, CN II-XII intact Psychiatric exam: Present: normal affect, normal mood Skin exam: Present: warm, dry, intact, normal color. Absent: rash Course Vital Signs 07/03/24 07/03/24 07/03/24 18:14 19:31 21:00 Temperature 98.6 F 99.2 F Pulse Rate 114 H 107 H 103 H Respiratory 16 16 15 Rate Blood Pressure 144/73 146/88 117/64 O2 Sat by Pulse 95 95 95 Oximetry 07/03/24 07/04/24 07/04/24 23:21 01:00 02:25 Temperature Pulse Rate 92 85 81 Respiratory 15 15 15 Rate Blood Pressure 110/60 104/57 114/72 O2 Sat by Pulse 95 96 95 Oximetry 07/04/24 07/04/24 07/04/24 05:54 06:58 08:01 Temperature 101.8 F H 98.7 F 97.1 F L Pulse Rate 97 92 Respiratory 16 18 Rate Blood Pressure 153/81 122/82 O2 Sat by Pulse 95 99 Oximetry 07/04/24 07/04/24 12:23 18:25 Temperature 98.8 F 100.0 F H Pulse Rate 79 100 Respiratory 18 18 Rate Blood Pressure 125/64 138/91 O2 Sat by Pulse 97 96 Oximetry - Reevaluation(s) Reevaluation #1: 07/03/24 18:24 Medical records reviewed Reevaluation #2: 07/03/24 22:21 Patient symptoms unchanged Reevaluation #3: 07/03/24 22:21 Patient informed of results and questions answered Reevaluation #4: Was pt. sent in by a medical professional or institution (, PA, HAND TOUCH UP PAINTER, urgent care, hospital, or assisted...) When possible be specific @ -no Did you speak to anyone other than the patient for history (EMS, parent, family, police, friend...)? What history was obtained from this source @ -no Did you review nursing and triage notes (agree or disagree)? Why? @ -agree Are old charts reviewed (outside hosp., previous admission, EMS record, old EKG, old radiological studies, urgent care reports/EKG's, assisted records)? Report findings @ -yes Differential Diagnosis (chest pain, altered mental status, abdominal pain women, abdominal pain men, vaginal bleeding, weakness, fever, dyspnea, syncope, headache, dizziness, GI bleed, back pain, seizure, CVA, palpatations, mental health, musculoskeletal)? @ -prior EKG interpreted by me (3pts min.). @ -yes X-rays interpreted by me (1pt min.). @ -yes negative for acute disease CT interpreted by me (1pt min.). @ -Yes negative for acute disease U/S interpreted by me (1pt. min.). @ -no What testing was considered but not performed or refused? (CT, X-rays, U/S, labs)? Why? @ -none What meds were considered but not given or refused? Why? @ -none Did you discuss the management of the patient with other professionals (professionals i.e. , PA, HAND TOUCH UP PAINTER, lab, RT, psych nurse, high school social studies tutor, dealership manager, teacher, commercial escrow officer, trimming caser)? Give summary @ -no Was smoking cessation discussed for >3mins.? @ -no Was critical care preformed (if so, how long)? @ -no Were there social determinants of health that impacted care today? How? (Homelessness, low income, unemployed, alcoholism, drug addiction, transportation, low edu. Level, literacy, decrease access to med. care, alf, rehab)? @ -none Was there de-escalation of care discussed even if they declined (Discuss DNR or withdrawal of care, Hospice)? DNR status @ -no What co-morbidities impacted this encounter? (DM, HTN, Smoking, COPD, CAD, Cancer, CVA, ARF, Chemo, Hep., AIDS, mental health diagnosis, sleep apnea, morb id obesity)? @ -none Was patient admitted / discharged? Hospital course, mention meds given and rou te, prescriptions, significant lab abnormalities, going to OR and other pertinent info. @ - 73 female to the ER for evaluation patient presents today for evaluation of altered mental status. Patient has no improvement in symptoms here in the ER, symptoms do actually appear to be deteriorating here in the emergency department with fever, patient will be admitted for further evaluation of altered mental status and to the cause of fever Admitted Undiagnosed new problem with uncertain prognosis? @ -no Drug Therapy requiring intensive monitoring for toxicity (Heparin, Nitro, Insulin, Cardizem)? @ -no Were any procedures done? @ -no Diagnosis/symptom? @ -Fever Acute, or Chronic, or Acute on Chronic? @ -Acute Uncomplicated (without systemic symptoms) or Complicated (systemic symptoms)? @ -Complicated Side effects of treatment? @ -no Exacerbation, Progression, or Severe Exacerbation? @ -exacerbation Poses a threat to life or bodily function? How? (Chest pain, [place], [place], pneumonia, PE, COPD, DKA, ARF, appy, cholecystitis, CVA, Diverticulitis, Homicidal, Suicidal, threat to staff... and all critical care pts) @ -yes extremes of age Reevaluation #5: Differential Altered Mental Status: Hypoglycemia, DKA, hypercapnia, ETOH, overdose, CO poisoning, trauma, myxedema coma, HTN encephalopathy, infection, encephalitis, psychosis, intercranial hemorrhage, hepatic encephalopathy, meningitis, CVA, this is not meant to be an all-inclusive list - Consultations Consultation #1: Spoke with Dr. Zimmerman who admit this patient Medical Decision Making - Medical Decision Making 73 female to the ER for evaluation patient presents today for evaluation of altered mental status. Patient has no improvement in symptoms here in the ER, symptoms do actually appear to be deteriorating here in the emergency department with fever, patient will be admitted for further evaluation of altered mental status and to the cause of fever - Lab Data Result diagrams: 07/10/24 05:24 07/09/24 10:12 Lab Results 07/03/24 07/03/24 07/03/24 Range/Units 18:27 18:27 18:27 WBC 6.4 (3.8-10.6) k/uL RBC 4.31 (3.80-5.40) m/uL Hgb 13.7 (11.4-16.0) gm/dL Hct 41.1 (34.0-46.0) % MCV 95.3 (80.0-100.0) fL MCH 31.7 (25.0-35.0) pg MCHC 33.3 (31.0-37.0) g/dL RDW 14.6 (11.5-15.5) % Plt Count 104 L (150-450) k/uL MPV 10.8 Neutrophils % 74 % Lymphocytes % 18 % Monocytes % 2 % Eosinophils % 4 % Basophils % 1 % Neutrophils # 4.8 (1.3-7.7) k/uL Lymphocytes # 1.2 (1.0-4.8) k/uL Monocytes # 0.1 (0-1.0) k/uL Eosinophils # 0.2 (0-0.7) k/uL Basophils # 0.1 (0-0.2) k/uL PT 14.0 H (10.0-12.5) sec INR 1.3 H (<1.2) APTT 32.1 H (22.0-30.0) sec Sodium (137-145) mmol/L Potassium (3.5-5.1) mmol/L Chloride (98-107) mmol/L Carbon Dioxide (22-30) mmol/L Anion Gap mmol/L BUN (7-17) mg/dL Creatinine (0.52-1.04) mg/dL Est GFR (CKD-EPI)AfAm (>60 ml/min/1.73 sqM) Est GFR (CKD-EPI)NonAf (>60 ml/min/1.73 sqM) Glucose (74-99) mg/dL Plasma Lactic Acid Tyson 1.7 (0.7-2.0) mmol/L Calcium (8.4-10.2) mg/dL Phosphorus (2.5-4.5) mg/dL Magnesium (1.6-2.3) mg/dL Total Bilirubin (0.2-1.3) mg/dL AST (14-36) U/L ALT (4-34) U/L Alkaline Phosphatase (38-126) U/L Ammonia 28 (<30) umol/L Troponin I (0.000-0.034) ng/mL NT-Pro-B Natriuret Pep pg/mL Total Protein (6.3-8.2) g/dL Albumin (3.5-5.0) g/dL Urine Color Urine Appearance (Clear) Urine pH (5.0-8.0) Ur Specific King (1.001-1.035) Urine Protein (Negative) Urine Glucose (UA) (Negative) Urine Ketones (Negative) Urine Blood (Negative) Urine Nitrite (Negative) Urine Bilirubin (Negative) Urine Urobilinogen (<2.0) mg/dL Ur Leukocyte Esterase (Negative) Urine RBC (0-5) /hpf Urine WBC (0-5) /hpf Hyaline Casts (0-2) /lpf Urine Mucus (None) /hpf Influenza Type A (PCR) (Not Detectd) Influenza Type B (PCR) (Not Detectd) RSV (PCR) (Not Detectd) SARS-CoV-2 (PCR) (Not Detectd) 07/03/24 07/03/24 07/03/24 Range/Units 18:27 18:27 18:27 WBC (3.8-10.6) k/uL RBC (3.80-5.40) m/uL Hgb (11.4-16.0) gm/dL Hct (34.0-46.0) % MCV (80.0-100.0) fL MCH (25.0-35.0) pg MCHC (31.0-37.0) g/dL RDW (11.5-15.5) % Plt Count (150-450) k/uL MPV Neutrophils % % Lymphocytes % % Monocytes % % Eosinophils % % Basophils % % Neutrophils # (1.3-7.7) k/uL Lymphocytes # (1.0-4.8) k/uL Monocytes # (0-1.0) k/uL Eosinophils # (0-0.7) k/uL Basophils # (0-0.2) k/uL PT (10.0-12.5) sec INR (<1.2) APTT (22.0-30.0) sec Sodium 134 L (137-145) mmol/L Potassium 4.1 (3.5-5.1) mmol/L Chloride 106 (98-107) mmol/L Carbon Dioxide 21 L (22-30) mmol/L Anion Gap 7 mmol/L BUN 24 H (7-17) mg/dL Creatinine 0.61 (0.52-1.04) mg/dL Est GFR (CKD-EPI)AfAm >90 (>60 ml/min/1.73 sqM) Est GFR (CKD-EPI)NonAf >90 (>60 ml/min/1.73 sqM) Glucose 147 H (74-99) mg/dL Plasma Lactic Acid Tyson (0.7-2.0) mmol/L Calcium 8.9 (8.4-10.2) mg/dL Phosphorus 3.2 (2.5-4.5) mg/dL Magnesium 1.3 L (1.6-2.3) mg/dL Total Bilirubin 1.7 H (0.2-1.3) mg/dL AST 47 H (14-36) U/L ALT 31 (4-34) U/L Alkaline Phosphatase 187 H (38-126) U/L Ammonia (<30) umol/L Troponin I 0.029 (0.000-0.034) ng/mL NT-Pro-B Natriuret Pep 5250 pg/mL Total Protein 5.7 L (6.3-8.2) g/dL Albumin 3.0 L (3.5-5.0) g/dL Urine Color Yellow Urine Appearance Clear (Clear) Urine pH 6.0 (5.0-8.0) Ur Specific King 1.016 (1.001-1.035) Urine Protein Trace H (Negative) Urine Glucose (UA) Negative (Negative) Urine Ketones Negative (Negative) Urine Blood Small H (Negative) Urine Nitrite Negative (Negative) Urine Bilirubin Negative (Negative) Urine Urobilinogen <2.0 (<2.0) mg/dL Ur Leukocyte Esterase Negative (Negative) Urine RBC 32 H (0-5) /hpf Urine WBC 2 (0-5) /hpf Hyaline Casts 1 (0-2) /lpf Urine Mucus Rare H (None) /hpf Influenza Type A (PCR) (Not Detectd) Influenza Type B (PCR) (Not Detectd) RSV (PCR) (Not Detectd) SARS-CoV-2 (PCR) (Not Detectd) 07/03/24 Range/Units 18:54 WBC (3.8-10.6) k/uL RBC (3.80-5.40) m/uL Hgb (11.4-16.0) gm/dL Hct (34.0-46.0) % MCV (80.0-100.0) fL MCH (25.0-35.0) pg MCHC (31.0-37.0) g/dL RDW (11.5-15.5) % Plt Count (150-450) k/uL MPV Neutrophils % % Lymphocytes % % Monocytes % % Eosinophils % % Basophils % % Neutrophils # (1.3-7.7) k/uL Lymphocytes # (1.0-4.8) k/uL Monocytes # (0-1.0) k/uL Eosinophils # (0-0.7) k/uL Basophils # (0-0.2) k/uL PT (10.0-12.5) sec INR (<1.2) APTT (22.0-30.0) sec Sodium (137-145) mmol/L Potassium (3.5-5.1) mmol/L Chloride (98-107) mmol/L Carbon Dioxide (22-30) mmol/L Anion Gap mmol/L BUN (7-17) mg/dL Creatinine (0.52-1.04) mg/dL Est GFR (CKD-EPI)AfAm (>60 ml/min/1.73 sqM) Est GFR (CKD-EPI)NonAf (>60 ml/min/1.73 sqM) Glucose (74-99) mg/dL Plasma Lactic Acid Tyson (0.7-2.0) mmol/L Calcium (8.4-10.2) mg/dL Phosphorus (2.5-4.5) mg/dL Magnesium (1.6-2.3) mg/dL Total Bilirubin (0.2-1.3) mg/dL AST (14-36) U/L ALT (4-34) U/L Alkaline Phosphatase (38-126) U/L Ammonia (<30) umol/L Troponin I (0.000-0.034) ng/mL NT-Pro-B Natriuret Pep pg/mL Total Protein (6.3-8.2) g/dL Albumin (3.5-5.0) g/dL Urine Color Urine Appearance (Clear) Urine pH (5.0-8.0) Ur Specific King (1.001-1.035) Urine Protein (Negative) Urine Glucose (UA) (Negative) Urine Ketones (Negative) Urine Blood (Negative) Urine Nitrite (Negative) Urine Bilirubin (Negative) Urine Urobilinogen (<2.0) mg/dL Ur Leukocyte Esterase (Negative) Urine RBC (0-5) /hpf Urine WBC (0-5) /hpf Hyaline Casts (0-2) /lpf Urine Mucus (None) /hpf Influenza Type A (PCR) Not Detected (Not Detectd) Influenza Type B (PCR) Not Detected (Not Detectd) RSV (PCR) Not Detected (Not Detectd) SARS-CoV-2 (PCR) Not Detected (Not Detectd) - EKG Data -: EKG Interpreted by Me (EKG sinus tachycardia 102 HI 130 QRS B1 QTc 410) - Radiology Data Radiology results: report reviewed (CT brain and chest x-ray are negative for acute disease), image reviewed Disposition Clinical Impression: Delirium due to general medical condition, Dehydration, Fever, Cancer, Hypomagnesemia, AMS (altered mental status) Disposition: ADMITTED IP TO THIS HOSP Condition: Fair Is patient prescribed a controlled substance at d/c from ED?: No Time of Disposition: 22:20
[2024-07-03] MEDS: SODIUM CHLORIDE 0.9% 500 ML 500 ML IV STA (18:36)
[2024-07-03 18:46] LABS: Basophils # (A) 0.1 k/uL (0-0.2); Basophils % (A) 1 %; Eosinophils # (A) 0.2 k/uL (0-0.7); Eosinophils % (A) 4 %; HCT 41.1 % (34.0-46.0); HGB 13.7 gm/dL (11.4-16.0); Lymphocytes # (A) 1.2 k/uL (1.0-4.8); Lymphocytes % (A) 18 %; MCH 31.7 pg (25.0-35.0); MCHC 33.3 g/dL (31.0-37.0); MCV 95.3 fL (80.0-100.0); Mean Platelet Volume 10.8; Monocytes # (A) 0.1 k/uL (0-1.0); Monocytes % (A) 2 %; Neutrophils # (A) 4.8 k/uL (1.3-7.7); Neutrophils % (A) 74 %; Platelet Count 104 k/uL (150-450); RBC 4.31 m/uL (3.80-5.40); RDW 14.6 % (11.5-15.5); WBC 6.4 k/uL (3.8-10.6)
[2024-07-03 19:00] LABS: ALT 31 U/L (4-34); AST 47 U/L (14-36); African American GFR (CKD) >90 (>60 ml/min/1.73 sqM); Alkaline Phosphatase 187 U/L (38-126); Anion Gap 7 mmol/L; Appearance,Urine Clear (Clear); Bilirubin,Urine Negative (Negative); Blood Urea Nitrogen 24 mg/dL (7-17); Blood,Urine Small (Negative); Calcium 8.9 mg/dL (8.4-10.2); Carbon Dioxide 21 mmol/L (22-30); Chloride 106 mmol/L (98-107); Color,Urine Yellow; Glucose 147 mg/dL (74-99); Glucose,Urine (UA) Negative (Negative); Hyaline Casts,Urine 1 /lpf (0-2); Ketones,Urine Negative (Negative); Leukocyte Esterase,Urine Negative (Negative); Magnesium 1.3 mg/dL (1.6-2.3); Mucus,Urine Rare /hpf; Nitrite,Urine Negative (Negative); Non-African American GFR(CKD) >90 (>60 ml/min/1.73 sqM); Phosphorus 3.2 mg/dL (2.5-4.5); Potassium 4.1 mmol/L (3.5-5.1); Protein,Urine Trace (Negative); RBC,Urine 32 /hpf (0-5); Sodium 134 mmol/L (137-145); Specific Gravity,Urine 1.016 (1.001-1.035); Total Bilirubin 1.7 mg/dL (0.2-1.3); Total Protein 5.7 g/dL (6.3-8.2); Urobilinogen,Urine <2.0 mg/dL (<2.0); WBC,Urine 2 /hpf (0-5)
[2024-07-03 19:08] LABS: NT-Pro-B-Type Natriuretic Pept 5250 pg/mL
[2024-07-03 19:09] LABS: Lactic Acid, Venous 1.7 mmol/L (0.7-2.0)
[2024-07-03 19:18] LABS: INR 1.3 (<1.2); Partial Thromboplastin Time 32.1 sec (22.0-30.0)
[2024-07-03] MEDS: ACETAMINOPHEN IV (For NPO) 1,000 MG in EMPTY BAG 1 BAG IVPB STA (19:34)
[2024-07-03] MEDS: IBUPROFEN IV 800 MG in SODIUM CHLORIDE 0.9% 250 ML IV ONE (19:35)
--- NOTE | 2024-07-03 20:18 | CT ---
EXAMINATION TYPE: CT brain wo con CT DLP: 1139.4 mGycm, Automated exposure control for dose reduction was used. DATE OF EXAM: 07/03/2024 8:10 PM COMPARISON: Non01/30/2024 e. CLINICAL INDICATION: Female, 73 years old with history of ams, Pt arrives from home c/o increased con fusion that started yesterday pt started chemo tuesday. TECHNIQUE: Brain: Axial CT images of the brain were obtained with coronal and sagittal reformats created and rev iewed. Contrast used: None. Oral contrast used: None. FINDINGS: Brain: Extra-axial spaces: No abnormal extra-axial fluid collections. Ventricular system: Dilatation in proportion to cerebral atrophy. Cerebral parenchyma: Cerebral atrophy. No acute intraparenchymal hemorrhage or mass effect. The rogers -white junction is well differentiated. Cerebellum: Unremarkable. Mass effect: No evidence of midline shift. Intracranial vasculature: Atherosclerotic calcifications of the intracranial vessels. Soft tissues: Normal. Calvarium/osseous structures: No depressed skull fracture. Paranasal sinuses and mastoid air cells: Mild scattered paranasal sinus disease. Visualized orbits: . Bilateral aphakia IMPRESSION: 1. No acute intracranial process. 2. Nonspecific white matter changes, likely secondary to chronic small vessel ischemic disease. [facility], , 07/03/2024 8:16 PM
[2024-07-03] MEDS: HYDROmorphone 1 MG/ML 1 ML SYRINGE IVP STA (20:43)
--- NOTE | 2024-07-03 21:50 | XR ---
EXAMINATION TYPE: XR chest 1V DATE OF EXAM: 07/03/2024 9:22 PM CLINICAL INDICATION: Female, 73 years old with history of ams; [facility] COMPARISON: Chest radiographs from 06/12/2024 TECHNIQUE: XR chest 1V Frontal view of the chest. FINDINGS: Lungs/Pleura: There is no evidence of pleural effusion, focal consolidation, or pneumothorax. Pulmonary vascularity: Unremarkable. Heart/mediastinum: Cardiomediastinal silhouette is unremarkable. Musculoskeletal: No acute osseous pathology. There is lower spine fixation hardware is present. Other findings: None Lines/Tubes: [id number] projecting over the right hemithorax with distal tip projecting over the superior vena cava. IMPRESSION: Chronic changes without acute pulmonary process. No significant change from prior. [facility], , 07/03/2024 9:48 PM
[2024-07-03] MEDS: SODIUM CHLORIDE 0.9% 1,000 ML IV STA (21:59)
[2024-07-03] MEDS: MAGNESIUM OXIDE 400 MG TAB PO STA ×2 (22:00)
[2024-07-03] MEDS: TACROLIMUS 0.5 MG CAP PO SCH (22:00)
[2024-07-03] MEDS: MAGNESIUM SULFATE-D5W PMX 1 GM in DEXTROSE/WATER 1 100ML.BAG IVPB ONE (22:03)
[2024-07-03] MEDS ORDERED: NALOXONE 0.4 MG/ML 1 ML VIAL IV PRN (22:18)
[2024-07-03] MEDS: SODIUM CHLORIDE 0.9% 1,000 ML IV SCH (23:32)
[2024-07-04] MEDS: ACETAMINOPHEN TAB 325 MG TAB PO STA (06:04)
[2024-07-04 06:58] LABS: Basophils % (A) 1 %; Eosinophils # (A) 0.1 k/uL (0-0.7); Eosinophils % (A) 5 %; HCT 34.7 % (34.0-46.0); HGB 11.8 gm/dL (11.4-16.0); Lymphocytes # (A) 0.6 k/uL (1.0-4.8); Lymphocytes % (A) 32 %; MCH 31.5 pg (25.0-35.0); MCV 92.7 fL (80.0-100.0); Mean Platelet Volume 12.6; Monocytes # (A) 0.1 k/uL (0-1.0); Monocytes % (A) 4 %; Neutrophils % (A) 56 %; RBC 3.75 m/uL (3.80-5.40); RDW 14.6 % (11.5-15.5); WBC 1.8 k/uL (3.8-10.6)
[2024-07-04 07:19] LABS: ALT 26 U/L (4-34); AST 38 U/L (14-36); African American GFR (CKD) >90 (>60 ml/min/1.73 sqM); Albumin 2.5 g/dL (3.5-5.0); Alkaline Phosphatase 169 U/L (38-126); Anion Gap 6 mmol/L; Blood Urea Nitrogen 20 mg/dL (7-17); Carbon Dioxide 22 mmol/L (22-30); Chloride 108 mmol/L (98-107); Glucose 123 mg/dL (74-99); Lipase 41 U/L (23-300); Magnesium 1.5 mg/dL (1.6-2.3); Non-African American GFR(CKD) >90 (>60 ml/min/1.73 sqM); Phosphorus 2.6 mg/dL (2.5-4.5); Potassium 3.6 mmol/L (3.5-5.1); Sodium 136 mmol/L (137-145); Total Bilirubin 1.8 mg/dL (0.2-1.3)
[2024-07-04 08:14] LABS: Platelet Count 71 k/uL (150-450)
[2024-07-04 08:16] LABS: Large Platelets Present
[2024-07-04] MEDS: HYDROmorphone 1 MG/ML 1 ML SYRINGE IVP PRN (08:31)
[2024-07-04] MEDS ORDERED: VANCOMYCIN IV PER PHARMACY 1 EACH MISC MISCELLANE PRN (10:34)
[2024-07-04] MEDS: CEFEPIME 2 GM in SODIUM CHLORIDE 0.9% 100 ML IVPB STA (11:20)
--- NOTE | 2024-07-04 11:23 | CT ---
EXAMINATION TYPE: CT angio chest CT DLP: 313.5 mGycm, Automated exposure control for dose reduction was used. DATE OF EXAM: 07/04/2024 11:07 AM COMPARISON: Chest radiograph from 07/03/2024, PET CT 03/23/2024, CT chest 02/29/2024 CLINICAL INDICATION:Female, 73 years old with history of cough, SOB, AMS-?PE; AMS, COUGH, ?PE TECHNIQUE/CONTRAST: CTA scan of the thorax is performed with IV Contrast, patient injected with 70 ml mL of Isovue 370, p ulmonary embolism protocol. MIP images are created and reviewed. FINDINGS: Pulmonary Artery: There is no evidence for a filling defect within the pulmonary vasculature to sugge st acute pulmonary embolism. The pulmonary artery is dilated measuring 3.7 cm in diameter. Lungs/Pleura: No pleural effusion or pneumothorax. Increasing size of peripheral right upper lobe 2.8 x 2.6 cm mass (series 506, image 58). Demonstrate FDG activity in prior exam. Previously measured 2. 0 x 1.9 cm. Marginal increase in size of peripheral lingular 1.3 cm lesion which was FDG avid on prio r PET/CT. Previously measured 1.2 cm. Additional scattered few pulmonary nodules redemonstrated. Biap ical pleural-parenchymal scarring. No focal consolidation. Minimal paraseptal emphysematous changes. Airway: Large airways are patent. Heart: Heart is within normal limits for size.. Trace pericardial effusion. Vasculature: No evidence of aortic aneurysm. Right anterior chest wall Mediport catheter with distal tip terminating in the superior cavoatrial junction. Mild prostatic calcification of the aorta and it s branches. Mediastinum: Multiple mildly prominent mediastinal and hilar lymph nodes measuring less than [address] axis. Musculoskeletal: No acute osseous abnormalities. Postsurgical changes from thoracolumbar fusion with vertebral augmentation changes redemonstrated and of compression deformity of the of the T12 vertebra l body with near complete collapse and 5 mm retropulsion. No aggressive osseous lesion. Soft Tissues: Surgical clips and biopsy clips within the left breast. Lower neck: No significant findings. Upper Abdomen: Multiple hepatic hypodense lesions identified. These appear larger from prior exam wit h largest left hepatic lobe measuring 2.8 cm and largest within the visualized right hepatic lobe mena suring 3.0 cm. Prominent paraesophageal lymph nodes measuring up to 9 mm short axis which are margina lly increased from prior PET/CT. Increased size of left adrenal gland partially visualized mass measu ring up to 3.4 cm. Previously 1.0 cm. FDG avid and prior PET/CT. Redemonstration of the ventral epiga stric abdominal wall fat-containing hernia with defect measuring up to 2.9 cm. IMPRESSION: 1. No evidence of pulmonary embolism. Dilated main pulmonary artery suggesting pulmonary arterial hyp ertension. 2. Overall progression of metastatic disease with increasing size of metastatic hepatic lesions and l eft adrenal gland lesion. Increasing size of right upper lobe pulmonary spiculated mass and periphera l lingular metastatic nodule with additional scattered pulmonary nodules. 3. Stable prominent mediastinal and hilar lymph nodes with marginal increase in size of paraesophagea l lymph nodes concerning for metastatic disease. [facility], , 07/04/2024 11:21 AM
[2024-07-04] MEDS: VANCOMYCIN 1,500 MG in SODIUM CHLORIDE 0.9% 500 ML 500 ML IVPB ONE (12:20)
--- NOTE | 2024-07-04 14:12 | P.CONS ---
History of Present Illness - Reason for Consult Consult date: 07/04/24 met triple neg breast cancer, on treatment Requesting physician: Emmett Zuleta - Chief Complaint AMS - History of Present Illness Ms. Almaraz is a femal pt of Dr. Elías Flowers who initially presented fall 2018 with a palpable L breast mass, superior to nipple, 1st noted 6 months prior per pt. Diagnostic mammogram & US 07/03/19 revealing 2.7 X 3.7 X 2.4 cm suspicious mass at 12 O'clock. No axillary LAD by US. US-Guided biopsy on 07/13/2019 revealed grade II invasive ductal carcinoma, no DCIS, ER/WI 100%/70%, Her2 0 by IHC. There was significant family Hx of malignancy, unknown types. Pt had Hx of liver transplant at [facility] around 2010 for alcoholic liver disease, on chronic immune-suppressive therapy. Aug 2018/Sep 2018 pt had L partial mastectomy, path + for grade II IDC 3 X 2.2 X 1.2 cm, SLNB + (09/12), [address] negative[address] OncotypeDx 9%, she declined adjuvant chemotherapy, did complete XRT, then started arimidex. Pt was lost to f/u for 4 years. 06/07/24 she was sent back to Oncology for findings on PET. She was evaluated by Dr. Renner for multiple pulmonary nodules, had PET revealing lung and liver lesions. CT-Guided biopsy of liver on 04/15/24 revealed metastatic carcinoma C/W Breast primary, now triple negative. Pt had her 1st cycle of taxotere with GCSF on 07/02. Pt is admitted with confusion, AMS, fever 101.8F. Mild hypoension, no tachypnea or tachycardia. She connot remember if she had fever prior to admit, she is upset that she cannot remember things. She denies XIONG, oral irritation, chest pain, cough, maybe some epigastric discomfort, no N,V, dysuria, hematuria, diarrhea, constipation, black or bloody stool, denies new pain, swelling. WBC was 6.4 on admit, dropped to 1.8. Review of Systems 10 point ROS neg except as stated in HPI-pt could not answer questions about events prior to admit Past Medical History Past Medical History: Atrial Fibrillation, Cancer, CVA/TIA, Deep Vein Thrombosis (DVT), GERD/Reflux, Hypertension, Liver Disease, Memory Impairment, Osteoarthritis (OA), Thyroid Disorder Additional Past Medical History / Comment(s): CIRRHOSIS WITH LIVER TRANSPLANT (2011), , RIGHT SHOULDER AND LEFT HIP WITH PAIN ( shattered hip 2017), osteoperosis, breast ca 2019. - radiation for 3 monthes cancer free, new dx lung cancer 03/2024. dr Zimmerman watching Kidney numbers History of Any Multi-Drug Resistant Organisms: None Reported Past Surgical History: Breast Surgery, Cholecystectomy, Heart Catheterization With Stent, Hysterectomy Additional Past Surgical History / Comment(s): liver transplant (2011), STATES HEART STENT INSERTED FOR PULMONARY HYPERTENSION WHERE SHE RECEIVED MEDICATION AND THE STENT WAS REMOVED WHEN SHE HAD HER LIVER TRANSPLANT. THYROID NM graves disease. crushed lft hip, lft breast lumpectomy, multiple bone fx Past Anesthesia/Blood Transfusion Reactions: Previous Problems w/ Anesthesia Additional Past Anesthesia/Blood Transfusion Reaction / Comm: STATES LAST COLONO SCOPY SHE COULD FEEL EVERYTHING BUT COULD NOT SPEAK TO TELL THEM SHE WAS AWAKE. Sabine gene. 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 Date of Last Stent Placement:: 05/02/2011 Past Psychological History: Anxiety, Panic Disorder, PTSD Smoking Status: Former smoker (25 pk yr Hx of smoking, quit 2010) - Past Family History Mother Family Medical History: Cancer Additional Family Medical History / Comment(s): stomach cancer Father Family Medical History: Cancer Brother(s) Family Medical History: Cancer Medications and Allergies Home Medications Medication Instructions Recorded Confirmed Type Atorvastatin [Lipitor] 10 mg PO DAILY 04/11/16 07/03/24 History DULoxetine HCL [Cymbalta] 20 mg PO DAILY 04/11/16 07/03/24 History Alendronate Sodium [Fosamax] 70 mg PO TU 07/19/17 07/03/24 History Levothyroxine Sodium [Synthroid] 100 mcg PO DAILY 12/08/19 07/03/24 History Famotidine 20 mg PO BID 04/08/23 07/03/24 History Multivit-Min/Iron Fum/Folic AC 1 tab PO Q48H 02/07/24 07/03/24 History [One-A-Day Women's Complete Tab] Tacrolimus [Prograf] 0.5 mg PO BID 02/07/24 07/03/24 History Apixaban [Eliquis] 5 mg PO BID #60 tab 02/10/24 07/03/24 Rx Losartan [Cozaar] 50 mg PO DAILY 06/11/24 07/03/24 History oxyCODONE-APAP 10-325MG [Percocet 1 tab PO Q8HR PRN 06/11/24 07/03/24 History 10-325 mg] Magnesium 250 mg PO HS 07/03/24 07/03/24 History Vitamin B Complex 1 cap PO Q48H 07/03/24 07/03/24 History tiZANidine [Zanaflex] 4 mg PO HS 07/03/24 07/03/24 History Allergies Allergy/AdvReac Type Severity Reaction Status Date / Time gabapentin AdvReac Severe Altered/Let Verified 07/03/24 19:44 hargic Physical Exam Vitals: Vital Signs Temp Pulse Resp BP Pulse Ox 07/04/24 08:01 97.1 F L 92 18 122/82 99 07/04/24 06:58 98.7 F 07/04/24 05:54 101.8 F H 97 16 153/81 95 07/04/24 02:25 81 15 114/72 95 07/04/24 01:00 85 15 104/57 96 07/03/24 23:21 92 15 110/60 95 07/03/24 21:00 103 H 15 117/64 95 07/03/24 19:31 99.2 F 107 H 16 146/88 95 07/03/24 18:14 98.6 F 114 H 16 144/73 95 Intake and Output 07/03/24 07/04/24 07/04/24 22:59 06:59 14:59 Output Total 700 Balance -700 Output: Urine 700 Straight 700 Other: Weight 72.076 kg - Constitutional General appearance: average body habitus, cooperative, mild distress - EENT Eyes: anicteric sclerae, EOMI ENT: hearing grossly normal, normal oropharynx - Neck Neck: no lymphadenopathy - Respiratory Respiratory: bilateral: diminished, rales (anterior) - Cardiovascular Rhythm: regular Heart sounds: normal: S1, S2 Abnormal Heart Sounds: no systolic murmur, no diastolic murmur, no rub, no S3 Gallop, no S4 Gallop, no click, no other leg Peripheral Edema: bilateral: None - Gastrointestinal General gastrointestinal: no absent bowel sounds, no decreased bowel sounds, no distended, no hepatomegaly, no hyperactive bowel sounds, normal bowel sounds, no organomegaly, no rigid, no scaphoid, soft, no splenomegaly, tenderness, no umbilical hernia, no ventral hernia - Integumentary Integumentary: normal - Neurologic Neurologic: CNII-XII intact - Musculoskeletal Musculoskeletal: generalized weakness, strength equal bilaterally - Psychiatric A&Ox2, mild emotional distress Results CBC & Chem 7: 07/04/24 06:45 07/04/24 06:45 Labs: Abnormal Lab Results - Last 24 Hours (Table) 07/03/24 07/03/24 07/03/24 Range/Units 18:27 18:27 18:27 WBC (3.8-10.6) k/uL RBC (3.80-5.40) m/uL Plt Count 104 L (150-450) k/uL Neutrophils # (1.3-7.7) k/uL Lymphocytes # (1.0-4.8) k/uL PT 14.0 H (10.0-12.5) sec INR 1.3 H (<1.2) APTT 32.1 H (22.0-30.0) sec Sodium (137-145) mmol/L Chloride (98-107) mmol/L Carbon Dioxide (22-30) mmol/L BUN (7-17) mg/dL Glucose (74-99) mg/dL Calcium (8.4-10.2) mg/dL Magnesium (1.6-2.3) mg/dL Total Bilirubin (0.2-1.3) mg/dL AST (14-36) U/L Alkaline Phosphatase (38-126) U/L Total Protein (6.3-8.2) g/dL Albumin (3.5-5.0) g/dL Urine Protein Trace H (Negative) Urine Blood Small H (Negative) Urine RBC 32 H (0-5) /hpf Urine Mucus Rare H (None) /hpf 07/03/24 07/04/24 07/04/24 Range/Units 18:27 06:45 06:45 WBC 1.8 L (3.8-10.6) k/uL RBC 3.75 L (3.80-5.40) m/uL Plt Count 71 L (150-450) k/uL Neutrophils # 1.0 L (1.3-7.7) k/uL Lymphocytes # 0.6 L (1.0-4.8) k/uL PT (10.0-12.5) sec INR (<1.2) APTT (22.0-30.0) sec Sodium 134 L 136 L (137-145) mmol/L Chloride 108 H (98-107) mmol/L Carbon Dioxide 21 L (22-30) mmol/L BUN 24 H 20 H (7-17) mg/dL Glucose 147 H 123 H (74-99) mg/dL Calcium 8.0 L (8.4-10.2) mg/dL Magnesium 1.3 L 1.5 L (1.6-2.3) mg/dL Total Bilirubin 1.7 H 1.8 H (0.2-1.3) mg/dL AST 47 H 38 H (14-36) U/L Alkaline Phosphatase 187 H 169 H (38-126) U/L Total Protein 5.7 L 5.0 L (6.3-8.2) g/dL Albumin 3.0 L 2.5 L (3.5-5.0) g/dL Urine Protein (Negative) Urine Blood (Negative) Urine RBC (0-5) /hpf Urine Mucus (None) /hpf Chest x-ray: report reviewed CT Scan - head: report reviewed Assessment and Plan (1) Fever Current Visit: Yes Status: Acute Priority: High Code(s): R50.9 - FEVER, UNSPECIFIED SNOMED Code(s): 455824709 (2) Altered mental status Current Visit: Yes Status: Acute Priority: High Code(s): R41.82 - ALTERED MENTAL STATUS, UNSPECIFIED SNOMED Code(s): 573514773 (3) Triple negative breast cancer Current Visit: Yes Status: Acute Priority: High Code(s): C50.919 - MALIGNANT NEOPLASM OF UNSP SITE OF UNSPECIFIED FEMALE BREAST; Z17.421 - HORMONE RECEPT NEG W HMN EPDRML GRTH FCTR RECEPT 2 NEG STAT SNOMED Code(s): 770004342 (4) Pancytopenia due to antineoplastic chemotherapy Current Visit: Yes Status: Acute Priority: High Code(s): D61.810 - ANTINEOPLASTIC CHEMOTHERAPY INDUCED PANCYTOPENIA; T45.1X5A - ADVERSE EFFECT OF ANTINEOPLASTIC AND IMMUNOSUP DRUGS, INIT SNOMED Code(s): 976240099315994 Plan: Neutropenic Fever -Significant change in CBC since admit, ?. Recheck CBC in a.m. -GCSF was given 07/02-no additional GCSF at this time -Blood cultures peripheral and from port ordered. CXR neg for acute process, UA not suspicious -Empiric abx ordered for 101.8F temp -CTA ordered to rule out PE for SOB -Diet changed to clear liquid for now for abd discomfort on exam and neutropenia -Suspect confusion 2/2 infection/fever. Will see how pt mentation changes with treatment, will order brain imaging if mental status worsens or does not improve. Hypomagnesemia -Mag replacement per protocol already ordered Pancytopenia 2/2 chemo -Hemoglobin 11.8, mild anemia. No acute intervention needed. Transfuse for hemoglobin less than 7 or if patient is symptomatic -Platelets 71,000. No acute intervention needed. Monitor for bleeding. Platelet counts are adequate for anticoagulation at this time. Transfuse for a platelet count less than 10,000 or if patient is symptomatic. WBC 1.8, ANC 1000. Patient did receive G-CSF 2 days ago. No acute intervention. Triple neg breast cancer -Triple negative breast cancer is a new diagnosis. Unfortunately, metastatic at diagnosis, biopsy from the liver lesion. -Patient had her first cycle of Taxotere on the with G-CSF on the . -Pending pt hospital course, may have to consider dose changes in chemo History of hormone receptor positive breast cancer, treated with surgery and radiation, patient declined adjuvant chemotherapy, was on AI since 2019, discontinued with new diagnosis. Doctor attests: I performed a history and physical examination of this patient, developed impression and plan of care. Discussed with dictator. I agree with dictators note, documented as a scribe.
--- NOTE | 2024-07-04 15:42 | P.CNNES ---
History of Present Illness Consult date: 07/04/24 Requesting physician: Emmett Zuleta Reason for Consult: ams History of Present Illness: This is a 73-year-old woman with history of breast cancer status post left partial mastectomy with mets to the lung and liver on chemotherapy, alcohol liver disease who presented emergency department because of altered mental status. History is obtained from medical record and her nurse. According to the nurse her daughter stated that she had chemotherapy about 2 weeks ago. It seems the patient has altered mental status and was found to have fever and her confusion is worsening. Patient denies of any headache. Denies any nausea vomiting. Denies any focal weakness. Feels her chest is tight. Some of the workup during this hospital visit consisted of: Her initial temperature was 98.6 and has been normal other than 1 episode of 101.8 Fahrenheit. Presentation white blood cell 6.4 thousand and repeated is 1.8K Her AST is 47. Ammonia is 28. Sodium is 134. Glucose is 147. Calcium is 8.9. Phosphorus is 3.2, magnesium is 1.3. CT of the head is reported as no acute intracranial process. I personally reviewed the CT and I agree with the report. CT angiography of the chest is reported as no evidence of pulmonary embolism. Dilated main pulmonary artery suggesting pulmonary artery hypertension. Overall progression of metastatic disease increasing size of metastatic hepatic lesion and left adrenal gland. Increasing size of the right upper pulmonary spiculated mass and peripheral corneal metastatic nodule with additional scattered pulmonary nodule. Stable prominent mediastinal hilar lymph node with marginal increase in size of the periesophageal lymph node concerning for metastatic disease. Review of Systems Limited but as per HPI. Past Medical History Past Medical History: Atrial Fibrillation, Cancer, CVA/TIA, Deep Vein Thrombosis (DVT), GERD/Reflux, Hypertension, Liver Disease, Memory Impairment, Osteoarthritis (OA), Thyroid Disorder Additional Past Medical History / Comment(s): CIRRHOSIS WITH LIVER TRANSPLANT (2011), , RIGHT SHOULDER AND LEFT HIP WITH PAIN ( shattered hip 2017), osteoper osis, breast ca 2019. - radiation for 3 monthes cancer free, new dx lung cancer 03/2024. dr Zimmerman watching Kidney numbers History of Any Multi-Drug Resistant Organisms: None Reported Past Surgical History: Breast Surgery, Cholecystectomy, Heart Catheterization With Stent, Hysterectomy Additional Past Surgical History / Comment(s): liver transplant (2011), STATES HEART STENT INSERTED FOR PULMONARY HYPERTENSION WHERE SHE RECEIVED MEDICATION AND THE STENT WAS REMOVED WHEN SHE HAD HER LIVER TRANSPLANT. THYROID NM graves disease. crushed lft hip, lft breast lumpectomy, multiple bone fx Past Anesthesia/Blood Transfusion Reactions: Previous Problems w/ Anesthesia Additional Past Anesthesia/Blood Transfusion Reaction / Comment(s): STATES LAST COLONOSCOPY SHE COULD FEEL EVERYTHING BUT COULD NOT SPEAK TO TELL THEM SHE WAS AWAKE. Sabine gene. 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 Date of Last Stent Placement:: 05/02/2011 Past Psychological History: Anxiety, Panic Disorder, PTSD Smoking Status: Former smoker (25 pk yr Hx of smoking, quit 2010) - Past Family History Mother Family Medical History: Cancer Additional Family Medical History / Comment(s): stomach cancer Father Family Medical History: Cancer Brother(s) Family Medical History: Cancer Medications and Allergies Home Medications Medication Instructions Recorded Confirmed Type Atorvastatin [Lipitor] 10 mg PO DAILY 04/11/16 07/03/24 History DULoxetine HCL [Cymbalta] 20 mg PO DAILY 04/11/16 07/03/24 History Alendronate Sodium [Fosamax] 70 mg PO TU 07/19/17 07/03/24 History Levothyroxine Sodium [Synthroid] 100 mcg PO DAILY 12/08/19 07/03/24 History Famotidine 20 mg PO BID 04/08/23 07/03/24 History Multivit-Min/Iron Fum/Folic AC 1 tab PO Q48H 02/07/24 07/03/24 History [One-A-Day Women's Complete Tab] Tacrolimus [Prograf] 0.5 mg PO BID 02/07/24 07/03/24 History Apixaban [Eliquis] 5 mg PO BID #60 tab 02/10/24 07/03/24 Rx Losartan [Cozaar] 50 mg PO DAILY 06/11/24 07/03/24 History oxyCODONE-APAP 10-325MG [Percocet 1 tab PO Q8HR PRN 06/11/24 07/03/24 History 10-325 mg] Magnesium 250 mg PO HS 07/03/24 07/03/24 History Vitamin B Complex 1 cap PO Q48H 07/03/24 07/03/24 History tiZANidine [Zanaflex] 4 mg PO HS 07/03/24 07/03/24 History Allergies Allergy/AdvReac Type Severity Reaction Status Date / Time gabapentin AdvReac Severe Altered/Let Verified 07/03/24 19:44 hargic Physical Examination - Vital Signs Vital Signs: Vital Signs Temp Pulse Resp BP Pulse Ox 07/04/24 12:23 98.8 F 79 18 125/64 97 07/04/24 08:01 97.1 F L 92 18 122/82 99 07/04/24 06:58 98.7 F 07/04/24 05:54 101.8 F H 97 16 153/81 95 07/04/24 02:25 81 15 114/72 95 07/04/24 01:00 85 15 104/57 96 07/03/24 23:21 92 15 110/60 95 07/03/24 21:00 103 H 15 117/64 95 07/03/24 19:31 99.2 F 107 H 16 146/88 95 07/03/24 18:14 98.6 F 114 H 16 144/73 95 Intake and Output 07/04/24 07/04/24 07/04/24 06:59 14:59 22:59 Output Total 700 Balance -700 Output: Urine 700 Straight 700 General: Lying in bed and does not appear in acute distress. HENT: Supple neck. Neuro: Somewhat limited. Patient is drowsy but is awake able to voice. Is oriented to self place and time. Slow to response. No aphasia from limited language. The pupil is round, equal and reactive to light. Pupils are round 3 to 4 mm bilaterally.-year-old diaz: It appears patient has complete visual loss out of the right eye while the left was hard to assess but it seems that she could not see the upper half. Extraocular movements intact no nystagmus. No facial weakness. No dysarthria. Tongue is midline moves [id number] without any difficulty Motor strength is somewhat limited in assessing individual muscle strength but is able to lift up all extremities above gravity equally Cerebellar normal [id number] bilaterally. Sensation is normal to touch. Reflexes 2 positive. Plantars are mute bilaterally Results - Laboratory Findings CBC and BMP: 07/04/24 06:45 07/04/24 06:45 Abnormal Lab Findings: Abnormal Labs 07/03/24 07/03/24 07/03/24 18:27 18:27 18:27 WBC RBC Plt Count 104 L Neutrophils # Lymphocytes # PT 14.0 H INR 1.3 H APTT 32.1 H Sodium Chloride Carbon Dioxide BUN Glucose Calcium Magnesium Total Bilirubin AST Alkaline Phosphatase Total Protein Albumin Urine Protein Trace H Urine Blood Small H Urine RBC 32 H Urine Mucus Rare H 07/03/24 07/04/24 07/04/24 18:27 06:45 06:45 WBC 1.8 L RBC 3.75 L Plt Count 71 L Neutrophils # 1.0 L Lymphocytes # 0.6 L PT INR APTT Sodium 134 L 136 L Chloride 108 H Carbon Dioxide 21 L BUN 24 H 20 H Glucose 147 H 123 H Calcium 8.0 L Magnesium 1.3 L 1.5 L Total Bilirubin 1.7 H 1.8 H AST 47 H 38 H Alkaline Phosphatase 187 H 169 H Total Protein 5.7 L 5.0 L Albumin 3.0 L 2.5 L Urine Protein Urine Blood Urine RBC Urine Mucus Assessment and Plan Assessment: This is a 73-year-old woman with history of breast cancer with mets to the lung liver and adrenal status post partial left mastectomy and is on chemotherapy last was about 2 weeks ago who presents because of altered mental status and seems to she had a one-time fever in our facility. On examination she has complete visual loss out of the right eye and visual loss for the upper of the left eye. She is on tacrolimus Visual loss (complete on right eye and upper of left eye): Rule out brain mets Acute encephalopathy with febrile and leukopenia possible due to febrile neutro penia from her chemotherapy/immunotherapy. History of breast cancer with mets to lung, liver and adrenal History of alcohol cirrhosis History of TIA History of DVT on eliquis Memory impairment per medical record History of coronary artery disease status post stent. Plan: I ordered MRI of the brain with and without to rule out any brain mets I ordered a routine EEG Infection disease is on board as well as oncology is on board. Of unknown source of fever consider lumbar puncture. Will defer the rest of the medical management to primary and other specialist The plan is discussed with nurse. Thank you for the consultation. Time with Patient: Greater than 30
[2024-07-04] MEDS: POTASSIUM CHLORIDE ER 20 MEQ TAB.ER PO STA (15:46)
[2024-07-04] MEDS: MAGNESIUM SULFATE-D5W PMX 1 GM in DEXTROSE/WATER 1 100ML.BAG IVPB SCH (15:54)
[2024-07-04] MEDS: CEFEPIME 2 GM in SODIUM CHLORIDE 0.9% 100 ML IVPB SCH (20:32)
[2024-07-05] MEDS: VANCOMYCIN 1,250 MG in SODIUM CHLORIDE 0.9% 250 ML IVPB SCH (00:53)
--- NOTE | 2024-07-05 07:39 | P.CONS ---
History of Present Illness - Reason for Consult Consult date: 07/04/24 Fever Requesting physician: Emmett Zuleta - Chief Complaint Mental status changes x 1 day - History of Present Illness Patient is a 73-year-old female with a past medical history significant for hypertension reflux CVA TIA cirrhosis of the liver status post liver transplant history of breast cancer in 2019 and recent diagnosis of lung cancer March 2024 with the patient be started on chemotherapy last chemo was on Tuesday before presentation to the hospital through the Mediport patient has not been brought into the hospital for evaluation of mental status changes seem to be slightly improved agitated and decreased level of activity symptom has been g oing on for a day before the patient has been brought to the hospital on arrival to the ER initially the patient was afebrile subsequently did spike a fever of 101.8 F patient was also tachycardic but not hypotensive or hypoxic and no need for supplemental oxygen patient did have a white count of 6.4 repeat is 1.8 creatinine has been normal liver enzymes mildly elevated urine has been negative influenza RSV COVID testing was negative patient did have a chest x-ray chronic changes without acute pulmonary process no significant change from the prior patient also have CT angiogram of the chest completed and results is currently pending patient has been started on cefepime and vancomycin infectious disease was consulted for further management of antibiotic therapy patient seem to be back to her baseline as far as mentation is concerned denies any headache or URI symptoms no chest pain no shortness which she did have some cough but not bringing up any sputum has been having some pain to the right upper quadrant area mostly dull aching nausea but no vomiting no diarrhea no urinary symptoms Review of Systems Positive point and negatives has been mentioned in the HPI, complete review of systems was performed and all other systems are negative Past Medical History Past Medical History: Atrial Fibrillation, Cancer, CVA/TIA, Deep Vein Thrombosis (DVT), GERD/Reflux, Hypertension, Liver Disease, Memory Impairment, Osteo arthritis (OA), Thyroid Disorder Additional Past Medical History / Comment(s): CIRRHOSIS WITH LIVER TRANSPLANT (2011), , RIGHT SHOULDER AND LEFT HIP WITH PAIN ( shattered hip 2017), osteoperosis, breast ca 2019. - radiation for 3 monthes cancer free, new dx lung cancer 03/2024. dr Zimmerman watching Kidney numbers History of Any Multi-Drug Resistant Organisms: None Reported Past Surgical History: Breast Surgery, Cholecystectomy, Heart Catheterization With Stent, Hysterectomy Additional Past Surgical History / Comment(s): liver transplant (2011), STATES HEART STENT INSERTED FOR PULMONARY HYPERTENSION WHERE SHE RECEIVED MEDICATION AND THE STENT WAS REMOVED WHEN SHE HAD HER LIVER TRANSPLANT. THYROID NM graves disease. crushed lft hip, lft breast lumpectomy, multiple bone fx Past Anesthesia/Blood Transfusion Reactions: Previous Problems w/ Anesthesia Additional Past Anesthesia/Blood Transfusion Reaction / Comm: STATES LAST COLONOSCOPY SHE COULD FEEL EVERYTHING BUT COULD NOT SPEAK TO TELL THEM SHE WAS AWAKE. Sabine gene. 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 Date of Last Stent Placement:: 05/02/2011 Past Psychological History: Anxiety, Panic Disorder, PTSD Smoking Status: Former smoker - Past Family History Mother Family Medical History: Cancer Additional Family Medical History / Comment(s): stomach cancer Father Family Medical History: Cancer Brother(s) Family Medical History: Cancer Medications and Allergies Home Medications Medication Instructions Recorded Confirmed Type Atorvastatin [Lipitor] 10 mg PO DAILY 04/11/16 07/03/24 History DULoxetine HCL [Cymbalta] 20 mg PO DAILY 04/11/16 07/03/24 History Alendronate Sodium [Fosamax] 70 mg PO TU 07/19/17 07/03/24 History Levothyroxine Sodium [Synthroid] 100 mcg PO DAILY 12/08/19 07/03/24 History Famotidine 20 mg PO BID 04/08/23 07/03/24 History Multivit-Min/Iron Fum/Folic AC 1 tab PO Q48H 02/07/24 07/03/24 History [One-A-Day Women's Complete Tab] Tacrolimus [Prograf] 0.5 mg PO BID 02/07/24 07/03/24 History Apixaban [Eliquis] 5 mg PO BID #60 tab 02/10/24 07/03/24 Rx Losartan [Cozaar] 50 mg PO DAILY 06/11/24 07/03/24 History oxyCODONE-APAP 10-325MG [Percocet 1 tab PO Q8HR PRN 06/11/24 07/03/24 History 10-325 mg] Magnesium 250 mg PO HS 07/03/24 07/03/24 History Vitamin B Complex 1 cap PO Q48H 07/03/24 07/03/24 History tiZANidine [Zanaflex] 4 mg PO HS 07/03/24 07/03/24 History Allergies Allergy/AdvReac Type Severity Reaction Status Date / Time gabapentin AdvReac Severe Altered/Let Verified 07/03/24 19:44 hargic Physical Exam Vitals: Vital Signs Temp Pulse Resp BP Pulse Ox 07/04/24 08:01 97.1 F L 92 18 122/82 99 07/04/24 06:58 98.7 F 07/04/24 05:54 101.8 F H 97 16 153/81 95 07/04/24 02:25 81 15 114/72 95 07/04/24 01:00 85 15 104/57 96 07/03/24 23:21 92 15 110/60 95 07/03/24 21:00 103 H 15 117/64 95 07/03/24 19:31 99.2 F 107 H 16 146/88 95 07/03/24 18:14 98.6 F 114 H 16 144/73 95 Intake and Output 07/03/24 07/04/24 07/04/24 22:59 06:59 14:59 Output Total 700 Balance -700 Output: Urine 700 Straight 700 Other: Weight 72.076 kg GENERAL DESCRIPTION: Elderly female lying in bed, no distress. No tachypnea or accessory muscle of respiration use. HEENT: Shows Pallor , no scleral icterus. Oral mucous membrane is dry. NECK: Trachea central, no thyromegaly. LUNGS: Unlabored breathing. Decreased breath sound at the base HEART: S1, S2, regular rate and rhythm. No loud murmur ABDOMEN: Soft, no tenderness , guarding or rigidity, no organomegaly EXTREMITIES: No edema of feet. SKIN: No rash, no masses palpable. NEUROLOGICAL: The patient is awake, alert, mood and affect normal. Results CBC & Chem 7: 07/04/24 06:45 07/04/24 06:45 Labs: Abnormal Lab Results - Last 24 Hours (Table) 07/03/24 07/03/24 07/03/24 Range/Units 18:27 18:27 18:27 WBC (3.8-10.6) k/uL RBC (3.80-5.40) m/uL Plt Count 104 L (150-450) k/uL Neutrophils # (1.3-7.7) k/uL Lymphocytes # (1.0-4.8) k/uL PT 14.0 H (10.0-12.5) sec INR 1.3 H (<1.2) APTT 32.1 H (22.0-30.0) sec Sodium (137-145) mmol/L Chloride (98-107) mmol/L Carbon Dioxide (22-30) mmol/L BUN (7-17) mg/dL Glucose (74-99) mg/dL Calcium (8.4-10.2) mg/dL Magnesium (1.6-2.3) mg/dL Total Bilirubin (0.2-1.3) mg/dL AST (14-36) U/L Alkaline Phosphatase (38-126) U/L Total Protein (6.3-8.2) g/dL Albumin (3.5-5.0) g/dL Urine Protein Trace H (Negative) Urine Blood Small H (Negative) Urine RBC 32 H (0-5) /hpf Urine Mucus Rare H (None) /hpf 07/03/24 07/04/24 07/04/24 Range/Units 18:27 06:45 06:45 WBC 1.8 L (3.8-10.6) k/uL RBC 3.75 L (3.80-5.40) m/uL Plt Count 71 L (150-450) k/uL Neutrophils # 1.0 L (1.3-7.7) k/uL Lymphocytes # 0.6 L (1.0-4.8) k/uL PT (10.0-12.5) sec INR (<1.2) APTT (22.0-30.0) sec Sodium 134 L 136 L (137-145) mmol/L Chloride 108 H (98-107) mmol/L Carbon Dioxide 21 L (22-30) mmol/L BUN 24 H 20 H (7-17) mg/dL Glucose 147 H 123 H (74-99) mg/dL Calcium 8.0 L (8.4-10.2) mg/dL Magnesium 1.3 L 1.5 L (1.6-2.3) mg/dL Total Bilirubin 1.7 H 1.8 H (0.2-1.3) mg/dL AST 47 H 38 H (14-36) U/L Alkaline Phosphatase 187 H 169 H (38-126) U/L Total Protein 5.7 L 5.0 L (6.3-8.2) g/dL Albumin 3.0 L 2.5 L (3.5-5.0) g/dL Urine Protein (Negative) Urine Blood (Negative) Urine RBC (0-5) /hpf Urine Mucus (None) /hpf Assessment and Plan (1) Fever Current Visit: Yes Status: Acute Priority: High Code(s): R50.9 - FEVER, UNSPECIFIED SNOMED Code(s): 585688713 Plan: 1patient with a fever and this patient presented to hospital with mental status changes did have a history of lung cancer currently undergoing chemotherapy with last chemo on Tuesday before presentation to the hospital patient did have a some cough and pain in the right upper quadrant area with a question of possible pneumonia versus hepatocellular disease need to be rule out versus Mediport infections and that was last used on Tuesday. 2we will wait for the CT angiogram of the chest and may need to resort of the liver gallbladder area 3we will broadly cover the patient with the vancomycin and cefepime pending finalization of the workup Daughter at the bedside question concern or answered We will follow on clinical condition and cultures to further adjust medication if needed Thank you for this consultation we will follow the patient along with you Dictation was produced using [employer] dictation software. please excuse any grammatical, word or spelling errors. Time with Patient: Greater than 30
--- NOTE | 2024-07-05 11:04 | MR ---
EXAMINATION TYPE: MR brain wo/w con DATE OF EXAM: 07/05/2024 10:12 AM CLINICAL INDICATION: Female, 73 years old with history of visual loss bilaterally. rule out brain me ts; PHH, Vision loss bilaterally, rule out brain mets COMPARISON: TECHNIQUE: Multi planar, multi sequence imaging was performed through the brain including: T1, T2, In version recovery, susceptibility weighted imaging and gradient echo imaging and Diffusion weighted im aging. The patient was then given intravenous contrast and multi planar, T1 fat-saturation images wer e obtained. IV Contrast: 7 cc Gadavist FINDINGS: The rogers-white junctions, ventricular system, basal cisterns appear unremarkable. Diffusion-weighted imaging shows no evidence of restricted diffusion to suggest acute/subacute infarct. Intracranial ar terial flow voids are maintained. Midline structures show no abnormality. Scattered foci of high T2 s ignal intensity are seen within the periventricular white matter. The susceptibility weighted images do not reveal any evidence for micro-hemorrhage. After administration of gadolinium, no abnormal enha ncement is seen. The bone marrow signal is within normal limits. Paranasal sinuses and mastoid air cells: No significant paranasal sinus disease. Visualized orbits: Bilateral aphakia IMPRESSION: 1. No evidence of intracranial mass, acute/subacute infarct, or abnormal enhancement. 2. Nonspecific white matter changes, likely related to small vessel ischemic disease. [facility], , 07/05/2024 11:01 AM
[2024-07-05] MEDS: CYANOCOBALAMIN 1,000 MCG/ML 1 ML VIAL IM ONE (11:43)
[2024-07-05] MEDS: HYDROmorphone 2 MG/ML 1 ML SYRINGE IVP PRN (12:08)
[2024-07-05 12:31] LABS: HCT 30.9 % (34.0-46.0); HGB 10.3 gm/dL (11.4-16.0); MCHC 33.2 g/dL (31.0-37.0); MCV 93.5 fL (80.0-100.0); Mean Platelet Volume 12.3; RBC 3.31 m/uL (3.80-5.40); RDW 14.6 % (11.5-15.5)
[2024-07-05 12:34] LABS: WBC 1.4 k/uL (3.8-10.6)
[2024-07-05 12:35] LABS: Platelet Count 72 k/uL (150-450)
[2024-07-05 12:40] LABS: ALT 27 U/L (4-34); AST 33 U/L (14-36); African American GFR (CKD) >90 (>60 ml/min/1.73 sqM); Albumin 2.3 g/dL (3.5-5.0); Albumin/Globulin Ratio 0.9; Alkaline Phosphatase 169 U/L (38-126); Anion Gap 4 mmol/L; Blood Urea Nitrogen 12 mg/dL (7-17); Calcium 7.8 mg/dL (8.4-10.2); Carbon Dioxide 21 mmol/L (22-30); Chloride 108 mmol/L (98-107); Globulin 2.5 g/dL; Glucose 127 mg/dL (74-99); Non-African American GFR(CKD) >90 (>60 ml/min/1.73 sqM); Potassium 3.5 mmol/L (3.5-5.1); Sodium 133 mmol/L (137-145); Total Bilirubin 1.9 mg/dL (0.2-1.3); Total Protein 4.8 g/dL (6.3-8.2)
[2024-07-05 12:55] LABS: Neutrophils % (M) 12 %
[2024-07-05 12:56] LABS: Lymphocytes # (M) 1.09 k/uL (1.0-4.8); Monocytes # (M) 0.14 k/uL (0-1.0); Neutrophils # (M) 0.17 k/uL (1.3-7.7); Nucleated Red Blood Cells 0 /100 WBC (0-0); Total Cells Counted 100
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
[2024-07-05] MEDS: POTASSIUM CHLORIDE ER 20 MEQ TAB.ER PO STA (17:04)
--- NOTE | 2024-07-05 17:10 | P.PN ---
Subjective Progress Note Date: 07/05/24 I am following up with the patient and per the nurse she continues to be confused. Patient is complaining of pain but cannot point to where her pain is Objective - Vital Signs Vital signs: Vital Signs Temp 98 F 07/05/24 13:27 Pulse 102 H 07/05/24 13:27 Resp 18 07/05/24 13:27 BP 147/73 07/05/24 13:27 Pulse Ox 93 L 07/05/24 13:27 FiO2 Intake & Output 07/04/24 07/05/24 07/05/24 18:59 06:59 18:59 Intake Total 240 Balance 240 Weight 72.076 kg Intake: Oral 240 Other: Voiding Method Bedside Commode Bedside Commode Diaper Diaper Incontinent Incontinent # Voids 2 # Bowel Movements 1 - Exam General: Is lying in bed and is mild acute distress. Neuro: Very Limited. Patient is mildly drowsy but is awake able to voice. She is oriented to self. She followed few simple commands then she stopped and she said I am in pain and I will not be left alone. I could not rest of exam because of her cooperation. Some of the workup during this hospital visit consisted of: Her initial temperature was 98.6 and has been normal other than 1 episode of 101.8 Fahrenheit. Presentation white blood cell 6.4 thousand and repeated is 1.8K AST is 47. Ammonia is 28. CT of the head is reported as no acute intracranial process. I personally reviewed the CT and I agree with the report. CT angiography of the chest is reported as no evidence of pulmonary embolism. Dilated main pulmonary artery suggesting pulmonary artery hypertension. Overall progression of metastatic disease increasing size of metastatic hepatic lesion and left adrenal gland. Increasing size of the right upper pulmonary spiculated mass and peripheral corneal metastatic nodule with additional scattered pulmonary nodule. Stable prominent mediastinal hilar lymph node with marginal increase in size of the periesophageal lymph node concerning for metastatic disease. MRI of the brain is reported as no evidence of intracranial mass, acute/subacute infarct or abnormal enhancement. Nonspecific white matter changes, likely related to small vessel ischemic disease - Labs CBC & Chem 7: 07/05/24 11:58 07/05/24 11:58 Labs: Abnormal Lab Results - Last 24 Hours (Table) 07/05/24 07/05/24 Range/Units 11:58 11:58 WBC 1.4 L* (3.8-10.6) k/uL RBC 3.31 L (3.80-5.40) m/uL Hgb 10.3 L (11.4-16.0) gm/dL Hct 30.9 L (34.0-46.0) % Plt Count 72 L (150-450) k/uL Neutrophils # (Manual) 0.17 L* (1.3-7.7) k/uL Sodium 133 L (137-145) mmol/L Chloride 108 H (98-107) mmol/L Carbon Dioxide 21 L (22-30) mmol/L Creatinine 0.46 L (0.52-1.04) mg/dL Glucose 127 H (74-99) mg/dL Calcium 7.8 L (8.4-10.2) mg/dL Total Bilirubin 1.9 H (0.2-1.3) mg/dL Alkaline Phosphatase 169 H (38-126) U/L Total Protein 4.8 L (6.3-8.2) g/dL Albumin 2.3 L (3.5-5.0) g/dL Assessment and Plan Assessment: This is a 73-year-old woman with history of breast cancer with mets to the lung liver and adrenal status post partial left mastectomy and is on chemotherapy last was about 2 weeks ago who presents because of altered mental status and seems to she had a one-time fever in our facility. On examination she has complete visual loss out of the right eye and visual loss for the upper of the left eye. She is on tacrolimus Visual loss (complete on right eye and upper of left eye) unknown if patient has paraneoplastic process versus metabolic derangement. MRI of the brain is negative for stroke or abnormal enhancement/metastasis. I felt possibly there is right frontal meningeal enhancement. Acute encephalopathy with febrile and leukopenia possible due to febrile neutro penia from her chemotherapy/immunotherapy. History of breast cancer with mets to lung, liver and adrenal History of alcohol cirrhosis Chronic thrombocytopenia History of TIA History of DVT on eliquis Memory impairment per medical record History of coronary artery disease status post stent. Plan: I felt there is possibly a right frontal meningeal enhancement but will discuss with the reading radiologist for a second review Pending EEG Infection disease is on board as well as oncology is on board. Of unknown source of fever consider lumbar puncture. I spoke with Oncology N.P. about possible pursuing lumbar puncture and ordering paraneoplastic process. The N.P. from Oncology will discuss it with her team. Will defer the rest of the medical management to primary and other specialist Overall condition is very guarded. Plan is discussed with patient's nurse and Oncology team. Time with Patient: Less than 30
[2024-07-05 21:39] LABS: Vitamin B12 >3600.0 pg/mL (200.0-944.0)
[2024-07-05] MEDS: oxyCODONE-APAP 10-325MG 1 EACH TAB PO PRN (22:32)
[2024-07-05] MEDS: DOCUSATE 100 MG CAP PO SCH (22:34)
[2024-07-05] MEDS: MAGNESIUM OXIDE 400 MG TAB PO SCH (22:34)
--- NOTE | 2024-07-06 04:19 | EEG ---
ELECTROENCEPHALOGRAM REPORT CLINICAL HISTORY: This is a 73-year-old woman with history of breast cancer with mets, who has altered mental status. The video EEG is obtained to evaluate for seizure epileptiform activity. RELEVANT MEDICATION: Zanaflex, Percocet, and Cymbalta. EEG TYPE: This is a routine 21-channel EEG with video using the 10/20 electrode placement system. DESCRIPTION: Wakefulness is only obtained. During awake state, the background consists of low-to- moderate voltage of 6 to 7 hertz activity and at times is intermixed with delta activity. There was no physiological stage 2 sleep architecture. There is no focal slowing. There is sharply contoured posterior to anterior and at times anterior to posterior lag with triphasic morphology over bilateral hemisphere. Interictal and ictal is none. ACTIVATION PROCEDURE: Photic stimulation and hyperventilation is not performed. CLINICAL INTERPRETATION: This is an abnormal routine EEG. The background slowing is suggestive of mild to moderate encephalopathy. The triphasic morphology is likely due to toxic metabolic derangement. Otherwise, there is no focal slowing, epileptiform discharge, or seizure on the EEG. Clinical correlation is recommended. MMODL / IJN: [id number] /
[2024-07-06 06:28] LABS: ALT 28 U/L (4-34); AST 38 U/L (14-36); African American GFR (CKD) >90 (>60 ml/min/1.73 sqM); Albumin 2.3 g/dL (3.5-5.0); Albumin/Globulin Ratio 0.9; Alkaline Phosphatase 180 U/L (38-126); Anion Gap 3 mmol/L; Blood Urea Nitrogen 13 mg/dL (7-17); Carbon Dioxide 19 mmol/L (22-30); Chloride 110 mmol/L (98-107); Globulin 2.5 g/dL; Glucose 100 mg/dL (74-99); Magnesium 1.2 mg/dL (1.6-2.3); Non-African American GFR(CKD) >90 (>60 ml/min/1.73 sqM); Potassium 3.7 mmol/L (3.5-5.1); Sodium 132 mmol/L (137-145); Total Bilirubin 1.9 mg/dL (0.2-1.3); Total Protein 4.8 g/dL (6.3-8.2)
--- NOTE | 2024-07-06 08:34 | P.HPIM ---
History of Present Illness H&P Date: 07/04/24 This is a 73-year-old female with past medical history significant for breast cancer, liver transplant 2010 on tacrolimus, prior alcohol use, gastroesophageal reflux disease, DVT, osteoporosis, kyphosis, chronic back pain-T12 severe compression deformity status post T10-L2 posterior stabilization and multiple other medical issues presented to the ER with complaints of increasing generalized weakness, confusion-not remembering things, fevers, nausea vomiting.received her first chemo within the week. Denies headache. denies chest pain, palpitations. Denies edema. denies diarrhea, constipation. Denies bloody or black stools. Denies urinary frequency, retention, dysuria or hematuria. Vomiting has subsided .on admission, tachycardic, Tmax 101.8. Lactic acid 1.7 .on admission WBC 6.4, decreased to 1.8. Hemoglobin 13.7, 11.8, platelets 104, 71. INR 1.3, sodium 136, potassium 3.6, bicarb 22, BUN 20, creatinine 0.59. Magnesium added on. T. bili 1.8, AST 38, ALT 26, alk phos 169. UA negative. Viral studies negative.Brain CT reported nonacute. Chest x- ray reported chronic changes, without acute pulmonary process, no significant change from prior. Vancomycin and cefepime initiated Review of Systems ROS Statement: Those systems with pertinent positive or pertinent negative responses have been documented in the HPI. ROS Other: All systems not noted in ROS Statement are negative. Past Medical History Past Medical History: Atrial Fibrillation, Cancer, CVA/TIA, Deep Vein Thrombosis (DVT), GERD/Reflux, Hypertension, Liver Disease, Memory Impairment, Osteoarthritis (OA), Thyroid Disorder Additional Past Medical History / Comment(s): CIRRHOSIS WITH LIVER TRANSPLANT (2011), , RIGHT SHOULDER AND LEFT HIP WITH PAIN ( shattered hip 2017), osteoperosis, breast ca 2019. - radiation for 3 monthes cancer free, new dx lung cancer 03/2024. dr Zimmerman watching Kidney numbers History of Any Multi-Drug Resistant Organisms: None Reported Past Surgical History: Breast Surgery, Cholecystectomy, Heart Catheterization With Stent, Hysterectomy Additional Past Surgical History / Comment(s): liver transplant (2011), STATES HEART STENT INSERTED FOR PULMONARY HYPERTENSION WHERE SHE RECEIVED MEDICATION AND THE STENT WAS REMOVED WHEN SHE HAD HER LIVER TRANSPLANT. THYROID NM graves disease. crushed lft hip, lft breast lumpectomy, multiple bone fx Past Anesthesia/Blood Transfusion Reactions: Previous Problems w/ Anesthesia Additional Past Anesthesia/Blood Transfusion Reaction / Comment(s): STATES LAST COLONOSCOPY SHE COULD FEEL EVERYTHING BUT COULD NOT SPEAK TO TELL THEM SHE WAS AWAKE. Sabine poon. 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 Date of Last Stent Placement:: 05/02/2011 Past Psychological History: Anxiety, Panic Disorder, PTSD Smoking Status: Former smoker (25 pk yr Hx of smoking, quit 2010) - Past Family History Mother Family Medical History: Cancer Additional Family Medical History / Comment(s): stomach cancer Father Family Medical History: Cancer Brother(s) Family Medical History: Cancer Medications and Allergies Home Medications Medication Instructions Recorded Confirmed Type Atorvastatin [Lipitor] 10 mg PO DAILY 04/11/16 07/03/24 History DULoxetine HCL [Cymbalta] 20 mg PO DAILY 04/11/16 07/03/24 History Alendronate Sodium [Fosamax] 70 mg PO TU 07/19/17 07/03/24 History Levothyroxine Sodium [Synthroid] 100 mcg PO DAILY 12/08/19 07/03/24 History Famotidine 20 mg PO BID 04/08/23 07/03/24 History Multivit-Min/Iron Fum/Folic AC 1 tab PO Q48H 02/07/24 07/03/24 History [One-A-Day Women's Complete Tab] Tacrolimus [Prograf] 0.5 mg PO BID 02/07/24 07/03/24 History Apixaban [Eliquis] 5 mg PO BID #60 tab 02/10/24 07/03/24 Rx Losartan [Cozaar] 50 mg PO DAILY 06/11/24 07/03/24 History oxyCODONE-APAP 10-325MG [Percocet 1 tab PO Q8HR PRN 06/11/24 07/03/24 History 10-325 mg] Magnesium 250 mg PO HS 07/03/24 07/03/24 History Vitamin B Complex 1 cap PO Q48H 07/03/24 07/03/24 History tiZANidine [Zanaflex] 4 mg PO HS 07/03/24 07/03/24 History Allergies Allergy/AdvReac Type Severity Reaction Status Date / Time gabapentin AdvReac Severe Altered/Let Verified 07/03/24 19:44 hargic Physical Exam Vitals: Vital Signs Temp Pulse Resp BP Pulse Ox 07/04/24 12:23 98.8 F 79 18 125/64 97 07/04/24 08:01 97.1 F L 92 18 122/82 99 07/04/24 06:58 98.7 F 07/04/24 05:54 101.8 F H 97 16 153/81 95 07/04/24 02:25 81 15 114/72 95 07/04/24 01:00 85 15 104/57 96 07/03/24 23:21 92 15 110/60 95 07/03/24 21:00 103 H 15 117/64 95 07/03/24 19:31 99.2 F 107 H 16 146/88 95 07/03/24 18:14 98.6 F 114 H 16 144/73 95 Intake and Output 07/03/24 07/04/24 07/04/24 22:59 06:59 14:59 Output Total 700 Balance -700 Output: Urine 700 Straight 700 Other: Weight 72.076 kg GENERAL: Alert and oriented x3, lying in stretcher,No acute distress. Fatigued. HEENT: Normocephalic, atraumatic. Pupils are round, equal, reactive to light, conjunctiva normal, tongue midline ,mucous membranes dry. Right port access. CARDIOVASCULAR: S1 and S2 present. No murmurs, rubs, or gallops. PULMONARY: kyphosis, unlabored, equal air entry, CTA, bilateral bases d iminished. ABDOMEN: Soft, nontender, nondistended, normoactive bowel sounds. No palpable organomegaly. EXTREMITIES: No cyanosis, clubbing, or pedal edema. NEUROLOGICAL: Gross neurological examination did not reveal any focal deficits. Conversing fluently and appropriately, generalized weakness. Sensation grossly intact. SKIN: Warm and dry, No rashes. Results CBC & Chem 7: 07/05/24 11:58 07/06/24 05:47 Labs: Abnormal Lab Results - Last 24 Hours (Table) 07/03/24 07/03/24 07/03/24 Range/Units 18:27 18:27 18:27 WBC (3.8-10.6) k/uL RBC (3.80-5.40) m/uL Plt Count 104 L (150-450) k/uL Neutrophils # (1.3-7.7) k/uL Lymphocytes # (1.0-4.8) k/uL PT 14.0 H (10.0-12.5) sec INR 1.3 H (<1.2) APTT 32.1 H (22.0-30.0) sec Sodium (137-145) mmol/L Chloride (98-107) mmol/L Carbon Dioxide (22-30) mmol/L BUN (7-17) mg/dL Glucose (74-99) mg/dL Calcium (8.4-10.2) mg/dL Magnesium (1.6-2.3) mg/dL Total Bilirubin (0.2-1.3) mg/dL AST (14-36) U/L Alkaline Phosphatase (38-126) U/L Total Protein (6.3-8.2) g/dL Albumin (3.5-5.0) g/dL Urine Protein Trace H (Negative) Urine Blood Small H (Negative) Urine RBC 32 H (0-5) /hpf Urine Mucus Rare H (None) /hpf 07/03/24 07/04/24 07/04/24 Range/Units 18:27 06:45 06:45 WBC 1.8 L (3.8-10.6) k/uL RBC 3.75 L (3.80-5.40) m/uL Plt Count 71 L (150-450) k/uL Neutrophils # 1.0 L (1.3-7.7) k/uL Lymphocytes # 0.6 L (1.0-4.8) k/uL PT (10.0-12.5) sec INR (<1.2) APTT (22.0-30.0) sec Sodium 134 L 136 L (137-145) mmol/L Chloride 108 H (98-107) mmol/L Carbon Dioxide 21 L (22-30) mmol/L BUN 24 H 20 H (7-17) mg/dL Glucose 147 H 123 H (74-99) mg/dL Calcium 8.0 L (8.4-10.2) mg/dL Magnesium 1.3 L 1.5 L (1.6-2.3) mg/dL Total Bilirubin 1.7 H 1.8 H (0.2-1.3) mg/dL AST 47 H 38 H (14-36) U/L Alkaline Phosphatase 187 H 169 H (38-126) U/L Total Protein 5.7 L 5.0 L (6.3-8.2) g/dL Albumin 3.0 L 2.5 L (3.5-5.0) g/dL Urine Protein (Negative) Urine Blood (Negative) Urine RBC (0-5) /hpf Urine Mucus (None) /hpf Assessment and Plan Assessment: Increased generalized weakness, altered mental status, fevers in a patient who recently received chemo, within this week, prior secondary to history of breast cancer with mets to the lung, liver , status post partial left mastectomy with a right port access. Pancytopenia secondary to chemotherapy Fever, workup in progress. Acute metabolic encephalopathy secondary to the above. Visual loss affecting both eyes Leukopenia Chronic thrombocytopenia Chronic paroxysmal atrial fibrillation on Eliquis History of DVT History of TIA Hypertension Hypothyroidism Coronary artery disease, history of stents History of liver transplant at [facility] , 2010, on tacrolimus History of alcoholic cirrhosis History of breast cancer Gastroesophageal reflux disease Hypothyroidism Osteoporosis Anxiety, panic disorder Former nicotine dependence Marijuana use Plan: Continue on current medication resume ,monitoring and symptomatic treatment. Maintain empiric antibiotics. CTA pending.blood cultures in progress.neurology consult in place, neuro workup in progress. Infectious disease and oncology following. The impression and plan of care has been dictated as directed. : I performed a history and examination of this patient, discussed the same with the dictator. I agree with the dictator's note ,documented as a scribe. Any additional findings or plans will be noted.
[2024-07-06] MEDS: NYSTATIN 100,000 UNIT/ML SUSP 500,000 UNIT/5 ML CUP PO SCH (08:49)
[2024-07-06] MEDS: ZINC OXIDE PASTE (Z-GUARD) 1 APPLIC TOPICAL PRN (08:57)
[2024-07-06] MEDS: MAGNESIUM SULFATE-D5W PMX 1 GM in DEXTROSE/WATER 1 100ML.BAG IVPB SCH (08:59)
--- NOTE | 2024-07-06 12:12 | P.PN ---
Subjective Progress Note Date: 07/05/24 H&P Date: 07/04/24 This is a 73-year-old female with past medical history significant for breast cancer, liver transplant 2010 on tacrolimus, prior alcohol use, gastroesophageal reflux disease, DVT, osteoporosis, kyphosis, chronic back pain-T12 severe compression deformity status post T10-L2 posterior stabilization and multiple other medical issues presented to the ER with complaints of increasing generalized weakness, confusion-not remembering things, fevers, nausea vomiting. received her first chemo within the week. Denies headache. denies chest pain, palpitations. Denies edema. denies diarrhea, constipation. Denies bloody or black stools. Denies urinary frequency, retention, dysuria or hematuria. Vomiting has subsided .on admission, tachycardic, Tmax 101.8. Lactic acid 1.7 .on admission WBC 6.4, decreased to 1.8. Hemoglobin 13.7, 11.8, platelets 104, 71. INR 1.3, sodium 136, potassium 3.6, bicarb 22, BUN 20, creatinine 0.59. Magnesium added on. T. bili 1.8, AST 38, ALT 26, alk phos 169. UA negative. Viral studies negative.Brain CT reported nonacute. Chest x-ray reported chronic changes, without acute pulmonary process, no significant change from prior. Vancomycin and cefepime initiated 07/05/2024 this morning, more alert. Patient is alert and oriented to person and place. reports she "does not feel like herself." Denies chest pain, palpitations or shortness of breath. Denies nausea or vomiting. Reports minimal abdominal pain. Neurology workup in progress. CTA reported no evidence of PE, dilated main pulmonary artery suggesting pulmonary arterial hypertension. Overall progression of metastatic disease with increasing size of metastatic hepatic lesions and left adrenal gland lesion. Increasing size of right upper lobe pulmonary spiculated mass and peripheral lingular metastatic nodule with additional scattered pulmonary nodules. Stable prominent mediastinal and hilar lymph nodes with marginal increase in size of paraesophageal lymph nodes concerning for metastatic disease. brain MRI, EEG pending. Labs pending. Objective - Vital Signs Vital signs: Vital Signs Temp 98 F 07/05/24 13:27 Pulse 102 H 07/05/24 13:27 Resp 18 07/05/24 13:27 BP 147/73 07/05/24 13:27 Pulse Ox 93 L 07/05/24 13:27 FiO2 Intake & Output 07/04/24 07/05/24 07/05/24 18:59 06:59 18:59 Intake Total 240 Balance 240 Weight 72.076 kg Intake: Oral 240 Other: Voiding Method Bedside Commode Bedside Commode Diaper Diaper Incontinent Incontinent # Voids 2 # Bowel Movements 1 - Exam GENERAL: Alert and oriented x2, lying in bed,No acute distress. HEENT: Normocephalic, atraumatic. Pupils are round, equal, conjunctiva normal CARDIOVASCULAR: S1 and S2 present. No murmurs, rubs, or gallops. PULMONARY: unlabored, equal air entry, CTA, bilateral bases diminished. ABDOMEN: Soft, nontender, nondistended, +BS EXTREMITIES: No cyanosis, clubbing, or pedal edema. NEUROLOGICAL: Limited exam, cranial nerves II through XII grossly intact. SKIN: Warm and dry, No rashes. - Labs CBC & Chem 7: 07/05/24 11:58 07/06/24 05:47 Labs: Abnormal Lab Results - Last 24 Hours (Table) 07/05/24 07/05/24 Range/Units 11:58 11:58 WBC 1.4 L* (3.8-10.6) k/uL RBC 3.31 L (3.80-5.40) m/uL Hgb 10.3 L (11.4-16.0) gm/dL Hct 30.9 L (34.0-46.0) % Plt Count 72 L (150-450) k/uL Neutrophils # (Manual) 0.17 L* (1.3-7.7) k/uL Sodium 133 L (137-145) mmol/L Chloride 108 H (98-107) mmol/L Carbon Dioxide 21 L (22-30) mmol/L Creatinine 0.46 L (0.52-1.04) mg/dL Glucose 127 H (74-99) mg/dL Calcium 7.8 L (8.4-10.2) mg/dL Total Bilirubin 1.9 H (0.2-1.3) mg/dL Alkaline Phosphatase 169 H (38-126) U/L Total Protein 4.8 L (6.3-8.2) g/dL Albumin 2.3 L (3.5-5.0) g/dL Assessment and Plan Assessment: Increased generalized weakness, altered mental status, fevers in a patient who recently received chemo, within this week, prior secondary to history of breast cancer with mets to the lung, liver , adrenal, status post partial left mastectomy with a right port access. Visual changes, affecting both eyes, in a patient with history of cataracts, brain MRI pending. CTA reporting overall progression of metastatic disease with increasing size of metastatic hepatic lesions and left adrenal gland lesion. Increasing size of right upper lobe pulmonary spiculated mass and peripheral lingular metastatic nodule with additional scattered pulmonary nodules. Stable prominent mediastinal and hilar lymph nodes with marginal increase in size of paraesophageal lymph nodes concerning for metastatic disease. Pancytopenia secondary to chemotherapy Fever, workup in progress. Acute metabolic encephalopathy secondary to the above. Leukopenia Chronic thrombocytopenia Chronic paroxysmal atrial fibrillation on Eliquis History of DVT History of TIA Hypertension Hypothyroidism Coronary artery disease, history of stents History of liver transplant at [facility] , 2010, on tacrolimus History of alcoholic cirrhosis History of breast cancer Gastroesophageal reflux disease Hypothyroidism Osteoporosis Anxiety, panic disorder Former nicotine dependence Marijuana use Hypomagnesemia Plan: Continue on current medication resume ,monitoring and symptomatic treatment. Neurology workup in progress. MRI,EEG pending.Potential brain/meningeal mets. magnesium supplements as per replacement protocol ordered. Empiric antibiotics. Infectious disease and oncology following. Pain management. The impression and plan of care has been dictated as directed. : I performed a history and examination of this patient, discussed the same with the dictator. I agree with the dictator's note ,documented as a scribe. Any additional findings or plans will be noted.
[2024-07-06] MEDS: VANCOMYCIN TROUGH DUE 1 EACH MISC MISCELLANE ONE (13:01)
[2024-07-06 14:05] LABS: Basophils # (M) 0.04 X 10*3/uL (0.00-0.10); Elliptocytes 2+; Eosinophils # (M) 0.18 X 10*3/uL (0.04-0.35); HCT 31.5 % (37.2-46.3); HGB 10.5 g/dL (12.0-15.0); Immature Platelet Fraction 16.9 % (1.1-6.1); Lymphocytes # (M) 0.76 X 10*3/uL (0.90-5.00); MCH 30.6 pg (27.0-32.0); MCHC 33.3 g/dL (32.0-37.0); MCV 91.8 FL (80.0-97.0); Mean Platelet Volume 14.1 FL (9.5-12.2); Metamyelocytes % 4 % (0-0); Monocytes # (M) 1.07 X 10*3/uL (0.20-1.00); Myelocytes % 7 % (0-0); NRBC Per 100 WBC 0.06 X 10*3/uL (0.00-0.01); Neutrophils # (M) 1.83 X 10*3/uL (1.80-7.70); Neutrophils % (M) 41 %; Platelet Count 80 X 10*3/uL (140-440); Promyelocytes # (M) 0.09 k/uL (0); Promyelocytes % 2 %; RBC 3.43 X 10*6/uL (4.10-5.20); RDW 14.4 % (11.5-14.5); Toxic Granulation 2+; WBC 4.46 X 10*3/uL (4.50-10.00)
--- NOTE | 2024-07-06 16:01 | P.PN ---
Subjective Progress Note Date: 07/06/24 Following up with the patient and she is accompanied with her daughter who feels her mentation is doing better as well as the nurse feels her mentation is doing better today compared to past couple days. According to the daughter the patient has a history of medical digit degeneration and she has very hard of seeing out of the right eye and may be some in the left but she was still able to see until the last maybe 1 to 2 weeks prior to present to our facility. Patient is having moderate back pain that she is complaining. Objective - Vital Signs Vital signs: Vital Signs Temp 97.6 F 07/06/24 12:28 Pulse 89 07/06/24 12:28 Resp 16 07/06/24 12:28 BP 144/89 07/06/24 12:28 Pulse Ox 93 L 07/06/24 12:28 FiO2 Intake & Output 07/05/24 07/06/24 07/06/24 18:59 06:59 18:59 Intake Total 1530 2412 Balance 1530 2412 Intake: Intake, IV Titration 1050 Amount Cefepime 2 gm In Sodium 200 Chloride 0.9% 100 ml @ 25 mls/hr IVPB Q8H [facility] Rx#: [id number] Sodium Chloride 0.9% 1, 600 000 ml @ 75 mls/hr IV . [id number] [facility] Rx#:[id number] Vancomycin 1,250 mg In 250 Sodium Chloride 0.9% 250 ml @ 125 mls/hr IVPB Q12H [facility] Rx#:[id number] Oral 480 2412 Other: Voiding Method Bedside Commode Bedside Commode Bedside Commode Diaper Diaper Diaper Incontinent Incontinent Incontinent # Voids 1 2 - Exam General: Is lying in bed and is moderate acute distress. Neuro: Limited because of her pain. But the patient is awake alert oriented to self, she correctly stated that she is in the hospital, correctly stated the year and she did not know the month. She is able to follow simple commands. No aphasia. Pupils are equal reactive to light. Visual field over the right is she is unable to see on the left she is unable to see from the left upper quadrant. Extraocular movements intact no nystagmus. No facial weakness. No dysarthria Motor strength somewhat limited because of her pain but was able to lift up arms and and legs above gravity and appears symmetrical. Some of the workup during this hospital visit consisted of: Her initial temperature was 98.6 and has been normal other than 1 episode of 101.8 Fahrenheit. Presentation white blood cell 6.4 thousand and repeated is 1.8K AST is 47. Ammonia is 28. Vitamin B12 is more than 3600. CT of the head is reported as no acute intracranial process. I personally reviewed the CT and I agree with the report. CT angiography of the chest is reported as no evidence of pulmonary embolism. Dilated main pulmonary artery suggesting pulmonary artery hypertension. Overall progression of metastatic disease increasing size of metastatic hepatic lesion and left adrenal gland. Increasing size of the right upper pulmonary spiculated mass and peripheral corneal metastatic nodule with additional scattered pulmonary nodule. Stable prominent mediastinal hilar lymph node with marginal increase in size of the periesophageal lymph node concerning for metastatic disease. MRI of the brain is reported as no evidence of intracranial mass, acute/subacute infarct or abnormal enhancement. Nonspecific white matter changes, likely related to small vessel ischemic disease Routine EEG: Is abnormal. The background slowing is suggestive of mild to moderate encephalopathy. Triphasic morphology is likely due to toxic metabolic derangement. Otherwise there is no focal slowing, OptiForm discharge or seizure on the EEG. - Labs CBC & Chem 7: 07/06/24 05:47 07/06/24 05:47 Labs: Abnormal Lab Results - Last 24 Hours (Table) 07/05/24 07/06/24 07/06/24 Range/Units 11:58 05:47 05:47 WBC 4.46 L (4.50-10.00) X 10*3/uL RBC 3.43 L (4.10-5.20) X 10*6/uL Hgb 10.5 L (12.0-15.0) g/dL Hct 31.5 L (37.2-46.3) % Plt Count 80 L (140-440) X 10*3/uL MPV 14.1 H (9.5-12.2) FL Lymphocytes # (Manual) 0.76 L (0.90-5.00) X 10*3/uL Monocytes # (Manual) 1.07 H (0.20-1.00) X 10*3/uL NRBC/100 WBC Diff 0.06 H (0.00-0.01) X 10*3/uL Toxic Granulation 2+ A Immature Plt Fraction 16.9 H (1.1-6.1) % Elliptocytes 2+ A Sodium 132 L (137-145) mmol/L Chloride 110 H (98-107) mmol/L Carbon Dioxide 19 L (22-30) mmol/L Glucose 100 H (74-99) mg/dL Calcium 8.0 L (8.4-10.2) mg/dL Magnesium 1.2 L (1.6-2.3) mg/dL Total Bilirubin 1.9 H (0.2-1.3) mg/dL AST 38 H (14-36) U/L Alkaline Phosphatase 180 H (38-126) U/L Total Protein 4.8 L (6.3-8.2) g/dL Albumin 2.3 L (3.5-5.0) g/dL Vitamin B12 >3600.0 H (200.0-944.0) pg/mL Microbiology - Last 24 Hours (Table) 07/04/24 13:17 Blood Culture - Preliminary Blood Assessment and Plan Assessment: This is a 73-year-old woman with history of breast cancer with mets to the lung liver and adrenal status post partial left mastectomy and is on chemotherapy last was about 2 weeks ago who presents because of altered mental status and seems to she had a one-time fever in our facility. On examination she has complete visual loss out of the right eye and visual loss for the upper of the left eye. She is on tacrolimus. Spoke with the daughter today she notified me that the patient has macular degeneration and she has visual disturbance out of the right eye and thinks it is over the left eye but she was able to see things until the last 1 to 2 weeks. Worsening Visual loss (complete on right eye and upper quadrant of left eye) and has known macular degeneration but still had some vision: unknown if patient has paraneoplastic process versus metabolic derangement vs medication effect (in rare cases Tacrolimus can cause optic neuropathy). MRI of the brain is negative for stroke or abnormal enhancement/metastasis. I felt possibly there is right frontal meningeal enhancement but I doubt this is cause. Acute encephalopathy with febrile and leukopenia possible due to febrile neutropenia from her chemotherapy/immunotherapy--improving History of breast cancer with mets to lung, liver and adrenal History of alcohol cirrhosis Chronic thrombocytopenia History of macular degeneration with underlying visual disturbance at baseline History of TIA History of DVT on eliquis Memory impairment per medical record History of coronary artery disease status post stent. Plan: I felt there is possibly a right frontal meningeal enhancement but will discuss with the reading radiologist for a second review. I attempted to contact Radiology team in morning and no answer. Will try again later. I ordered MRI orbit w/ and w/o Infection disease is on board as well as oncology is on board. If unknown source of fever consider lumbar puncture. I spoke with Oncology N.P. about possible pursuing lumbar puncture and ordering paraneoplastic process and N.P. from oncology spoke with her and daughter wants to hold off at this current time. Will defer the rest of the medical management to primary and other specialist Overall condition is very guarded. Plan is discussed with patient, her daughter and her nurse who are at bedside. Dr. Vee will resume neurology service tomorrow A.M. Time with Patient: Less than 30
--- NOTE | 2024-07-06 16:05 | P.PN ---
Subjective Progress Note Date: 07/05/24 Patient is a 73-year-old female with a past medical history significant for hypertension reflux CVA TIA cirrhosis of the liver status post liver transplant history of breast cancer in 2019 and recent diagnosis of lung cancer March 2024 with the patient be started on chemotherapy last chemo was on Tuesday before presentation to the hospital, patient has been brought in for mental status changes also spiked a fever prompting this consultation. On today's evaluation that is 07/05/2024,the patient did have improvement in her fever pattern afebrile this morning last temperature was 100 F last evening, patient seem to be slightly confused and try to get of the bed however seems to be breathing comfortably and currently on room air no vomiting diarrhea or any other changes reported by the nursing staff. Patient white count is 1.4 creatinine 0.46 cultures are currently pending Objective - Vital Signs Vital signs: Vital Signs Temp 98 F 07/05/24 13:27 Pulse 102 H 07/05/24 13:27 Resp 18 07/05/24 13:27 BP 147/73 07/05/24 13:27 Pulse Ox 93 L 07/05/24 13:27 FiO2 Intake & Output 07/04/24 07/05/24 07/05/24 18:59 06:59 18:59 Intake Total 240 Balance 240 Weight 72.076 kg Intake: Oral 240 Other: Voiding Method Bedside Commode Bedside Commode Diaper Diaper Incontinent Incontinent # Voids 2 # Bowel Movements 1 - Exam GENERAL DESCRIPTION: An elderly female lying in bed in no distress RESPIRATORY SYSTEM: Unlabored breathing , decreased breath sounds at bases HEART: S1 S2 regular rate and rhythm , ABDOMEN: Soft , no tenderness EXTREMITIES: No edema feet - Labs CBC & Chem 7: 07/06/24 05:47 07/06/24 05:47 Labs: Abnormal Lab Results - Last 24 Hours (Table) 07/05/24 07/05/24 Range/Units 11:58 11:58 WBC 1.4 L* (3.8-10.6) k/uL RBC 3.31 L (3.80-5.40) m/uL Hgb 10.3 L (11.4-16.0) gm/dL Hct 30.9 L (34.0-46.0) % Plt Count 72 L (150-450) k/uL Neutrophils # (Manual) 0.17 L* (1.3-7.7) k/uL Sodium 133 L (137-145) mmol/L Chloride 108 H (98-107) mmol/L Carbon Dioxide 21 L (22-30) mmol/L Creatinine 0.46 L (0.52-1.04) mg/dL Glucose 127 H (74-99) mg/dL Calcium 7.8 L (8.4-10.2) mg/dL Total Bilirubin 1.9 H (0.2-1.3) mg/dL Alkaline Phosphatase 169 H (38-126) U/L Total Protein 4.8 L (6.3-8.2) g/dL Albumin 2.3 L (3.5-5.0) g/dL Assessment and Plan (1) Fever Current Visit: Yes Status: Acute Priority: High Code(s): R50.9 - FEVER, UNSPECIFIED SNOMED Code(s): 846331310 Plan: 1patient with a fever and this patient presented to hospital with mental status changes did have a history of lung cancer currently undergoing chemotherapy with last chemo on Tuesday before presentation to the hospital patient did have a some cough and pain in the right upper quadrant area with a question of possible pneumonia versus hepatocellular disease need to be rule out versus Mediport infections and that was last used on Tuesday. 2patient did have CT angiogram of the chest did not show any consolidation or other progression of her metastatic disease and also mentioned increasing mets to the liver 3patient did have resolution of her fever however etiology remains to be not clear blood culture still pending if issue with the mentation remains consider L P Dictation was produced using [employer] software. please excuse any grammatical, word or spelling errors. Time with Patient: Less than 30
--- NOTE | 2024-07-06 16:05 | P.PN ---
Subjective Progress Note Date: 07/06/24 Principal diagnosis: Reason for follow-up is fever Patient is a 73-year-old female with a past medical history significant for hypertension reflux CVA TIA cirrhosis of the liver status post liver transplant history of breast cancer in 2019 and recent diagnosis of lung cancer March 2024 with the patient be started on chemotherapy last chemo was on Tuesday before presentation to the hospital, patient has been brought in for mental status changes also spiked a fever prompting this consultation. On today's evaluation that is 07/06/2024,the patient remains to be afebrile, patient is on room air not requiring supplemental oxygen and denies any shortness of breath no chest pain or any worsening cough.Patient denies having any nausea or vomiting, no abdominal pain and no diarrhea has been reported mentation slightly better as reported by the nursing staff. Patient white count is 4.46 creatinine 0.53 blood cultures currently pending Objective - Vital Signs Vital signs: Vital Signs Temp 98.0 F 07/06/24 07:02 Pulse 88 07/06/24 07:02 Resp 15 07/06/24 07:02 BP 154/83 07/06/24 07:02 Pulse Ox 94 L 07/06/24 07:02 FiO2 Intake & Output 07/05/24 07/06/24 07/06/24 18:59 06:59 18:59 Intake Total 1530 1916 Balance 1530 1916 Intake: Intake, IV Titration 1050 Amount Cefepime 2 gm In Sodium 200 Chloride 0.9% 100 ml @ 25 mls/hr IVPB Q8H [facility] Rx#: [id number] Sodium Chloride 0.9% 1, 600 000 ml @ 75 mls/hr IV . [id number] [facility] Rx#:[id number] Vancomycin 1,250 mg In 250 Sodium Chloride 0.9% 250 ml @ 125 mls/hr IVPB Q12H [facility] Rx#:[id number] Oral 480 1916 Other: Voiding Method Bedside Commode Bedside Commode Bedside Commode Diaper Diaper Diaper Incontinent Incontinent Incontinent # Voids 1 2 - Exam GENERAL DESCRIPTION: An elderly female lying in bed in no distress RESPIRATORY SYSTEM: Unlabored breathing , decreased breath sounds at bases HEART: S1 S2 regular rate and rhythm , ABDOMEN: Soft , no tenderness EXTREMITIES: No edema feet - Labs CBC & Chem 7: 07/06/24 05:47 07/06/24 05:47 Labs: Abnormal Lab Results - Last 24 Hours (Table) 07/05/24 07/05/24 07/06/24 Range/Units 11:58 11:58 05:47 WBC 1.4 L* (3.8-10.6) k/uL RBC 3.31 L (3.80-5.40) m/uL Hgb 10.3 L (11.4-16.0) gm/dL Hct 30.9 L (34.0-46.0) % Plt Count 72 L (150-450) k/uL Neutrophils # (Manual) 0.17 L* (1.3-7.7) k/uL Sodium 133 L 132 L (137-145) mmol/L Chloride 108 H 110 H (98-107) mmol/L Carbon Dioxide 21 L 19 L (22-30) mmol/L Creatinine 0.46 L (0.52-1.04) mg/dL Glucose 127 H 100 H (74-99) mg/dL Calcium 7.8 L 8.0 L (8.4-10.2) mg/dL Magnesium 1.2 L (1.6-2.3) mg/dL Total Bilirubin 1.9 H 1.9 H (0.2-1.3) mg/dL AST 38 H (14-36) U/L Alkaline Phosphatase 169 H 180 H (38-126) U/L Total Protein 4.8 L 4.8 L (6.3-8.2) g/dL Albumin 2.3 L 2.3 L (3.5-5.0) g/dL Vitamin B12 >3600.0 H (200.0-944.0) pg/mL Microbiology - Last 24 Hours (Table) 07/04/24 13:17 Blood Culture - Preliminary Blood Assessment and Plan (1) Fever Current Visit: Yes Status: Acute Priority: High Code(s): R50.9 - FEVER, UNSPECIFIED SNOMED Code(s): 451204549 Plan: 1patient with a fever and this patient presented to hospital with mental status changes did have a history of lung cancer currently undergoing chemotherapy with last chemo on Tuesday before presentation to the hospital patient did have a some cough and pain in the right upper quadrant area with a question of possible pneumonia versus hepatocellular disease need to be rule out versus Mediport infections and that was last used on Tuesday. 2patient did have CT angiogram of the chest did not show any consolidation or other progression of her metastatic disease and also mentioned increasing mets to the liver 3patient did have resolution of her fever however etiology remains to be not clear blood culture so far negative she is on empiric cefepime and vancomycin however will benefit from further investigation such as LP which has been discussed by neurology and apparently the patient family seem to be holding on it at this point Dictation was produced using [facility] dictation software. please excuse any grammatical, word or spelling errors. Time with Patient: Less than 30
--- NOTE | 2024-07-06 17:39 | P.PN ---
Subjective Progress Note Date: 07/06/24 No acute events, pt A&Ox 2 , lethargic. Pt afebrile. Continues on IV abx. White counts improving, WBC 4.4, ANC 1.8 Objective - Vital Signs Vital signs: Vital Signs Temp 97.6 F 07/06/24 12:28 Pulse 89 07/06/24 12:28 Resp 16 07/06/24 12:28 BP 144/89 07/06/24 12:28 Pulse Ox 93 L 07/06/24 12:28 FiO2 Intake & Output 07/05/24 07/06/24 07/06/24 18:59 06:59 18:59 Intake Total 1530 2152 Balance 1530 2152 Intake: Intake, IV Titration 1050 Amount Cefepime 2 gm In Sodium 200 Chloride 0.9% 100 ml @ 25 mls/hr IVPB Q8H [facility] Rx#: [id number] Sodium Chloride 0.9% 1, 600 000 ml @ 75 mls/hr IV . [id number] [facility] Rx#:[id number] Vancomycin 1,250 mg In 250 Sodium Chloride 0.9% 250 ml @ 125 mls/hr IVPB Q12H [facility] Rx#:[id number] Oral 480 2152 Other: Voiding Method Bedside Commode Bedside Commode Bedside Commode Diaper Diaper Diaper Incontinent Incontinent Incontinent # Voids 1 2 - Constitutional General appearance: Present: average body habitus, no acute distress - EENT Eyes: Present: anicteric sclerae, EOMI ENT: Present: hearing grossly normal - Respiratory Details: breathing is even and unlabored - Cardiovascular Details: skin warm and dry - Gastrointestinal General gastrointestinal: Present: soft. Absent: tenderness - Integumentary Integumentary: Absent: cyanotic - Neurologic Neurologic Comment(s): lethargic, A & O x 2 - Musculoskeletal Musculoskeletal: Present: generalized weakness - Labs CBC & Chem 7: 07/06/24 05:47 07/06/24 05:47 Labs: Abnormal Lab Results - Last 24 Hours (Table) 07/05/24 07/06/24 07/06/24 Range/Units 11:58 05:47 05:47 WBC 4.46 L (4.50-10.00) X 10*3/uL RBC 3.43 L (4.10-5.20) X 10*6/uL Hgb 10.5 L (12.0-15.0) g/dL Hct 31.5 L (37.2-46.3) % Plt Count 80 L (140-440) X 10*3/uL MPV 14.1 H (9.5-12.2) FL Lymphocytes # (Manual) 0.76 L (0.90-5.00) X 10*3/uL Monocytes # (Manual) 1.07 H (0.20-1.00) X 10*3/uL NRBC/100 WBC Diff 0.06 H (0.00-0.01) X 10*3/uL Toxic Granulation 2+ A Immature Plt Fraction 16.9 H (1.1-6.1) % Elliptocytes 2+ A Sodium 132 L (137-145) mmol/L Chloride 110 H (98-107) mmol/L Carbon Dioxide 19 L (22-30) mmol/L Glucose 100 H (74-99) mg/dL Calcium 8.0 L (8.4-10.2) mg/dL Magnesium 1.2 L (1.6-2.3) mg/dL Total Bilirubin 1.9 H (0.2-1.3) mg/dL AST 38 H (14-36) U/L Alkaline Phosphatase 180 H (38-126) U/L Total Protein 4.8 L (6.3-8.2) g/dL Albumin 2.3 L (3.5-5.0) g/dL Vitamin B12 >3600.0 H (200.0-944.0) pg/mL Microbiology - Last 24 Hours (Table) 07/04/24 13:17 Blood Culture - Preliminary Blood Assessment and Plan (1) Altered mental status Current Visit: Yes Status: Acute Priority: High Code(s): R41.82 - ALTERED MENTAL STATUS, UNSPECIFIED SNOMED Code(s): 806898617 (2) Pancytopenia due to antineoplastic chemotherapy Current Visit: Yes Status: Acute Priority: High Code(s): D61.810 - ANTINEOPLASTIC CHEMOTHERAPY INDUCED PANCYTOPENIA; T45.1X5A - ADVERSE EFFECT OF ANTINEOPLASTIC AND IMMUNOSUP DRUGS, INIT SNOMED Code(s): 757364815896497 (3) Triple negative breast cancer Current Visit: Yes Status: Acute Priority: High Code(s): C50.919 - MALIGNANT NEOPLASM OF UNSP SITE OF UNSPECIFIED FEMALE BREAST; Z17.421 - HORMONE RECEPT NEG W HMN EPDRML GRTH FCTR RECEPT 2 NEG STAT SNOMED Code(s): 572001800 Plan: Neutropenic Fever -Chemo given on the , GCSF was given 07/02-no additional GCSF at this time. White counts improving -Blood cultures peripheral and from port ordered, culture negative thus far. CXR neg for acute process, UA not suspicious -Empiric abx cont. Tmax 100F since starting abx -CTA neg for PE. -Has been started on clear liquid due to persisting abd discomfort. Symptoms have improved and white counts are improving. Will start full liquid diet -MRI brain neg. Case discussed with Neurology. Recommendation for LP for possible leptomeningeal mets as pt neuro symptoms are persistent. Discussed this with daughter who would like to hold off on that procedure for now. She would like pt treated first and see how she responds. Pt has shown some improvement in mentation today Hypomagnesemia -Mag replacement per protocol already ordered -Pt home med reordered Pancytopenia / chemo -Hemoglobin 10.5, mild anemia. No acute intervention needed. Transfuse for hemoglobin less than 7 or if patient is symptomatic -Platelets 80,000. No acute intervention needed. Monitor for bleeding. Platelet counts are adequate for anticoagulation at this time. Transfuse for a platelet count less than 10,000 or if patient is symptomatic. -White counts improving, WBC 4.4, ANC 1.8. S/p G-CSF on 07/02. No acute intervention. -CBC daily Triple neg breast cancer -Triple negative breast cancer is a new diagnosis. Unfortunately, metastatic at diagnosis, biopsy from the liver lesion. -Patient had her first cycle of Taxotere on the with G-CSF on the . -There will have to be dose changes in chemo due to exaggerated chemo effects on the bone marrow. Message will be sent to Primary Oncologist. Doctor attests: I performed a history and physical examination of this patient, developed impression and plan of care. Discussed with dictator. I agree with dictators note, documented as a scribe.
--- NOTE | 2024-07-06 21:40 | P.PN ---
Subjective Progress Note Date: 07/06/24 73-year-old female with past medical history significant for breast cancer, liver transplant 2010 on tacrolimus, prior alcohol use, gastroesophageal reflux disease, DVT, osteoporosis, kyphosis, chronic back pain-T12 severe compression deformity status post T10-L2 posterior stabilization and multiple other medical issues presented to the ER with complaints of increasing generalized weakness, confusion-not remembering things, fevers, nausea vomiting.received her first chemo within the week. Denies headache. denies chest pain, palpitations. Denies edema. denies diarrhea, constipation. Denies bloody or black stools. Denies urinary frequency, retention, dysuria or hematuria. Vomiting has subsided .on admission, tachycardic, Tmax 101.8. Lactic acid 1.7 .on admission WBC 6.4, decreased to 1.8. Hemoglobin 13.7, 11.8, platelets 104, 71. INR 1.3, sodium 136, potassium 3.6, bicarb 22, BUN 20, creatinine 0.59. Magnesium added on. T. bili 1.8, AST 38, ALT 26, alk phos 169. UA negative. Viral studies negative.Brain CT reported nonacute. Chest x-ray reported chronic changes, without acute pulmonary process, no significant change from prior. Vancomycin and cefepime initiated Objective - Vital Signs Vital signs: Vital Signs Temp 97.6 F 07/06/24 12:28 Pulse 89 07/06/24 12:28 Resp 16 07/06/24 12:28 BP 144/89 07/06/24 12:28 Pulse Ox 93 L 07/06/24 12:28 FiO2 Intake & Output 07/05/24 07/06/24 07/06/24 18:59 06:59 18:59 Intake Total 1530 2152 Balance 1530 2152 Intake: Intake, IV Titration 1050 Amount Cefepime 2 gm In Sodium 200 Chloride 0.9% 100 ml @ 25 mls/hr IVPB Q8H [facility] Rx#: [id number] Sodium Chloride 0.9% 1, 600 000 ml @ 75 mls/hr IV . [id number] [facility] Rx#:[id number] Vancomycin 1,250 mg In 250 Sodium Chloride 0.9% 250 ml @ 125 mls/hr IVPB Q12H [facility] Rx#:[id number] Oral 480 2152 Other: Voiding Method Bedside Commode Bedside Commode Bedside Commode Diaper Diaper Diaper Incontinent Incontinent Incontinent # Voids 1 2 - Exam GENERAL: Alert and oriented x2, lying in bed,No acute distress. HEENT: Normocephalic, atraumatic. Pupils are round, equal, conjunctiva normal CARDIOVASCULAR: S1 and S2 present. No murmurs, rubs, or gallops. PULMONARY: unlabored, equal air entry, CTA, bilateral bases diminished. ABDOMEN: Soft, nontender, nondistended, +BS EXTREMITIES: No cyanosis, clubbing, or pedal edema. NEUROLOGICAL: Limited exam, cranial nerves II through XII grossly intact. SKIN: Warm and dry, No rashes. - Labs CBC & Chem 7: 07/06/24 05:47 07/06/24 05:47 Labs: Abnormal Lab Results - Last 24 Hours (Table) 07/05/24 07/06/24 Range/Units 11:58 05:47 Sodium 132 L (137-145) mmol/L Chloride 110 H (98-107) mmol/L Carbon Dioxide 19 L (22-30) mmol/L Glucose 100 H (74-99) mg/dL Calcium 8.0 L (8.4-10.2) mg/dL Magnesium 1.2 L (1.6-2.3) mg/dL Total Bilirubin 1.9 H (0.2-1.3) mg/dL AST 38 H (14-36) U/L Alkaline Phosphatase 180 H (38-126) U/L Total Protein 4.8 L (6.3-8.2) g/dL Albumin 2.3 L (3.5-5.0) g/dL Vitamin B12 >3600.0 H (200.0-944.0) pg/mL Microbiology - Last 24 Hours (Table) 07/04/24 13:17 Blood Culture - Preliminary Blood Assessment and Plan Assessment: Increased generalized weakness, altered mental status, fevers in a patient who recently received chemo, within this week, prior secondary to history of breast cancer with mets to the lung, liver , adrenal, status post partial left mastectomy with a right port access. Visual changes, affecting both eyes, in a patient with history of cataracts, brain MRI pending. CTA reporting overall progression of metastatic disease with increasing size of metastatic hepatic lesions and left adrenal gland lesion. Increasing size of right upper lobe pulmonary spiculated mass and peripheral lingular metastatic nodule with additional scattered pulmonary nodules. Stable prominent mediastinal and hilar lymph nodes with marginal increase in size of paraesophageal lymph nodes concerning for metastatic disease. Pancytopenia secondary to chemotherapy Fever, workup in progress. Acute metabolic encephalopathy secondary to the above. Leukopenia Chronic thrombocytopenia Chronic paroxysmal atrial fibrillation on Eliquis History of DVT History of TIA Hypertension Hypothyroidism Coronary artery disease, history of stents History of liver transplant at [facility] , 2010, on tacrolimus History of alcoholic cirrhosis History of breast cancer Gastroesophageal reflux disease Hypothyroidism Osteoporosis Anxiety, panic disorder Former nicotine dependence Marijuana use Hypomagnesemia Plan: Continue on current medication resume ,monitoring and symptomatic treatment. Neurology workup in progress. MRI,EEG pending.Potential brai n/meningeal mets. magnesium supplements as per replacement protocol ordered. Empiric antibiotics. Infectious disease and oncology following. Pain management.
[2024-07-07 09:28] LABS: BUN/Creat Ratio 17.33 Ratio (12.00-20.00); Blood Urea Nitrogen 10.4 mg/dL (9.0-27.0); Glucose 87 mg/dL (70-110)
[2024-07-07 09:29] LABS: ALT 31 U/L (8-44); AST 48 U/L (13-35); Albumin 2.5 g/dL (3.8-4.9); Albumin/Globulin Ratio 1.19 Ratio (1.60-3.17); Alkaline Phosphatase 201 U/L (41-126); Carbon Dioxide 19.1 mmol/L (21.6-31.8); Chloride 106 mmol/L (96-109); Globulin 2.1 g/dL (1.6-3.3); Potassium 3.7 mmol/L (3.5-5.5); Sodium 136 mmol/L (135-145); Total Bilirubin 0.9 mg/dL (0.3-1.2); Total Protein 4.6 g/dL (6.2-8.2)
[2024-07-07 11:32] LABS: Basophils # (M) 0.28 X 10*3/uL (0.00-0.10); Eosinophils # (M) 0.28 X 10*3/uL (0.04-0.35); HCT 32.1 % (37.2-46.3); HGB 10.7 g/dL (12.0-15.0); MCH 31.5 pg (27.0-32.0); MCHC 33.3 g/dL (32.0-37.0); MCV 94.4 FL (80.0-97.0); Mean Platelet Volume 13.5 FL (9.5-12.2); Monocytes # (M) 6.34 X 10*3/uL (0.20-1.00); Myelocytes % 1 % (0-0); NRBC Per 100 WBC 0.41 X 10*3/uL (0.00-0.01); Neutrophils # (M) 17.91 X 10*3/uL (1.80-7.70); Neutrophils % (M) 65 %; Nucleated Red Blood Cells 1 /100 WBCS; Platelet Count 87 X 10*3/uL (140-440); Promyelocytes # (M) 1.38 k/uL (0); Promyelocytes % 5 %; RDW 14.8 % (11.5-14.5); WBC 27.56 X 10*3/uL (4.50-10.00)
--- NOTE | 2024-07-07 14:07 | MR ---
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 TECHNIQUE: Multi planar, multi sequence imaging was performed through the orbits/face. Post contrast imaging was performed after the administration of 7 cc of Gadavist intravenously. FINDINGS: The globes appear symmetrical. Orbital contents are intact. Signal intensity of the optic nerves are within normal limits. The intraorbital fat appears preserved. Both lacrimal glands are u nremarkable. The extraocular muscles appear symmetric. After administration of contrast, no abnormal enhancement is seen. After administration of contrast, no abnormal enhancement is seen within the br ain. The bone marrow signal is within normal limits. Paranasal sinuses and mastoid air cells: No significant paranasal sinus disease. Visualized orbits: Bilateral aphakia. IMPRESSION: No evidence of intraorbital mass or significant abnormality. The globes and orbits are symmetric. No abnormal postcontrast enhancement. [facility], , 07/07/2024 2:05 PM
[2024-07-08] MEDS: APIXABAN 5 MG TAB PO SCH (08:00)
[2024-07-08] MEDS: MAGNESIUM SULFATE-WATER PMX 4 GM in WATER FOR INJECTION 1 100ML.BAG IVPB ONE (08:37)
[2024-07-08] MEDS: ATORVASTATIN 20 MG TAB PO SCH (08:40)
[2024-07-08] MEDS ORDERED: MAGNESIUM SULFATE-D5W PMX 1 GM in DEXTROSE/WATER 1 100ML.BAG IVPB SCH (08:45)
[2024-07-08 09:33] LABS: ALT 28 U/L (8-44); AST 46 U/L (13-35); Albumin 2.3 g/dL (3.8-4.9); Albumin/Globulin Ratio 1.21 Ratio (1.60-3.17); Alkaline Phosphatase 279 U/L (41-126); Blood Urea Nitrogen 11.1 mg/dL (9.0-27.0); Calcium 7.9 mg/dL (8.7-10.3); Carbon Dioxide 16.9 mmol/L (21.6-31.8); Chloride 108 mmol/L (96-109); Globulin 1.9 g/dL (1.6-3.3); Glucose 105 mg/dL (70-110); Potassium 3.5 mmol/L (3.5-5.5); Sodium 137 mmol/L (135-145); Total Bilirubin 0.8 mg/dL (0.3-1.2); Total Protein 4.2 g/dL (6.2-8.2)
[2024-07-08 10:52] LABS: Basophils # (M) 0 X 10*3/uL (0.00-0.10); Eosinophils # (M) 0 X 10*3/uL (0.04-0.35); HCT 32.9 % (37.2-46.3); HGB 10.9 g/dL (12.0-15.0); Lymphocytes # (M) 0 X 10*3/uL (0.90-5.00); MCH 31.1 pg (27.0-32.0); MCHC 33.1 g/dL (32.0-37.0); Metamyelocytes % 1 % (0-0); Monocytes # (M) 4.98 X 10*3/uL (0.20-1.00); Myelocytes % 2 % (0-0); NRBC Per 100 WBC 0.55 X 10*3/uL (0.00-0.01); Neutrophils # (M) 45.38 X 10*3/uL (1.80-7.70); Neutrophils % (M) 82 %; Platelet Count 80 X 10*3/uL (140-440); Promyelocytes # (M) 3.32 k/uL (0); Promyelocytes % 6 %; RDW 15.3 % (11.5-14.5); WBC 55.34 X 10*3/uL (4.50-10.00)
--- NOTE | 2024-07-08 11:05 | P.CRDCN ---
History of Present Illness Consult date: 07/08/24 Consult reason: chest pain, atrial fibrillation History of present illness: This is Tam Lopez NP, I'm dictating on behalf of Dr. Machado's H&P and A&P The patient was interviewed and examined. HPI: Patient is a pleasant 73-year-old female with a past medical history that includes atrial fibrillation, cancer, CVA, DVT, GERD, hypertension, cirrhosis of liver transplant, memory impairment, osteoarthritis, and hypothyroidism who presented to the hospital with altered mental status. Patient came in inappropriate, agitated, with a decreased activity level. She was found to have a fever that was persistent in the emergency department with severe confusion that was worsening. It was discovered the patient had received a chemotherapy treatment approximately 1 week ago. Patient has a secondary history of breast cancer with metastasis to the lung, liver, and is status post partial left mastectomy. Patient was started on IV antibiotics, with infectious disease and oncology consultation. Neurology was also consulted. Patient's mentation has improved throughout the course of her stay, and today is found to be alert and oriented. Cardiology was consulted secondary to the patient going into A-fib with RVR around 2 AM this morning. She also reports some chest pain last night. Patient reports that she feels lousy today. She reports no further chest pain that she is experiencing. She states that she has no palpitations that she can feel. Patient is also denying dizziness, near syncope, and does report some mil d shortness of breath. ROS: [No fever, chills, or rigors] [no cough, phlegm, or expectoration] [no nausea, vomiting, or diarrhea] [no hematuria, dysuria] [no musculoskelatal complaints] [no strokes or seizures] [no skin lesions] EXAMINATION: GENERAL: Well-appearing, well-nourished and in no acute distress. NECK: Supple without JVD or thyromegaly. LUNGS: Breath sounds clear to auscultation bilaterally. Respiration equal and unlabored. No wheezes, rales or rhonchi. HEART: Regular rate and rhythm without murmurs, rubs or gallops. S1 and S2 heard. EXTREMITIES: Normal range of motion, no edema. No clubbing or cyanosis. Peripheral pulses intact and strong. REVIEW OF LABS, ECG & MEDICAL DATA: LABS: White count 27.5, hemoglobin 10.7, platelets 87, sodium 136, potassium 3.7, BUN 10.4, creatinine 0.6, magnesium 1.2, troponin 0.098 hypertension EKG: Atrial fibrillation with rapid ventricular response IMAGING: Brain CT dated 07/03/2024 shows no acute intracranial process, nonspecific white matter changes, likely secondary to chronic small vessel ischemic disease. Chest x-ray dated 07/03/2024 shows chronic changes without acute pulmonary process, no significant change from prior. CT angiogram of the chest dated 07/04/2024 demonstrates no evidence of pulmonary embolism, dilated main pulmonary artery suggesting pulmonary arterial hypertension, overall progression of metastatic disease with increasing size of metastatic hepatic lesions and left adrenal gland lesion, increasing size of right upper lobe pulmonary spiculated mass in the peripheral lingular metastatic nodule with additional scattered pulmonary nodules, stable prominent mediastinal and hilar lymph nodes with marginal increase in size of paraesophageal lymph nodes concerning for metastatic disease. MRI of the brain dated 07/05/2024 demonstrates no evidence of intracranial mass, acute/subacute infarct, or abno rmal enhancement, nonspecific white matter changes, likely related to small vessel ischemic disease. MRI of the orbits with and without contrast dated 07/07/2024 demonstrates no evidence of intraorbital mass or significant abnormality, the globes and orbits are symmetric, no abnormal postcontrast e nhancement. VITALS: Temp 98.3, pulse 94, respirations 18, blood pressure 96/58, O2 saturation 95% on room air IMPRESSION: 1. Atrial fibrillation with rapid ventricular response, patient reports prev ious episode due to low magnesium 2. Hypomagnesemia 3. History of breast cancer with metastatic disease to the lung and liver 4. Pancytopenia secondary to chemotherapy 5. Confusion, possibly secondary to sepsis PLAN: Give magnesium 4 g over 1 hour and attempt to chemically cardiovert the patient. Obtain stat repeat troponin. Consider spironolactone to spare magnesium and potassium. Consider increasing dose of oral magnesium after discharge. Start atorvastatin 20 mg daily. Echocardiogram. If magnesium does not work, start metoprolol 25 mg twice daily. Further recommendations based on patient's clinical course. Thank you for the consult and allowing us to participate in the care of this patient. Past Medical History Past Medical History: Atrial Fibrillation, Cancer, CVA/TIA, Deep Vein Thrombosis (DVT), GERD/Reflux, Hypertension, Liver Disease, Memory Impairment, Osteoarthritis (OA), Thyroid Disorder Additional Past Medical History / Comment(s): CIRRHOSIS WITH LIVER TRANSPLANT (2011), , RIGHT SHOULDER AND LEFT HIP WITH PAIN ( shattered hip 2017), osteoperosis, breast ca 2019. - radiation for 3 monthes cancer free, new dx lung cancer 03/2024. dr Zimmerman watching Kidney numbers History of Any Multi-Drug Resistant Organisms: None Reported Past Surgical History: Breast Surgery, Cholecystectomy, Heart Catheterization With Stent, Hysterectomy Additional Past Surgical History / Comment(s): liver transplant (2011), STATES HEART STENT INSERTED FOR PULMONARY HYPERTENSION WHERE SHE RECEIVED MEDICATION AND THE STENT WAS REMOVED WHEN SHE HAD HER LIVER TRANSPLANT. THYROID NM graves disease. crushed lft hip, lft breast lumpectomy, multiple bone fx Past Anesthesia/Blood Transfusion Reactions: Previous Problems w/ Anesthesia Additional Past Anesthesia/Blood Transfusion Reaction / Comment(s): STATES LAST COLONOSCOPY SHE COULD FEEL EVERYTHING BUT COULD NOT SPEAK TO TELL THEM SHE WAS AWAKE. Sabine gene. 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 Date of Last Stent Placement:: 05/02/2011 Past Psychological History: Anxiety, Panic Disorder, PTSD Smoking Status: Former smoker (25 pk yr Hx of smoking, quit 2010) - Past Family History Mother Family Medical History: Cancer Additional Family Medical History / Comment(s): stomach cancer Father Family Medical History: Cancer Brother(s) Family Medical History: Cancer Medications and Allergies Home Medications Medication Instructions Recorded Confirmed Type Atorvastatin [Lipitor] 10 mg PO DAILY 04/11/16 07/03/24 History DULoxetine HCL [Cymbalta] 20 mg PO DAILY 04/11/16 07/03/24 History Alendronate Sodium [Fosamax] 70 mg PO TU 07/19/17 07/03/24 History Levothyroxine Sodium [Synthroid] 100 mcg PO DAILY 12/08/19 07/03/24 History Famotidine 20 mg PO BID 04/08/23 07/03/24 History Multivit-Min/Iron Fum/Folic AC 1 tab PO Q48H 02/07/24 07/03/24 History [One-A-Day Women's Complete Tab] Tacrolimus [Prograf] 0.5 mg PO BID 02/07/24 07/03/24 History Apixaban [Eliquis] 5 mg PO BID #60 tab 02/10/24 07/03/24 Rx Losartan [Cozaar] 50 mg PO DAILY 06/11/24 07/03/24 History oxyCODONE-APAP 10-325MG [Percocet 1 tab PO Q8HR PRN 06/11/24 07/03/24 History 10-325 mg] Magnesium 250 mg PO HS 07/03/24 07/03/24 History Vitamin B Complex 1 cap PO Q48H 07/03/24 07/03/24 History tiZANidine [Zanaflex] 4 mg PO HS 07/03/24 07/03/24 History Allergies Allergy/AdvReac Type Severity Reaction Status Date / Time gabapentin AdvReac Severe Altered/Let Verified 07/03/24 19:44 hargic Physical Exam Vitals: Vital Signs Temp Pulse Resp BP BP Pulse Ox 07/08/24 07:28 98.3 F 94 18 96/58 95 07/08/24 01:00 101 H 105/74 07/08/24 00:57 97.6 F 105 H 17 104/65 94 L 07/07/24 19:24 98.2 F 93 18 136/80 94 L 07/07/24 13:14 98.1 F 86 17 121/72 97 Intake and Output 07/07/24 07/08/24 07/08/24 22:59 06:59 14:59 Intake Total 480 Balance 480 Intake: Oral 480 Other: Voiding Method Bedside Commode Diaper Incontinent # Voids 2 1 Results 07/08/24 04:18 07/08/24 04:18 Cardiac Enzymes 07/07/24 07/08/24 Range/Units 04:25 01:18 AST 48 H (13-35) U/L Troponin I 0.098 H* (0.000-0.034) ng/mL CBC 07/07/24 Range/Units 04:25 WBC 27.56 H (4.50-10.00) X 10*3/uL RBC 3.40 L (4.10-5.20) X 10*6/uL Hgb 10.7 L (12.0-15.0) g/dL Hct 32.1 L (37.2-46.3) % Plt Count 87 L (140-440) X 10*3/uL Comprehensive Metabolic Panel 07/07/24 Range/Units 04:25 Sodium 136 (135-145) mmol/L Potassium 3.7 (3.5-5.5) mmol/L Chloride 106 (96-109) mmol/L Carbon Dioxide 19.1 L (21.6-31.8) mmol/L BUN 10.4 (9.0-27.0) mg/dL Creatinine 0.6 (0.6-1.5) mg/dL Glucose 87 (70-110) mg/dL Calcium 8.0 L (8.7-10.3) mg/dL AST 48 H (13-35) U/L ALT 31 (8-44) U/L Alkaline Phosphatase 201 H (41-126) U/L Total Protein 4.6 L (6.2-8.2) g/dL Albumin 2.5 L (3.8-4.9) g/dL Current Medications Generic Name Dose Route Start Last Admin Trade Name Freq PRN Reason Stop Dose Admin Apixaban 5 mg 07/08/24 09:00 07/08/24 08:00 Apixaban 5 Mg Tab PO 5 mg BID TAMERA Administration Protocol Atorvastatin Calcium 20 mg 07/08/24 09:00 Atorvastatin 20 Mg Tab PO DAILY TAMERA Docusate Sodium 200 mg 07/05/24 21:00 07/08/24 08:00 Docusate 100 Mg Cap PO 200 mg BID TAMERA Administration Hydromorphone HCl 1 mg 07/05/24 12:02 07/06/24 10:18 Hydromorphone 2 Mg/Ml 1 Ml Syringe IVP 1 mg Q3HR PRN Administration Severe Pain (Scale 7 to 10) Sodium Chloride 1,000 mls @ 75 mls/hr 07/03/24 22:30 07/07/24 20:25 Saline 0.9% IV 75 mls/hr .[id number] TAMERA Administration Cefepime HCl 2 gm/ Sodium 100 mls @ 25 mls/hr 07/04/24 18:00 07/08/24 03:47 Chloride IVPB 25 mls/hr Q8H TAMERA Administration Protocol Vancomycin HCl 1,250 mg/ 250 mls @ 125 mls/hr 07/05/24 00:00 07/08/24 01:15 Sodium Chloride IVPB 125 mls/hr Q12H TAMERA Administration Magnesium Sulfate 4 gm/ IV 100 mls @ 100 mls/hr 07/08/24 08:45 07/08/24 08:37 Solution IVPB 07/08/24 09:44 100 mls/hr ONCE ONE Administration Magnesium Oxide 400 mg 07/05/24 21:00 07/07/24 20:26 Magnesium Oxide 400 Mg Tab PO 400 mg HS TAMERA Administration Naloxone HCl 0.2 mg 07/03/24 22:18 Naloxone 0.4 Mg/Ml 1 Ml Vial IV Q2M PRN Opioid Reversal Nystatin 500,000 unit 07/06/24 09:00 07/08/24 08:00 Nystatin 100,000 Unit/Ml Susp 500,000 Unit/5 Ml Cup PO 500,000 unit QID TAMERA Administration Protocol Ondansetron HCl 4 mg 07/03/24 22:18 Ondansetron 4 Mg/2 Ml Vial IVP Q8HR PRN Nausea And Vomiting Oxycodone/Acetaminophen 1 each 07/05/24 16:04 07/07/24 05:23 Oxycodone-Apap 10-325mg 1 Each Tab PO 1 each Q4HR PRN Administration Pain Petrolatum 1 applic 07/05/24 14:00 07/06/24 08:57 Zinc Oxide Paste (Z-Guard) 1 Applic TOPICAL 1 applic Q2HR PRN Administration Wound Healing Protocol Tacrolimus 0.5 mg 07/03/24 21:30 07/08/24 08:00 Tacrolimus 0.5 Mg Cap PO 0.5 mg BID TAMERA Administration Intake and Output 07/07/24 07/08/24 07/08/24 22:59 06:59 14:59 Intake Total 480 Balance 480 Intake: Oral 480 Other: Voiding Method Bedside Commode Diaper Incontinent # Voids 2 1 07/07/24 04:25 07/07/24 04:25
[2024-07-08] MEDS: METOPROLOL TARTRATE 25 MG TAB PO SCH (11:23)
[2024-07-08] MEDS ORDERED: Potassium Replacement Protocol 1 EACH MISC MISCELLANE PRN (13:18)
[2024-07-08] MEDS: POTASSIUM CHLORIDE ER 20 MEQ TAB.ER PO SCH ×2 (13:22→19:51)
--- NOTE | 2024-07-08 14:42 | P.PN ---
Subjective Progress Note Date: 07/07/24 Principal diagnosis: Reason for follow-up is fever Patient is a 73-year-old female with a past medical history significant for hypertension reflux CVA TIA cirrhosis of the liver status post liver transplant history of breast cancer in 2019 and recent diagnosis of lung cancer March 2024 with the patient be started on chemotherapy last chemo was on Tuesday before presentation to the hospital, patient has been brought in for mental status changes also spiked a fever prompting this consultation. On today's evaluation that is 07/07/2024, the patient continues to be afebrile, the patient is on room air and breathing comfortably, the Pt is more awake and alert today denies any chest pain shortness of breath or cough no vomiting no diarrhea has been reported. Patient white count is 27.56, creatinine 0.6 culture have been negative so far Objective - Vital Signs Vital signs: Vital Signs Temp 98.1 F 07/07/24 13:14 Pulse 86 07/07/24 13:14 Resp 17 07/07/24 13:14 BP 121/72 07/07/24 13:14 Pulse Ox 97 07/07/24 13:14 FiO2 Intake & Output 07/06/24 07/07/24 07/07/24 18:59 06:59 18:59 Intake Total 3984 975 Balance 3984 975 Intake: Intake, IV Titration 975 Amount Cefepime 2 gm In Sodium 100 Chloride 0.9% 100 ml @ 25 mls/hr IVPB Q8H TAMERA Rx#: [id number] Sodium Chloride 0.9% 1, 625 000 ml @ 75 mls/hr IV . [id number] TAMERA Rx#:[id number] Vancomycin 1,250 mg In 250 Sodium Chloride 0.9% 250 ml @ 125 mls/hr IVPB Q12H TAMERA Rx#:[id number] Oral 3984 Other: Voiding Method Bedside Commode Bedside Commode Bedside Commode Diaper Diaper Diaper Incontinent Incontinent Incontinent # Voids 3 2 1 - Exam GENERAL DESCRIPTION: An elderly female lying in bed in no distress RESPIRATORY SYSTEM: Unlabored breathing , decreased breath sounds at bases HEART: S1 S2 regular rate and rhythm , ABDOMEN: Soft , no tenderness EXTREMITIES: No edema feet - Labs CBC & Chem 7: 07/08/24 04:18 07/08/24 04:18 Labs: Abnormal Lab Results - Last 24 Hours (Table) 07/07/24 07/07/24 Range/Units 04:25 04:25 WBC 27.56 H (4.50-10.00) X 10*3/uL RBC 3.40 L (4.10-5.20) X 10*6/uL Hgb 10.7 L (12.0-15.0) g/dL Hct 32.1 L (37.2-46.3) % RDW 14.8 H (11.5-14.5) % Plt Count 87 L (140-440) X 10*3/uL MPV 13.5 H (9.5-12.2) FL Neutrophils # (Manual) 17.91 H (1.80-7.70) X 10*3/uL Monocytes # (Manual) 6.34 H (0.20-1.00) X 10*3/uL Basophils # (Manual) 0.28 H (0.00-0.10) X 10*3/uL NRBC/100 WBC Diff 0.41 H (0.00-0.01) X 10*3/uL Carbon Dioxide 19.1 L (21.6-31.8) mmol/L Calcium 8.0 L (8.7-10.3) mg/dL AST 48 H (13-35) U/L Alkaline Phosphatase 201 H (41-126) U/L Total Protein 4.6 L (6.2-8.2) g/dL Albumin 2.5 L (3.8-4.9) g/dL Albumin/Globulin Ratio 1.19 L (1.60-3.17) Ratio Microbiology - Last 24 Hours (Table) 07/04/24 13:17 Blood Culture - Preliminary Blood Assessment and Plan (1) Fever Current Visit: Yes Status: Acute Priority: High Code(s): R50.9 - FEVER, UNSPECIFIED SNOMED Code(s): 610806145 (2) Leukocytosis Current Visit: Yes Status: Acute Code(s): D72.829 - ELEVATED WHITE BLOOD CELL COUNT, UNSPECIFIED SNOMED Code(s): 060565119 Plan: 1patient with a fever and this patient presented to hospital with mental status changes did have a history of lung cancer currently undergoing chemotherapy with last chemo on Tuesday before presentation to the hospital patient did have a some cough and pain in the right upper quadrant area with a question of possible pneumonia versus hepatocellular disease need to be rule out versus Mediport infections and that was last used on Tuesday. 2patient did have CT angiogram of the chest did not show any consolidation or other progression of her metastatic disease and also mentioned increasing mets to the liver 3patient did have resolution of her fever and culture has been negative so far seem to have shown clinical improvement as well worsening of the white count more likely related to administration of the colony-stimulating factor on the 4we will continue cefepime and vancomycin however culture remained to be negative we will discontinue vancomycin Dictation was produced using [employer] dictation software. please excuse any grammatical, word or spelling errors. Time with Patient: Less than 30
--- NOTE | 2024-07-08 14:44 | P.PN ---
Subjective Progress Note Date: 07/08/24 Principal diagnosis: Reason for follow-up is fever Patient is a 73-year-old female with a past medical history significant for hypertension reflux CVA TIA cirrhosis of the liver status post liver transplant history of breast cancer in 2019 and recent diagnosis of lung cancer March 2024 with the patient be started on chemotherapy last chemo was on Tuesday before presentation to the hospital, patient has been brought in for mental status changes also spiked a fever prompting this consultation. On today's evaluation that is 07/08/2024, Patient is afebrile patient is c urrently on room air and breathing comfortably patient did have issues with A- fib with RVR this morning requiring multiple medication administration patient denies any chest pain occasional cough but no sputum production no nausea vomiting abdominal pain or diarrhea. Patient white count is up to 55.34 creatinine 0.6 blood culture remains to be negative patient did have MRI of the orbit face and neck that was negative Objective - Vital Signs Vital signs: Vital Signs Temp 97.6 F 07/08/24 14:00 Pulse 67 07/08/24 14:00 Resp 18 07/08/24 14:00 BP 125/85 07/08/24 14:00 Pulse Ox 99 07/08/24 14:00 FiO2 Intake & Output 07/07/24 07/08/24 07/08/24 18:59 06:59 18:59 Intake Total 480 200 Balance 480 200 Intake: Oral 480 200 Other: Voiding Method Bedside Commode Bedside Commode Bedside Commode Diaper Diaper Diaper Incontinent Incontinent Incontinent # Voids 2 1 - Exam GENERAL DESCRIPTION: An elderly female lying in bed in no distress RESPIRATORY SYSTEM: Unlabored breathing , decreased breath sounds at bases HEART: S1 S2 regular rate and rhythm , ABDOMEN: Soft , no tenderness EXTREMITIES: No edema feet - Labs CBC & Chem 7: 07/08/24 04:18 07/08/24 04:18 Labs: Abnormal Lab Results - Last 24 Hours (Table) 07/08/24 07/08/24 07/08/24 Range/Units 01:18 04:18 04:18 WBC 55.34 A* (4.50-10.00) X 10*3/uL RBC 3.50 L (4.10-5.20) X 10*6/uL Hgb 10.9 L (12.0-15.0) g/dL Hct 32.9 L (37.2-46.3) % RDW 15.3 H (11.5-14.5) % Plt Count 80 L (140-440) X 10*3/uL Neutrophils # (Manual) 45.38 H (1.80-7.70) X 10*3/uL Lymphocytes # (Manual) 0 L (0.90-5.00) X 10*3/uL Monocytes # (Manual) 4.98 H (0.20-1.00) X 10*3/uL Eosinophils # (Manual) 0 L (0.04-0.35) X 10*3/uL NRBC/100 WBC Diff 0.55 H (0.00-0.01) X 10*3/uL Carbon Dioxide 16.9 L (21.6-31.8) mmol/L Anion Gap 12.10 H (4.00-12.00) mmol/L Calcium 7.9 L (8.7-10.3) mg/dL Magnesium (1.5-2.4) mg/dL AST 46 H (13-35) U/L Alkaline Phosphatase 279 H (41-126) U/L Troponin I 0.098 H* (0.000-0.034) ng/mL Total Protein 4.2 L (6.2-8.2) g/dL Albumin 2.3 L (3.8-4.9) g/dL Albumin/Globulin Ratio 1.21 L (1.60-3.17) Ratio 07/08/24 07/08/24 Range/Units 04:18 13:13 WBC (4.50-10.00) X 10*3/uL RBC (4.10-5.20) X 10*6/uL Hgb (12.0-15.0) g/dL Hct (37.2-46.3) % RDW (11.5-14.5) % Plt Count (140-440) X 10*3/uL Neutrophils # (Manual) (1.80-7.70) X 10*3/uL Lymphocytes # (Manual) (0.90-5.00) X 10*3/uL Monocytes # (Manual) (0.20-1.00) X 10*3/uL Eosinophils # (Manual) (0.04-0.35) X 10*3/uL NRBC/100 WBC Diff (0.00-0.01) X 10*3/uL Carbon Dioxide (21.6-31.8) mmol/L Anion Gap (4.00-12.00) mmol/L Calcium (8.7-10.3) mg/dL Magnesium 1.3 L 2.6 H (1.5-2.4) mg/dL AST (13-35) U/L Alkaline Phosphatase (41-126) U/L Troponin I (0.000-0.034) ng/mL Total Protein (6.2-8.2) g/dL Albumin (3.8-4.9) g/dL Albumin/Globulin Ratio (1.60-3.17) Ratio Microbiology - Last 24 Hours (Table) 07/04/24 13:17 Blood Culture - Preliminary Blood Assessment and Plan (1) Fever Current Visit: Yes Status: Acute Priority: High Code(s): R50.9 - FEVER, UNSPECIFIED SNOMED Code(s): 671235867 (2) Leukocytosis Current Visit: Yes Status: Acute Code(s): D72.829 - ELEVATED WHITE BLOOD CELL COUNT, UNSPECIFIED SNOMED Code(s): 496128032 Plan: 1patient with a fever and this patient presented to hospital with mental status changes did have a history of lung cancer currently undergoing chemotherapy with last chemo on Tuesday before presentation to the hospital patient did have a some cough and pain in the right upper quadrant area with a question of possible pneumonia versus hepatocellular disease need to be rule out versus Mediport infections and that was last used on Tuesday. 2patient did have CT angiogram of the chest did not show any consolidation or other progression of her metastatic disease and also mentioned increasing mets to the liver 3patient did have resolution of her fever and culture has been negative so far seem to have shown clinical improvement as well worsening of the white count more likely related to administration of the G-CSF administration 07/02/2024 4we will go ahead and discontinue vancomycin continue cefepime and monitor clinical course closely Dictation was produced using [employer] dictation software. please excuse any grammatical, word or spelling errors. Time with Patient: Less than 30
--- NOTE | 2024-07-08 16:17 | P.PN ---
Subjective Progress Note Date: 07/07/24 73-year-old female with past medical history significant for breast cancer, liver transplant 2010 on tacrolimus, prior alcohol use, gastroesophageal reflux disease, DVT, osteoporosis, kyphosis, chronic back pain-T12 severe compression deformity status post T10-L2 posterior stabilization and multiple other medical issues presented to the ER with complaints of increasing generalized weakness, confusion-not remembering things, fevers, nausea vomiting.received her first chemo within the week. Denies headache. denies chest pain, palpitations. Denies edema. denies diarrhea, constipation. Denies bloody or black stools. Denies urinary frequency, retention, dysuria or hematuria. Vomiting has subsided .on admission, tachycardic, Tmax 101.8. Lactic acid 1.7 .on admission WBC 6.4, decreased to 1.8. Hemoglobin 13.7, 11.8, platelets 104, 71. INR 1.3, sodium 136, potassium 3.6, bicarb 22, BUN 20, creatinine 0.59. Magnesium added on. T. bili 1.8, AST 38, ALT 26, alk phos 169. UA negative. Viral studies negative.Brain CT reported nonacute. Chest x-ray reported chronic changes, without acute pulmonary process, no significant change from prior. Vancomycin and cefepime initiated 07/07/2024 --the patient continues to be afebrile, the patient is on room air and breathing comfortably, the Pt is more awake and alert today denies any chest pain shortness of breath or cough no vomiting no diarrhea has been reported. Patient white count is 27.56, creatinine 0.6 culture have been negative so far patient with a fever and this patient presented to hospital with mental status changes did have a history of lung cancer currently undergoing chemotherapy with last chemo on Tuesday before presentation to the hospital patient did have a some cough and pain in the right upper quadrant area with a question of possible pneumonia versus hepatocellular disease need to be rule out versus Mediport infections and that was last used on Tuesday. patient did have CT angiogram of the chest did not show any consolidation or other progression of her metastatic disease and also mentioned increasing mets to the liver patient did have resolution of her fever and culture has been negative so far seem to have shown clinical improvement as well worsening of the white count more likely related to administration of the colony-stimulating factor on the we will continue cefepime and vancomycin however culture remained to be negative we will discontinue vancomycin Objective - Vital Signs Vital signs: Vital Signs Temp 97.7 F 07/07/24 07:08 Pulse 91 07/07/24 07:08 Resp 16 07/07/24 07:08 BP 124/72 07/07/24 07:08 Pulse Ox 95 07/07/24 07:08 FiO2 Intake & Output 07/06/24 07/07/24 07/07/24 18:59 06:59 18:59 Intake Total 3984 975 Balance 3984 975 Intake: Intake, IV Titration 975 Amount Cefepime 2 gm In Sodium 100 Chloride 0.9% 100 ml @ 25 mls/hr IVPB Q8H [facility] Rx#: [id number] Sodium Chloride 0.9% 1, 625 000 ml @ 75 mls/hr IV . [id number] [facility] Rx#:[id number] Vancomycin 1,250 mg In 250 Sodium Chloride 0.9% 250 ml @ 125 mls/hr IVPB Q12H [facility] Rx#:[id number] Oral 3984 Other: Voiding Method Bedside Commode Bedside Commode Bedside Commode Diaper Diaper Diaper Incontinent Incontinent Incontinent # Voids 3 2 - Exam GENERAL: Alert and oriented x2, lying in bed,No acute distress. HEENT: Normocephalic, atraumatic. Pupils are round, equal, conjunctiva normal CARDIOVASCULAR: S1 and S2 present. No murmurs, rubs, or gallops. PULMONARY: unlabored, equal air entry, CTA, bilateral bases diminished. ABDOMEN: Soft, nontender, nondistended, +BS EXTREMITIES: No cyanosis, clubbing, or pedal edema. NEUROLOGICAL: Limited exam, cranial nerves II through XII grossly intact. SKIN: Warm and dry, No rashes. - Labs CBC & Chem 7: 07/08/24 04:18 07/08/24 04:18 Labs: Abnormal Lab Results - Last 24 Hours (Table) 07/06/24 07/07/24 Range/Units 05:47 04:25 WBC 4.46 L (4.50-10.00) X 10*3/uL RBC 3.43 L (4.10-5.20) X 10*6/uL Hgb 10.5 L (12.0-15.0) g/dL Hct 31.5 L (37.2-46.3) % Plt Count 80 L (140-440) X 10*3/uL MPV 14.1 H (9.5-12.2) FL Lymphocytes # (Manual) 0.76 L (0.90-5.00) X 10*3/uL Monocytes # (Manual) 1.07 H (0.20-1.00) X 10*3/uL NRBC/100 WBC Diff 0.06 H (0.00-0.01) X 10*3/uL Toxic Granulation 2+ A Immature Plt Fraction 16.9 H (1.1-6.1) % Elliptocytes 2+ A Carbon Dioxide 19.1 L (21.6-31.8) mmol/L Calcium 8.0 L (8.7-10.3) mg/dL AST 48 H (13-35) U/L Alkaline Phosphatase 201 H (41-126) U/L Total Protein 4.6 L (6.2-8.2) g/dL Albumin 2.5 L (3.8-4.9) g/dL Albumin/Globulin Ratio 1.19 L (1.60-3.17) Ratio Microbiology - Last 24 Hours (Table) 07/04/24 13:17 Blood Culture - Preliminary Blood Assessment and Plan Assessment: Increased generalized weakness, altered mental status, fevers in a patient who recently received chemo, within this week, prior secondary to history of breast cancer with mets to the lung, liver , adrenal, status post partial left mastectomy with a right port access. Visual changes, affecting both eyes, in a patient with history of cataracts, brain MRI pending. CTA reporting overall progression of metastatic disease with increasing size of metastatic hepatic lesions and left adrenal gland lesion. Increasing size of right upper lobe pulmonary spiculated mass and peripheral lingular metastatic nodule with additional scattered pulmonary nodules. Stable prominent mediastinal and hilar lymph nodes with marginal increase in size of paraesophageal lymph nodes concerning for metastatic disease. Pancytopenia secondary to chemotherapy Fever, workup in progress. Acute metabolic encephalopathy secondary to the above. Leukopenia Chronic thrombocytopenia Chronic paroxysmal atrial fibrillation on Eliquis History of DVT History of TIA Hypertension Hypothyroidism Coronary artery disease, history of stents History of liver transplant at [facility] , 2010, on tacrolimus History of alcoholic cirrhosis History of breast cancer Gastroesophageal reflux disease Hypothyroidism Osteoporosis Anxiety, panic disorder Former nicotine dependence Marijuana use Hypomagnesemia Plan: Continue on current medication resume ,monitoring and symptomatic treatment. Neurology workup in progress. MRI,EEG pending.Potential br ain/meningeal mets. magnesium supplements as per replacement protocol ordered. Empiric antibiotics. Infectious disease and oncology following. Pain management.
--- NOTE | 2024-07-08 16:19 | P.PN ---
Subjective Progress Note Date: 07/08/24 73-year-old female with past medical history significant for breast cancer, liver transplant 2010 on tacrolimus, prior alcohol use, gastroesophageal reflux disease, DVT, osteoporosis, kyphosis, chronic back pain-T12 severe compression deformity status post T10-L2 posterior stabilization and multiple other medical issues presented to the ER with complaints of increasing generalized weakness, confusion-not remembering things, fevers, nausea vomiting.received her first chemo within the week. Denies headache. denies chest pain, palpitations. Denies edema. denies diarrhea, constipation. Denies bloody or black stools. Denies urinary frequency, retention, dysuria or hematuria. Vomiting has subsided .on admission, tachycardic, Tmax 101.8. Lactic acid 1.7 .on admission WBC 6.4, decreased to 1.8. Hemoglobin 13.7, 11.8, platelets 104, 71. INR 1.3, sodium 136, potassium 3.6, bicarb 22, BUN 20, creatinine 0.59. Magnesium added on. T. bili 1.8, AST 38, ALT 26, alk phos 169. UA negative. Viral studies negative.Brain CT reported nonacute. Chest x-ray reported chronic changes, without acute pulmonary process, no significant change from prior. Vancomycin and cefepime initiated 07/07/2024 --the patient continues to be afebrile, the patient is on room air and breathing comfortably, the Pt is more awake and alert today denies any chest pain shortness of breath or cough no vomiting no diarrhea has been reported. Patient white count is 27.56, creatinine 0.6 culture have been negative so far patient with a fever and this patient presented to hospital with mental status changes did have a history of lung cancer currently undergoing chemotherapy with last chemo on Tuesday before presentation to the hospital patient did have a some cough and pain in the right upper quadrant area with a question of possible pneumonia versus hepatocellular disease need to be rule out versus Mediport infections and that was last used on Tuesday. patient did have CT angiogram of the chest did not show any consolidation or other progression of her metastatic disease and also mentioned increasing mets to the liver patient did have resolution of her fever and culture has been negative so far seem to have shown clinical improvement as well worsening of the white count more likely related to administration of the colony-stimulating factor on the we will continue cefepime and vancomycin however culture remained to be negative we will discontinue vancomycin 07/08/2024 Patient seen at bedside; patient presented to atrial fibrillation with RVR; has been evaluated by cardiology; likely triggered by low magnesium --Patient received magnesium 4 g IV -Troponin slightly elevated; cardiology recommending Lipitor 20 mg daily; recommending to supplement and optimize magnesium with possible plan to discharge on higher dose of oral magnesium sulfate versus starting patient on magnesium and potassium sparing Aldactone; plan to start metoprolol 25 mg twice daily if magnesium does not work Objective - Vital Signs Vital signs: Vital Signs Temp 98.3 F 07/08/24 07:28 Pulse 82 07/08/24 10:46 Resp 18 07/08/24 10:46 BP 113/64 07/08/24 10:46 Pulse Ox 100 07/08/24 10:46 FiO2 Intake & Output 07/07/24 07/08/24 07/08/24 18:59 06:59 18:59 Intake Total 480 Balance 480 Intake: Oral 480 Other: Voiding Method Bedside Commode Bedside Commode Bedside Commode Diaper Diaper Diaper Incontinent Incontinent Incontinent # Voids 2 1 - Exam GENERAL: Alert and oriented x2, lying in bed,No acute distress. HEENT: Normocephalic, atraumatic. Pupils are round, equal, conjunctiva normal CARDIOVASCULAR: S1 and S2 present. No murmurs, rubs, or gallops. PULMONARY: unlabored, equal air entry, CTA, bilateral bases diminished. ABDOMEN: Soft, nontender, nondistended, +BS EXTREMITIES: No cyanosis, clubbing, or pedal edema. NEUROLOGICAL: Limited exam, cranial nerves II through XII grossly intact. SKIN: Warm and dry, No rashes. - Labs CBC & Chem 7: 07/08/24 04:18 07/08/24 04:18 Labs: Abnormal Lab Results - Last 24 Hours (Table) 07/08/24 07/08/24 07/08/24 Range/Units 01:18 04:18 04:18 WBC 55.34 A* (4.50-10.00) X 10*3/uL RBC 3.50 L (4.10-5.20) X 10*6/uL Hgb 10.9 L (12.0-15.0) g/dL Hct 32.9 L (37.2-46.3) % RDW 15.3 H (11.5-14.5) % Plt Count 80 L (140-440) X 10*3/uL Neutrophils # (Manual) 45.38 H (1.80-7.70) X 10*3/uL Lymphocytes # (Manual) 0 L (0.90-5.00) X 10*3/uL Monocytes # (Manual) 4.98 H (0.20-1.00) X 10*3/uL Eosinophils # (Manual) 0 L (0.04-0.35) X 10*3/uL NRBC/100 WBC Diff 0.55 H (0.00-0.01) X 10*3/uL Carbon Dioxide 16.9 L (21.6-31.8) mmol/L Anion Gap 12.10 H (4.00-12.00) mmol/L Calcium 7.9 L (8.7-10.3) mg/dL AST 46 H (13-35) U/L Alkaline Phosphatase 279 H (41-126) U/L Troponin I 0.098 H* (0.000-0.034) ng/mL Total Protein 4.2 L (6.2-8.2) g/dL Albumin 2.3 L (3.8-4.9) g/dL Albumin/Globulin Ratio 1.21 L (1.60-3.17) Ratio Microbiology - Last 24 Hours (Table) 07/04/24 13:17 Blood Culture - Preliminary Blood Assessment and Plan Assessment: Increased generalized weakness, altered mental status, fevers in a patient who recently received chemo, within this week, prior secondary to history of breast cancer with mets to the lung, liver , adrenal, status post partial left m astectomy with a right port access. Visual changes, affecting both eyes, in a patient with history of cataracts, brain MRI pending. CTA reporting overall progression of metastatic disease with increasing size of metastatic hepatic lesions and left adrenal gland lesion. Increasing size of right upper lobe pulmonary spiculated mass and peripheral lingular metastatic nodule with additional scattered pulmonary nodules. Stable prominent mediastinal and hilar lymph nodes with marginal increase in size of paraesophageal lymph nodes concerning for metastatic disease. Pancytopenia secondary to chemotherapy Fever, workup in progress. Acute metabolic encephalopathy secondary to the above. Leukopenia Chronic thrombocytopenia Chronic paroxysmal atrial fibrillation on Eliquis History of DVT History of TIA Hypertension Hypothyroidism Coronary artery disease, history of stents History of liver transplant at [facility] , 2010, on tacrolimus History of alcoholic cirrhosis History of breast cancer Gastroesophageal reflux disease Hypothyroidism Osteoporosis Anxiety, panic disorder Former nicotine dependence Marijuana use Hypomagnesemia Plan: Continue on current medication resume ,monitoring and symptomatic treatment. Neurology workup in progress. MRI,EEG pending.Potential brain/meningeal mets. magnesium supplements as per replacement protocol ordered. Empiric antibiotics. Infectious disease and oncology following. Pain management.
[2024-07-08] MEDS: ONDANSETRON 4 MG/2 ML VIAL IVP PRN (19:52)
[2024-07-09] MEDS: POTASSIUM CHLORIDE ER 20 MEQ TAB.ER PO STA (01:58)
[2024-07-09 10:56] LABS: HCT 33.6 % (34.0-46.0); HGB 10.9 gm/dL (11.4-16.0); MCH 30.5 pg (25.0-35.0); MCHC 32.4 g/dL (31.0-37.0); MCV 94.3 fL (80.0-100.0); Mean Platelet Volume 11.8; Poikilocytosis Slight; RBC 3.56 m/uL (3.80-5.40); RDW 15.4 % (11.5-15.5)
[2024-07-09 10:58] LABS: Platelet Count 81 k/uL (150-450)
[2024-07-09] MEDS ORDERED: VANCOMYCIN TROUGH DUE 1 EACH MISC MISCELLANE ONE (11:00)
[2024-07-09 11:05] LABS: African American GFR (CKD) >90 (>60 ml/min/1.73 sqM); Non-African American GFR(CKD) >90 (>60 ml/min/1.73 sqM)
[2024-07-09 11:20] LABS: Band Neutrophils % 1 %; Metamyelocytes % 3 %; Myelocytes % 1 %; Neutrophils % (M) 87 %; Nucleated Red Blood Cells 3 /100 WBC (0-0); Total Cells Counted 200
[2024-07-09 11:21] LABS: Lymphocytes # (M) 2.78 k/uL (1.0-4.8); Metamyelocytes # (M) 1.67 k/uL (0); Monocytes # (M) 2.22 k/uL (0-1.0); Myelocytes # (M) 0.56 k/uL (0); WBC 55.5 k/uL (3.8-10.6)
--- NOTE | 2024-07-09 12:34 | P.PN ---
Subjective Progress Note Date: 07/09/24 Consult reason: chest pain, atrial fibrillation History of present illness: This is Tam Lopez NP, I'm dictating on behalf of Dr. Machado's H&P and A&P The patient was interviewed and examined. HPI: Patient is a pleasant 73-year-old female with a past medical history that includes atrial fibrillation, cancer, CVA, DVT, GERD, hypertension, cirrhosis of liver transplant, memory impairment, osteoarthritis, and hypothyroidism who presented to the hospital with altered mental status. Patient came in inappropriate, agitated, with a decreased activity level. She was found to have a fever that was persistent in the emergency department with severe confusion that was worsening. It was discovered the patient had received a chemotherapy treatment approximately 1 week ago. Patient has a secondary history of breast cancer with metastasis to the lung, liver, and is status post partial left mastectomy. Patient was started on IV antibiotics, with infectious disease and oncology consultation. Neurology was also consulted. Patient's mentation has improved throughout the course of her stay, and today is found to be alert and oriented. Cardiology was consulted secondary to the patient going into A-fib with RVR around 2 AM this morning. She also reports some chest pain last night. Patient reports that she feels lousy today. She reports no further chest pain that she is experiencing. She states that she has no palpitations that she can feel. Patient is also denying dizziness, near syncope, and does report some mild shortness of breath. REVIEW OF LABS, ECG & MEDICAL DATA: LABS: White count 27.5, hemoglobin 10.7, platelets 87, sodium 136, potassium 3.7, BUN 10.4, creatinine 0.6, magnesium 1.2, troponin 0.098 hypertension EKG: Atrial fibrillation with rapid ventricular response IMAGING: Brain CT dated 07/03/2024 shows no acute intracranial process, nonspecific white matter changes, likely secondary to chronic small vessel ischemic disease. Chest x-ray dated 07/03/2024 shows chronic changes without acute pulmonary process, no significant change from prior. CT angiogram of the chest dated 07/04/2024 demonstrates no evidence of pulmonary embolism, dilated main pulmonary artery suggesting pulmonary arterial hypertension, overall progression of metastatic disease with increasing size of metastatic hepatic lesions and left adrenal gland lesion, increasing size of right upper lobe pulmonary spiculated mass in the peripheral lingular metastatic nodule with additional scattered pulmonary nodules, stable prominent mediastinal and hilar lymph nodes with marginal increase in size of paraesophageal lymph nodes co ncerning for metastatic disease. MRI of the brain dated 07/05/2024 demonstrates no evidence of intracranial mass, acute/subacute infarct, or abnormal enhancement, nonspecific white matter changes, likely related to small vessel ischemic disease. MRI of the orbits with and without contrast dated 07/07/2024 demonstrates no evidence of intraorbital mass or significant abnormality, the globes and orbits are symmetric, no abnormal postcontrast enhancement. VITALS: Temp 98.3, pulse 94, respirations 18, blood pressure 96/58, O2 saturation 95% on room air 07/09 Patient is seen and examined. She is status post magnesium 4 g over 1 hour. Patient converted to sinus rhythm yesterday evening. EKG ordered to confirm. Blood pressure 115/79, heart rate in the 60s, pulse ox 94% on room air. Repeat blood work reveals WBC 55.5, hemoglobin 10.9, platelet count 81. Creatinine 0.6, potassium 4.2. Troponins from yesterday were 0.098 and 0.021. EXAMINATION: GENERAL: Well-appearing, well-nourished and in no acute distress. NECK: Supple without JVD or thyromegaly. LUNGS: Breath sounds clear to auscultation bilaterally. Respiration equal and unlabored. No wheezes, rales or rhonchi. HEART: Regular rate and rhythm without murmurs, rubs or gallops. S1 and S2 heard. EXTREMITIES: Normal range of motion, no edema. No clubbing or cyanosis. Peripheral pulses intact and strong. IMPRESSION: 1. Atrial fibrillation with rapid ventricular response, patient reports previous episode due to low magnesium, converted to sinus rhythm 2. Hypomagnesemia status post replacement 3. History of breast cancer with metastatic disease to the lung and liver 4. Pancytopenia secondary to chemotherapy 5. Confusion, possibly secondary to sepsis PLAN: Continue current cardiac medications: Eliquis 5 mg twice daily, atorvastatin 20 mg daily, Lopressor 25 mg twice daily Consider spironolactone to spare magnesium and potassium. Consider increasing dose of oral magnesium after discharge. Echocardiogram. Further recommendations based on patient's clinical course. Nurse practitioner note has been reviewed, I agree with documented findings and plan of care. Patient was seen and examined. Objective - Vital Signs Vital signs: Vital Signs Temp 98.4 F 07/09/24 07:51 Pulse 66 07/09/24 07:51 Resp 18 07/09/24 07:51 BP 115/69 07/09/24 07:51 Pulse Ox 96 07/09/24 09:17 FiO2 Intake & Output 07/08/24 07/09/24 07/09/24 18:59 06:59 18:59 Intake Total 200 200 Output Total 4 Balance 196 200 Intake: Oral 200 200 Output: Urine/Stool Mix 4 Other: Voiding Method Bedside Commode Diaper Diaper Diaper Incontinent Incontinent Incontinent # Voids 1 - Labs CBC & Chem 7: 07/09/24 10:12 07/09/24 10:12 Labs: Abnormal Lab Results - Last 24 Hours (Table) 07/06/24 07/08/24 07/08/24 Range/Units 05:47 04:18 13:13 WBC (3.8-10.6) k/uL RBC (3.80-5.40) m/uL Hgb (11.4-16.0) gm/dL Hct (34.0-46.0) % Plt Count (150-450) k/uL Neutrophils # (Manual) (1.3-7.7) k/uL Monocytes # (Manual) (0-1.0) k/uL Metamyelocytes # (Man) (0) k/uL Myelocytes # (Manual) (0) k/uL Promyelocytes # (Man) 0.09 H (0) k/uL Nucleated RBCs (0-0) /100 WBC Potassium (3.5-5.1) mmol/L Magnesium 1.3 L 2.6 H (1.5-2.4) mg/dL 07/08/24 07/09/24 Range/Units 18:10 10:12 WBC 55.5 H* (3.8-10.6) k/uL RBC 3.56 L (3.80-5.40) m/uL Hgb 10.9 L (11.4-16.0) gm/dL Hct 33.6 L (34.0-46.0) % Plt Count 81 L (150-450) k/uL Neutrophils # (Manual) 48.80 H (1.3-7.7) k/uL Monocytes # (Manual) 2.22 H (0-1.0) k/uL Metamyelocytes # (Man) 1.67 H (0) k/uL Myelocytes # (Manual) 0.56 H (0) k/uL Promyelocytes # (Man) (0) k/uL Nucleated RBCs 3 H (0-0) /100 WBC Potassium 3.3 L (3.5-5.1) mmol/L Magnesium (1.5-2.4) mg/dL
--- NOTE | 2024-07-09 19:56 | P.PN ---
Subjective Progress Note Date: 07/09/24 Principal diagnosis: AMS, fever. S/P 1st cycle of treatment for metastatic triple neg breast cancer In f/u today pt reports feeling fairly well. She thinks that her pain is contr olled on her oral pain meds, this was adjusted to have it available more frequently for her. No recent fevers. Her white blood cell count is significantly elevated, she is denying any new or worse bone pain. She denies N,V, it is documented bowel movement x 3 today. No other new complaints Objective - Vital Signs Vital signs: Vital Signs Temp 98.4 F 07/09/24 07:51 Pulse 66 07/09/24 07:51 Resp 18 07/09/24 07:51 BP 115/69 07/09/24 07:51 Pulse Ox 96 07/09/24 09:17 FiO2 Intake & Output 07/08/24 07/09/24 07/09/24 18:59 06:59 18:59 Intake Total 200 200 Output Total 4 Balance 196 200 Intake: Oral 200 200 Output: Urine/Stool Mix 4 Other: Voiding Method Bedside Commode Diaper Diaper Diaper Incontinent Incontinent Incontinent # Voids 1 - Constitutional General appearance: Present: cooperative, no acute distress, obese - EENT Eyes: Present: anicteric sclerae, EOMI ENT: Present: hearing grossly normal - Respiratory Details: resp even and unlabored at rest - Cardiovascular Details: skin warm, well perfused - Peripheral edema leg Peripheral Edema: bilateral: Trace - Neurologic Neurologic: Present: CNII-XII intact (grossly) - Musculoskeletal Musculoskeletal: Present: generalized weakness - Psychiatric Psychiatric: Present: A&O x's 3 - Labs CBC & Chem 7: 07/09/24 10:12 07/09/24 10:12 Labs: Abnormal Lab Results - Last 24 Hours (Table) 07/06/24 07/08/24 07/08/24 Range/Units 05:47 13:13 18:10 WBC (3.8-10.6) k/uL RBC (3.80-5.40) m/uL Hgb (11.4-16.0) gm/dL Hct (34.0-46.0) % Plt Count (150-450) k/uL Neutrophils # (Manual) (1.3-7.7) k/uL Monocytes # (Manual) (0-1.0) k/uL Metamyelocytes # (Man) (0) k/uL Myelocytes # (Manual) (0) k/uL Promyelocytes # (Man) 0.09 H (0) k/uL Nucleated RBCs (0-0) /100 WBC Potassium 3.3 L (3.5-5.1) mmol/L Magnesium 2.6 H (1.6-2.3) mg/dL 07/09/24 Range/Units 10:12 WBC 55.5 H* (3.8-10.6) k/uL RBC 3.56 L (3.80-5.40) m/uL Hgb 10.9 L (11.4-16.0) gm/dL Hct 33.6 L (34.0-46.0) % Plt Count 81 L (150-450) k/uL Neutrophils # (Manual) 48.80 H (1.3-7.7) k/uL Monocytes # (Manual) 2.22 H (0-1.0) k/uL Metamyelocytes # (Man) 1.67 H (0) k/uL Myelocytes # (Manual) 0.56 H (0) k/uL Promyelocytes # (Man) (0) k/uL Nucleated RBCs 3 H (0-0) /100 WBC Potassium (3.5-5.1) mmol/L Magnesium (1.6-2.3) mg/dL - Imaging and Cardiology MRI - head: report reviewed Assessment and Plan (1) Fever Current Visit: Yes Status: Acute Priority: High Code(s): R50.9 - FEVER, UNSPECIFIED SNOMED Code(s): 762358785 (2) Altered mental status Current Visit: Yes Status: Acute Priority: High Code(s): R41.82 - ALTERED MENTAL STATUS, UNSPECIFIED SNOMED Code(s): 746727602 (3) Triple negative breast cancer Current Visit: Yes Status: Acute Priority: High Code(s): C50.919 - MALIGNANT NEOPLASM OF UNSP SITE OF UNSPECIFIED FEMALE BREAST; Z17.421 - HORMONE RECEPT NEG W HMN EPDRML GRTH FCTR RECEPT 2 NEG STAT SNOMED Code(s): 060609557 (4) Pancytopenia due to antineoplastic chemotherapy Current Visit: Yes Status: Acute Priority: High Code(s): D61.810 - ANTINEOPLASTIC CHEMOTHERAPY INDUCED PANCYTOPENIA; T45.1X5A - ADVERSE EFFECT OF ANTINEOPLASTIC AND IMMUNOSUP DRUGS, INIT SNOMED Code(s): 096781678464574 Plan: Neutropenic Fever -Chemo given on the , patient is at the end of audra. The initial significant impact on her white blood cell count has recovered rather dramatically with a WBC today of 55. -GCSF was given 07/02-significant increase in WBCs/ANC count -Blood culture from port neg at 72 hours. ordered. Infectious disease is now following patient -Empiric abx cont. no recent fevers -CTA neg for PE. -Patient's diet has been advanced to a full liquid. She should be okay to continue to advance diet as tolerated. -MRI brain neg. Case discussed with Neurology. Recommendation for LP for possible leptomeningeal mets as pt neuro symptoms are persistent. Previously this was discussed with daughter who wanted to hold off. Patient does seem to be doing better over the last few days. Will continue to hold off on any LP at this time. -Reviewed most recent Neurology note. MRI of the orbits report was reviewed, no unusual findings reported. We will continue to follow Neurology's assessment and recommendations. Hypomagnesemia -Mag replacement per protocol already ordered -Pt home med reordered -Magnesium level was elevated on 07/08, magnesium supplementation has been held. Pancytopenia 2/2 chemo -Hemoglobin 10.9 mild anemia. No acute intervention needed. Transfuse for hemoglobin less than 7 or if patient is symptomatic -Platelets 81,000. No acute intervention needed. Monitor for bleeding. Platelet counts are adequate for anticoagulation at this time. Transfuse for a platelet count less than 10,000 or if patient is symptomatic. -WBC 55. Patient received G-CSF 7 days ago. Anticipate WBC to stabilize in the next 2-3 days. No acute intervention. -CBC daily Triple neg breast cancer -Triple negative breast cancer is a new diagnosis. Unfortunately, metastatic at diagnosis, biopsy from the liver lesion. -Patient had her first cycle of Taxotere on the with G-CSF on the . -Initially it was felt there would have to be dose changes in chemo due to exaggerated chemo effects on the bone marrow. Primary Oncologist will be updated on pt case. Further decisions regarding treatment will be made with pt and family Back pain -Chronic, likely an acute component as well -Home med Percocet was made available every 4 hours. Pt is reporting adequate pain control most of the time -Colace added to prevent narcotic induced constipation-3BMs documented today History of hormone receptor positive breast cancer, treated with surgery and radiation, patient declined adjuvant chemotherapy, was on AI since 2019, discontinued with new diagnosis. Doctor attests: I performed a history and physical examination of this patient, developed impression and plan of care. Discussed with dictator. I agree with dictators note, documented as a scribe.
--- NOTE | 2024-07-09 22:06 | P.PN ---
Subjective Progress Note Date: 07/09/24 73-year-old female with past medical history significant for breast cancer, liver transplant 2010 on tacrolimus, prior alcohol use, gastroesophageal reflux disease, DVT, osteoporosis, kyphosis, chronic back pain-T12 severe compression deformity status post T10-L2 posterior stabilization and multiple other medical issues presented to the ER with complaints of increasing generalized weakness, confusion-not remembering things, fevers, nausea vomiting.received her first chemo within the week. Denies headache. denies chest pain, palpitations. Denies edema. denies diarrhea, constipation. Denies bloody or black stools. Denies urinary frequency, retention, dysuria or hematuria. Vomiting has subsided .on admission, tachycardic, Tmax 101.8. Lactic acid 1.7 .on admission WBC 6.4, decreased to 1.8. Hemoglobin 13.7, 11.8, platelets 104, 71. INR 1.3, sodium 136, potassium 3.6, bicarb 22, BUN 20, creatinine 0.59. Magnesium added on. T. bili 1.8, AST 38, ALT 26, alk phos 169. UA negative. Viral studies negative.Brain CT reported nonacute. Chest x-ray reported chronic changes, without acute pulmonary process, no significant change from prior. Vancomycin and cefepime initiated 07/07/2024 --the patient continues to be afebrile, the patient is on room air and breathing comfortably, the Pt is more awake and alert today denies any chest pain shortness of breath or cough no vomiting no diarrhea has been reported. Patient white count is 27.56, creatinine 0.6 culture have been negative so far patient with a fever and this patient presented to hospital with mental status changes did have a history of lung cancer currently undergoing chemotherapy with last chemo on Tuesday before presentation to the hospital patient did have a some cough and pain in the right upper quadrant area with a question of possible pneumonia versus hepatocellular disease need to be rule out versus Mediport infections and that was last used on Tuesday. patient did have CT angiogram of the chest did not show any consolidation or other progression of her metastatic disease and also mentioned increasing mets to the liver patient did have resolution of her fever and culture has been negative so far seem to have shown clinical improvement as well worsening of the white count more likely related to administration of the colony-stimulating factor on the we will continue cefepime and vancomycin however culture remained to be negative we will discontinue vancomycin 07/08/2024 Patient seen at bedside; patient presented to atrial fibrillation with RVR; has been evaluated by cardiology; likely triggered by low magnesium --Patient received magnesium 4 g IV -Troponin slightly elevated; cardiology recommending Lipitor 20 mg daily; recommending to supplement and optimize magnesium with possible plan to discharge on higher dose of oral magnesium sulfate versus starting patient on magnesium and potassium sparing Aldactone; plan to start metoprolol 25 mg twice daily if magnesium does not work 07/09/2024 Patient is evaluated today in follow up on the medical floor. Patients heart rate is now controlled. Cardiology following, hematology following. WBC 55 today. Patient remains fatigued. Patient is pending acceptance at [facility] for discharge. Review of Systems Constitutional: Denied any fatigue denied any fever. Cardio vascular: denied any chest pain, palpitations Gastrointestinal: denied any nausea, vomiting, diarrhea Pulmonary: Denied any shortness of breath cough Neurologic denied any new focal deficits All inpatient medications were reviewed and appropriate changes in these medications as dictated in the interval history and assessment and plan. The impression and plan of care has been dictated by Nurse Gopi Practiti anson as directed. Dr. Wiliam MD I have performed a history and physical examination and medical decision making of this patient, discussed the same with the dictator, and agree with the dictators assessment and plan as written, documented as a scribe. Based on total visit time, I have performed more than 50% of this visit. PHYSICAL EXAMINATION: GENERAL: The patient is alert and oriented x3, not in any acute distress. Well developed, well nourished. HEENT: Pupils are round and equally reacting to light. EOMI. No scleral icterus. No conjunctival pallor. Normocephalic, atraumatic. No pharyngeal erythema. No thyromegaly. CARDIOVASCULAR: S1 and S2 present. No murmurs, rubs, or gallops. PULMONARY: Chest is clear to auscultation, no wheezing or crackles. ABDOMEN: Soft, nontender, nondistended, normoactive bowel sounds. No palpable organomegaly. MUSCULOSKELETAL: No joint swelling or deformity. EXTREMITIES: No cyanosis, clubbing, or pedal edema. NEUROLOGICAL: Gross neurological examination did not reveal any focal deficits. SKIN: No rashes. Assessment and Plan Increased generalized weakness, altered mental status, fevers in a patient who recently received chemo, within this week, prior secondary to history of breast cancer with mets to the lung, liver , adrenal, status post partial left mastectomy with a right port access. Visual changes, affecting both eyes, in a patient with history of cataracts, brain MRI negative. CTA reporting overall progression of metastatic disease with increasing size of metastatic hepatic lesions and left adrenal gland lesion. Increasing size of right upper lobe pulmonary spiculated mass and peripheral lingular metastatic nodule with additional scattered pulmonary nodules. Stable prominent mediastinal and hilar lymph nodes with marginal increase in size of paraesophageal lymph nodes concerning for metastatic disease. Pancytopenia secondary to chemotherapy now with WBC of 55. Fever, felt due to G-CSF and chemotherapy administration week prior to admission. Acute metabolic encephalopathy secondary to the above. Leukopenia Chronic thrombocytopenia Chronic paroxysmal atrial fibrillation on Eliquis History of DVT History of TIA Hypertension Hypothyroidism Coronary artery disease, history of stents History of liver transplant at [facility] , 2010, on tacrolimus History of alcoholic cirrhosis History of breast cancer Gastroesophageal reflux disease Hypothyroidism Osteoporosis Anxiety, panic disorder Former nicotine dependence Marijuana use Hypomagnesemia Plan: Continue on current medication resume ,monitoring and symptomatic treatment. Neurology workup in progress. MRI completed with no evidence of metastasis. magnesium supplements as per replacement protocol ordered. Patient will be monitored off antibiotics at this time and. Infectious disease and oncology following. Hematology following. CBC, BMP will be repeated in the AM. Pending DC to [facility]. The impression and plan of care has been dictated by Emerita Mccloud, Nurse Practitioner as directed. Dr. Wiliam MD I have performed a history and physical examination and medical decision making of this patient, discussed the same with the dictator, and agree with the dictators assessment and plan as written, documented as a scribe. Based on total visit time, I have performed more than 50% of this visit. Objective - Vital Signs Vital signs: Vital Signs Temp 98.4 F 07/09/24 07:51 Pulse 66 07/09/24 07:51 Resp 18 07/09/24 07:51 BP 115/69 07/09/24 07:51 Pulse Ox 96 07/09/24 09:17 FiO2 Intake & Output 07/08/24 07/09/24 07/09/24 18:59 06:59 18:59 Intake Total 200 200 Output Total 4 Balance 196 200 Intake: Oral 200 200 Output: Urine/Stool Mix 4 Other: Voiding Method Bedside Commode Diaper Diaper Diaper Incontinent Incontinent Incontinent # Voids 1 - Labs CBC & Chem 7: 07/09/24 10:12 07/09/24 10:12 Labs: Abnormal Lab Results - Last 24 Hours (Table) 07/06/24 07/08/24 07/08/24 Range/Units 05:47 13:13 18:10 WBC (3.8-10.6) k/uL RBC (3.80-5.40) m/uL Hgb (11.4-16.0) gm/dL Hct (34.0-46.0) % Plt Count (150-450) k/uL Neutrophils # (Manual) (1.3-7.7) k/uL Monocytes # (Manual) (0-1.0) k/uL Metamyelocytes # (Man) (0) k/uL Myelocytes # (Manual) (0) k/uL Promyelocytes # (Man) 0.09 H (0) k/uL Nucleated RBCs (0-0) /100 WBC Potassium 3.3 L (3.5-5.1) mmol/L Magnesium 2.6 H (1.6-2.3) mg/dL 07/09/24 Range/Units 10:12 WBC 55.5 H* (3.8-10.6) k/uL RBC 3.56 L (3.80-5.40) m/uL Hgb 10.9 L (11.4-16.0) gm/dL Hct 33.6 L (34.0-46.0) % Plt Count 81 L (150-450) k/uL Neutrophils # (Manual) 48.80 H (1.3-7.7) k/uL Monocytes # (Manual) 2.22 H (0-1.0) k/uL Metamyelocytes # (Man) 1.67 H (0) k/uL Myelocytes # (Manual) 0.56 H (0) k/uL Promyelocytes # (Man) (0) k/uL Nucleated RBCs 3 H (0-0) /100 WBC Potassium (3.5-5.1) mmol/L Magnesium (1.6-2.3) mg/dL Assessment and Plan Time with Patient: Less than 30
--- NOTE | 2024-07-09 22:56 | P.PN ---
Subjective Progress Note Date: 07/09/24 Principal diagnosis: Reason for follow-up is fever Patient is a 73-year-old female with a past medical history significant for hypertension reflux CVA TIA cirrhosis of the liver status post liver transplant history of breast cancer in 2019 and recent diagnosis of lung cancer March 2024 with the patient be started on chemotherapy last chemo was on Tuesday before presentation to the hospital, patient has been brought in for mental status changes also spiked a fever prompting this consultation. On today's evaluation that is 07/09/2024, patient has been afebrile, patient is breathing comfortably and is currently on room air, patient denies having any significant cough no chest pain, patient denies nausea vomiting or diarrhea and no abdominal pain, patient mention wants to go home. Patient white count is 55.5 creatinine 0.60 blood culture negative Objective - Vital Signs Vital signs: Vital Signs Temp 98.4 F 07/09/24 07:51 Pulse 66 07/09/24 07:51 Resp 18 07/09/24 07:51 BP 115/69 07/09/24 07:51 Pulse Ox 96 07/09/24 09:17 FiO2 Intake & Output 07/08/24 07/09/24 07/09/24 18:59 06:59 18:59 Intake Total 200 200 Output Total 4 Balance 196 200 Intake: Oral 200 200 Output: Urine/Stool Mix 4 Other: Voiding Method Bedside Commode Diaper Diaper Incontinent Incontinent # Voids 1 - Exam GENERAL DESCRIPTION: An elderly female lying in bed in no distress RESPIRATORY SYSTEM: Unlabored breathing , decreased breath sounds at bases HEART: S1 S2 regular rate and rhythm , ABDOMEN: Soft , no tenderness EXTREMITIES: No edema feet - Labs CBC & Chem 7: 07/09/24 10:12 07/09/24 10:12 Labs: Abnormal Lab Results - Last 24 Hours (Table) 07/06/24 07/08/24 07/08/24 Range/Units 05:47 04:18 04:18 WBC 55.34 A* (4.50-10.00) X 10*3/uL RBC 3.50 L (4.10-5.20) X 10*6/uL Hgb 10.9 L (12.0-15.0) g/dL Hct 32.9 L (37.2-46.3) % RDW 15.3 H (11.5-14.5) % Plt Count 80 L (140-440) X 10*3/uL Neutrophils # (Manual) 45.38 H (1.80-7.70) X 10*3/uL Lymphocytes # (Manual) 0 L (0.90-5.00) X 10*3/uL Monocytes # (Manual) 4.98 H (0.20-1.00) X 10*3/uL Eosinophils # (Manual) 0 L (0.04-0.35) X 10*3/uL Promyelocytes # (Man) 0.09 H (0) k/uL NRBC/100 WBC Diff 0.55 H (0.00-0.01) X 10*3/uL Potassium (3.5-5.1) mmol/L Magnesium 1.3 L (1.5-2.4) mg/dL 07/08/24 07/08/24 Range/Units 13:13 18:10 WBC (4.50-10.00) X 10*3/uL RBC (4.10-5.20) X 10*6/uL Hgb (12.0-15.0) g/dL Hct (37.2-46.3) % RDW (11.5-14.5) % Plt Count (140-440) X 10*3/uL Neutrophils # (Manual) (1.80-7.70) X 10*3/uL Lymphocytes # (Manual) (0.90-5.00) X 10*3/uL Monocytes # (Manual) (0.20-1.00) X 10*3/uL Eosinophils # (Manual) (0.04-0.35) X 10*3/uL Promyelocytes # (Man) (0) k/uL NRBC/100 WBC Diff (0.00-0.01) X 10*3/uL Potassium 3.3 L (3.5-5.1) mmol/L Magnesium 2.6 H (1.5-2.4) mg/dL Assessment and Plan (1) Fever Current Visit: Yes Status: Acute Priority: High Code(s): R50.9 - FEVER, UNSPECIFIED SNOMED Code(s): 499016807 (2) Leukocytosis Current Visit: Yes Status: Acute Code(s): D72.829 - ELEVATED WHITE BLOOD CE LL COUNT, UNSPECIFIED SNOMED Code(s): 657069812 Plan: 1patient with a fever and this patient presented to hospital with mental status changes did have a history of lung cancer currently undergoing chemotherapy with last chemo on Tuesday before presentation to the hospital patient did have a some cough and pain in the right upper quadrant area with a question of possible pneumonia versus hepatocellular disease need to be rule out versus Mediport infections and that was last used on Tuesday. 2patient did have CT angiogram of the chest did not show any consolidation or other progression of her metastatic disease and also mentioned increasing mets to the liver 3patient did have resolution of her fever and culture has been negative so far seem to have shown clinical improvement as well worsening of the white count more likely related to administration of the G-CSF administration 07/02/2024 4patient to continue cefepime while inpatient and monitor clinical course closely Dictation was produced using [employer] dictation software. please excuse any grammatical, word or spelling errors.
[2024-07-10 09:06] VITALS: BMI 26.4
[2024-07-10 09:27] LABS: HCT 31.8 % (37.2-46.3); HGB 10.3 g/dL (12.0-15.0); Immature Platelet Fraction 18.1 % (1.1-6.1); MCH 30.3 pg (27.0-32.0); MCHC 32.4 g/dL (32.0-37.0); MCV 93.5 FL (80.0-97.0); NRBC Per 100 WBC 0.34 X 10*3/uL (0.00-0.01); Platelet Count 68 X 10*3/uL (140-440); RDW 15.9 % (11.5-14.5)
[2024-07-10 09:42] LABS: Basophils # (M) 0 X 10*3/uL (0.00-0.10); Eosinophils # (M) 0 X 10*3/uL (0.04-0.35); Lymphocytes # (M) 0.51 X 10*3/uL (0.90-5.00); Metamyelocytes % 3 % (0-0); Monocytes # (M) 2.05 X 10*3/uL (0.20-1.00); Myelocytes % 3 % (0-0); Neutrophils # (M) 44.12 X 10*3/uL (1.80-7.70); Neutrophils % (M) 86 %; Promyelocytes # (M) 1.54 k/uL (0); Promyelocytes % 3 %
--- NOTE | 2024-07-10 11:48 | P.PN ---
Subjective Progress Note Date: 07/10/24 Consult reason: chest pain, atrial fibrillation History of present illness: This is Tam Lopez NP, I'm dictating on behalf of Dr. Machado's H&P and A&P The patient was interviewed and examined. HPI: Patient is a pleasant 73-year-old female with a past medical history that includes atrial fibrillation, cancer, CVA, DVT, GERD, hypertension, cirrhosis of liver transplant, memory impairment, osteoarthritis, and hypothyroidism who presented to the hospital with altered mental status. Patient came in inappropriate, agitated, with a decreased activity level. She was found to have a fever that was persistent in the emergency department with severe confusion that was worsening. It was discovered the patient had received a chemotherapy treatment approximately 1 week ago. Patient has a secondary history of breast cancer with metastasis to the lung, liver, and is status post partial left mastectomy. Patient was started on IV antibiotics, with infectious disease and oncology consultation. Neurology was also consulted. Patient's mentation has improved throughout the course of her stay, and today is found to be alert and oriented. Cardiology was consulted secondary to the patient going into A-fib with RVR around 2 AM this morning. She also reports some chest pain last night. Patient reports that she feels lousy today. She reports no further chest pain that she is experiencing. She states that she has no palpitations that she can feel. Patient is also denying dizziness, near syncope, and does report some mild shortness of breath. REVIEW OF LABS, ECG & MEDICAL DATA: LABS: White count 27.5, hemoglobin 10.7, platelets 87, sodium 136, potassium 3.7, BUN 10.4, creatinine 0.6, magnesium 1.2, troponin 0.098 hypertension EKG: Atrial fibrillation with rapid ventricular response IMAGING: Brain CT dated 07/03/2024 shows no acute intracranial process, nonspecific white matter changes, likely secondary to chronic small vessel ischemic disease. Chest x-ray dated 07/03/2024 shows chronic changes without acute pulmonary process, no significant change from prior. CT angiogram of the chest dated 07/04/2024 demonstrates no evidence of pulmonary embolism, dilated main pulmonary artery suggesting pulmonary arterial hypertension, overall progression of metastatic disease with increasing size of metastatic hepatic lesions and left adrenal gland lesion, increasing size of right upper lobe pulmonary spiculated mass in the peripheral lingular metastatic nodule with additional scattered pulmonary nodules, stable prominent mediastinal and hilar lymph nodes with marginal increase in size of paraesophageal lymph nodes co ncerning for metastatic disease. MRI of the brain dated 07/05/2024 demonstrates no evidence of intracranial mass, acute/subacute infarct, or abnormal enhancement, nonspecific white matter changes, likely related to small vessel ischemic disease. MRI of the orbits with and without contrast dated 07/07/2024 demonstrates no evidence of intraorbital mass or significant abnormality, the globes and orbits are symmetric, no abnormal postcontrast enhancement. VITALS: Temp 98.3, pulse 94, respirations 18, blood pressure 96/58, O2 saturation 95% on room air 07/09 Patient is seen and examined. She is status post magnesium 4 g over 1 hour. Patient converted to sinus rhythm yesterday evening. EKG ordered to confirm. Blood pressure 115/79, heart rate in the 60s, pulse ox 94% on room air. Repeat blood work reveals WBC 55.5, hemoglobin 10.9, platelet count 81. Creatinine 0.6, potassium 4.2. Troponins from yesterday were 0.098 and 0.021. 07/10 Patient is seen and examined. Telemetry sinus rhythm. Blood pressure 111/79, heart rate 63, pulse ox 96% on room air. Repeat blood work reveals WBC 51, hemoglobin 10.3, platelet count 68. Confirmed with oncology that we may continue the Eliquis with the current platelet count. EXAMINATION: GENERAL: Well-appearing, well-nourished and in no acute distress. NECK: Supple without JVD or thyromegaly. LUNGS: Breath sounds clear to auscultation bilaterally. Respiration equal and unlabored. No wheezes, rales or rhonchi. HEART: Regular rate and rhythm without murmurs, rubs or gallops. S1 and S2 heard. EXTREMITIES: Normal range of motion, no edema. No clubbing or cyanosis. Peripheral pulses intact and strong. IMPRESSION: 1. Atrial fibrillation with rapid ventricular response, patient reports previous episode due to low magnesium, converted to sinus rhythm 2. Hypomagnesemia status post replacement 3. History of breast cancer with metastatic disease to the lung and liver 4. Pancytopenia secondary to chemotherapy, now with leukocytosis, anemia and thrombocytopenia 5. Confusion, possibly secondary to sepsis PLAN: Continue current cardiac medications: Eliquis 5 mg twice daily, atorvastatin 20 mg daily, Lopressor 25 mg twice daily Consider increasing dose of oral magnesium after discharge. Echocardiogram is pending Further recommendations based on patient's clinical course. Nurse practitioner note has been reviewed, I agree with documented findings and plan of care. Patient was seen and examined. Objective - Vital Signs Vital signs: Vital Signs Temp 97.8 F 07/10/24 08:00 Pulse 63 07/10/24 08:00 Resp 16 07/10/24 08:00 BP 111/79 07/10/24 08:00 Pulse Ox 96 07/10/24 08:00 FiO2 Intake & Output 07/09/24 07/10/24 07/10/24 18:59 06:59 18:59 Intake Total 1080 360 Balance 1080 360 Weight 72.076 kg Intake: Oral 1080 360 Other: Voiding Method Diaper Diaper Incontinent Incontinent # Voids 3 2 # Bowel Movements 3 2 - Labs CBC & Chem 7: 07/10/24 05:24 07/09/24 10:12 Labs: Abnormal Lab Results - Last 24 Hours (Table) 07/10/24 Range/Units 05:24 WBC 51.30 A* (4.50-10.00) X 10*3/uL RBC 3.40 L (4.10-5.20) X 10*6/uL Hgb 10.3 L (12.0-15.0) g/dL Hct 31.8 L (37.2-46.3) % RDW 15.9 H (11.5-14.5) % Plt Count 68 L (140-440) X 10*3/uL Neutrophils # (Manual) 44.12 H (1.80-7.70) X 10*3/uL Lymphocytes # (Manual) 0.51 L (0.90-5.00) X 10*3/uL Monocytes # (Manual) 2.05 H (0.20-1.00) X 10*3/uL Eosinophils # (Manual) 0 L (0.04-0.35) X 10*3/uL NRBC/100 WBC Diff 0.34 H (0.00-0.01) X 10*3/uL Immature Plt Fraction 18.1 H (1.1-6.1) % Microbiology - Last 24 Hours (Table) 07/04/24 13:17 Blood Culture - Final Blood
--- NOTE | 2024-07-10 13:13 | P.PN ---
Subjective Progress Note Date: 07/10/24 Principal diagnosis: AMS, fever. S/P 1st cycle of treatment for metastatic triple neg breast cancer In f/u today pt is on chair, she denies fever, she is tolerating intake is small amounts, no reported N, V. She states her stools are "watery", she had been previously constipated. Pain in the back seems to be controlled on oral pain meds only. Objective - Vital Signs Vital signs: Vital Signs Temp 97.8 F 07/10/24 08:00 Pulse 63 07/10/24 08:00 Resp 16 07/10/24 08:00 BP 111/79 07/10/24 08:00 Pulse Ox 96 07/10/24 08:00 FiO2 Intake & Output 07/09/24 07/10/24 07/10/24 18:59 06:59 18:59 Intake Total 1080 360 Balance 1080 360 Weight 72.076 kg Intake: Oral 1080 360 Other: Voiding Method Diaper Diaper Incontinent Incontinent # Voids 3 2 # Bowel Movements 3 2 - Constitutional General appearance: Present: average body habitus, cooperative, no acute distress - EENT Eyes: Present: anicteric sclerae, EOMI ENT: Present: hearing grossly normal - Respiratory Details: resp unlabored at rest - Cardiovascular Details: skin warm, well perfused - Peripheral edema leg Peripheral Edema: bilateral: None - Gastrointestinal General gastrointestinal: Present: soft, tenderness - Integumentary Integumentary: Present: pale - Neurologic Neurologic: Present: CNII-XII intact (grossly) - Musculoskeletal Musculoskeletal: Present: generalized weakness - Psychiatric Psychiatric Comment(s): Flat affect - Labs CBC & Chem 7: 07/10/24 05:24 07/09/24 10:12 Labs: Abnormal Lab Results - Last 24 Hours (Table) 07/10/24 Range/Units 05:24 WBC 51.30 A* (4.50-10.00) X 10*3/uL RBC 3.40 L (4.10-5.20) X 10*6/uL Hgb 10.3 L (12.0-15.0) g/dL Hct 31.8 L (37.2-46.3) % RDW 15.9 H (11.5-14.5) % Plt Count 68 L (140-440) X 10*3/uL Neutrophils # (Manual) 44.12 H (1.80-7.70) X 10*3/uL Lymphocytes # (Manual) 0.51 L (0.90-5.00) X 10*3/uL Monocytes # (Manual) 2.05 H (0.20-1.00) X 10*3/uL Eosinophils # (Manual) 0 L (0.04-0.35) X 10*3/uL NRBC/100 WBC Diff 0.34 H (0.00-0.01) X 10*3/uL Immature Plt Fraction 18.1 H (1.1-6.1) % Microbiology - Last 24 Hours (Table) 07/04/24 13:17 Blood Culture - Final Blood Assessment and Plan (1) Fever Current Visit: Yes Status: Acute Priority: High Code(s): R50.9 - FEVER, UNSPECIFIED SNOMED Code(s): 093740671 (2) Altered mental status Current Visit: Yes Status: Acute Priority: High Code(s): R41.82 - ALTERED MENTAL STATUS, UNSPECIFIED SNOMED Code(s): 343252599 (3) Triple negative breast cancer Current Visit: Yes Status: Acute Priority: High Code(s): C50.919 - MALIGN ANT NEOPLASM OF UNSP SITE OF UNSPECIFIED FEMALE BREAST; Z17.421 - HORMONE RECEPT NEG W HMN EPDRML GRTH FCTR RECEPT 2 NEG STAT SNOMED Code(s): 659053259 (4) Pancytopenia due to antineoplastic chemotherapy Current Visit: Yes Status: Acute Priority: High Code(s): D61.810 - ANTINEOPLASTIC CHEMOTHERAPY INDUCED PANCYTOPENIA; T45.1X5A - ADVERSE EFFECT OF ANTINEOPLASTIC AND IMMUNOSUP DRUGS, INIT SNOMED Code(s): 575318051774233 Plan: Neutropenic Fever -Chemo given on the , patient is at the end of audra. The initial significant impact on her white blood cell count has recovered rather angela matically with a WBC today of 55. -GCSF was given 07/02-significant increase in WBCs/ANC count -Blood culture from port neg at 72 hours. ordered. Infectious disease is now following patient -Empiric abx cont. no recent fevers -CTA neg for PE. -Patient's diet has been advanced to a full liquid. She should be okay to continue to advance diet as tolerated. -MRI brain neg. Case discussed with Neurology. Recommendation for LP for possible leptomeningeal mets as pt neuro symptoms are persistent. Previously this was discussed with daughter who wanted to hold off. Patient does seem to be doing better over the last few days. Will continue to hold off on any LP at this time. -Reviewed most recent Neurology note. MRI of the orbits report was reviewed, no unusual findings reported. We will continue to follow Neurology's assessment and recommendations. Hypomagnesemia -Mag replacement per protocol already ordered -Pt home med reordered -Magnesium level was elevated on 07/08, magnesium supplementation has been held. Pancytopenia 2/ chemo -Hemoglobin 10.9 mild anemia. No acute intervention needed. Transfuse for hemoglobin less than 7 or if patient is symptomatic -Platelets 81,000. No acute intervention needed. Monitor for bleeding. Platelet counts are adequate for anticoagulation at this time. Transfuse for a platelet count less than 10,000 or if patient is symptomatic. -WBC 55. Patient received G-CSF 7 days ago. Anticipate WBC to stabilize in the next 2-3 days. No acute intervention. -CBC daily Triple neg breast cancer -Triple negative breast cancer is a new diagnosis. Unfortunately, metastatic at diagnosis, biopsy from the liver lesion. -Patient had her first cycle of Taxotere on the with G-CSF on the . -Initially it was felt there would have to be dose changes in chemo due to exaggerated chemo effects on the bone marrow. Primary Oncologist will be updated on pt case. Further decisions regarding treatment will be made with pt and family Back pain -Chronic, likely an acute component as well -Home med Percocet was made available every 4 hours. Pt is reporting adequate pain control most of the time. She last used IV pain med on 07/08 -Colace added to prevent narcotic induced constipation. Pt is now reporting watery diarrhea. C-diff ordered, pending History of hormone receptor positive breast cancer, treated with surgery and radiation, patient declined adjuvant chemotherapy, was on AI since 2019, discontinued with new diagnosis. Doctor attests: I performed a history and physical examination of this patient, developed impression and plan of care. Discussed with dictator. I agree with dictators note, documented as a scribe.
--- NOTE | 2024-07-10 14:25 | P.PN ---
Subjective Progress Note Date: 07/10/24 Principal diagnosis: Reason for follow-up is fever Patient is a 73-year-old female with a past medical history significant for hypertension reflux CVA TIA cirrhosis of the liver status post liver transplant history of breast cancer in 2019 and recent diagnosis of lung cancer March 2024 with the patient be started on chemotherapy last chemo was on Tuesday before presentation to the hospital, patient has been brought in for mental status changes also spiked a fever prompting this consultation. On today's evaluation that is 07/10/2024, Patient is afebrile this morning patient denies having any chest pain shortness of breath or cough, the patient is currently on room air, patient denies any abdominal pain no diarrhea no nausea no vomiting mention feeling slightly better no new symptoms. Patient white count is 51.30 creatinine 0.60 blood culture has been negative Objective - Vital Signs Vital signs: Vital Signs Temp 97.8 F 07/10/24 08:00 Pulse 63 07/10/24 08:00 Resp 16 07/10/24 08:00 BP 111/79 07/10/24 08:00 Pulse Ox 96 07/10/24 08:00 FiO2 Intake & Output 07/09/24 07/10/24 07/10/24 18:59 06:59 18:59 Intake Total 1080 360 Balance 1080 360 Weight 72.076 kg Intake: Oral 1080 360 Other: Voiding Method Diaper Diaper Incontinent Incontinent # Voids 3 2 # Bowel Movements 3 2 - Exam GENERAL DESCRIPTION: An elderly female lying in bed in no distress RESPIRATORY SYSTEM: Unlabored breathing , decreased breath sounds at bases HEART: S1 S2 regular rate and rhythm , ABDOMEN: Soft , no tenderness EXTREMITIES: No edema feet - Labs CBC & Chem 7: 07/10/24 05:24 07/09/24 10:12 Labs: Abnormal Lab Results - Last 24 Hours (Table) 07/09/24 07/10/24 Range/Units 10:12 05:24 WBC 55.5 H* 51.30 A* (3.8-10.6) k/uL RBC 3.40 L (4.10-5.20) X 10*6/uL Hgb 10.3 L (12.0-15.0) g/dL Hct 31.8 L (37.2-46.3) % RDW 15.9 H (11.5-14.5) % Plt Count 81 L 68 L (150-450) k/uL Neutrophils # (Manual) 48.80 H 44.12 H (1.3-7.7) k/uL Lymphocytes # (Manual) 0.51 L (0.90-5.00) X 10*3/uL Monocytes # (Manual) 2.22 H 2.05 H (0-1.0) k/uL Eosinophils # (Manual) 0 L (0.04-0.35) X 10*3/uL Metamyelocytes # (Man) 1.67 H (0) k/uL Myelocytes # (Manual) 0.56 H (0) k/uL Nucleated RBCs 3 H (0-0) /100 WBC NRBC/100 WBC Diff 0.34 H (0.00-0.01) X 10*3/uL Immature Plt Fraction 18.1 H (1.1-6.1) % Microbiology - Last 24 Hours (Table) 07/04/24 13:17 Blood Culture - Final Blood Assessment and Plan (1) Fever Current Visit: Yes Status: Acute Priority: High Code(s): R50.9 - FEVER, UN SPECIFIED SNOMED Code(s): 537730477 (2) Leukocytosis Current Visit: Yes Status: Acute Code(s): D72.829 - ELEVATED WHITE BLOOD CELL COUNT, UNSPECIFIED SNOMED Code(s): 230558843 Plan: 1patient with a fever and this patient presented to hospital with mental status changes did have a history of lung cancer currently undergoing chemotherapy with last chemo on Tuesday before presentation to the hospital patient did have a some cough and pain in the right upper quadrant area with a question of possible pneumonia versus hepatocellular disease need to be rule out versus Mediport infections and that was last used on Tuesday. 2patient did have CT angiogram of the chest did not show any consolidation or other progression of her metastatic disease and also mentioned increasing mets to the liver 3patient did have resolution of her fever and culture has been negative so far seem to have shown clinical improvement as well worsening of the white count more likely related to administration of the G-CSF administration 07/02/2024 4with culture negative for any resistant pathogen and no obvious focus of infection will switch antibiotic to Omnicef and discontinue cefepime Dictation was produced using [employer] software. please excuse any grammatical, word or spelling errors. Time with Patient: Less than 30
--- NOTE | 2024-07-10 14:48 | P.PN ---
Subjective Progress Note Date: 07/10/24 73-year-old female with past medical history significant for breast cancer, liver transplant 2010 on tacrolimus, prior alcohol use, gastroesophageal reflux disease, DVT, osteoporosis, kyphosis, chronic back pain-T12 severe compression deformity status post T10-L2 posterior stabilization and multiple other medical issues presented to the ER with complaints of increasing generalized weakness, confusion-not remembering things, fevers, nausea vomiting.received her first chemo within the week. Denies headache. denies chest pain, palpitations. Denies edema. denies diarrhea, constipation. Denies bloody or black stools. Denies urinary frequency, retention, dysuria or hematuria. Vomiting has subsided .on admission, tachycardic, Tmax 101.8. Lactic acid 1.7 .on admission WBC 6.4, decreased to 1.8. Hemoglobin 13.7, 11.8, platelets 104, 71. INR 1.3, sodium 136, potassium 3.6, bicarb 22, BUN 20, creatinine 0.59. Magnesium added on. T. bili 1.8, AST 38, ALT 26, alk phos 169. UA negative. Viral studies negative.Brain CT reported nonacute. Chest x-ray reported chronic changes, without acute pulmonary process, no significant change from prior. Vancomycin and cefepime initiated 07/07/2024 --the patient continues to be afebrile, the patient is on room air and breathing comfortably, the Pt is more awake and alert today denies any chest pain shortness of breath or cough no vomiting no diarrhea has been reported. Patient white count is 27.56, creatinine 0.6 culture have been negative so far patient with a fever and this patient presented to hospital with mental status changes did have a history of lung cancer currently undergoing chemotherapy with last chemo on Tuesday before presentation to the hospital patient did have a some cough and pain in the right upper quadrant area with a question of possible pneumonia versus hepatocellular disease need to be rule out versus Mediport infections and that was last used on Tuesday. patient did have CT angiogram of the chest did not show any consolidation or other progression of her metastatic disease and also mentioned increasing mets to the liver patient did have resolution of her fever and culture has been negative so far seem to have shown clinical improvement as well worsening of the white count more likely related to administration of the colony-stimulating factor on the we will continue cefepime and vancomycin however culture remained to be negative we will discontinue vancomycin 07/08/2024 Patient seen at bedside; patient presented to atrial fibrillation with RVR; has been evaluated by cardiology; likely triggered by low magnesium --Patient received magnesium 4 g IV -Troponin slightly elevated; cardiology recommending Lipitor 20 mg daily; recommending to supplement and optimize magnesium with possible plan to discharge on higher dose of oral magnesium sulfate versus starting patient on magnesium and potassium sparing Aldactone; plan to start metoprolol 25 mg twice daily if magnesium does not work 07/09/2024 Patient is evaluated today in follow up on the medical floor. Patients heart rate is now controlled. Cardiology following, hematology following. WBC 55 today. Patient remains fatigued. Patient is pending acceptance at [facility] for discharge. 07/10/2024 Patient is evaluated today in the medical floor in follow-up she remains fatigued. Cardiology has ordered an echocardiogram, heart rate remains controlled. Had multiple episodes of loose stool overnight. White blood cell count 51.5. Review of Systems Constitutional: Denied any fatigue denied any fever. Cardio vascular: denied any chest pain, palpitations Gastrointestinal: denied any nausea, vomiting, diarrhea Pulmonary: Denied any shortness of breath cough Neurologic denied any new focal deficits All inpatient medications were reviewed and appropriate changes in these medications as dictated in the interval history and assessment and plan. PHYSICAL EXAMINATION: GENERAL: The patient is alert and oriented x3, not in any acute distress. Well developed, well nourished. HEENT: Pupils are round and equally reacting to light. EOMI. No scleral icterus. No conjunctival pallor. Normocephalic, atraumatic. No pharyngeal erythema. No thyromegaly. CARDIOVASCULAR: S1 and S2 present. No murmurs, rubs, or gallops. PULMONARY: Chest is clear to auscultation, no wheezing or crackles. ABDOMEN: Soft, nontender, nondistended, normoactive bowel sounds. No palpable organomegaly. MUSCULOSKELETAL: No joint swelling or deformity. EXTREMITIES: No cyanosis, clubbing, or pedal edema. NEUROLOGICAL: Gross neurological examination did not reveal any focal deficits. SKIN: No rashes. Assessment and Plan Increased generalized weakness, altered mental status, fevers in a patient who recently received chemo, within this week, prior secondary to history of breast cancer with mets to the lung, liver , adrenal, status post partial left mastectomy with a right port access. Visual changes, affecting both eyes, in a patient with history of cataracts, brain MRI negative. CTA reporting overall progression of metastatic disease with increasing size of metastatic hepatic lesions and left adrenal gland lesion. Increasing size of right upper lobe pulmonary spiculated mass and peripheral lingular metastatic nodule with additional scattered pulmonary nodules. Stable prominent mediasti nal and hilar lymph nodes with marginal increase in size of paraesophageal lymph nodes concerning for metastatic disease. Pancytopenia secondary to chemotherapy now with WBC of 55. Fever, felt due to G-CSF and chemotherapy administration week prior to admission. Acute metabolic encephalopathy secondary to the above. Leukopenia Chronic thrombocytopenia Chronic paroxysmal atrial fibrillation on Eliquis History of DVT History of TIA Hypertension Hypothyroidism Coronary artery disease, history of stents History of liver transplant at [facility] , 2010, on tacrolimus History of alcoholic cirrhosis History of breast cancer Gastroesophageal reflux disease Hypothyroidism Osteoporosis Anxiety, panic disorder Former nicotine dependence Marijuana use Hypomagnesemia Plan: Continue on current medication resume ,monitoring and symptomatic treatment. Neurology workup in progress. MRI completed with no evidence of metastasis. magnesium supplements as per replacement protocol ordered. Patient will be monitored off antibiotics at this time and. Infectious disease and oncology following. Hematology following. CBC, BMP will be repeated in the AM. C.Dif is also orderd and pending tong has had multiple episodes of loose stool overnight. Cardiology recommending echocardiogram which is pending. When stable DC to [facility] rehabilitation. The impression and plan of care has been dictated by Emerita Mccloud, Nurse Practitioner as directed. Dr. Wiliam MD I have performed a history and physical examination and medical decision making of this patient, discussed the same with the dictator, and agree with the dictators assessment and plan as written, documented as a scribe. Based on total visit time, I have performed more than 50% of this visit. Objective - Vital Signs Vital signs: Vital Signs Temp 97.5 F L 07/10/24 13:22 Pulse 60 07/10/24 13:22 Resp 16 07/10/24 13:22 BP 118/82 07/10/24 13:22 Pulse Ox 97 07/10/24 13:22 FiO2 Intake & Output 07/09/24 07/10/24 07/10/24 18:59 06:59 18:59 Intake Total 1080 360 Balance 1080 360 Weight 72.076 kg Intake: Oral 1080 360 Other: Voiding Method Diaper Diaper Incontinent Incontinent # Voids 3 2 # Bowel Movements 3 2 - Labs CBC & Chem 7: 07/10/24 05:24 07/09/24 10:12 Labs: Abnormal Lab Results - Last 24 Hours (Table) 07/10/24 Range/Units 05:24 WBC 51.30 A* (4.50-10.00) X 10*3/uL RBC 3.40 L (4.10-5.20) X 10*6/uL Hgb 10.3 L (12.0-15.0) g/dL Hct 31.8 L (37.2-46.3) % RDW 15.9 H (11.5-14.5) % Plt Count 68 L (140-440) X 10*3/uL Neutrophils # (Manual) 44.12 H (1.80-7.70) X 10*3/uL Lymphocytes # (Manual) 0.51 L (0.90-5.00) X 10*3/uL Monocytes # (Manual) 2.05 H (0.20-1.00) X 10*3/uL Eosinophils # (Manual) 0 L (0.04-0.35) X 10*3/uL NRBC/100 WBC Diff 0.34 H (0.00-0.01) X 10*3/uL Immature Plt Fraction 18.1 H (1.1-6.1) % Microbiology - Last 24 Hours (Table) 07/04/24 13:17 Blood Culture - Final Blood
[2024-07-10] MEDS: CEFDINIR 300 MG CAP PO SCH (21:57)
[2024-07-11 06:17] LABS: HCT 29.6 % (34.0-46.0); HGB 10.1 gm/dL (11.4-16.0); Hypochromasia Slight; MCH 32.2 pg (25.0-35.0); MCHC 34.2 g/dL (31.0-37.0); Poikilocytosis Slight; RBC 3.15 m/uL (3.80-5.40); RDW 15.8 % (11.5-15.5); WBC 48.8 k/uL (3.8-10.6)
[2024-07-11 06:18] LABS: Platelet Count 61 k/uL (150-450)
[2024-07-11 07:04] LABS: Band Neutrophils % 9 %; Lymphocytes # (M) 2.44 k/uL (1.0-4.8); Metamyelocytes # (M) 3.42 k/uL (0); Metamyelocytes % 7 %; Monocytes # (M) 1.46 k/uL (0-1.0); Neutrophils % (M) 77 %; Nucleated Red Blood Cells 0 /100 WBC (0-0); Total Cells Counted 200
[2024-07-11 07:29] VITALS: TEMP 97.5
--- NOTE | 2024-07-11 11:22 | P.PN ---
Subjective Progress Note Date: 07/11/24 Principal diagnosis: AMS, fever. S/P 1st cycle of treatment for metastatic triple neg breast cancer In f/u today pt is on chair, she denies fever, she is tolerating intake is small amounts, no reported N, V. She states her stools are "watery", she had been previously constipated. Pain in the back seems to be controlled on oral pain meds only. Objective - Vital Signs Vital signs: Vital Signs Temp 97.5 F L 07/11/24 06:56 Pulse 63 07/11/24 06:56 Resp 16 07/11/24 06:56 BP 127/81 07/11/24 06:56 Pulse Ox 99 07/11/24 06:56 FiO2 Intake & Output 07/10/24 07/11/24 07/11/24 18:59 06:59 18:59 Intake Total 360 591 Output Total 400 Balance 360 191 Weight 72.076 kg Intake: Oral 360 591 Output: Urine 400 Other: Voiding Method Diaper Bedside Commode Diaper Incontinent Diaper Incontinent # Voids 1 # Bowel Movements 1 - Constitutional General appearance: Present: average body habitus, cooperative, no acute distress - EENT Eyes: Present: anicteric sclerae, EOMI ENT: Present: hearing grossly normal - Respiratory Details: resp even and unlabored at rest - Cardiovascular Details: radial pulse 2+, skin warm, well perfused - Peripheral edema leg Peripheral Edema: bilateral: None - Gastrointestinal General gastrointestinal: Present: soft - Integumentary Integumentary: Present: normal - Neurologic Neurologic: Present: CNII-XII intact - Musculoskeletal Musculoskeletal: Present: generalized weakness - Psychiatric Psychiatric: Present: A&O x's 3, appropriate affect, intact judgment & insight - Labs CBC & Chem 7: 07/11/24 05:10 07/09/24 10:12 Labs: Abnormal Lab Results - Last 24 Hours (Table) 07/11/24 Range/Units 05:10 WBC 48.8 H (3.8-10.6) k/uL RBC 3.15 L (3.80-5.40) m/uL Hgb 10.1 L (11.4-16.0) gm/dL Hct 29.6 L (34.0-46.0) % RDW 15.8 H (11.5-15.5) % Plt Count 61 L (150-450) k/uL Neutrophils # (Manual) 41.90 H (1.3-7.7) k/uL Monocytes # (Manual) 1.46 H (0-1.0) k/uL Metamyelocytes # (Man) 3.42 H (0) k/uL Assessment and Plan (1) Fever Current Visit: Yes Status: Resolved Priority: High Code(s): R50.9 - FEVER, UNSPECIFIED SNOMED Code(s): 058891358 (2) Altered mental status Current Visit: Yes Status: Resolved Priority: High Code(s): R41.82 - ALTERED MENTAL STATUS, UNSPECIFIED SNOMED Code(s): 155758641 (3) Triple negative breast cancer Current Visit: Yes Status: Acute Priority: High Code(s): C50.919 - MALIGNANT NEOPLASM OF UNSP SITE OF UNSPECIFIED FEMALE BREAST; Z17.421 - HORMONE RECEPT NEG W HMN EPDRML GRTH FCTR RECEPT 2 NEG STAT SNOMED Code(s): 686629437 (4) Pancytopenia due to antineoplastic chemotherapy Current Visit: Yes Status: Acute Priority: High Code(s): D61.810 - ANTINEOPLASTIC CHEMOTHERAPY INDUCED PANCYTOPENIA; T45.1X5A - ADVERSE EFFECT OF ANTINEOPLASTIC AND IMMUNOSUP DRUGS, INIT SNOMED Code(s): 903665049829115 Plan: Neutropenic Fever-resolved -Chemo given on the , audra is now over. The initial significant impact on her WBC has recovered with a significant increase. WBC beginning to stabilize, today 48.8 -GCSF was given 07/02-significant increase in WBCs/ANC count -Blood cultures neg. Infectious disease is following -Empiric abx cont. No recent fevers -CTA neg for PE. -Patient tolerating diet. -MRI brain neg. MRI of the orbits report was reviewed, no unusual findings reported. AMS resolved Hypomagnesemia-resolved Pancytopenia 2/2 chemo -Hemoglobin 10.1 mild anemia. No acute intervention needed. Transfuse for hemoglobin less than 7 or if patient is symptomatic -Platelets 61,000. No acute intervention needed. Monitor for bleeding. Platelet counts cont to be adequate for anticoagulation. -WBC 48.8. Patient received G-CSF 9 days ago. WBC is beginning to stabilize. No acute intervention. -CBC daily Triple neg breast cancer -Triple negative breast cancer, new diagnosis. Unfortunately, metastatic at diagnosis, biopsy from the liver lesion. -Patient had her first cycle of Taxotere on the with G-CSF on the . -Initially it was felt there would have to be dose changes in chemo due to exaggerated chemo effects on the bone marrow. Primary Oncologist will be updated on pt case. Further decisions regarding treatment will be made with pt and family Back pain -Chronic, likely an acute component as well -Home med Percocet was made available every 4 hours. Pt is reporting adequate pain control most of the time. She last used IV pain med on 07/08 -Colace added to prevent narcotic induced constipation. Pt is now reporting watery diarrhea. C-diff ordered, pending History of hormone receptor positive breast cancer, treated with surgery and radiation, patient declined adjuvant chemotherapy, was on AI since 2019, discontinued with new diagnosis. Pt is going to rehab soon. Chemo treatments will be held until pt has been discharged from rehab and been re-assessed by Primary Oncologist Pt desires very much to see her dog. It would be of significant emotional benefit for pt to be able to see and spend time with her pet. Spoke with Division Order Technician and AUTO SERVICE REPRESENTATIVE at [facility] to hopefully be able to arrange it Doctor attests: I performed a history and physical examination of this patient, developed impression and plan of care. Discussed with dictator. I agree with dictators note, documented as a scribe.
--- NOTE | 2024-07-11 11:56 | CA ---
Transthoracic Echo Report Name: Nick Almaraz Age: 73 Gender: F : 1950 Exam Date: 07/11/2024 08:03 Exam Location: [place] [facility] Ht (in): 65 Wt (lb): 158 Ordering Physician: Julia Sawyer Attending/Referring Phys: Rn Transition Didi Anderson RDCS Procedure CPT: Indications: afib Cardiac Hx: Technical Quality: Fair Contrast 1: Total Dose (mL): Contrast 2: Total Dose (mL): MEASUREMENTS (Male / Female) Normal Values 2D ECHO LV Diastolic Diameter PLAX 4.8 cm 4.2 - 5.9 / 3.9 - 5.3 cm LV Systolic Diameter PLAX 2.7 cm IVS Diastolic Thickness 1.0 cm 0.6 - 1.0 / 0.6 - 0.9 cm LVPW Diastolic Thickness 1.4 cm 0.6 - 1.0 / 0.6 - 0.9 cm LV Relative Wall Thickness 0.5 LVOT Diameter 1.9 cm LV Diastolic Volume MOD BP 80.6 cm??? 67 - 155 / 56 - 104 cm??? LV Systolic Volume MOD BP 26.8 cm??? 22 - 58 / 19 - 49 cm??? LV Ejection Fraction MOD BP 66.7 % >= 55 % LV Cardiac Index MOD BP 1913.1 cm???/min???m??? LV Diastolic Volume MOD 4C 74.4 cm??? LV Systolic Volume MOD 4C 28.3 cm??? LV Ejection Fraction MOD 4C 62.0 % LV Cardiac Index MOD 4C 1641.0 cm???/min???m??? LV Diastolic Length 4C 6.5 cm LV Systolic Length 4C 5.3 cm LV Diastolic Volume MOD 2C 81.2 cm??? LV Systolic Volume MOD 2C 24.4 cm??? LV Ejection Fraction MOD 2C 69.9 % LV Cardiac Index MOD 2C 2018.8 cm???/min???m??? LV Diastolic Length 2C 7.0 cm LV Systolic Length 2C 5.5 cm LA Volume 61.2 cm??? 18 - 58 / 22 - 52 cm??? LA Volume Index 33.5 cm???/m??? 16 - 28 cm???/m??? Ascending Aorta Diameter 3.1 cm DOPPLER AV Peak Velocity 135.8 cm/s AV Peak Gradient 7.4 mmHg AV Mean Velocity 84.1 cm/s AV Mean Gradient 3.3 mmHg AV Velocity Time Integral 30.1 cm LVOT Peak Velocity 112.4 cm/s LVOT Peak Gradient 5.1 mmHg LVOT Velocity Time Integral 23.1 cm LVOT Stroke Volume 67.9 cm??? LVOT Stroke Volume Index 38.0 ml/m??? LVOT Cardiac Index 2416.2 cm???/min???m??? AV Area Cont Eq vti 2.3 cm??? AV Area Cont Eq pk 2.4 cm??? MV Area PHT 3.8 cm??? Mitral E Point Velocity 68.4 cm/s Mitral A Point Velocity 72.2 cm/s Mitral E to A Ratio 0.9 MV Deceleration Time 202.1 ms PV Peak Velocity 135.7 cm/s PV Peak Gradient 7.4 mmHg FINDINGS Left Ventricle Left ventricular ejection fraction is estimated at 60-65 %. Moderately increased posterior wall thickness. Left ventricular cavity size normal. No obvious regional wall motion abnormalities. Right Ventricle Normal right ventricular size and function. Unable to estimate the right ventricular systolic pressure. Right Atrium Right atrial dilatation. Catheter/pacemaker wire in the right atrial cavity. Left Atrium Mildly increased left atrial volume. Mitral Valve Structurally normal mitral valve. No evidence for mitral valve prolapse. No mitral stenosis. Trace mitral regurgitation. Aortic Valve Trileaflet aortic valve. No aortic valve stenosis or regurgitation. Tricuspid Valve Structurally normal tricuspid valve. No tricuspid stenosis, regurgitation or prolapse. Pulmonic Valve Pulmonic valve not well visualized. No pulmonic stenosis. No pulmonic regurgitation. Pericardium No pericardial effusion. Prominent epicardial fat. Aorta Normal size aortic root and proximal ascending aorta. CONCLUSIONS Normal LV function Previewed by: Dr. Michele Castillo MD (Electronically Signed) Final Date: 11 July 2024 11:54
--- NOTE | 2024-07-11 12:57 | P.PN ---
Subjective Progress Note Date: 07/11/24 Principal diagnosis: Reason for follow-up is fever Patient is a 73-year-old female with a past medical history significant for hypertension reflux CVA TIA cirrhosis of the liver status post liver transplant history of breast cancer in 2019 and recent diagnosis of lung cancer March 2024 with the patient be started on chemotherapy last chemo was on Tuesday before presentation to the hospital, patient has been brought in for mental status changes also spiked a fever prompting this consultation. On today's evaluation that is 07/11/2024,the patient denies any fever or any chills, patient is breathing comfortably on 2 L current oxygen the patient denies chest pain shortness of breath and no significant cough, patient denies abdominal pain, no nausea vomiting or diarrhea. Patient white count is 48.8 blood culture has been negative Objective - Vital Signs Vital signs: Vital Signs Temp 97.5 F L 07/11/24 06:56 Pulse 63 07/11/24 06:56 Resp 16 07/11/24 06:56 BP 127/81 07/11/24 06:56 Pulse Ox 99 07/11/24 06:56 FiO2 Intake & Output 07/10/24 07/11/24 07/11/24 18:59 06:59 18:59 Intake Total 360 591 Output Total 400 Balance 360 191 Weight 72.076 kg Intake: Oral 360 591 Output: Urine 400 Other: Voiding Method Diaper Bedside Commode Diaper Incontinent Diaper Incontinent # Voids 1 # Bowel Movements 1 - Exam GENERAL DESCRIPTION: An elderly female lying in bed in no distress RESPIRATORY SYSTEM: Unlabored breathing , decreased breath sounds at bases HEART: S1 S2 regular rate and rhythm , ABDOMEN: Soft , no tenderness EXTREMITIES: No edema feet - Labs CBC & Chem 7: 07/11/24 05:10 07/09/24 10:12 Labs: Abnormal Lab Results - Last 24 Hours (Table) 07/11/24 Range/Units 05:10 WBC 48.8 H (3.8-10.6) k/uL RBC 3.15 L (3.80-5.40) m/uL Hgb 10.1 L (11.4-16.0) gm/dL Hct 29.6 L (34.0-46.0) % RDW 15.8 H (11.5-15.5) % Plt Count 61 L (150-450) k/uL Neutrophils # (Manual) 41.90 H (1.3-7.7) k/uL Monocytes # (Manual) 1.46 H (0-1.0) k/uL Metamyelocytes # (Man) 3.42 H (0) k/uL Assessment and Plan (1) Fever Current Visit: Yes Status: Resolved Priority: High Code(s): R50.9 - FEVER, UNSPECIFIED SNOMED Code(s): 947097058 (2) Leukocytosis Current Visit: Yes Status: Acute Code(s): D72.829 - ELEVATED WHITE BLOOD CELL COUNT, UNSPECIFIED SNOMED Code(s): 869733644 Plan: 1patient with a fever and this patient presented to hospital with mental status changes did have a history of lung cancer currently undergoing chemotherapy with last chemo on Tuesday before presentation to the hospital patient did have a some cough and pain in the right upper quadrant area with a question of possible pneumonia versus hepatocellular disease need to be rule out versus Mediport infections and that was last used on Tuesday. 2patient did have CT angiogram of the chest did not show any consolidation or other progression of her metastatic disease and also mentioned increasing mets to the liver 3patient did have resolution of her fever and culture has been negative so far seem to have shown clinical improvement as well worsening of the white count mo re likely related to administration of the G-CSF administration 07/02/2024 and the patient white count is up trending down 4patient is currently on Omnicef consider short course on discharge Dictation was produced using [employer] dictation software. please excuse any grammatical, word or spelling errors. Time with Patient: Less than 30
--- NOTE | 2024-07-11 13:07 | P.DS ---
Providers Date of admission: 07/03/24 22:20 Attending physician: Brock Zimmerman Consults: 07/03/24 22:18 Consult Physician Routine Consulting Provider: Linda Flowers Consult Reason/Comments: known Do you want consulting provider notified?: Yes Consult Physician Routine Consulting Provider: Calvin Freire Consult Reason/Comments: ams Do you want consulting provider notified?: Yes Consult Physician Urgent Consulting Provider: Celine Quezada Consult Reason/Comments: fever Do you want consulting provider notified?: Yes 07/08/24 03:15 Consult Physician Routine Consulting Provider: Ronnie Gutierrez Consult Reason/Comments: a-fib/abnormal ekg/elevated troponin Do you want consulting provider notified?: Yes, Notify in am Primary care physician: Brock Zimmerman Hospital Course: Final Diagnosis -Increased generalized weakness, altered mental status, fevers in a patient who recently received chemo, within this week, prior secondary to history of breast cancer with mets to the lung, liver , adrenal -Status post partial left mastectomy with a right port access. -Visual changes, affecting both eyes, in a patient with history of cataracts, brain MRI negative. -Progression of metastatic disease with increasing size of metastatic hepatic lesions and left adrenal gland lesion. Increasing size of right upper lobe pulmonary spiculated mass and peripheral lingular metastatic nodule with additional scattered pulmonary nodules. Stable prominent mediastinal and hilar lymph nodes with marginal increase in size of paraesophageal lymph nodes concerning for metastatic disease. Pancytopenia secondary to chemotherapy now with WBC of 55. Fever, felt due to G-CSF and chemotherapy administration week prior to admission. Acute metabolic encephalopathy secondary to the above. Leukopenia Chronic thrombocytopenia Chronic paroxysmal atrial fibrillation on Eliquis History of DVT History of TIA Hypertension Hypothyroidism Coronary artery disease, history of stents History of liver transplant at [facility] , 2010, on tacrolimus History of alcoholic cirrhosis History of breast cancer Gastroesophageal reflux disease Hypothyroidism Osteoporosis Anxiety, panic disorder Former nicotine dependence Marijuana use Hypomagnesemia Discharge Disposition Patient is stable for discharge to subacute rehabilitation at [facility] with overall guarded prognosis. Patient to continue on oral cefdinir for the next 5 days additionally patient should continue on oral nystatin swish and swallow for the next week. Patient close follow-up with primary care and oncology on discharge patient did also follow-up with Dr. Duarte with infectious disease as well as cardiology and pulmonary services. Recommend for patient to stay off or start on discharge secondary to decreased blood pressures. Patient's white blood cell count should continue to improve and recommend to repeat blood work in 2 to 3 days. Hospital Course 73-year-old female with past medical history significant for breast cancer, liver transplant 2010 on tacrolimus, prior alcohol use, gastroesophageal reflux disease, DVT, osteoporosis, kyphosis, chronic back pain-T12 severe compression deformity status post T10-L2 posterior stabilization and multiple other medical issues presented to the ER with complaints of increasing generalized weakness, confusion-not remembering things, fevers, nausea vomiting.received her first chemo within the week. Denies headache. denies chest pain, palpitations. Denies edema. denies diarrhea, constipation. Denies bloody or black stools. Denies urinary frequency, retention, dysuria or hematuria. Vomiting has subsided .on admission, tachycardic, Tmax 101.8. Lactic acid 1.7 .on admission WBC 6.4, decreased to 1.8. Hemoglobin 13.7, 11.8, platelets 104, 71. INR 1.3, sodium 136, potassium 3.6, bicarb 22, BUN 20, creatinine 0.59. Magnesium added on. T. bili 1.8, AST 38, ALT 26, alk phos 169. UA negative. Viral studies negative.Brain CT reported nonacute. Chest x-ray reported chronic changes, without acute pulmonary process, no significant change from prior. Vancomycin and cefepime initiated. Admitted to the hospital with infectious disease consultation as well as oncology. Clinically patient improved on antibiotics transition to oral cefdinir. Recently had chemotherapy and G-CSF 1 week prior to admission per oncology white count has recovered and shot up to 55 and will continue to improve back down to normal in the next week or so. As mentioned above the CTA shows progression of metastatic disease increasing size of metastatic hepatic lesions and left adrenal gland lesion increasing size of right upper lobe pulmonary spiculated mass and peripheral inguinal or metastatic nodule with additional scattered pulmonary nodules. Stable prominent mediastinal and hilar lymph nodes with marginal increase in size of paraesophageal lymph nodes concerning for metastatic disease. Cardiology was consulted as patient did have an episode of atrial fibrillation with rapid ventricular rate she does have a known history of atrial fibrillation and is currently anticoagulated Eliquis. Heart rate has been improved she had a repeat echocardiogram showing normal LV systolic function. Recent blood work reveals a white blood cell count of 48.8, hemoglobin 10.1, platelet count of 61, sodium 137, potassium 3.7, BUN 11.1, creatinine 0.6. AST of 46 ALT of 28 alk phos of 279. Troponin level has been negative. Patient is cleared for discharge. Please see medication reconciliation for a list of current medications. Thank you for allowing us to participate in the care of this patient. The impression and plan of care has been dictated by Emerita Mccloud, Nurse Practitioner as directed. Dr. Wiliam MD I have performed a history and physical examination and medical decision making of this patient, discussed the same with the dictator, and agree with the dictators assessment and plan as written, documented as a scribe. Based on total visit time, I have performed more than 50% of this visit. Patient Condition at Discharge: Fair Plan - Discharge Summary Discharge Rx Participant: No New Discharge Prescriptions: New Docusate [Colace] 200 mg PO BID cap Cefdinir [Omnicef] 300 mg PO BID 5 Days #10 cap Atorvastatin [Lipitor] 20 mg PO DAILY tab Nystatin 100,000 Unit/ml Susp [Mycostatin Oral Susp] 500,000 unit PO QID 7 Days ml Continue DULoxetine HCL [Cymbalta] 20 mg PO DAILY Alendronate Sodium [Fosamax] 70 mg PO TU Levothyroxine Sodium [Synthroid] 100 mcg PO DAILY Famotidine 20 mg PO BID Tacrolimus [Prograf] 0.5 mg PO BID Apixaban [Eliquis] 5 mg PO BID #60 tab Vitamin B Complex 1 cap PO Q48H Multivit-Min/Iron Fum/Folic AC [One-A-Day Women's Complete Tab] 1 tab PO Q48H tiZANidine [Zanaflex] 4 mg PO HS Changed oxyCODONE-APAP 10-325MG [Percocet 10-325 mg] 1 tab PO Q6HR PRN #4 PRN Reason: Pain Discontinued Atorvastatin [Lipitor] 10 mg PO DAILY Losartan [Cozaar] 50 mg PO DAILY Magnesium 250 mg PO HS Discharge Medication List DULoxetine HCL [Cymbalta] 20 mg PO DAILY 04/11/16 [History] Alendronate Sodium [Fosamax] 70 mg PO TU 07/19/17 [History] Levothyroxine Sodium [Synthroid] 100 mcg PO DAILY 12/08/19 [History] Famotidine 20 mg PO BID 04/08/23 [History] Multivit-Min/Iron Fum/Folic AC [One-A-Day Women's Complete Tab] 1 tab PO Q48H 02/07/24 [History] Tacrolimus [Prograf] 0.5 mg PO BID 02/07/24 [History] Apixaban [Eliquis] 5 mg PO BID #60 tab 02/10/24 [Rx] Vitamin B Complex 1 cap PO Q48H 07/03/24 [History] tiZANidine [Zanaflex] 4 mg PO HS 07/03/24 [History] Atorvastatin [Lipitor] 20 mg PO DAILY tab 07/11/24 [Rx] Cefdinir [Omnicef] 300 mg PO BID 5 Days #10 cap 07/11/24 [Rx] Docusate [Colace] 200 mg PO BID cap 07/11/24 [Rx] Nystatin 100,000 Unit/ml Susp [Mycostatin Oral Susp] 500,000 unit PO QID 7 Days ml 07/11/24 [Rx] oxyCODONE-APAP 10-325MG [Percocet 10-325 mg] 1 tab PO Q6HR PRN #4 07/11/24 [Rx] Follow up Appointment(s)/Referral(s): Brock Zimmerman DO [Primary Care Provider] - 1-2 days Elías Flowers MD [STAFF PHYSICIAN] - 1 Week (Please call ofc for appt with [facility] after DC from rehab. ) Juan Pablo Machado MD [STAFF PHYSICIAN] - 1 Week Celine Quezada MD [STAFF PHYSICIAN] - 1 Week Bright Renner MD [STAFF PHYSICIAN] - 1 Week Ambulatory/Diagnostic Orders: Basic Metabolic Panel [LAB.AMB] Location: None Selected Complete Blood Count w/diff [LAB.AMB] Time Frame: 3 Days, Location: None Selected Activity/Diet/Wound Care/Special Instructions: Monitor white blood cell count follow up with hematology in the office Continue oral cefdinir for 5 more days Continue oral nystatin for 7 more days Discharge Disposition: TRANSFER TO SNF/ECF
[2024-07-11 13:29] VITALS: BP 129/71; PULSE 56; RESP 17
--- NOTE | 2024-07-11 22:23 | PN ---
PROGRESS NOTE HISTORY OF PRESENT ILLNESS: A 73-year-old lady with paroxysmal atrial fibrillation and complex and multiple other medical problems. She is in the process of being transferred to a long-term facility. Her platelet count is around 61. She is on Eliquis. Handle Maker on the case has approved Eliquis use yesterday. She is doing fairly well and is free of new symptoms. Last night, she had sinus bradycardia. I am going to stop the metoprolol that she is on. PHYSICAL EXAMINATION: GENERAL: Comfortable at rest. VITAL SIGNS: Stable. CHEST: Reveals good air entry bilaterally. HEART: Reveals first and second heart sounds. No gallop. EXTREMITIES: Did not reveal any edema. Peripheral pulses are felt. LABORATORY DATA: Labs show that the white cell count is 50, hemoglobin is 10, platelet count is low at 61. ASSESSMENT: 1. Paroxysmal atrial fibrillation. 2. Sinus bradycardia. PLAN: 1. We will stop the beta barrett. 2. We will continue with the Eliquis. There is thrombocytopenia, but Handle Maker is on the case. MMMICHELLEL / LESN: [id number] /
== END 2024-07-11 17:21 | DRG 808 ==
LOC: EC 18:05 → 4SSUR 22:20 → 5NMEDONC 22:30
PROVIDERS: ADMIT Family Medicine; ATTEND Family Medicine
DX: D61.810 Antineoplastic chemotherapy induced pancytopenia (principal); G93.41 Metabolic encephalopathy; C78.01 Secondary malignant neoplasm of right lung; C77.0 Secondary and unspecified malignant neoplasm of lymph nodes of head, face and neck; C79.72 Secondary malignant neoplasm of left adrenal gland; F05 Delirium due to known physiological condition; Z94.4 Liver transplant status; C78.7 Secondary malignant neoplasm of liver and intrahepatic bile duct; M80.88XA Other osteoporosis with current pathological fracture, vertebra(e), initial encounter for fracture; E86.0 Dehydration; D70.9 Neutropenia, unspecified; I27.21 Secondary pulmonary arterial hypertension; F10.21 Alcohol dependence, in remission; I48.0 Paroxysmal atrial fibrillation; I10 Essential (primary) hypertension; E03.9 Hypothyroidism, unspecified; E83.42 Hypomagnesemia; T45.1X5A Adverse effect of antineoplastic and immunosuppressive drugs, initial encounter; D63.0 Anemia in neoplastic disease; R50.81 Fever presenting with conditions classified elsewhere; I25.10 Atherosclerotic heart disease of native coronary artery without angina pectoris; K21.9 Gastro-esophageal reflux disease without esophagitis; F41.0 Panic disorder [episodic paroxysmal anxiety]; Z79.01 Long term (current) use of anticoagulants; M40.209 Unspecified kyphosis, site unspecified; H35.30 Unspecified macular degeneration; G89.29 Other chronic pain; H54.3 Unqualified visual loss, both eyes; H26.9 Unspecified cataract; H02.401 Unspecified ptosis of right eyelid; Z95.5 Presence of coronary angioplasty implant and graft; Z79.890 Hormone replacement therapy; Z79.899 Other long term (current) drug therapy; Z79.83 Long term (current) use of bisphosphonates; Z85.3 Personal history of malignant neoplasm of breast; Z92.3 Personal history of irradiation; Z90.12 Acquired absence of left breast and nipple; Z86.73 Personal history of transient ischemic attack (TIA), and cerebral infarction without residual deficits; Z86.718 Personal history of other venous thrombosis and embolism; Z87.891 Personal history of nicotine dependence; Z87.19 Personal history of other diseases of the digestive system
CPT/HCPCS: 36415; 51798; 70450; 70543; 70553; 71045; 71275; 80053; 80202; 81001; 82140; 82565; 82607; 83605; 83690; 83735; 83880; 84100; 84132; 84484; 85025; 85610; 85730; 87040; 87636; 93005; 93306; 94760; 95816; 96361; 96365; 96366; 96367; 96368; 96375; 96376; 99285